=== PATIENT | female | born 1985 | race Caucasian/White ===

== ENCOUNTER 2023-06-25 17:29 | Emergency (ER) | payer OTHER, SELFPAY ==
[2023-06-25 17:36] VITALS: BP 123/75; PULSE 71; RESP 16; TEMP 36.6; O2SAT 100; BMI 31.6
--- NOTE | 2023-06-25 18:19 | ED.GENADUL1 ---
HPI - General Adult General Chief complaint: Headache Stated complaint: HEADACHE Time Seen by Provider: 06/25/23 17:50 Source: patient Mode of arrival: walk-in History of Present Illness HPI narrative: patient is a 38-year-old female presents to the emergency department for the evaluation of a headache. She states that the headache is in the same location that she typically has headaches, front of the scalp and posterior scalp. She denies visual changes, fevers. She states she was sick over the last two days with vomiting and diarrhea and is concerned that she may be dehydrated. She denies any head injury. She states she took Tylenol, Aleve and Zofran prior to arrival this morning without improvement. Headache has been present for one day. She is not concerned for . She states that she has had headaches for years, she has never had a CT of her brain related to the headaches. She is not managed by a neurologist or her PCP for the headaches. Related Data Previous Rx's Medication Instructions Recorded ketorolac 10 mg tablet 10 mg PO TID PRN pain #10 tabs 06/25/23 metoclopramide HCl 10 mg tablet 10 mg PO Q6H PRN nausea and 06/25/23 (Reglan) vomiting #12 tabs Allergies Allergy/AdvReac Type Severity Reaction Status Date / Time acetaminophen [From Vicodin] Allergy Severe Verified 06/25/23 17:36 hydrocodone [From Vicodin] Allergy Severe Verified 06/25/23 17:36 Penicillins Allergy Severe Verified 06/25/23 17:36 Review of Systems ROS Constitutional Denies: fever or chills Ears, nose, mouth, and throat Denies: throat pain Cardiovascular Denies: chest pain Respiratory Denies: shortness of breath or cough Gastrointestinal Reports: nausea Musculoskeletal Denies: back pain or neck pain Integumentary/Breast Denies: rash Neurological Reports: headache Hematologic/Lymphatic Denies: easy bruising Allergic/Immunologic Denies: hives Exam Narrative Exam Narrative: Gen.: Awake, alert, in no distress Head: Normocephalic, atraumatic ENT: Moist mucous membranes Neck: C-spine nontender, no nuchal rigidity, no meningismus Respiratory: No respiratory distress Extremities: Moves extremities equally, no injuries noted Psych: Normal mood and affect Neuro: No focal neuro deficit Skin: Warm, dry, intact Constitutional Vital Signs, click to edit/add: Last Vital Signs Temp 97.8 F 06/25/23 17:36 Pulse 71 06/25/23 17:36 Resp 16 06/25/23 17:36 BP 123/75 06/25/23 17:36 Pulse Ox 100 06/25/23 17:36 O2 Del Method Room Air 06/25/23 17:36 Course Vital Signs Vital signs: Vital Signs Temperature 97.8 F 06/25/23 17:36 Pulse Rate 71 06/25/23 17:36 Respiratory Rate 16 06/25/23 17:36 Blood Pressure 123/75 06/25/23 17:36 Pulse Oximetry 100 06/25/23 17:36 Oxygen Delivery Method Room Air 06/25/23 17:36 Temperature 97.8 F 06/25/23 17:36 Pulse Rate 71 06/25/23 17:36 Respiratory Rate 16 06/25/23 17:36 Blood Pressure 123/75 06/25/23 17:36 Pulse Oximetry 100 06/25/23 17:36 Oxygen Delivery Method Room Air 06/25/23 17:36 Medical Decision Making MDM Narrative Medical decision making narrative: CT of the brain was performed as the patient has not had previous imaging. This is unremarkable. patient has a benign neuro exam, normal vital signs. She was treated with IV fluids, Toradol, Norflex, Reglan, Benadryl. She reports improvement in her symptoms. She will be discharged home with Toradol and Reglan as needed. Follow-up with PCP and return to the Emergency Room if symptoms change or worsen. Medical Records Medical records reviewed: Yes I reviewed the patient's medical records Imaging Data CT scan - head: Attestation: I have reviewed the pertinent imaging results. Radiologist's impression: Procedure: CT head/brain wo con EXAM: CT head/brain wo con HISTORY: Headache COMPARISON: None. TECHNIQUE: Axial CT scans through the head were obtained without IV contrast administration. Dose reduction techniques were achieved by using: automated exposure control and/or adjustment of mA and /or kV according to patient size and/or use of iterative reconstruction technique. FINDINGS: There is no evidence of acute intracranial hemorrhage or abnormal extra-axial fluid collection. No mass effect or midline shift is seen. There is no evidence of large acute territorial infarction. There is no hydrocephalus. To the limit of CT, the posterior fossa appears unremarkable. No definite acute fracture is identified. Soft tissues are unremarkable. The visualized orbits show no abnormal mass. The visualized paranasal sinuses show no air-fluid level. Mastoid air cells are clear. IMPRESSION: No CT evidence of acute intracranial abnormality. Electronically authenticated by: VERA REYES Date: 06/25/2023 19:12 Discharge Plan Discharge Chief Complaint: Headache Clinical Impression: Headache Patient Disposition: Home, Self-Care Time of Disposition Decision: 19:33 Condition: Good Prescriptions / Home Meds: New ketorolac 10 mg tablet 10 mg PO TID PRN (Reason: pain) Qty: 10 0RF metoclopramide HCl [Reglan] 10 mg tablet 10 mg PO Q6H PRN (Reason: nausea and vomiting) Qty: 12 0RF Rx Instructions: Take with benadryl as needed for headache Instructions: Acute Headache (ED) Stand Alone Forms: Portal Instructions Referrals: Physician,Non-Staff, MD [Primary Care Provider] - 1 week
[2023-06-25] MEDS: KETOROLAC TROMETHAMINE 30 MG/ML VIAL IVP (18:30)
[2023-06-25] MEDS: 0.9 % SODIUM CHLORIDE 1,000 ML 1000 ML IV (18:30)
[2023-06-25] MEDS: DIPHENHYDRAMINE HCL 50 MG/ML (1ML) VIAL 25 MG IV (18:31)
[2023-06-25] MEDS: ORPHENADRINE 60 MG/ 2 ML VIAL IV (18:31)
[2023-06-25] MEDS: METOCLOPRAMIDE HCL 10 MG/2 ML VIAL INJ (18:31)
--- NOTE | 2023-06-25 18:58 | CT_ITS ---
The [address] [address] Patient Name: SARA DORANTES MRN: [id number] date: 1985 Sex: F Assigned Patient Location: ER Current Patient Location: ER Accession/Order Number: [id number] Exam Date: 06/25/2023 18:54 Report Date: 06/25/2023 19:12 At the request of: CHANO MIRANDA Procedure: CT head/brain wo con EXAM: CT head/brain wo con HISTORY: Headache COMPARISON: None. TECHNIQUE: Axial CT scans through the head were obtained without IV contrast administration. Dose reduction techniques were achieved by using: automated exposure control and/or adjustment of mA and /or kV according to patient size and/or use of iterative reconstruction technique. FINDINGS: There is no evidence of acute intracranial hemorrhage or abnormal extra-axial fluid collection. No mass effect or midline shift is seen. There is no evidence of large acute territorial infarction. There is no hydrocephalus. To the limit of CT, the posterior fossa appears unremarkable. No definite acute fracture is identified. Soft tissues are unremarkable. The visualized orbits show no abnormal mass. The visualized paranasal sinuses show no air-fluid level. Mastoid air cells are clear. CT/CT head/brain wo con IMPRESSION: No CT evidence of acute intracranial abnormality. Electronically authenticated by: VERA REYES Date: 06/25/2023 19:12
== END 2023-06-25 19:53 | disposition home or self-care (01) ==
PROVIDERS: Emergency Provider Emergency Medicine
DX: R51.9 Headache, unspecified (principal)
CPT/HCPCS: 70450; 96374; 96375; 99285

== ENCOUNTER 2023-12-08 09:00 | Emergency (ER) | payer SELFPAY ==
[2023-12-08 09:06] VITALS: BP 123/74; PULSE 65; RESP 18; TEMP 37.2; O2SAT 99; BMI 33.0
--- NOTE | 2023-12-08 09:17 | XR_ITS ---
The [address] [address] Patient Name: SARA DORANTES MRN: [id number] date: 1985 Sex: F Assigned Patient Location: ER Current Patient Location: ER Accession/Order Number: [id number] Exam Date: 12/08/2023 09:30 Report Date: 12/08/2023 09:53 At the request of: SHAUN HARKINS Procedure: XR hip RT 2V w/ pelvis PROCEDURE: XR hip RT 2V w/ pelvis COMPARISON: None. HISTORY: injury FINDINGS: BONES:No fracture, acute abnormality, or significant arthropathy. SOFT TISSUES:Negative. No visible soft tissue swelling. EFFUSION:None visible. OTHER: IUD mid pelvis XR/XR hip RT 2V w/ pelvis IMPRESSION: No acute fracture Electronically authenticated by: SIENA THURMAN Date: 12/08/2023 09:53
--- NOTE | 2023-12-08 09:17 | XR_ITS ---
The [address] [address] Patient Name: SARA DORANTES MRN: [id number] date: 1985 Sex: F Assigned Patient Location: ER Current Patient Location: ER Accession/Order Number: [id number] Exam Date: 12/08/2023 09:30 Report Date: 12/08/2023 09:46 At the request of: SHAUN HARKINS Procedure: XR forearm RT 2V XR forearm RT 2V, 12/08/2023 9:30 AM EST, [facility]001 INDICATION: injury COMPARISON: None TECHNIQUE: Two views are submitted. FINDINGS: The bones appear well mineralized. No acute fracture or subluxation is identified. The joint spaces are maintained. No destructive osseous process is identified. The visualized soft tissues appear unremarkable. XR/XR forearm RT 2V IMPRESSION: No acute traumatic abnormality or malalignment. Electronically authenticated by: MEG GANN Date: 12/08/2023 09:46
--- NOTE | 2023-12-08 09:54 | ED_ITS ---
HPI - Trauma General Chief Complaint: Extremity Injury, Upper Stated Complaint: upper extremity injury/ fall Time Seen by Provider: 12/08/23 09:35 Mode of arrival: walk-in Limitations: no limitations History of Present Illness HPI narrative: The patient fell at home on wooden steps outside of [place] house, landing onto concrete pathway, possibly some nearby stones, injuring the right forearm and the right hip. No head injury. No LOC. No injury to the neck or back. This happened just a short time prior to ED arrival. She is uncertain about her tetanus status. Related Data Previous Rx's Medication Instructions Recorded methocarbamol 750 mg tablet 750 mg PO Q6H PRN pain #30 tabs 12/08/23 Allergies Allergy/AdvReac Type Severity Reaction Status Date / Time hydrocodone [From Vicodin] Allergy Severe Verified 06/25/23 17:36 Penicillins Allergy Severe Verified 06/25/23 17:36 [facility] Social History Smoking status: Never smoker Exam Narrative Exam Narrative: Nurses note and vital signs reviewed and patient is not hypoxic. afebrile General: The patient appears well and in no apparent distress. Patient is resting comfortably on cart. GCS = 15. Skin: Warm, dry, no pallor noted. Head: Normocephalic, atraumatic Neck: Supple, trachea mid-line, no tenderness, no lymphadenopathy. Full ROM and no cervical spinal tenderness. The patient has no step-offs or crepitus noted Eyes: PERRLA, EOMI ENT: no facial injury Cardiovascular: Regular Rate and Rhythm Respiratory: Patient is in no distress, no accessory muscle use, lungs are clear to auscultation, no wheezing, rales or rhonchi Back: No tenderness to palpation of thoracic and lumbar spine. Musculoskeletal: tenderness to the right forearm with pain with any ROM. Right hip tenderness and pain with movement of the right hip. No additional sign of long bone fracture, no additional tenderness or areas of swelling. Pulses at femoral, DP, PT, and popiteal were 2+ bilaterally. Moves all four extremities in all modalities with 5/5 strength. Neurological: A&O x4, normal equal sales enablement lead strength, normal finger to nose, normal speech, normal coordination, normal motor, normal sensory. Psychiatric: Cooperative Constitutional Vital Signs, click to edit/add: Last Vital Signs Temp 98.9 F 12/08/23 09:06 Pulse 65 12/08/23 09:06 Resp 18 12/08/23 09:06 BP 123/74 12/08/23 09:06 Pulse Ox 99 12/08/23 09:06 O2 Del Method Room Air 12/08/23 09:06 Course Vital Signs Vital signs: Vital Signs Temperature 98.9 F 12/08/23 09:06 Pulse Rate 65 12/08/23 09:06 Respiratory Rate 18 12/08/23 09:06 Blood Pressure 123/74 12/08/23 09:06 Pulse Oximetry 99 12/08/23 09:06 Oxygen Delivery Method Room Air 12/08/23 09:06 Temperature 98.9 F 12/08/23 09:06 Pulse Rate 65 12/08/23 09:06 Respiratory Rate 18 12/08/23 09:06 Blood Pressure 123/74 12/08/23 09:06 Pulse Oximetry 99 12/08/23 09:06 Oxygen Delivery Method Room Air 12/08/23 09:06 MDM - Trauma MDM Narrative Medical decision making narrative: Triage nurse ordered x-rays of the right forearm and right hip. According to the radiologist, no acute fractures or other acute abnormalities were identified. She has difficulty swallowing pills and wants to take advil at home for pain. I also prescribed robaxin as the right buttock contusion would benefit from that. Patient given IM tetanus before discharge. She said she does not need a work note. Imaging Data xr hip & xr forearm: Radiologist's impression: ITS Impressions Forearm X-Ray 12/08/23 09:17 IMPRESSION: No acute traumatic abnormality or malalignment. Electronically authenticated by: MEG GANN Date: 12/08/2023 09:46 Hip/Pelvis X-Ray 12/08/23 09:17 IMPRESSION: No acute fracture Electronically authenticated by: SIENA THURMAN Date: 12/08/2023 09:53 Discharge Plan Discharge Chief Complaint: Extremity Injury, Upper Clinical Impression: Acute pain of right hip, Pain in right forearm, Abrasion, multiple sites, Multiple contusions Patient Disposition: Home, Self-Care Time of Disposition Decision: 10:06 Prescriptions / Home Meds: New methocarbamol 750 mg tablet 750 mg PO Q6H PRN (Reason: pain) Qty: 30 0RF Instructions: Contusion in Adults (ED), Abrasion (ED) Stand Alone Forms: Portal Instructions Referrals: Physician,Non-Staff, MD [Primary Care Provider] - 1 week
[2023-12-08] MEDS: ADACEL DIPH,PERTUSS(ACELL),TET VAC/PF 0.5 ML ADULT SYRINGE IM (10:14)
[2023-12-08] MEDS: BACITRACIN 0.9 GM PACKET 1 PACKET TOPICAL (10:16)
== END 2023-12-08 10:17 | disposition home or self-care (01) ==
PROVIDERS: Emergency Provider Emergency Medicine
DX: S30.0XXA Contusion of lower back and pelvis, initial encounter (principal); T14.8XXA Other injury of unspecified body region, initial encounter; M79.631 Pain in right forearm; M25.551 Pain in right hip; Z23 Encounter for immunization; W10.9XXA Fall (on) (from) unspecified stairs and steps, initial encounter
CPT/HCPCS: 73090; 73502; 90471; 90715; 99284

== ENCOUNTER 2023-12-25 14:06 | Outpatient (OUT) | payer SELFPAY ==
--- NOTE | 2023-12-25 14:20 | XR_ITS ---
[address] [address] Patient Name: SARA DORANTES MRN: [id number] date: 1985 Sex: F Assigned Patient Location: [facility] Current Patient Location: Accession/Order Number: [id number] Exam Date: 12/25/2023 14:15 Report Date: 12/28/2023 07:19 At the request of: YADIRA SIMPSON Procedure: XR elbow RT min 3V PROCEDURE: XR elbow RT min 3V COMPARISON: None. HISTORY: Right Elbow Pain M25.521 FINDINGS: BONES:No fracture, acute abnormality, or significant arthropathy. SOFT TISSUES:Negative. No visible soft tissue swelling. EFFUSION:None visible. OTHER: Negative. XR/XR elbow RT min 3V IMPRESSION: No acute radiographic abnormality Electronically authenticated by: SIENA THURMAN Date: 12/28/2023 07:19
--- OUTSIDE RECORDS SUMMARY | 2023-12-25 14:20 | XMS_ITS | CCD ---
Author Name Unknown Address [address] [place] [address] Organization [facility] Care Team Providers Care Relish Blender Name Role Phone YADIRA SIMPSON Primary Care Physician Whit Salinas Unavailable Marco Antonio Goldsmith Unavailable YADIRA SIMPSON Primary Care Unavailable LION, DAISY Admitting Unavailable LION, DAISY Attending Unavailable DAISY SEYMOUR Consulting Unavailable TAI GOMEZ Consulting Unavailable NGA, DR DANY Morrissey Admitting Unavailable NGA, DR DANY Morrissey Attending Unavailable TATIANA YADIRA Primary Care Unavailable NGA, DR DANY Morrissey Consulting Unavailable DALJIT SMITH Consulting Unavailable BELTRAN ., DR SAINI Admitting Unavailable BELTRAN ., DR SAINI Attending Unavailable TATIANA, YADIRA Primary Care Unavailable BELTRAN ., DR SAINI Consulting Unavailable DAISY SEYMOUR Consulting Unavailable DAISY SEYMOUR Admitting Unavailable LION, DAISY Attending Unavailable TATIANA, YADIRA Primary Care Unavailable JEFF LOMBARDI Consulting Unavailable TATIANA, YADIRA Primary Care Unavailable PAY ., DR SOLORZANO Admitting Unavailable PAY ., DR SOLORZANO Attending Unavailable PAY ., DR SOLORZANO Consulting Unavailable DALEY ., MR GIVENS Consulting Unavailable TATIANA YADIRA Primary Care Unavailable VADIM ., ELIZABETH Admitting Unavailable VADIM ., ELIZABETH Attending Unavailable VADIM ., ELIZABETH Consulting Unavailable Willie MONTERROSO Attending Unavailable Dany SYLVESTER Attending Unavailable Allergies Allergy Classification Reported Allergen(s) Allergy Type Date of Onset Reaction(s) Facility (3 sources) Acetaminophen / HYDROcodone; Translations: [acetaminophen-hy drocodone] Drug Allergy Vomiting (disorder) [facility] [place] (5 sources) Codeine; Translations: [codeine] Drug Allergy Vomiting (disorder) [facility] (6 sources) Penicillins; Translations: [penicillins] Drug allergy 04-10-20 14 Ulcer of mouth (disorder) [facility] (2 sources) Codone Propensity to adverse reactions vomiting Punchbowl Other (2 sources) Seasonal allergy; Translations: [Seasonal] Allergy to substance Unknown (qualifier value) [facility] (1 source) Codeine Drug Allergy 04-10-20 14 [facility] (1 source) HYDROcodone Drug Allergy 04-10-20 14 [facility] Medications Current Medications Medication Drug Class(es) Dates Sig (Normalized) Sig (Original) azithromycin 250 mg oral tablet (3 sources) Macrolide Antimicrobial Start: 01-03-2015 Azithromycin 250 MG 2 tablets on the first day, then 1 tablet daily for 4 days Orally Once a day for 5 day(s) Feb, Active Zyrtec (1 source) Histamine-1 Receptor Antagonist Start: 03-04-2023 Zyrtec Daily Start Date: 03/04/23 Status: Ordered fluticasone propionate 0.05 mg/actuat metered dose nasal spray (1 source) Corticosteroid Start: 03-07-2023 take 1 spray(s) nasal route twice daily Fluticasone Propionate 50 MCG/ACT 1 spray in each nostril Nasally Twice a day for 14 days Feb, Active pantoprazole 40 mg delayed release oral tablet (2 sources) Proton Pump Inhibitor Start: 11-19-2020 take 1 tablet by mouth once daily Pantoprazole [address] Tab 40 mg = 1 tab(s), Oral, Daily, Refills(s) 0 Start Date: 11/19/20 Status: Ordered sucralfate 1000 mg oral tablet (2 sources) Aluminum Complex Start: 11-19-2020 sucralfate 1 g Tab 1 gm = 1 tab(s), Oral, QIDACHS, Refills(s) 0 Start Date: 11/19/20 Status: Ordered Completed/Discontinued Medications Medication Drug Class(es) Dates Sig (Normalized) Sig (Original) methylPREDNISolone 4 mg oral tablet (2 sources) Corticosteroid Start: 3 methylPREDNISolone 4 MG as directed Orally Once a day for 6 days Nov, Not-Taking Problems Active Problems Problem Classification Problem Date Documented Da te Episodic/Chronic Abdominal pain (3 sources) Right lower quadrant pain; Translations: [RIGHT LOWER QUADRANT PAIN] Onset: 3 Episodic Anxiety disorders (2 sources) Anxiety 11-19-2020 Chronic Calculus of urinary tract (9 sources) Ureteric stone; Translations: [Calculus of ureter] Onset: 3 Episodic Deficiency and other anemia (1 source) Anemia 03-04-2023 Episodic Esophageal disorders (3 sources) Gastroesophageal reflux disease without esophagitis; Translations: [Gastro-esophageal reflux disease without esophagitis] Onset: 2 Chronic Gastritis and duodenitis (2 sources) Chronic gastritis 11-19-2020 Chronic Headache; including migraine (1 source) Headache 03-04-2023 Episodic Immunizations and screening for infectious disease (1 source) Encounter for screening for human papillomavirus (HPV); Translations: [ENC SCREENING HUMAN PAPILLOMAVIRUS] Onset: 3 Episodic Nonspecific chest pain (2 sources) Chest pain 11-22-2020 Episodic Osteoarthritis (1 source) Arthritis 03-04-2023 Chronic Other diseases of kidney and ureters (1 source) Hydronephrosis with renal and ureteral calculous obstruction; Translations: [HYDRONPHROS RENL AND URETRL CALCUL OBST] Onset: 3 Episodic Other gastrointestinal disorders (3 sources) Dysphagia; Translations: [Dysphagia, unspecified] Onset: 2 Episodic Other lower respiratory disease (3 sources) Cough; Translations: [Cough, unspecified] Onset: 2 Episodic Other nutritional; endocrine; and metabolic disorders (2 sources) Overweight in adulthood with body mass index of 25 or more but less than 30 06-26-2022 Episodic Other screening for suspected conditions (not mental disorders or infectious disease) (4 sources) Encounter for screening for malignant neoplasm of cervix; Translations: [ENC SCREENING MALIG NEOPLASM CERV] Onset: 3 Episodic Other upper respiratory infections (3 sources) Maxillary sinusitis; Translations: [Maxillary sinusitis] Onset: 2 Chronic Otitis media and related conditions (1 source) Unspecified nonsuppurative otitis media, right ear Episodic Residual codes; unclassified (2 sources) Chronic back pain 11-19-2020 Episodic Spondylosis; intervertebral disc disorders; other back problems (2 sources) Chronic neck pain 11-19-2020 Episodic Unclassified (2 sources) COUGH, UNSPECIFIED; Translations: [COUGH, UNSPECIFIED] Onset: 2 Unclassified (1 source) CONTACT W/AND (SUSP) EXPOS COVID-19; Translations: [CONTACT W/AND (SUSP) EXPOS COVID-19] Onset: 2 Past or Other Problems Problem Classification Problem Date Documented Da te Episodic/Chronic Allergic reactions (1 source) Other allergy, initial encounter; Translations: [OTHER ALLERGY INITIAL ENCOUNTER] Onset: 06-10-2022 Episodic Conditions associated with dizziness or vertigo (4 sources) Dizziness and giddiness; Translations: [DIZZINESS AND GIDDINESS] Onset: 09-26-2022 Episodic Inflammation; infection of eye (except that caused by tuberculosis or sexually transmitteddisease) (4 sources) Other mucopurulent conjunctivitis, right eye; Translations: [OTH MUCOPURULNT CONJUNCTIVIT RT EYE] Onset: 06-09-2022 Episodic Other aftercare (1 source) Other custodial (current) drug therapy; Translations: [OTH [employer] CURRENT DRUG THERAPY] Onset: 09-29-2022 Episodic Other upper respiratory infections (2 sources) Acute pansinusitis, unspecified; Translations: [Acute upper respiratory infection, unspecified] Onset: 11-11-2022 Episodic Unclassified (1 source) Cough R05.9 Unclassified (1 source) COUGH, UNSPECIFIED; Translations: [COUGH, UNSPECIFIED] Onset: 11-08-2022 Results Test Name Value Interpretation Reference Range Facility PAP ACOG PANEL 2: 30 to 65on 03-17-2023 . . [facility] Comment on above: Result Comment: Performed at: WB Performed By: #### [id number] #### [facility] [address] [place] [address] Dr. Jamil Oropeza Age Gdln ACOG Testing 30-65 Normal [facility] Comment on above: Performed By: #### [id number] #### [facility] [address] [address] [address] Jamil Oropeza DIAGNOSIS: Comment Normal [facility] Comment on above: Result Comment: NEGATIVE FOR INTRAEPITHE LIAL LESION OR MALIGNANCY. Performed at: WB Performed By: #### [id number] #### [facility] [address] [place] [address] Dr. Jamil Oropeza HPV Aptima Negative Normal Negative [facility] Comment on above: Result Comment: This nucleic acid amplif ication test detects fourteen high-risk HPV types (16,18,31,33,35,39,45,51,52,56,58,59,66,68) without differentiation. Performed at: =G Performed By: #### [id number] #### [facility] [address] [place] [address] Dr. Jamil Oropeza HPV Genotype Reflex Comment Normal [facility] Comment on above: Result Comment: Criteria not met, HPV Ge notype not performed. Performed at: WB Performed By: #### [id number] #### [facility] [address] [place] [address] Dr. Jamil Oropeza Methodology: Comment Normal [facility] Comment on above: Result Comment: This liquid based ThinPr ep(R) pap test was screened with the use of an image guided system. Performed at: WB Performed By: #### [id number] #### [facility] [address] [place] [address] Dr. Jamil Oropeza Note: Comment Normal [facility] Comment on above: Result Comment: The Pap smear is a scree alana test designed to aid in the detection of premalignant and malignant conditions of the uterine cervix. It is not a diagnostic procedure and should not be used as the sole means of detecting cervical cancer. Both false-positive and false-negative reports do occur. . Performed at: WB Performed By: #### [id number] #### [facility] [address] [place] [address] Dr. Jamil Oropeza Performed by: Comment Normal [facility] Comment on above: Result Comment: Veronica Urban, Cytotech nologist (ASCP) Performed at: WB Performed By: #### [id number] #### [facility] [address] [address] [address] Jamil Oropeza Specimen adequacy: Comment Normal [facility] Comment on above: Result Comment: Satisfactory for evaluat ion. Endocervical and/or squamous metaplastic cells (endocervical component) are present. Performed at: WB Performed By: #### [id number] #### [facility] [address] [address] [address] Jamil Oropeza COVID Quick Testingon 2022 Result Negative Punchbowl Other Ambulatory Visit Summaryon 0 03-04-2023 Ambulatory Visit Summary SARA DORANTES :1985 Visit Date:03/04/2023 Ambulatory Visit Instructions Your Diagnosis Ureteral stone Kidney stone Tests Performed Urnls Dip Stick Auto w/o Microscopy POC 76[address] Your Care Team Attending Physician - Dany SYLVESTER MD Primary Care Physician - YADIRA SIMPSON CNP This Is Your Medications List Contact prescribing physician if questions or concerns cetirizine (Zyrtec) pantoprazole (Pantoprazole [address] Tab) sucralfate (sucralfate 1 g Tab) Procedures Performed EGD - Esophagogastroduodenoscopy (11/16/2016). Discharge Vitals Heart Rate (Peripheral) 71 Respiratory Rate 16 Blood Pressure 127/75 Height 165 cm Height 65 in Weight 84 kg Weight 184.8 lb BMI 30.85 What to do next You Need to Schedule the Following Appointments Follow Up with Dany SYLVESTER MD, URL When: Where: [address] [place], [place] [address] [address] [place] [id number]- Medications What How Much When Instructions Unchanged cetirizine (Zyrtec) Every day Contact prescribing physician if questions or concerns Unchanged pantoprazole (Pantoprazole [address] Tab) 1 Tablets By Mouth Every day Contact prescribing physician if questions or concerns Unchanged sucralfate (sucralfate 1 g Tab) 1 Tablets By Mouth Four times a day (before meals and at bedtime) Contact prescribing physician if questions or concerns Test Results Urnls Dip Stick Auto w/o Microscopy POC 11608 (03/04/2023) Bilirubin Urine Dipstick - Negative Blood Urine Dipstick - 2+ Moderate Glucose Urine Dipstick - Negative Ketones Urine Dipstick - Negative Leukocytes Urine Dipstick - Trace Nitrite Urine Dipstick - Negative Protein Urine Dipstick - Negative Specific [place] Urine Dipstick - 1.010 Urine Appearance Urine Dipstick - Clear Urine Color Urine Dipstick - Light yellow Urobilinogen Urine Dipstick - Normal 0.2-1 EU/dl pH Urine Dipstick - 7.5 Allergies Seasonal (Unknown) Vicodin (Vomiting) codeine (Vomiting) penicillins (Oral ulcer) Problems Ongoing - Any problem that you are currently receiving treatment for. Anemia Anxiety Arthritis BMI 29.0-29.9,adult Chest pain due to GERD Chronic back pain Chronic gastritis Chronic neck pain Cough Dysphagia GERD (gastroesophageal reflux disease) Headache Kidney stone Kidney stones Ureteral stone Education Materials Kidney Stones Kidney stones are rock-like masses that form inside of the kidneys. Kidneys are organs that make pee (urine). A kidney stone may move into other parts of the urinary tract, including: ? The tubes that connect the kidneys to the bladder (ureters). ? The bladder. ? The tube that carries urine out of the body (urethra). Kidney stones can cause very bad pain and can block the flow of pee. The stone usually leaves your body (passes) through your pee. You may need to have a doctor take out the stone. What are the causes? Kidney stones may be caused by: ? A condition in which certain glands make too much parathyroid hormone (primary hyperparathyroidism). ? A buildup of a type of crystals in the bladder made of a chemical called uric acid. The body makes uric acid when you eat certain foods. ? Narrowing (stricture) of one or both of the ureters. ? A kidney blockage that you were born with. ? Past surgery on the kidney or the ureters, such as gastric bypass surgery. What increases the risk? You are more likely to develop this condition if: ? You have had a kidney stone in the past. ? You have a family history of kidney stones. ? You do not drink enough water. ? You eat a diet that is high in protein, salt (sodium), or sugar. ? You are overweight or very overweight (obese). What are the signs or symptoms? Symptoms of a kidney stone may include: ? Pain in the side of the belly, right below the ribs (flank pain). Pain usually spreads (radiates) to the groin. ? Needing to pee often or right away (urgently). ? Pain when going pee (urinating). ? Blood in your pee (hematuria). ? Feeling like you may vomit (nauseous). ? Vomiting. ? Fever and chills. How is this treated? Treatment depends on the size, location, and makeup of the kidney stones. The stones will often pass out of the body through peeing. You may need to: ? Drink more fluid to help pass the stone. In some cases, you may be given fluids through an IV tube put into one of your veins at the hospital. ? Take medicine for pain. ? Make changes in your diet to help keep kidney stones from coming back. Sometimes, medical procedures are needed to remove a kidney stone. This may involve: ? A procedure to break up kidney stones using a beam of light (laser) or shock waves. ? Surgery to remove the kidney stones. Follow these instructions at home: Medicines ? Take uebl-vcy-thhwowa and prescription medicines only (more content not included)... Normal [facility] Formson 03-04-2023 Forms [id number]:127 [facility] Forms [id number]:127 [facility] Patient Educationon 03-04-20 23 Patient Education Urology Kidney Stones Kidney stones are rock-like masses that form inside of the kidneys. Kidneys are organs that make pee (urine). A kidney stone may move into other parts of the urinary tract, including: ? The tubes that connect the kidneys to the bladder (ureters). ? The bladder. ? The tube that carries urine out of the body (urethra). Kidney stones can cause very bad pain and can block the flow of pee. The stone usually leaves your body (passes) through your pee. You may need to have a doctor take out the stone. What are the causes? Kidney stones may be caused by: ? A condition in which certain glands make too much parathyroid hormone (primary hyperparathyroidism). ? A buildup of a type of crystals in the bladder made of a chemical called uric acid. The body makes uric acid when you eat certain foods. ? Narrowing (stricture) of one or both of the ureters. ? A kidney blockage that you were born with. ? Past surgery on the kidney or the ureters, such as gastric bypass surgery. What increases the risk? You are more likely to develop this condition if: ? You have had a kidney stone in the past. ? You have a family history of kidney stones. ? You do not drink enough water. ? You eat a diet that is high in protein, salt (sodium), or sugar. ? You are overweight or very overweight (obese). What are the signs or symptoms? Symptoms of a kidney stone may include: ? Pain in the side of the belly, right below the ribs (flank pain). Pain usually spreads (radiates) to the groin. ? Needing to pee often or right away (urgently). ? Pain when going pee (urinating). ? Blood in your pee (hematuria). ? Feeling like you may vomit (nauseous). ? Vomiting. ? Fever and chills. How is this treated? Treatment depends on the size, location, and makeup of the kidney stones. The stones will often pass out of the body through peeing. You may need to: ? Drink more fluid to help pass the stone. In some cases, you may be given fluids through an IV tube put into one of your veins at the hospital. ? Take medicine for pain. ? Make changes in your diet to help keep kidney stones from coming back. Sometimes, medical procedures are needed to remove a kidney stone. This may involve: ? A procedure to break up kidney stones using a beam of light (laser) or shock waves. ? Surgery to remove the kidney stones. Follow these instructions at home: Medicines ? Take vobn-ljw-pmcuijp and prescription medicines only as told by your doctor. ? Ask your doctor if the medicine prescribed to you requires you to avoid driving or using heavy machinery. Eating and drinking ? Drink enough fluid to keep your pee pale yellow. You may be told to drink at least 8?10 glasses of water each day. This will help you pass the stone. ? If told by your doctor, change your diet. This may include: ? Limiting how much salt you eat. ? Eating more fruits and vegetables. ? Limiting how much meat, poultry, fish, and eggs you eat. ? Follow instructions from your doctor about eating or drinking restrictions. General instructions ? Collect pee samples as told by your doctor. You may need to collect a pee sample: ? 24 hours after a stone comes out. ? 8?12 weeks after a stone comes out, and every 6?12 months after that. ? Strain your pee every time you pee (urinate), for as long as told. Use the strainer that your doctor recommends. ? Do not throw out the stone. Keep it so that it can be tested by your doctor. ? Keep all follow-up visits as told by your doctor. This is important. You may need follow-up tests. How is this prevented? To prevent another kidney stone: ? Drink enough fluid to keep your pee pale yellow. This is the best way to prevent kidney stones. ? Eat healthy foods. ? Avoid certain foods as told by your doctor. You may be told to eat less protein. ? Stay at a healthy weight. Where to find more information ? National Kidney Foundation (NKF): www.kidney.org ? [employer] (UCF): www.urologyhealth.org Contact a doctor if: ? You have pain that gets worse or does not get better with medicine. Get help right away if: ? You have a fever or chills. ? You get very bad pain. ? You get new pain in your belly (abdomen). ? You pass out (faint). ? You cannot pee. Summary ? Kidney stones are rock-like masses that form inside of the kidneys. ? Kidney stones can cause very bad pain and can block the flow of pee. ? The stones will often pass out of the body through peeing. ? Drink enough fluid to keep your pee pale yellow. This information is not intended to replace advice given to you by your health care provider. Make sure you discuss any questions you have with your health care provider. Document Revised: 07/07/2022 Document Reviewed: 07/07/2022 [employer] Patient Education ? 2022 [employer] Shweta [facility] Urology Office/Clinic Noteon 03-04-2023 Urology Office/Clinic Note Chief Complaint New Pt. [facility] ER HPI Staff This is a 37 year old New Pt. seen in [facility] ER on 01/31/23 due to blood in the urine and RLQ pain that comes and goes. CT done while in the ER. KUB done 03/02/23. Pt. states not kidney stone sin the past. Dysuria: no Incomplete bladder emptying: no Hematuria: UA shows moderate today, Pt. states she has not seen any blood since her visit to the ER Frequency: Pt. states in the morning about every hour, but Pt. states she drinks tea in the morning. Pt. states later in the day she can go longer Urgency: yes Nocturia: no Stream: good stream Leaking: yes Post void dripping: yes Wearing pads/ Depends: Pt. states she always wears a light liner due to other issues. Urge incontinence: no Stress incontinence: yes, with coughing and sneezing. Incontinence without Sensory Awareness: no Abdominal pain: no Flank pain: no History of Present Illness Tests reviewed: Reviewed UA, ER notes, CT scan, and KUB. I have reviewed the previous health record information and history for this patient from Dr. Sylvester. I have reviewed and verified the staff HPI to be accurate for this encounter. There have been no associated fever, chills, flank pain, or blood in the urine. Denies any urinary infections since last encounter. Review of Systems PHQ Score Initial Depression Screen Score: 0 ROS - Provider Constitutional: denies weight loss, denies hot flashes. Eyes: denies eye problems. Gastrointestinal: denies nausea, denies vomiting. Cardiovascular: denies chest pain or angina. Integumentary: no dryness Musculoskeletal: denies musculoskeletal symptoms. ENMT: denies otolaryngeal symptoms. Respiratory: no shortness of breath. Heme/Lymph: denies easy bleeding tendency, denies easy bruising tendency. Psychiatric: no confusion, no anxiety. Genitourinary: See HPI. Physical Exam Vitals & Measurements HR: 71(Peripheral) RR: 16 BP: 127/75 HT: 65 in HT: 165 cm WT: 84 kg WT: 184.8 lb BMI: 30.85 General Appearance: alert , no acute distress, well nourished, well developed female. Head: normocephalic . Eyes: normal orbit and globe. ENMT: normal examination of external ears. Chest: Lungs CTA, respirations non labored . Cardiovascular: regular rate and rhythm. Abdomen: soft, non distended, no tenderness, no mass or organomegaly, no hernia. Genitourinary: bladder nonpalpable, no flank tenderness. Lymph Nodes: unremarkable palpation of the cervical area. Skin: warm, dry, no bruising. Psychiatric: cooperative, affect appropriate for age, normal judgement, euthymic mood. Assessment/Plan 1. Ureteral stone (N20.1: Calculus of ureter) New patient presented to [facility] ER 01/31/23 with gross hematuria and RLQ pain associated with nausea. CT AP w/o contrast 01/31/23 mild hydronephrosis secondary to a 2.5 mm stone at the ureteropelvic junction. KUB 03/02/23 neg for stones. UA today MODERATE blood and trace MARIA G. pH 7.5. Denies gross hematuria since initial ER visit. Denies history of kidney stones. Patient unsure when/if she passed the stone, was straining urine intermittently. States she has not had any pain in the last 2 weeks. I do not advise repeating further imaging to prove stone was passed. We discussed the etiology of kidney stone formation, including genetic predisposition, dietary factors, and different metabolism in patients. Will order 24 hour urine for analysis, as well as blood work. 2. Kidney stone (N20.0: Calculus of kidney) CT AP w/o contrast 01/31/23 6 mm calyceal stone in the superior pole. Discussed ESWL treatment before stone becomes too larger along with laser lithotripsy. I also discussed continued surveillance. Patient shares she bruises easily in which she would need further testing prior to ESWL due to risk of hematoma (anticoagulation times). -Will order PT, PTT, INR and may need to discuss with PCP. Overall the [facility] [facility] with a small right upper ureteral calculus which I assume she has passed. She has not been having any pain over the past week or so. We did discuss whether or not to perform a study to be sure she is passed that stone but she agrees with my assumption. We then had an extensive discussion about the existing right upper pole stone measuring 6 mm. Options regarding external lithotripsy versus laser lithotripsy and ureteroscopy was discussed. She does have a bruising tendency in the absence of frequent epistaxis. I feel that we need to start with some coagulation times. She may be at increased risk for perinephric hematoma with external lithotripsy. There is also a risk of trying to gain access into the kidney and a nondilated ureter. She does agree with the recommended metabolic work-up for urolithiasis and we will proceed with that. She agrees with the plan Follow-up With When Contact Information Dany SYLVESTER MD, URL [address] [place] [id number] Additional Instructions: [place] (more content not included)... [facility] Comment on above: Result Comment: Electronically Signed By : Dany SYLVESTER MD\.br\Date and Time Signed: 03/04/23 12:49 EDT\.br\Electronically Co-Signed By: Laxmi Mcdowell\.br\Date and Time Co-Signed: 03/04/23 12:07 EDT\.br\Electronically Co-Signed By: Laxmi Mcdowell\.br\Date and Time Co-Signed: 03/04/23 12:17 EDT RAD - MISCon 03-03-2023 RAD - MISC [id number]:127 [facility] ED Note-Physicianon 02-24-20 ED Note-Physician [id number]:127 [facility] RAD - CT Reporton 02-23-2023 RAD - CT Report [id number]:127 [facility] AMYLASEon 01-31-2023 Amylase [Catalytic activity/Vol] 45 U/L Normal 25-115 [facility] Comment on above: Performed By: #### CMP, LIPA, VERONICA #### [facility] [address] [place] [address] Dr. Jamil Oropeza CBC AUTO DIFFon 01-31-2023 BASO # 0.0 103/ul Normal 0.0-0.1 [facility] Comment on above: Performed By: #### ERURMICAELAICRO #### [facility] [address] [place] [address] [address] Jamil Oropeza Basophils/100 WBC (Bld) 0.4 % Normal 0.2-2.0 [facility] Comment on above: Performed By: #### JASMYN FUENTES #### [facility] [address] [place] [address] Dr. Jamil Oropeza EO # 0.1 103/ul Normal 0.0-0.7 [facility] Comment on above: Performed By: #### STEPHEN FUENTESRO #### [facility] [address] [place] [address] Dr. Jamil Oropeza Eosinophils/100 WBC (Bld) 0.8 % Critically low 0.9-7.0 [facility] Comment on above: Performed By: #### STEPHEN FUENTESRO #### [facility] [address] [place] [address] Dr. Jamil Oropeza Erythrocyte distribution width (RBC) [Ratio] 12.3 % Normal 11.0-15.0 [facility] Comment on above: Performed By: #### STEPHEN FUENTESRO #### [facility] [address] [place] [address] Dr. Jamil Oropeza Hematocrit (Bld) [Volume fraction] 40.4 % Normal 36.0-48.0 [facility] Comment on above: Performed By: #### STEPHEN FUENTESRO #### [facility] [address] [place] [address] Dr. Jamil Oropeza Hemoglobin (Bld) [Mass/Vol] 13.7 g/dL Normal 12.0-16.0 [facility] Comment on above: Performed By: #### STEPHEN FUENTESRO #### [facility] [address] [place] [address] Dr. Jamil Oropeza IG # 0.03 10e3/ul Normal 0.00-0.03 [facility] Comment on above: Performed By: #### STEPHEN FUENTESRO #### [facility] [address] [place] [address] Dr. Jamil Oropeza IG % 0.4 % Normal 0.0-0.5 [facility] Comment on above: Performed By: #### GINA UMICRO #### [facility] [address] [place] [address] [address] Jamil Oropeza LYMPH # 2.7 103/ul Normal 1.2-3.8 [facility] Comment on above: Performed By: #### ERUR, UMICRO #### [facility] [address] [place] [address] Dr. Jamil Oropeza Lymphocytes/100 WBC (Bld) 32.9 % Normal 20.5-60.0 [facility] Comment on above: Performed By: #### ERUR UMICRO #### [facility] [address] [place] [address] Dr. Jamil Oropeza MANUAL DIFF REQ NO Normal [facility] Comment on above: Performed By: #### GINA UMICRO #### [facility] [address] [place] [address] Dr. Jamil Oropeza MCH (RBC) [Entitic mass] 29.9 pg Normal 26.7-34.0 [facility] Comment on above: Performed By: #### GINA UMICRO #### [facility] [address] [place] [address] Dr. Jamil Oropeza MCHC (RBC) [Mass/Vol] 33.9 g/dL Normal 29.9-35.2 [facility] Comment on above: Performed By: #### GINA UMICRO #### [facility] [address] [place] [address] Dr. Jamil Oropeza MCV (RBC) [Entitic vol] 88.2 fL Normal 81.0-99.0 [facility] Comment on above: Performed By: #### GINA UMICRO #### [facility] [address] [place] [address] Dr. Jamil Oropeza MONO # 0.5 103/ul Normal 0.3-0.8 [facility] Comment on above: Performed By: #### GINA UMICRO #### [facility] [address] [place] [address] Dr. Jamil Oropeza Monocytes/100 WBC (Bld) 6.5 % Normal 1.7-12.0 [facility] Comment on above: Performed By: #### JASMYN FUENTES #### [facility] [address] [place] [address] Dr. Jamil Oropeza NEUT # 4.9 103/ul Normal 1.4-6.5 [facility] Comment on above: Performed By: #### STEPHEN FUENTESRO #### [facility] [address] [place] [address] Dr. Jamil Oropeza Neutrophils/100 WBC (Bld) 59.0 % Normal 43.0-75.0 [facility] Comment on above: Performed By: #### STEPHEN FUENTESRO #### [facility] [address] [place] [address] Dr. Jamil Oropeza Platelet mean volume (Bld) [Entitic vol] 10.2 fL Normal 9.5-13.5 [facility] Comment on above: Performed By: #### STEPHEN FUENTESRO #### [facility] [address] [place] [address] Dr. Jamil Oropeza PLT 250 103/ul Normal 150-450 [facility] Comment on above: Performed By: #### STEPHEN FUENTESRO #### [facility] [address] [place] [address] Dr. Jamil Oropeza RBC 4.58 106/ul Normal 4.20-5.40 [facility] Comment on above: Performed By: #### STEPHEN FUENTESRO #### [facility] [address] [place] [address] Dr. Jamil Oropeza WBC 8.3 103/ul Normal 4.0-11.0 [facility] Comment on above: Performed By: #### STEPHEN FUENTESRO #### [facility] [address] [place] [address] ABD/PELVIS WO CONon 01-31 CT ABD/PELVIS WO CON EXAM: CT ABD/PELVIS WO CON HISTORY: CALCULUS OF KIDNEY. Right flank pain, nausea, hematuria. Symptoms began last night. COMPARISON: 10/09/2017. TECHNIQUE: Axial CT imaging was performed through the abdomen and pelvis without intravenous contrast. Multiplanar reformats were performed. Dose reduction techniques were achieved by using automated exposure control and/or adjustment of mA and/or kV according to patient size and/or use of iterative reconstruction technique. FINDINGS: Lung bases: Lung bases are clear. No pleural effusion. GI upper: Small duodenal diverticulum. Liver: Normal size and contour. Gallbladder: No significant abnormality. No cholelithiasis. Biliary system: No intra or extrahepatic biliary ductal dilatation. Spleen: Normal size. Pancreas: Unremarkable. Adrenal glands: Normal adrenal glands. Kidneys/ureters: Right kidney: Mild hydronephrosis secondary to a 2.5 mm stone at the ureteropelvic junction (image 52 of series 3). There is a 6 mm calyceal stone in the superior pole as well. Normal renal contours. Distal ureters decompressed. Left kidney: Normal contours. No hydronephrosis. No nephrolithiasis or ureterolithiasis. Vessels: No aneurysm. Lymph Nodes: No lymphadenopathy. Small bowel: No wall thickening or dilatation. Colon: No wall thickening or dilatation. Appendix: No findings of appendicitis. Peritoneal cavity: No free fluid or peritoneum. Lower : An ID is noted. The bladder is not well distended which limits evaluation; no significant abnormality demonstrated. Bones: No acute bony abnormality. Soft tissues: No acute finding. Additional findings: None. IMPRESSION: 1. Mild right hydronephrosis secondary to a 2.5 mm stone at the ureteropelvic junction. 2. Additional large right calyceal stone. Electronically authenticated by: TAI GOMEZ Date: 2023-01-31 06:25 Normal [facility] CULTURE URINEon 01-31-2023 CULTURE URINE Culture Observations : LIGHT GROWTH OF MIXED GENITAL BANDAR. NO POTENTIAL PATHOGENS SEEN. Normal [facility] Comment on above: Performed By: #### STEPHEN FUENTESRO #### [facility] [address] [place] [address] [address] Jamil Oropeza ER URINE PROFILEon 3 Bilirubin Ql (U) Negative Normal NEGATIVE [facility] Comment on above: Performed By: #### GINA UMARACELIRO #### [facility] [address] [place], [place] [address] Dr. Jamil Oropeza Clarity (U) CLEAR Normal CLEAR [facility] Comment on above: Performed By: #### GINA UMICRO #### [facility] [address] [place] [address] [address] Jamil Oropeza Color (U) BROWN Abnormal YELLOW [facility] Comment on above: Performed By: #### GINA UMICRO #### [facility] [address] [place] [address] Dr. Jamil CLANCY A micrscopic examina tion will be performed if indicated. Normal [facility] Comment on above: Performed By: #### GINA UMICRO #### [facility] [address] [place] [address] Dr. Jamil Oropeza Glucose Ql (U) 100 mg/dl Abnormal NEGATIVE [facility] Comment on above: Performed By: #### GINA UMICRO #### [facility] [address] [place] [address] Dr. Jamil Oropeza Hemoglobin Ql (U) LARGE Abnormal NEGATIVE [facility] Comment on above: Performed By: #### GINA UMICRO #### [facility] [address] [place] [address] Dr. Jamil Oropeza Ketones Ql (U) Negative Normal NEGATIVE [facility] Comment on above: Performed By: #### GINA UMICRO #### [facility] [address] [place] [address] Dr. Jamil Oropeza LEUKOCYTES TRACE Abnormal NEGATIVE [facility] Comment on above: Performed By: #### GINA UMICRO #### [facility] [address] [place] [address] Dr. Jamil Oropeza Nitrite Ql (U) Negative Normal NEGATIVE [facility] Comment on above: Performed By: #### GINA UMICRO #### [facility] [address] [place] [address] Dr. Jamil Oropeza pH (U) 5.5 [pH] Normal 5-9 [facility] Comment on above: Performed By: #### GINA UMICRO #### [facility] [address] [place] [address] Dr. Jamil Oropeza Protein (U) [Mass/Vol] 30 mg/dL Abnormal NEGATIVE/ TRACE [facility] Comment on above: Performed By: #### JASMYN FUENTES #### [facility] [address] [place] [address] Dr. Jamil Oropeza SPEC GRAVITY >=1.030 Abnormal 1.005-<=1.025 [facility] Comment on above: Performed By: #### STEPHEN FUENTESRO #### [facility] [address] [place] [address] Dr. Jamil Oropeza UR MICRO IND INDICATED Normal [facility] Comment on above: Performed By: #### JASMYN FUENTES #### [facility] [address] [place] [address] Dr. Jamil Oropeza Urobilinogen Qn (U) 0.2 {Ervin'U}/dL Normal 0.2 - 1.0 [facility] Comment on above: Performed By: #### JASMYN FUENTES #### [facility] [address] [place] [address] Dr. Jamil Oropeza LIPASEon 01-31-2023 Lipase [Catalytic activity/Vol] 102.0 U/L Normal 73.0-393.0 [facility] Comment on above: Performed By: #### CMP, LIPA, VERONICA #### [facility] [address] [place] [address] Dr. Jamil Oropeza PROF 14(COMP METB)on 023 Albumin [Mass/Vol] 3.8 g/dL Normal 3.4-5.0 [facility] Comment on above: Performed By: #### CMP, LIPA, VERONICA #### [facility] [address] [place] [address] Dr. Jamil Oropeza Albumin/Globuli n [Mass ratio] 1.1 {ratio} Normal [facility] Comment on above: Performed By: #### CMP, LIPA, VERONICA #### [facility] [address] [place] [address] Dr. Jamil Oropeza ALP [Catalytic activity/Vol] 100 U/L Normal 46-116 [facility] Comment on above: Performed By: #### CMP, LIPA, VERONICA #### [facility] [address] [address] [address] Jamil Oropeza ALT [Catalytic activity/Vol] 15 U/L Normal 14-59 [facility] Comment on above: Performed By: #### CMP, LIPA, VERONICA #### [facility] [address] [place] [address] [address] Jamil Oropeza Anion gap [Moles/Vol] 12.3 mmol/L Normal [facility] Comment on above: Performed By: #### CMP, LIPA, VERONICA #### [facility] [address] [place] [address] [address] Jamil Oropeza AST [Catalytic activity/Vol] 13 U/L Critically low 15-37 [facility] Comment on above: Performed By: #### CMP, LIPA, VERONICA #### [facility] [address] [place] [address] [address] Jamil Oropeza Bilirubin [Mass/Vol] 0.5 mg/dL Normal 0.2-1.0 [facility] Comment on above: Performed By: #### CMP, LIPA, VERONICA #### [facility] [address] [place] [address] [address] Jamil Oropeza Calcium [Mass/Vol] 8.7 mg/dL Normal 8.5-10.1 [facility] Comment on above: Performed By: #### CMP, LIPA, VERONICA #### [facility] [address] [place] [address] [address] Jamil Oropeza Chloride [Moles/Vol] 106 mmol/L Normal 98-107 [facility] Comment on above: Performed By: #### CMP, LIPA, VERONICA #### [facility] [address] [address] [address] Jamil Oropeza CO2 [Moles/Vol] 27.3 mmol/L Normal 21.0-32.0 [facility] Comment on above: Performed By: #### CMP, LIPA, VERONICA #### [facility] [address] [place] [address] [address] Jamil Oropeza Creatinine [Mass/Vol] 0.87 mg/dL Normal 0.55-1.02 [facility] Comment on above: Performed By: #### CMP, LIPA, VERONICA #### [facility] [address] [place] [address] Dr. Jamil Oropeza EGFR-AF ANGUILLAN >60 Normal >=60 [facility] Comment on above: Performed By: #### CMP, LIPA, VERONICA #### [facility] [address] [place] [address] Dr. Jamil Oropeza EGFR-NON AF ANGUILLAN >60 Normal >=60 [facility] Comment on above: Performed By: #### CMP, LIPA, VERONICA #### [facility] [address] [place] [address] Dr. Jamil Oropeza Globulin (S) [Mass/Vol] 3.4 g/dL Normal [facility] Comment on above: Performed By: #### CMP, LIPA, VERONICA #### [facility] [address] [place] [address] Dr. Jamil Oropeza Glucose [Mass/Vol] 95 mg/dL Normal 74-106 [facility] Comment on above: Performed By: #### CMP, LIPA, VERONICA #### [facility] [address] [place] [address] Dr. Jamil Oropeza Potassium [Moles/Vol] 3.6 mmol/L Normal 3.5-5.1 [facility] Comment on above: Performed By: #### CMP, LIPA, VERONICA #### [facility] [address] [place] [address] Dr. Jamil Oropeza Protein [Mass/Vol] 7.2 g/dL Normal 6.4-8.2 [facility] Comment on above: Performed By: #### CMP, LIPA, VERONICA #### [facility] [address] [place] [address] Dr. Jamil Oropeza Sodium [Moles/Vol] 142 mmol/L Normal 136-145 [facility] Comment on above: Performed By: #### CMP, LIPA, VERONICA #### [facility] [address] [place] [address] Dr. Jamil Oropeza Urea nitrogen [Mass/Vol] 13.0 mg/dL Normal 7.0-18.0 [facility] Comment on above: Performed By: #### RADHA MORGAN AMY #### [facility] [address] [place] [address] Dr. Jamil Oropeza Urea nitrogen/Creati nine [Mass ratio] 14.9 mg/mg Normal [facility] Comment on above: Performed By: #### RADHA MORGAN AMY #### [facility] [address] [address] [address] Jamil Oropeza URINE MICROSCOPIC ONLYon BACTERIA SMALL Abnormal NONE SEEN [facility] Comment on above: Performed By: #### ERUR UMICRO #### [facility] [address] [place] [address] Dr. Jamil Oropeza Bacteria identified Cx Nom (U) INDICATED Normal [facility] Comment on above: Performed By: #### ERUR UMICRO #### [facility] [address] [place] [address] Dr. Jamil Oropeza CAST NONE SEEN Normal NONE SEEN [facility] Comment on above: Performed By: #### ERUR UMICRO #### [facility] [address] [place] [address] Dr. Jamil Oropeza Crystals LM Nom (Urine sed) NONE SEEN Normal NONE SEEN [facility] Comment on above: Performed By: #### ERUR, UMICRO #### [facility] [address] [place] [address] Dr. Jamil Oropeza Epithelial cells LM Ql (Urine sed) MODERATE Abnormal NONE SEEN /RARE [facility] Comment on above: Performed By: #### ERUR, UMICRO #### [facility] [address] [place] [address] Dr. Jamil Oropeza MUCOUS NONE SEEN Normal NONE SEEN [facility] Comment on above: Performed By: #### ERUR, UMICRO #### [facility] [address] [place] [address] Dr. Jamil Oropeza RBC (U) [#/Vol] /uL Abnormal 0-2 [facility] Comment on above: Performed By: #### ERUR, UMICRO #### [facility] [address] [place] [address] Dr. Jamil Oropeza WBC 2-5 Abnormal NONE SEEN [facility] Comment on above: Performed By: #### STEPHEN FUENTESRO #### [facility] [address] [place] [address] Dr. Jamil Oropeza INFLUENZA A AND B AGon 11-08 INFLUANE SEE BELOW Normal [facility] Comment on above: Result Comment: Negative for Flu A prote in angiten. Infection due to Flu A cannot be ruled out. Flu A angiten in the sample may be below the detection limit of the test. Performed By: #### JASMYN PICHARDO #### [facility] [address] [place] [address] Dr. Jamil Oropeza INFLUBNEG SEE BELOW Normal [facility] Comment on above: Result Comment: Negative for Flu B prote in antigen. Infection due to Flu B cannot be ruled out. Flu B antigen in the sample may be below the detection limit of the test. Performed By: #### STEPHEN PICHARDORO #### [facility] [address] [place] [address] Dr. Jamil Oropeza INFLUENZA A AG Negative Normal NEGATIVE SEE COMMENT [facility] Comment on above: Performed By: #### STEPHEN FUENTESRO #### [facility] [address] [place] [address] Dr. Jamil Oropeza INFLUENZA B AG Negative Normal NEGATIVE SEE COMMENT [facility] Comment on above: Performed By: #### STEPHEN FUENTESRO #### [facility] [address] [place] [address] Dr. Jamil Oropeza INTERNAL CONTROLS Within Normal Limits Normal Within Normal Limits [facility] Comment on above: Performed By: #### STEPHEN FUENTESRO #### [facility] [address] [place] [address] Dr. Jamil Oropeza CBC AUTO DIFFon 09-26-2022 BASO # 0.0 103/ul Normal 0.0-0.1 [facility] Comment on above: Performed By: #### ERUR, UMICRO #### [facility] [address] [place] [address] Dr. Jamil Oropeza Basophils/100 WBC (Bld) 0.3 % Normal 0.2-2.0 [facility] Comment on above: Performed By: #### GINA UMICRO #### [facility] [address] [place] [address] Dr. Jamil Oropeza EO # 0.0 103/ul Normal 0.0-0.7 [facility] Comment on above: Performed By: #### GINA UMICRO #### [facility] [address] [place] [address] Dr. Jamil Oropeza Eosinophils/100 WBC (Bld) 0.3 % Critically low 0.9-7.0 [facility] Comment on above: Performed By: #### GINA UMICRO #### [facility] [address] [place] [address] Dr. Jamil Oropeza Erythrocyte distribution width (RBC) [Ratio] 12.1 % Normal 11.0-15.0 [facility] Comment on above: Performed By: #### GINA UMICRO #### [facility] [address] [place] [address] Dr. Jamil Oropeza Hematocrit (Bld) [Volume fraction] 40.6 % Normal 36.0-48.0 [facility] Comment on above: Performed By: #### GINA UMICRO #### [facility] [address] [place] [address] Dr. Jamil Oropeza Hemoglobin (Bld) [Mass/Vol] 13.6 g/dL Normal 12.0-16.0 [facility] Comment on above: Performed By: #### GINA UMICRO #### [facility] [address] [place] [address] Dr. Jamil Oropeza IG # 0.03 10e3/ul Normal 0.00-0.03 [facility] Comment on above: Performed By: #### GINA UMICRO #### [facility] [address] [place] [address] Dr. Jamil Oropeza IG % 0.3 % Normal 0.0-0.5 [facility] Comment on above: Performed By: #### GINA UMICRO #### [facility] [address] [place] [address] Dr. Jamil Oropeza LYMPH # 1.9 103/ul Normal 1.2-3.8 [facility] Comment on above: Performed By: #### GINA UMICRO #### [facility] [address] [place] [address] Dr. Jamil Oropeza Lymphocytes/100 WBC (Bld) 21.2 % Normal 20.5-60.0 [facility] Comment on above: Performed By: #### GINA UMICRO #### [facility] [address] [place] [address] Dr. Jamil Oropeza MANUAL DIFF REQ NO Normal [facility] Comment on above: Performed By: #### GINA UMICRO #### [facility] [address] [place] [address] Dr. Jamil Oropeza MCH (RBC) [Entitic mass] 29.2 pg Normal 26.7-34.0 [facility] Comment on above: Performed By: #### GINA UMICRO #### [facility] [address] [place] [address] Dr. Jamil Oropeza MCHC (RBC) [Mass/Vol] 33.5 g/dL Normal 29.9-35.2 [facility] Comment on above: Performed By: #### GINA UMICRO #### [facility] [address] [place] [address] Dr. Jamil Oropeza MCV (RBC) [Entitic vol] 87.1 fL Normal 81.0-99.0 [facility] Comment on above: Performed By: #### GINA UMICRO #### [facility] [address] [place] [address] Dr. Jamil Oropeza MONO # 0.5 103/ul Normal 0.3-0.8 [facility] Comment on above: Performed By: #### GINA UMICRO #### [facility] [address] [place] [address] Dr. Jamil Oropeza Monocytes/100 WBC (Bld) 5.4 % Normal 1.7-12.0 [facility] Comment on above: Performed By: #### STEPHEN FUENTESRO #### [facility] [address] [place] [address] Dr. Jamil Oropeza NEUT # 6.5 103/ul Normal 1.4-6.5 [facility] Comment on above: Performed By: #### STEPHEN FUENTESRO #### [facility] [address] [place] [address] Dr. Jamil Oropeza Neutrophils/100 WBC (Bld) 72.5 % Normal 43.0-75.0 [facility] Comment on above: Performed By: #### STEPHEN FUENTESRO #### [facility] [address] [place] [address] Dr. Jamil Oropeza Platelet mean volume (Bld) [Entitic vol] 10.6 fL Normal 9.5-13.5 [facility] Comment on above: Performed By: #### MICAELA FUENTESICRO #### [facility] [facility] [address] [place] [address] Dr. Jamil Oropeza PLT 237 103/ul Normal 150-450 [facility] Comment on above: Performed By: #### MICAELA FUENTESICRO #### [facility] [address] [place] [address] Dr. Jamil Oropeza RBC 4.66 106/ul Normal 4.20-5.40 [facility] Comment on above: Performed By: #### STEPHEN FUENTESRO #### [facility] [address] [place] [address] Dr. Jamil Oropeza WBC 8.9 103/ul Normal 4.0-11.0 [facility] Comment on above: Performed By: #### STEPHEN FUENTESRO #### [facility] [address] [place] [address] Dr. Jamil Oropeza Covid-19 PCR ([facility])on 09-16 SARS-CoV-2 (COVID-19) RNA IDALIA+probe Ql (Unsp spec) Not detected Normal NOT DETECTED [facility] Comment on above: Result Comment: When diagnostic testing is negative, the possibility of a false negative should be considered in the context of a patient's recent exposures and the presence of clinical signs and symptoms consistent with SARS-CoV-2. This test is not yet approved or cleared by the [place] FDA. When there are no FDA-approved or cleared tests available, and other criteria are met, FDA can make tests available under an emergency access mechanism called an Emergency Use Authorization (EUA). The EUA for this test is supported by the [place] of Health and Human Service's declaration that circumstances exist to justify the emergency use of in vitro diagnostics for the detection and/or diagnosis of the virus that causes COVID-19. This EUA will remain in effect for the duration of the COVID-19 declaration justifying emergency of IVDs, unless it is terminated or revoked by the FDA (after which the test may no longer be used). Performed By: #### E WANDA UMARACELIRO #### [facility] [address] [place] [address] Dr. Jamil Oropeza ER URINE PROFILEon 2 Bilirubin Ql (U) Negative Normal NEGATIVE [facility] Comment on above: Performed By: #### GINA UMICRO #### [facility] [address] [place] [address] Dr. Jamil Oropeza Clarity (U) CLEAR Normal CLEAR [facility] Comment on above: Performed By: #### GINA UMICRO #### [facility] [address] [place] [address] Dr. Jamil Oropeza Color (U) LT. YELLOW Normal YELLOW [facility] Comment on above: Performed By: #### GINA UMICRO #### [facility] [address] [place] [address] Dr. Jamil BELLOAHD A micrscopic examina tion will be performed if indicated. Normal [facility] Comment on above: Performed By: #### GINA UMICRO #### [facility] [address] [place] [address] Dr. Jamil Oropeza Glucose Ql (U) Negative Normal NEGATIVE [facility] Comment on above: Performed By: #### GINA UMICRO #### [facility] [address] [place] [address] Dr. Jamil Oropeza Hemoglobin Ql (U) TRACE-INTACT Abnormal NEGATIVE [facility] Comment on above: Performed By: #### GINA UMICRO #### [facility] [address] [place] [address] Dr. Jamil Oropeza Ketones Ql (U) Negative Normal NEGATIVE [facility] Comment on above: Performed By: #### GINA UMICRO #### [facility] [address] [place] [address] Dr. Jamil Oropeza LEUKOCYTES Negative Normal NEGATIVE [facility] Comment on above: Performed By: #### GINA UMICRO #### [facility] [address] [place] [address] Dr. Jamil Oropeza Nitrite Ql (U) Negative Normal NEGATIVE [facility] Comment on above: Performed By: #### GINA UMICRO #### [facility] [address] [place] [address] Dr. Jamil Oropeza pH (U) 7.0 [pH] Normal 5-9 [facility] Comment on above: Performed By: #### GINA UMICRO #### [facility] [address] [place] [address] Dr. Jamil Oropeza SPEC GRAVITY 1.010 Normal 1.005-<=1.025 [facility] Comment on above: Performed By: #### GINA UMICRO #### [facility] [address] [place] [address] Dr. Jamil Oropeza UA PROTEIN Negative Normal NEGATIVE/ TRACE [facility] Comment on above: Performed By: #### GINA UMICRO #### [facility] [address] [place] [address] Dr. Jamil Oropeza UR MICRO IND INDICATED Normal [facility] Comment on above: Performed By: #### GINA UMICRO #### [facility] [address] [place] [address] Dr. Jamil Oropeza Urobilinogen Qn (U) 0.2 {Ervin'U}/dL Normal 0.2 - 1.0 [facility] Comment on above: Performed By: #### ERURJASMYN #### [facility] [address] [place] [address] Dr. Jamil Oropeza INFLUENZA A AND B AGon 09-26 INFLUANEGH SEE BELOW Normal [facility] Comment on above: Result Comment: Negative for Flu A prote in angiten. Infection due to Flu A cannot be ruled out. Flu A angiten in the sample may be below the detection limit of the test. Performed By: #### I NFLUAB #### [facility] [address] [place] [address] Dr. Jamil Oropeza INFLUBNEG SEE BELOW Normal [facility] Comment on above: Result Comment: Negative for Flu B prote in antigen. Infection due to Flu B cannot be ruled out. Flu B antigen in the sample may be below the detection limit of the test. Performed By: #### I NFLUAB #### [facility] [address] [place] [address] Dr. Jamil Oropeza INFLUENZA A AG Negative Normal NEGATIVE SEE COMMENT [facility] Comment on above: Performed By: #### INFLUAB #### [facility] [address] [place] [address] Dr. Jamil Oropeza INFLUENZA B AG Negative Normal NEGATIVE SEE COMMENT [facility] Comment on above: Performed By: #### INFLUAB #### [facility] [address] [place] [address] Dr. Jamil Oropeza INTERNAL CONTROLS Within Normal Limits Normal Within Normal Limits [facility] Comment on above: Performed By: #### INFLUAB #### [facility] [address] [place] [address] Dr. Jamil Orpoeza POINT OF CARE GLUCOSEon 09-16 Glucose [Mass/Vol] 100 mg/dL Normal 74-106 [facility] Comment on above: Performed By: #### POCGLUC #### [facility] [address] [place] [address] Dr. Jamil Oropeza URon 09-26-2022 , QUAL Negative Normal NEGATIVE [facility] Comment on above: Performed By: #### ERURSTEPHENRO #### [facility] [address] [address] [address] Jamil Oropeza PROF CHEM 8 (BAS METB)on Anion gap [Moles/Vol] 5.9 mmol/L Normal [facility] Comment on above: Performed By: #### BMP, HSTROPN #### [facility] [address] [place] [address] Dr. Jamil Oropeza Calcium [Mass/Vol] 9.8 mg/dL Normal 8.5-10.1 [facility] Comment on above: Performed By: #### BMP, HSTROPN #### [facility] [address] [place] [address] Dr. Jamil Oropeza Chloride [Moles/Vol] 103 mmol/L Normal 98-107 [facility] Comment on above: Performed By: #### BMP, HSTROPN #### [facility] [address] [place] [address] Dr. Jamil Oropeza CO2 [Moles/Vol] 30.9 mmol/L Normal 21.0-32.0 [facility] Comment on above: Performed By: #### BMP, HSTROPN #### [facility] [address] [place] [address] Dr. Jamil Oropeza Creatinine [Mass/Vol] 0.84 mg/dL Normal 0.55-1.02 [facility] Comment on above: Performed By: #### BMP, HSTROPN #### [facility] [address] [place] [address] Dr. Jamil Oropeza EGFR-AF ANGUILLAN >60 Normal >=60 [facility] Comment on above: Performed By: #### BMP, HSTROPN #### [facility] [address] [place] [address] Dr. Jamil Oropeza EGFR-NON AF ANGUILLAN >60 Normal >=60 [facility] Comment on above: Performed By: #### BMP, HSTROPN #### [facility] [address] [place] [address] Dr. Jamil Oropeza Glucose [Mass/Vol] 95 mg/dL Normal 74-106 [facility] Comment on above: Performed By: #### BMP, HSTROPN #### [facility] [address] [place] [address] Dr. Jamil Oropeza Potassium [Moles/Vol] 3.8 mmol/L Normal 3.5-5.1 [facility] Comment on above: Performed By: #### BMP, HSTROPN #### [facility] [address] [place] [address] Dr. Jamil Oropeza Sodium [Moles/Vol] 136 mmol/L Normal 136-145 [facility] Comment on above: Performed By: #### BMP, HSTROPN #### [facility] [address] [place] [address] Dr. Jamil Oropeza Urea nitrogen [Mass/Vol] 11.0 mg/dL Normal 7.0-18.0 [facility] Comment on above: Performed By: #### BMP, HSTROPN #### [facility] [address] [place] [address] Dr. Jamil Oropeza Urea nitrogen/Creati nine [Mass ratio] 13.1 mg/mg Normal [facility] Comment on above: Performed By: #### BMP, HSTROPN #### [facility] [address] [place] [address] Dr. Jamil Oropeza TROPONIN, HIGH SENSITIVITYon 09-26-2022 HSTROP 5.6 pg/mL Normal 4.0-51.3 [facility] Comment on above: Result Comment: CUT-OFF POINTS HAVE BEEN ESTABLISHED BASED ON THE FOURTH UNIVERSAL DEFINITIONS OF MYOCARDIAL INFARCTION. THE UPPER REFERENCE LIMIT (URL) OF TROPONIN, DEFINED THE 99TH PERCENTILE OF cTnI DISTRIBUTION IN A REFERENCE POPULATION, HAS BEEN CONFIRMED THE DECISION THRESHOLD FOR NC DIAGNOSIS. Performed By: #### B MP, HSTROPN #### [facility] [address] [place] [address] Dr. Jamil Oropeza URINE MICROSCOPIC ONLYon BACTERIA NONE SEEN Normal NONE SEEN [facility] Comment on above: Performed By: #### STEPHEN FUENTESRO #### [facility] [address] [address] [address] Jamil Oropeza Bacteria identified Cx Nom (U) NOT INDICATED Normal [facility] Comment on above: Performed By: #### ERUR, UMICRO #### [facility] [address] [place] [address] Dr. Jamil Oropeza CAST NONE SEEN Normal NONE SEEN [facility] Comment on above: Performed By: #### ERUR, UMICRO #### [facility] [address] [place] [address] Dr. Jamil Oropeza Crystals LM Nom (Urine sed) NONE SEEN Normal NONE SEEN [facility] Comment on above: Performed By: #### ERUR, UMICRO #### [facility] [address] [place] [address] Dr. Jamil Oropeza Epithelial cells LM Ql (Urine sed) FEW Abnormal NONE SEEN /RARE [facility] Comment on above: Performed By: #### ERUR, UMICRO #### [facility] [address] [place] [address] Dr. Jamil Oropeza MUCOUS NONE SEEN Normal NONE SEEN [facility] Comment on above: Performed By: #### ERUR, UMICRO #### [facility] [address] [place] [address] Dr. Jamil Oropeza RBC 0-2 Normal 0-2 [facility] Comment on above: Performed By: #### ERUR, UMICRO #### [facility] [address] [place] [address] Dr. Jamil Oropeza WBC NONE SEEN Normal NONE SEEN [facility] Comment on above: Performed By: #### ERUR, UMICRO #### [facility] [address] [place] [address] Dr. Jamil Oropeza General Surgery Office/Clini c Noteon 07-31-2022 General Surgery Office/Clinic Note Chief Complaint re-evaluate GERD/cough HPI Staff 37 year old female presents to re-evaluate GERD and cough. Last evaluation completed 11/2020; barium swallow was recommended but never completed. Reports she feels the need to constantly clear her throat. She has cough after eating or drinking intermittently for several years. She intermittently takes Protonix and Carafate, both of which are helpful. Last EGD 09/2017. History of Present Illness patient evaluated for GERD/cough, need to clear throat, back 11/2020; placed on Protonix and Carafate, patient reports that they help, but she is not taking them daily; did not schedule barium swallow; no dysphagia; no early satiety or wt loss; no N/V or bowel changes. Review of Systems PHQ Score Initial Depression Screen Score: 0 ROS - Provider Constitutional: no fever, no sweats, no weight loss. Eyes: no glasses, no blurred vision, no visual loss. ENMT: no dentures, no hoarseness, no swallowing difficulties, no hearing loss, no ear infection(s), no nose bleeds. Cardiovascular: normal blood pressure, no chest pain, regular heartbeat, no heart murmur. Respiratory: no shortness of breath, no cough, no asthma, no wheezing. Gastrointestinal: no nausea, no vomiting, no diarrhea, no constipation, no blood in stool, no change in bowel habits, no abdominal pain, no hepatitis. Genitourinary: no kidney stones, no urine infection, no dysuria. Musculoskeletal: no pain, no weakness. Skin: no changing moles, no rash, no skin lumps. Neurologic: no seizures, no epilepsy, no headache. Psychiatric: no emotional or psychiatric problem. Heme/Lymph: no bleeding problems, no anemia, no blood clots, no transfusions. Allergy/Immunologic: no swollen lymph nodes/glands, no IV drug abuse. Other: Additional ROS info: Except as noted in the above Review of Systems and in the History of Present Illness, all other systems have been reviewed and are negative or noncontributory. Physical Exam Vitals & Measurements HR: 68(Peripheral) RR: 16 BP: 116/81 HT: 165.1 cm HT: 165.1 cm WT: 80.7 kg WT: 80.7 kg BMI: 29.61 HEENT: normal conjunctiva, sclera clear, no scleral icterus, EOM intact, PERRLA, oral mucosa moist without lesions. Neck: trachea midline, no mass, symmetric, no thyromegaly or nodules, no adenopathy Respiratory: lungs CTA, respirations non labored. Cardiovascular: regular rate and rhythm, no murmur, no pedal edema or varicosities. Gastrointestinal: soft, non distended, no tenderness, no masses, no palpable hernias, diastasis recti no, no hepatosplenomegaly; normal bs Lymphatic: no cervical adenopathy, Musculoskeletal: normal gait, digits and nails without infection, nodes, cyanosis, clubbing. Skin: no rashes, no lesions, no ulcers, no subcutaneous nodules, induration. Psychiatric/Neuro: oriented to time, place, person, judgement normal, affect appropriate for age, insight intact, no focal deficits. Tests: review of old records completed, Assessment/Plan 1. GERD (gastroesophageal reflux disease) (K21.9: Gastro-esophageal reflux disease without esophagitis) take Protonix and Carafate daily; will set up Barium swallow; will call patient with results; call sooner if problems/questions. 2. Dysphagia (R13.10: Dysphagia, unspecified) see # 1 3. Cough (R05.9: Cough, unspecified) see # 1 Follow-up No qualifying data available Problem List/Past Medical History Ongoing Anxiety BMI 29.0-29.9,adult Chest pain due to GERD Chronic back pain Chronic gastritis Chronic neck pain Cough Dysphagia GERD (gastroesophageal reflux disease) Historical No qualifying data Procedure/Surgical History EGD - Esophagogastroduodenoscopy (11/16/2016). Medications Pantoprazole [address] Tab, 40 mg= 1 tab(s), Oral, Daily sucralfate 1 g Tab, 1 gm= 1 tab(s), Oral, QIDACHS Allergies Vicodin (Vomiting) codeine (Vomiting) penicillins (Oral ulcer) Social History Alcohol - Denies Alcohol Use, 11/22/2020 Substance Abuse - Denies Substance Abuse, 11/22/2020 Tobacco Never (less than 100 in lifetime) Tobacco Use:. Never Smokeless Tobacco Use:., 06/26/2022 Family History Family history is negative Normal [facility] Comment on above: Result Comment: Electronically Signed By : LOC HANNON, Willie Thomas\Date and Time Signed: 07/31/22 15:44 EDT Ambulatory Visit Summaryon 0 06-26-2022 Ambulatory Visit Summary SARA DORANTES :1985 Visit Date:06/26/2022 Ambulatory Visit Instructions Your Diagnosis GERD (gastroesophageal reflux disease) Dysphagia Cough Your Care Team Attending Physician - LOC HANNON, Willie Estrada Primary Care Physician - TATIANA MOODY, YADIRA Mariano This Is Your Medications List Contact prescribing physician if questions or concerns pantoprazole (Pantoprazole [address] Tab) sucralfate (sucralfate 1 g Tab) Procedures Performed EGD - Esophagogastroduodenoscopy (11/16/2016). Discharge Vitals Heart Rate (Peripheral) 68 Respiratory Rate 16 Blood Pressure 116/81 Height 165.1 cm Height 165.1 cm Weight 80.7 kg Weight 80.7 kg BMI 29.61 What to do next Scheduled Follow-Up Appointments 2021 9:00 AM EDT Where: [facility] You Need to Complete the Following XR Adult Swallowing Function w/ Video: Evaluate Pt, Develop a Plan of Care & Implement Plan, 07/24/22, Routine, Order for future visit, Transport Mode: Ambulatory, Reason: Dysphagia, Reason: K21.9, No, GERD (gastroesophageal reflux disease) Normal Cough, cough after swallowing, pp_set_radiolo gy_subspecialt y, Not Required, [facility]\.br\ Medications\.b r\ What How Much When Instructions\. br\ Unchanged pantoprazole (Pantoprazole [address] Tab) 1 Tablets By Mouth Every day Contact prescribing physician if questions or concerns \.br\ Unchanged sucralfate (sucralfate 1 g Tab) 1 Tablets By Mouth Four times a day (before meals and at bedtime) Contact prescribing physician if questions or concerns \.br\ Allergies\.br\ Vicodin (Vomiting)\.br \ codeine (Vomiting)\.br \ penicillins (Oral ulcer)\.br\ Problems\.br\ Ongoing - Any problem that you are currently receiving treatment for.\.br\ Anxiety\.br\ BMI 29.0-29.9,adul t\.br\ Chest pain due to GERD\.br\ Chronic back pain\.br\ Chronic gastritis\.br\ Chronic neck pain\.br\ Cough\.br\ Dysphagia\.br\ GERD (gastroesophag eal reflux disease)\.br\ \.br\ [facility] Covid-19 PCR ([facility])on 05-17 SARS-CoV-2 (COVID-19) RNA IDALIA+probe Ql (Unsp spec) Not detected Normal NOT DETECTED [facility] Comment on above: Result Comment: When diagnostic testing is negative, the possibility of a false negative should be considered in the context of a patient's recent exposures and the presence of clinical signs and symptoms consistent with SARS-CoV-2. This test is not yet approved or cleared by the [place] FDA. When there are no FDA-approved or cleared tests available, and other criteria are met, FDA can make tests available under an emergency access mechanism called an Emergency Use Authorization (EUA). The EUA for this test is supported by the [place] [employer] of Health and Human Service's declaration that circumstances exist to justify the emergency use of in vitro diagnostics for the detection and/or diagnosis of the virus that causes COVID-19. This EUA will remain in effect for the duration of the COVID-19 declaration justifying emergency of IVDs, unless it is terminated or revoked by the FDA (after which the test may no longer be used). Performed By: #### JASMYN PICHARDO #### [facility] [address] [place] [address] Dr. Jamil Oropeza XR SINUSES 3 VIEWS OR GREATE Paul 06-09-2022 XR SINUSES 3 VIEWS OR GREATER EXAM: XR SINUSES 3 VIEWS OR GREATER HISTORY: Pain COMPARISON: None. TECHNIQUE: 4 views of the paranasal sinuses were obtained. FINDINGS: No acute fracture or dislocation is seen. The peroneal sinuses and mastoid air cells are grossly clear. IMPRESSION: 1. The paranasal sinuses and mastoid air cells are grossly clear. If there is persistent concern, further evaluation with CT is recommended. Electronically authenticated by: Abhishek LOMBARDI Date: 2022-06-09 01:48 Normal [facility] Vital Signs Date Time Vital Sign Value Performing Clinician Facility 03-07-2023 12:00-0400 Body height 166.37 cm Marco Antonio Goldsmith Other [facility] 03-07-2023 12:00-0400 Body mass index (BMI) [Ratio] 30.31 kg/m2 Marco Antonio Goldsmith Other [facility] 03-07-2023 12:00-0400 Body temperature 97.9 [degF] Marco Antonio Goldsmith Other [facility] Other 03-07-2023 12:00-0400 Body weight 83.92 kg Marco Antonio Goldsmith Other [facility] Other 03-07-2023 12:00-0400 Diastolic blood pressure 83 mm[Hg] Marco Antonio Goldsmith Other [facility] Other 03-07-2023 12:00-0400 Respiratory rate 18 /min Marco Antonio Goldsmith Other [facility] 03-07-2023 12:00-0400 SaO2% (BldA) [Mass fraction] 98 % Marco Antonio Goldsmith Other [facility] 03-07-2023 12:00-0400 Systolic blood pressure 123 mm[Hg] Marco Antonio Goldsmith Other [facility] 03-04-2023 11:01-0400 Blood Pressure Location Dany [employer] [facility] 03-04-2023 11:01-0400 Diastolic blood pressure 75 mm[Hg] Dany [employer] [facility] 03-04-2023 11:01-0400 Heart rate 71 /min Dany [employer] [facility] 03-04-2023 11:01-0400 Respiratory rate 16 /min Dany [employer] [facility] 03-04-2023 11:01-0400 Systolic blood pressure 127 mm[Hg] Dany [employer] [facility] 11-27-2022 11:45-0500 Body height 166.37 cm Whit Salinas Other [facility] 11-27-2022 11:45-0500 Body mass index (BMI) [Ratio] 29.49 kg/m2 Whit Salinas Other [facility] Other 11-27-2022 11:45-0500 Body temperature 97.6 [degF] Whit Salinas Other [facility] Other 11-27-2022 11:45-0500 Body weight 81.65 kg Whit Salinas Other [facility] Other 11-27-2022 11:45-0500 Diastolic blood pressure 81 mm[Hg] Whit Ruckerault Other [facility] Other 11-27-2022 11:45-0500 Respiratory rate 18 /min Whit Salinas Other [facility] Other 11-27-2022 11:45-0500 SaO2% (BldA) [Mass fraction] 98 % Whit Salinas Other [facility] Other 11-27-2022 11:45-0500 Systolic blood pressure 124 mm[Hg] Whit Ruckerault Other [facility] Other 06-26-2022 10:16-0400 Blood Pressure Location Willie MONTERROSO [facility] [place] 06-26-2022 10:16-0400 Diastolic blood pressure 81 mm[Hg] Willie NILL [facility] [place] 06-26-2022 10:16-0400 Heart rate 68 /min Willie WEBERL [facility] [place] 06-26-2022 10:16-0400 Respiratory rate 16 /min Willie WEBERL [facility] [place] 06-26-2022 10:16-0400 Systolic blood pressure 116 mm[Hg] Willie WEBERL [facility] [place] Encounters Encounter Date Encounter Type Care Provider Facility Start: 03-10-2023 End: 03-10-[address] YENY GONG . Facility:[facility] Start: 03-07-2023 End: 03-07-2023 ambulatory Marco Antonio Goldsmith Other [facility] Other Start: 03-07-2023 Office outpatient visit 15 minutes Marco Antonio Goldsmith [employer] [facility] Start: 03-04-2023 End: 03-05-2023 ambulatory Dany SYLVESTER Facility:[facility] [place] Start: 03-04-2023 End: 03-04-2023 Patient encounter procedure Dany SYLVESTER [facility] [place] Start: 03-02-2023 End: 03-03-[address] DANY SYLVESTER Facility:[facility] Start: 02-24-2023 ambulatory Willie MONTERROSO Facility:[facility] [place] Start: 01-31-2023 End: 01-31-2023 ambulatory YADIRA SIMPSON Facility:[facility] Start: 11-27-2022 End: 11-27-2022 ambulatory Whit Salinas Other [facility] Other Start: 11-27-2022 Office outpatient ne w 20 minutes Whit Salinas [facility] Start: 11-08-2022 End: 11-08-2022 ambulatory YADIRA TATIANA Facility:[facility] Start: 09-26-2022 End: 09-26-2022 ambulatory YADIRA TATIANA Facility:[facility] Start: 06-26-2022 End: 06-27-2022 ambulatory Willie MONTERROSO Facility: [place] Start: 06-26-2022 End: 06-26-2022 Patient encounter procedure Willie Estrada LOC [facility] [place] Start: 06-13-2022 ambulatory Willie MONTERROSO Facility:[facility] Start: 06-09-2022 End: 06-09-2022 ambulatory DAISY SEYMOUR Facility: Procedures Date Procedure Procedure Detail Performing Clinician Start: 11-16-2016 Esophagogastroduodenoscopy Willie MONTERROSO Payers Date Payer Category Payer Unknown [id number] 2.16.84 [id number] 1985 Unknown [id number] 2.16.84 [id number] 1984 Unknown [id number] 2.16.84 [id number] 1984 Unknown [id number] 2.16.84 0.1.322785.3.579.2.59 1984 Unknown [id number] 2.16.84 [id number] 1984 Unknown [id number] 2.16.84 [id number] 1984 Unknown [id number] 2.16.8 [id number] 1984 Unknown [id number] 2.16.8 [id number] 1984 Unknown [id number] 2.16.8 [id number] 1960 Medicaid [id number] 2.16. [id number] 1959 Unknown [id number] 2.16.8 [id number] 1959 Unknown [id number] 1959 Unknown [id number] Social History Date Type Detail Facility Start: 06-26-2022 Tobacco smoking status Never s moked tobacco (finding) [facility] Tobacco smoking status Never [facility] Sex Assigned At Female [facility] Functional Status Date Assessment Result Facility 03-04-2023 Functional Status N/A [facility] 06-26-2022 Functional Status N/A [facility] [place] Evaluation note 03-07-2023 Note Date & Type Note Facility 03-07-2023 Evaluation note Encounter Date Diagnosis Assessment Notes Feb, Cough (ICD-10 - R05.9) Feb, Acute non-recurrent pansinusitis (ICD-10 - J01.40) Pt has preference of being treated with azithromycin as she states, I am normally treated with a zpak with this and it usually works really well. Sinus infections can be triggeredby a secondary infection; usually a viral URI or even seasonal allergies. Take medications as directed. Use saline nasal spray prior to presciption nasal spray. Complete all doses of medication even if you start to feel better. Symptoms should improve during treatment period. Follow up with primary care provider if no improvement of symptoms occur by end of treatment. [facility] Other Evaluation + Plan note 03-04-2023 Radiology Note Date & Type Note Facility 03-04-2023 Evaluation + Plan note Diagnostic Tests PendingPT 03/04/23PTT 03/04/23PT 03/04/23 Future Scheduled TestsXR Abdomen 1 View 02/24/23 [facility] Hospital Discharge instructions 03-04-2023 Note Date & Type Note Facility 03-04-2023 Hospital Discharg e instructions Patient Education 03/04/2023 11:52:31 Kidney Stones, Quhp-to-Bxzp Kidney Stones Kidney stones are rock-like masses that form inside of the kidneys. Kidneys are organs that make pee (urine). A kidney stone may move into other parts of the urinary tract, including: The tubes that connect the kidneys to the bladder (ureters). The bladder. The tube that carries urine out of the body (urethra). Kidney stones can cause very bad pain and can block the flow of pee. The stone usually leaves your body (passes) through your pee. You may need to have a doctor take out the stone. What are the causes? Kidney stones may be caused by: A condition in which certain glands make too much parathyroid hormone (primary hyperparathyroidism). A buildup of a type of crystals in the bladder made of a chemical called uric acid. The body makes uric acid when you eat certain foods. Narrowing (stricture) of one or both of the ureters. A kidney blockage that you were born with. Past surgery on the kidney or the ureters, such as gastric bypass surgery. What increases the risk? You are more likely to develop this condition if: You have had a kidney stone in the past. You have a family history of kidney stones. You do not drink enough water. You eat a diet that is high in protein, salt (sodium), or sugar. You are overweight or very overweight (obese). What are the signs or symptoms? Symptoms of a kidney stone may include: Pain in the side of the belly, right below the ribs (flank pain). Pain usually spreads (radiates) to the groin. Needing to pee often or right away (urgently). Pain when going pee (urinating). Blood in your pee (hematuria). Feeling like you may vomit (nauseous). Vomiting. Fever and chills. How is this treated? Treatment depends on the size, location, and makeup of the kidney stones. The stones will often pass out of the body through peeing. You may need to: Drink more fluid to help pass the stone. In some cases, you may be given fluids through an IV tube put into one of your veins at the hospital. Take medicine for pain. Make changes in your diet to help keep kidney stones from coming back. Sometimes, medical procedures are needed to remove a kidney stone. This may involve: A procedure to break up kidney stones using a beam of light (laser) or shock waves. Surgery to remove the kidney stones. Follow these instructions at home: Medicines Take ngma-ncx-llphsjf and prescription medicines only as told by your doctor. Ask your doctor if the medicine prescribed to you requires you to avoid driving or using heavy machinery. Eating and drinking Drink enough fluid to keep your pee pale yellow. You may be told to drink at least 8 10 glasses of water each day. This will help you pass the stone. If told by your doctor, change your diet. This may include: ?Limiting how much salt you eat. ?Eating more fruits and vegetables. ?Limiting how much meat, poultry, fish, and eggs you eat. Follow instructions from your doctor about eating or drinking restrictions. General instructions Collect pee samples as told by your doctor. You may need to collect a pee sample: ?24 hours after a stone comes out. ?8 12 weeks after a stone comes out, and every 6 12 months after that. Strain your pee every time you pee (urinate), for as long as told. Use the strainer that your doctor recommends. Do not throw out the stone. Keep it so that it can be tested by your doctor. Keep all follow-up visits as told by your doctor. This is important. You may need follow-up tests. How is this prevented? To prevent another kidney stone: Drink enough fluid to keep your pee pale yellow. This is the best way to prevent kidney stones. Eat healthy foods. Avoid certain foods as told by your doctor. You may be told to eat less protein. Stay at a healthy weight. Where to find more information National Kidney Foundation (NKF): www.kidney.org [employer] (UCF): www.urologyhealth.org Contact a doctor if: You have pain that gets worse or does not get better with medicine. Get help right away if: You have a fever or chills. You get very bad pain. You get new pain in your belly (abdomen). You pass out (faint). You cannot pee. Summary Kidney stones are rock-like masses that form inside of the kidneys. Kidney stones can cause very bad pain and can block the flow of pee. The stones will often pass out of the body through peeing. Drink enough fluid to keep your pee pale yellow. This information is not intended to replace advice given to you by your health care provider. Make sure you discuss any questions you have with your health care provider. Document Revised: 07/07/2022 Document Reviewed: 07/07/2022 JEDI MIND Patient Education 2022 [employer]. Follow Up Care 02/05/2023 09:42:12 With:NGA HANNON, Dany Morrissey, URL Address: [facility] [employer] [place] [id number] When: Unknown [facility] Clinical Note 03-02-2023 Note Date & Type Note Facility 03-02-2023 Note PROCEDURE: XR KUB 1 VIEW DATE: 03/02/2023 8:49 AM CDT COMPARISONS: None. CLINICAL INDICATION: 37 years Female Kidney stone FINDINGS: There is moderate colonic stool primarily located within the right colon and the transverse colon. There is a small amount of colonic gas. There is no significant gas within the small bowel. There is a small amount of gas in the stomach. This is a normal bowel gas pattern. No abnormal calcifications overlie the abdomen. The visualized osseous structures show no significant abnormalities. An IUD overlies the pelvis. IMPRESSION: The only possibly significant finding on this exam is that there is moderate colonic stool of the transverse colon and right colon. The exam is otherwise within normal limits. Electronically authenticated by: DALJIT SMITH Date: 2023-03-02 12:37 [facility] Evaluation note 11-27-2022 Note Date & Type Note Facility 11-27-2022 Evaluation note Encounter Date Diagnosis Assessment Notes Nov, Right otitis media with effusion (ICD-10 - H65.91) take medication as directed. Middle ear fluid can be caused from allergies, traveling or viral infections. It may linger. Follow up with PCP if symptoms persist [facility] Other Evaluation + Plan note Radiology Note Date & Type Note Facility Evaluation + Plan note Future Appointments Appointment Date:07/24/2022 09:00:00 AM Scheduled Provider: Location:.XRAY Appointment Type:XR MBS Adult (FT) Future Scheduled TestsXR Adult Swallowing Function w/ Video: Evaluate Pt, Develop a Plan of Care & Implement Plan 07/24/22 [facility] History general Narrative - Reported Note Date & Type Note Facility History general Narrative - Reported Type Medical History seasonal/environmental allergies Medical History acid reflux Medical History gastritis Surgical History cosmetic surgery Surgical History EGD Hospitalization History childbirth [facility] Other Hospital course Narrative Note Date & Type Note Facility Hospital course Narrative No data available for this section [facility] Hospital Discharge instructions Note Date & Type Note Facility Hospital Discharge instructions No data available for this section [facility] Progress note Note Date & Type Note Facility Progress note No data available for this section [facility] Summary Purpose Family History No Family History Records FoundNo Family History Records Found Advance Directives No Advanced Directives Records FoundNo Advanced Directives Records Found Additional Source Comments Care Team (unrecognized sect ion and content) Personnel Name: YADIRA SIMPSON CNP Address: [facility] SHIRA Claudia [address] Personnel Name: YADIRA SIMPSON CNP Address: Address: [address] [place] [address] REASON FOR VISIT (unrecogniz ed section and content) poss right ear infection - n o other symptomsSINUS PRESSURE, COUGH, CONGESTION, HEADACHE INFORMATION SOURCE (unrecogn ized section and content) DATE CREATED AUTHOR 03/21/2023 [facility] DATE CREATED AUTHOR 'S ORGANIZ ATION 06/06/2023 [facility] FOR RECORDS PERTAINING TO PATIENTS WHO ARE OR HAVE BEEN ENROLLED IN A CHEMICAL DEPENDENCY/SUBSTANCEABUSE PROGRAM, SOME INFORMATION MAY BE OMITTED. This clinical summary was aggregated from multiple sources. Caution should be exercised in using it in the provision of clinical care. This summary normalizes information from multiple sources, and as a consequence, information in this document may materially change the coding, format and clinical context of patient data. In addition, data may be omitted in some cases. CLINICAL DECISIONS SHOULD BE BASED ON THE PRIMARY CLINICAL RECORDS. [employer] [facility]. provides no warranty or guarantee of the accuracy or completeness of information in this document.
== END 2023-12-25 14:07 | disposition home or self-care (01) ==
LOC: RAD 14:07
PROVIDERS: PCP Nurse Practitioner Family; Visit Provider Nurse Practitioner Family
DX: M25.521 Pain in right elbow (principal)
CPT/HCPCS: 73080

== ENCOUNTER 2024-03-15 20:57 | Outpatient (REF) | payer OTHER, SELFPAY ==
--- OUTSIDE RECORDS SUMMARY | 2024-03-15 21:03 | XMS_ITS | CCD ---
Author Organization [facility] Care Team Providers Care Coater Hand Name Role Phone YADIRA SIMPSON Primary Care Physician Whit Salinas Unavailable Rupal Marco Antonio Unavailable YADIRA SIMPSON Primary Care Unavailable DAISY SEYMOUR Admitting Unavailable LION, DAISY Attending Unavailable DAISY SEYMOUR Consulting Unavailable TAI GOMEZ Consulting Unavailable NGA, DR DANY Morrissey Admitting Unavailable NGA, DR DANY Morrissey Attending Unavailable [facility] Unavailable NGA, DR DANY Morrissey Consulting Unavailable DALJIT SMITH Consulting Unavailable BELTRAN ., DR SAINI Admitting Unavailable BELTRAN ., DR SAINI Attending Unavailable [facility] Primary Care Unavailable BELTRAN ., DR SAINI Consulting Unavailable LION, DAISY Consulting Unavailable DAISY SEYMOUR Admitting Unavailable DAISY SEYMOUR Attending Unavailable [facility] Unavailable JEFF LOMBARDI Consulting Unavailable [facility] Primary Care Unavailable PAY ., DR SOLORZANO Admitting Unavailable PAY ., DR SOLORZANO Attending Unavailable PAY ., DR SOLORZANO Consulting Unavailable DALEY ., MR GIVENS Consulting Unavailable [facility] Care Unavailable VADIM ., ELIZABETH Admitting Unavailable VADIM ., ELIZABETH Attending Unavailable VADIM ., ELIZABETH Consulting Unavailable Willie MONTERROSO Attending Unavailable Dany SYLVESTER Attending Unavailable Allergies Allergy Classification Reported Allergen(s) Allergy Type Date of Onset Reaction(s) Facility (3 sources) Acetaminophen / HYDROcodone; Translations: [acetaminophen-hy drocodone] Drug Allergy Vomiting (disorder) [facility] (5 sources) Codeine; Translations: [codeine] Drug Allergy Vomiting (disorder) [facility] (6 sources) Penicillins; Translations: [penicillins] Drug allergy 05-26-20 14 Ulcer of mouth (disorder) [facility] [place] (2 sources) Codone Propensity to adverse reactions vomiting [employer] Other (2 sources) Seasonal allergy; Translations: [Seasonal] Allergy to substance Unknown (qualifier value) [facility] (1 source) Codeine Drug Allergy 04-10-20 14 [facility] (1 source) HYDROcodone Drug Allergy 04-10-20 14 [facility] Medications Current Medications Medication Drug Class(es) [...] mg oral tablet (2 sources) Corticosteroid Start: methylPREDNISolone 4 MG as directed Orally Once [...] 06-09-2022 Episodic Other aftercare (1 source) Other halfway (current) drug therapy; Translations: [OTH WIRER MAINTENANCE CURRENT DRUG THERAPY] Onset: 09-29-2022 Episodic Other upper respiratory infections (2 sources) Acute pansinusitis, unspecified; Translations: [Acute upper respiratory infection, unspecified] Onset: 11-11-2022 Episodic Unclassified (1 source) Cough R05.9 Unclassified (1 source) COUGH, UNSPECIFIED; Translations: [COUGH, UNSPECIFIED] Onset: 11-08-2022 Results Test Name Value Interpretation Reference Range Facility PAP ACOG PANEL 2: 30 to 65on 03-17-2023 . . [facility] Comment on above: Result Comment: Performed at: WB Performed By: #### [id number] #### [facility] [address] [address] [address] Jamil Oropeza Age Gdln ACOG Testing 30-65 [facility] Comment on above: Performed By: #### [id number] #### [facility] [address] [address] [address] Jamil Oropeza DIAGNOSIS: Comment [facility] Comment on above: Result Comment: NEGATIVE FOR INTRAEPITHE LIAL LESION OR MALIGNANCY. Performed at: WB Performed By: #### [id number] #### [facility] [address] [address] [address] Jamil Oropeza HPV Aptima Negative Normal Negative [facility] Comment on above: Result Comment: This nucleic acid amplif ication test detects fourteen high-risk HPV types (16,18,31,33,35,39,45,51,52,56,58,59,66,68) without differentiation. Performed at: =G Performed By: #### [id number] #### [facility] [address] [address] [address] Jamil Oropeza HPV Genotype Reflex Comment Normal [facility] Comment on above: Result Comment: Criteria not met, HPV Ge notype not performed. Performed at: WB Performed By: #### [id number] #### [facility] [address] [place] [address] Dr. Jamil Oropeza Methodology: Comment Normal [facility] Comment on above: Result Comment: This liquid based ThinPr ep(R) pap test was screened with the use of an image guided system. Performed at: WB Performed By: #### [id number] #### [facility] [address] [place] [address] Dr. Jamil Oropeza Note: Comment Normal [facility] Comment on above: Result Comment: The Pap smear is a scree alana test designed to aid in the detection of premalignant and malignant conditions of the uterine cervix. It is not a diagnostic procedure and should not be used as the sole means of detecting cervical cancer. Both false-positive and false-negative reports do occur. . Performed at: WB Performed By: #### [id number] #### [facility] [address] [address] [address] Jamil Oropeza Performed by: Comment Normal [facility] Comment on above: Result Comment: Veronica Urban, [employer] nologist (ASCP) Performed at: WB Performed By: #### [id number] #### [facility] [address] [place] [address] Dr. Jamil Oropeza Specimen adequacy: Comment Normal [facility] Comment on above: Result Comment: Satisfactory for evaluat ion. Endocervical and/or squamous metaplastic cells (endocervical component) are present. Performed at: WB Performed By: #### [id number] #### [facility] [address] [address] [address] Jamil BEARD Quick Testingon 2022 Result Negative [employer] Other Ambulatory Visit Summaryon 0 03-04-2023 Ambulatory Visit Summary SARA DORANTES :1985 Visit Date:03/04/2023 Ambulatory Visit Instructions Your Diagnosis Ureteral stone Kidney stone Tests Performed Urnls Dip Stick Auto w/o Microscopy POC 00858 Your Care Team Attending Physician - Dany [...] Schedule the Following Appointments Follow Up with NGA HANNON, Dany Morrissey, DEIDRE When: Where: [address] [place], [place] [address] [address] [place] [address]- Medications What How Much When Instructions Unchanged [...] Urnls Dip Stick Auto w/o Microscopy POC 53061 (03/04/2023) Bilirubin Urine Dipstick - Negative Blood Urine Dipstick - 2+ Moderate Glucose Urine Dipstick - Negative Ketones Urine Dipstick - Negative Leukocytes Urine Dipstick - Trace Nitrite Urine Dipstick - Negative Protein Urine Dipstick - Negative Specific [place] Urine Dipstick - 1.010 Urine Appearance Urine [...] these instructions at home: Medicines ? Take mkvy-ztz-xqxdfin and prescription medicines only (more content not included)... Normal [facility] Formson 03-04-2023 Forms [id number]#1.00CD:127 [facility] Forms [id number]#1.00CD:127 [facility] Patient Educationon 03-04-20 23 Patient Education Urology [...] these instructions at home: Medicines ? Take xyzn-guj-wwdgsod and prescription medicines only as told by [...] provider. Document Revised: 07/07/2022 Document Reviewed: 07/07/2022 [employer] Patient Education ? 2022 [employer] Normal [facility] Urology Office/Clinic Noteon 03-04-2023 Urology Office/Clinic Note Chief Complaint New Pt. [facility] ER HPI Staff This is a 37 year old New Pt. seen in [facility] ER on 01/31/23 due to blood in [...] Calculus of ureter) New patient presented to [facility] ER 01/31/23 with gross hematuria and RLQ [...] patient was seen in the ER at [facility] with a small right upper ureteral calculus [...] Contact Information Dany SYLVESTER MD, URL [address] [facility] [place] [address]- Additional Instructions: [place] (more content not included)... Normal [facility] Comment on above: Result Comment: Electronically Signed By : Dany SYLVESTER MD\.br\Date and Time Signed: 03/04/23 12:49 EDT\.br\Electronically Co-Signed By: Laxmi Mcdowell\.br\Date and Time Co-Signed: 03/04/23 12:07 EDT\.br\Electronically Co-Signed By: Laxmi Mcdowell\.br\Date and Time Co-Signed: 03/04/23 12:17 EDT RAD - MISCon 03-03-2023 RAD - MISC [id number]#1.00CD:127 Normal [facility] ED Note-Physicianon 02-24-20 ED Note-Physician [id number]:127 Normal [facility] RAD - CT Reporton 02-23-2023 RAD - CT Report [id number]#1.00CD:127 Normal [facility] AMYLASEon 01-31-2023 Amylase [Catalytic activity/Vol] 45 U/L Normal 25-115 [facility] Comment on above: Performed By: #### CMP, LIPA, VERONICA #### [facility] [address] [address] [address] Jamil Oropeza CBC AUTO DIFFon 01-31-2023 BASO # 0.0 103/ul Normal 0.0-0.1 [facility] Comment on above: Performed By: #### ERUR, UMICRO #### [facility] [address] [address] [address] Jamil Oropeza Basophils/100 WBC (Bld) 0.4 % Normal 0.2-2.0 [facility] Comment on above: Performed By: #### JASMYN FUENTES #### [facility] [address] [place] [address] Dr. Jamil Oropeza EO # 0.1 103/ul Normal 0.0-0.7 [facility] Comment on above: Performed By: #### JASMYN FUENTES #### [facility] [address] [place] [address] Dr. Jamil Oropeza Eosinophils/100 WBC (Bld) 0.8 % Critically low 0.9-7.0 [facility] Comment on above: Performed By: #### JASMYN FUENTES #### [facility] [address] [place] [address] Dr. Jamil Oropeza Erythrocyte distribution width (RBC) [Ratio] 12.3 % Normal 11.0-15.0 [facility] Comment on above: Performed By: #### JASMYN FUENTES #### [facility] [address] [place] [address] Dr. Jamil Oropeza Hematocrit (Bld) [Volume fraction] 40.4 % Normal 36.0-48.0 [facility] Comment on above: Performed By: #### JASMYN FUENTES #### [facility] [address] [place] [address] Dr. Jamil Oropeza Hemoglobin (Bld) [Mass/Vol] 13.7 g/dL Normal 12.0-16.0 [facility] Comment on above: Performed By: #### JASMYN FUENTES #### [facility] [address] [place] [address] Dr. Jamil Oropeza IG # 0.03 10e3/ul Normal 0.00-0.03 [facility] Comment on above: Performed By: #### JASMYN FUENTES #### [facility] [address] [place] [address] Dr. Jamil Oropeza IG % 0.4 % Normal 0.0-0.5 [facility] Comment on above: Performed By: #### JASMYN FUENTES #### [facility] [address] [place] [address] Dr. Jamil Oropeza LYMPH # 2.7 103/ul Normal 1.2-3.8 [facility] Comment on above: Performed By: #### STEPHEN FUENTESRO #### [facility] [address] [place] [address] Dr. Jamil Oropeza Lymphocytes/100 WBC (Bld) 32.9 % Normal 20.5-60.0 [facility] Comment on above: Performed By: #### STEPHEN FUENTESRO #### [facility] [address] [place] [address] Dr. Jamil Oropeza MANUAL DIFF REQ NO Normal [facility] Comment on above: Performed By: #### GINA UMICRO #### [facility] [address] [place] [address] Dr. Jamil Oropeza MCH (RBC) [Entitic mass] 29.9 pg Normal 26.7-34.0 [facility] Comment on above: Performed By: #### STEPHEN FUENTESRO #### [facility] [address] [place] [address] Dr. Jamil Oropeza MCHC (RBC) [Mass/Vol] 33.9 g/dL Normal 29.9-35.2 [facility] Comment on above: Performed By: #### GINA UMARACELIRO #### [facility] [address] [place] [address] Dr. Jamil Oropeza MCV (RBC) [Entitic vol] 88.2 fL Normal 81.0-99.0 [facility] Comment on above: Performed By: #### GINA UMICRO #### [facility] [address] [place] [address] Dr. Jamil Oropeza MONO # 0.5 103/ul Normal 0.3-0.8 [facility] Comment on above: Performed By: #### GINA UMICRO #### [facility] [address] [place] [address] Dr. Jamil Oropeza Monocytes/100 WBC (Bld) 6.5 % Normal 1.7-12.0 [facility] Comment on above: Performed By: #### GINA UMICRO #### [facility] [address] [address] [address] Jamil Oropeza NEUT # 4.9 103/ul Normal 1.4-6.5 [facility] Comment on above: Performed By: #### ERUR UMICRO #### [facility] [address] [address] [address] Jamil Oropeza Neutrophils/100 WBC (Bld) 59.0 % Normal 43.0-75.0 [facility] Comment on above: Performed By: #### ERUSean UMICRO #### [facility] [address] [place] [address] Dr. Jamil Oropeza Platelet mean volume (Bld) [Entitic vol] 10.2 fL Normal 9.5-13.5 [facility] Comment on above: Performed By: #### GINA UMICRO #### [facility] [address] [place] [address] Dr. Jamil Oropeza PLT 250 103/ul Normal 150-450 [facility] Comment on above: Performed By: #### GINA UMICRO #### [facility] [address] [place] [address] Dr. Jamil Oropeza RBC 4.58 106/ul Normal 4.20-5.40 [facility] Comment on above: Performed By: #### GINA UMICRO #### [facility] [address] [place] [address] Dr. Jamil Oropeza WBC 8.3 103/ul Normal 4.0-11.0 [facility] Comment on above: Performed By: #### GINA UMICRO #### [facility] [address] [place] [address] ABD/PELVIS WO CONon [...] TAI GOMEZ Date: 2023-01-31 06:25 Normal [facility] CULTURE URINEon 01-31-2023 CULTURE URINE Culture Observations : LIGHT GROWTH OF MIXED GENITAL BANDAR. NO POTENTIAL PATHOGENS SEEN. Normal [facility] Comment on above: Performed By: #### STEPHEN FUENETSRO #### [facility] [address] [address] [address] Jamil Oropeza ER URINE PROFILEon 3 Bilirubin Ql (U) Negative Normal NEGATIVE [facility] Comment on above: Performed By: #### STEPHEN FUENTESRO #### [facility] [address] [place], [place] [address] Dr. Jamil Oropeza Clarity (U) CLEAR Normal CLEAR [facility] Comment on above: Performed By: #### STEPHEN FUENTESRO #### [facility] [address] [place] [address] Dr. Jamil Oropeza Color (U) BROWN Abnormal YELLOW [facility] Comment on above: Performed By: #### STEPHEN FUENTESRO #### [facility] [address] [place] [address] Dr. Jamil CLANCY A micrscopic examina tion will be performed if indicated. Normal [facility] Comment on above: Performed By: #### GINA UMICRO #### [facility] [address] [place] [address] Dr. Jamil Oropeza Glucose Ql (U) 100 mg/dl Abnormal NEGATIVE [facility] Comment on above: Performed By: #### GINA UMARACELIRO #### [facility] [address] [place] [address] Dr. Jamil Oropeza Hemoglobin Ql (U) LARGE Abnormal NEGATIVE [facility] Comment on above: Performed By: #### STEPHEN FUENTESRO #### [facility] [address] [place] [address] Dr. Jamil Oropeza Ketones Ql (U) Negative Normal NEGATIVE [facility] Comment on above: Performed By: #### STEPHEN FUENTESRO #### [facility] [address] [place] [address] Dr. Jamil Oropeza LEUKOCYTES TRACE Abnormal NEGATIVE [facility] Comment on above: Performed By: #### GINA UMARACELIRO #### [facility] [address] [place] [address] Dr. Jamil Oropeza Nitrite Ql (U) Negative Normal NEGATIVE [facility] Comment on above: Performed By: #### GINA UMICRO #### [facility] [address] [place] [address] Dr. Jamil Oropeza pH (U) 5.5 [pH] Normal 5-9 [facility] Comment on above: Performed By: #### GINA UMICRO #### [facility] [address] [place] [address] Dr. Jamil Oropeza Protein (U) [Mass/Vol] 30 mg/dL Abnormal NEGATIVE/ TRACE [facility] Comment on above: Performed By: #### GINA UMICRO #### [facility] [address] [place] [address] Dr. Jamil Oropeza SPEC GRAVITY >=1.030 Abnormal 1.005-<=1.025 [facility] Comment on above: Performed By: #### GINA UMICRO #### [facility] [address] [place] [address] Dr. Jamil Oropeza UR MICRO IND INDICATED Normal [facility] Comment on above: Performed By: #### GINA, UMICRO #### [facility] [address] [place] [address] Dr. Jamil Oropeza Urobilinogen Qn (U) 0.2 {Ervin'U}/dL Normal 0.2 - 1.0 [facility] Comment on above: Performed By: #### STEPHEN FUENTESRO #### [facility] [address] [place] [address] Dr. Jamil Oropeza LIPASEon 01-31-2023 Lipase [Catalytic activity/Vol] 102.0 U/L Normal 73.0-393.0 [facility] Comment on above: Performed By: #### CMP, LIPA, VERONICA #### [facility] [address] [place] [address] Dr. Jamil Oropeza PROF 14(COMP METB)on 023 Albumin [Mass/Vol] 3.8 g/dL Normal 3.4-5.0 [facility] Comment on above: Performed By: #### CMP, LIPA, VERONICA #### [facility] [address] [place] [address] Dr. Jamil Oropeza Albumin/Globuli n [Mass ratio] 1.1 {ratio} Normal [facility] Comment on above: Performed By: #### CMP, LIPA, VERONICA #### [facility] [address] [place] [address] Dr. Jamil Oropeza ALP [Catalytic activity/Vol] 100 U/L Normal 46-116 [facility] Comment on above: Performed By: #### CMP, LIPA, VERONICA #### [facility] [address] [address] [address] Jamil Oropeza ALT [Catalytic activity/Vol] 15 U/L Normal 14-59 [facility] Comment on above: Performed By: #### CMP, LIPA, VERONICA #### [facility] [address] [place] [address] Dr. Jamil Oropeza Anion gap [Moles/Vol] 12.3 mmol/L Normal [facility] Comment on above: Performed By: #### CMP, LIPA, VERONICA #### [facility] [address] [place] [address] Dr. Jamil Oropeza AST [Catalytic activity/Vol] 13 U/L Critically low 15-37 [facility] Comment on above: Performed By: #### CMP, LIPA, VERONICA #### [facility] [address] [place] [address] Dr. Jamil Oropeza Bilirubin [Mass/Vol] 0.5 mg/dL Normal 0.2-1.0 [facility] Comment on above: Performed By: #### CMP, LIPA, VERONICA #### [facility] [address] [place] [address] Dr. Jamil Oropeza Calcium [Mass/Vol] 8.7 mg/dL Normal 8.5-10.1 [facility] Comment on above: Performed By: #### CMP, LIPA, VERONICA #### [facility] [address] [place] [address] Dr. Jamil Oropeza Chloride [Moles/Vol] 106 mmol/L Normal 98-107 [facility] Comment on above: Performed By: #### CMP, LIPA, VERONICA #### [facility] [address] [place] [address] Dr. Jamil Oropeza CO2 [Moles/Vol] 27.3 mmol/L Normal 21.0-32.0 [facility] Comment on above: Performed By: #### CMP, LIPA, VERONICA #### [facility] [address] [place] [address] Dr. Jamil Oropeza Creatinine [Mass/Vol] 0.87 mg/dL Normal 0.55-1.02 [facility] Comment on above: Performed By: #### CMP, LIPA, VERONICA #### [facility] [address] [address] [address] Jamil Oropeza EGFR-AF MONTENEGRIN >60 Normal >=60 [facility] Comment on above: Performed By: #### CMP, LIPA, VERONICA #### [facility] [address] [address] [address] Jamil Oropeza EGFR-NON AF MONTENEGRIN >60 Normal >=60 [facility] Comment on above: Performed By: #### CMP, LIPA, VERONICA #### [facility] [address] [address] [address] Jamil Oropeza Globulin (S) [Mass/Vol] 3.4 g/dL Normal [facility] Comment on above: Performed By: #### CMP, LIPA, VERONICA #### [facility] [address] [address] [address] Jamil Oropeza Glucose [Mass/Vol] 95 mg/dL Normal 74-106 [facility] Comment on above: Performed By: #### CMP, LIPA, VERONICA #### [facility] [address] [address] [address] Jamil Oropeza Potassium [Moles/Vol] 3.6 mmol/L Normal 3.5-5.1 [facility] Comment on above: Performed By: #### CMP, LIPA, VERONICA #### [facility] [address] [place] [address] Dr. Jamil Oropeza Protein [Mass/Vol] 7.2 g/dL Normal 6.4-8.2 [facility] Comment on above: Performed By: #### CMP, LIPA, VERONICA #### [facility] [address] [place] [address] Dr. Jamil Oropeza Sodium [Moles/Vol] 142 mmol/L Normal 136-145 [facility] Comment on above: Performed By: #### CMP, LIPA, VERONICA #### [facility] [address] [address] [address] Jamil Oropeza Urea nitrogen [Mass/Vol] 13.0 mg/dL Normal 7.0-18.0 [facility] Comment on above: Performed By: #### CMP, LIPA, VERONICA #### [facility] [address] [address] [address] Jamil Oropeza Urea nitrogen/Creati nine [Mass ratio] 14.9 mg/mg Normal [facility] Comment on above: Performed By: #### CMP, LIPA, VERONICA #### [facility] [address] [address] [address] Jamil Oropeza URINE MICROSCOPIC ONLYon BACTERIA SMALL Abnormal NONE SEEN [facility] Comment on above: Performed By: #### GINA UMICRO #### [facility] [address] [address] [address] Jamil Oropeza Bacteria identified Cx Nom (U) INDICATED Normal [facility] Comment on above: Performed By: #### GINA, UMICRO #### [facility] [address] [place] [address] Dr. Jamil Oropeza CAST NONE SEEN Normal NONE SEEN [facility] Comment on above: Performed By: #### GINA UMICRO #### [facility] [address] [address] [address] Jamil Oropeza Crystals LM Nom (Urine sed) NONE SEEN Normal NONE SEEN [facility] Comment on above: Performed By: #### GINA UMICRO #### [facility] [address] [place] [address] Dr. Jamil Oropeza Epithelial cells LM Ql (Urine sed) MODERATE Abnormal NONE SEEN /RARE [facility] Comment on above: Performed By: #### GINA UMICRO #### [facility] [address] [place] [address] Dr. Jamil Oropeza MUCOUS NONE SEEN Normal NONE SEEN [facility] Comment on above: Performed By: #### GINA UMICRO #### [facility] [address] [place] [address] Dr. Jamil Oropeza RBC (U) [#/Vol] /uL Abnormal 0-2 [facility] Comment on above: Performed By: #### GINA UMICRO #### [facility] [address] [place] [address] Dr. Jamil Oropeza WBC 2-5 Abnormal NONE SEEN [facility] Comment on above: Performed By: #### STEPHEN FUENTESRO #### [facility] [address] [place] [address] Dr. Jamil Oropeza INFLUENZA A AND B AGon 11-08 INFLUANE SEE BELOW Normal [facility] Comment on above: Result Comment: Negative for Flu A prote in angiten. Infection due to Flu A cannot be ruled out. Flu A angiten in the sample may be below the detection limit of the test. Performed By: #### Bernard MUÑOZ UMARACELIRO #### [facility] [address] [place] [address] Dr. Jamil Oropeza INFLUBNEGH SEE BELOW Normal [facility] Comment on above: Result Comment: Negative for Flu B prote in antigen. Infection due to Flu B cannot be ruled out. Flu B antigen in the sample may be below the detection limit of the test. Performed By: #### STEPHEN PICHARDORO #### [facility] [address] [place] [address] Dr. Jamil Oropeza INFLUENZA A AG Negative Normal NEGATIVE SEE COMMENT [facility] Comment on above: Performed By: #### STEPHEN FUENTESRO #### [facility] [address] [place] [address] Dr. Jamil Oropeza INFLUENZA B AG Negative Normal NEGATIVE SEE COMMENT [facility] Comment on above: Performed By: #### STEPHEN FUENTESRO #### [facility] [address] [place] [address] Dr. Jamil Oropeza INTERNAL CONTROLS Within Normal Limits Normal Within Normal Limits [facility] Comment on above: Performed By: #### GINA UMARACELIRO #### [facility] [address] [place] [address] Dr. Jamil Oropeza CBC AUTO DIFFon 09-26-2022 BASO # 0.0 103/ul Normal 0.0-0.1 [facility] Comment on above: Performed By: #### GINA UMARACELIRO #### [facility] [address] [place] [address] Dr. Jamil Oropeza Basophils/100 WBC (Bld) 0.3 % Normal 0.2-2.0 [facility] Comment on above: Performed By: #### JASMYN FUENTES #### [facility] [address] [place] [address] Dr. Jamil Oropeza EO # 0.0 103/ul Normal 0.0-0.7 [facility] Comment on above: Performed By: #### JASMYN FUENTES #### [facility] [address] [place] [address] Dr. Jamil Oropeza Eosinophils/100 WBC (Bld) 0.3 % Critically low 0.9-7.0 [facility] Comment on above: Performed By: #### JASMYN FUENTES #### [facility] [address] [place] [address] Dr. Jamil Oropeza Erythrocyte distribution width (RBC) [Ratio] 12.1 % Normal 11.0-15.0 [facility] Comment on above: Performed By: #### JASMYN FUENTES #### [facility] [address] [place] [address] Dr. Jamil Oropeza Hematocrit (Bld) [Volume fraction] 40.6 % Normal 36.0-48.0 [facility] Comment on above: Performed By: #### JASMYN FUENTES #### [facility] [address] [place] [address] Dr. Jamil Oropeza Hemoglobin (Bld) [Mass/Vol] 13.6 g/dL Normal 12.0-16.0 [facility] Comment on above: Performed By: #### JASMYN FUENTES #### [facility] [address] [place] [address] Dr. Jamil Oropeza IG # 0.03 10e3/ul Normal 0.00-0.03 [facility] Comment on above: Performed By: #### JASMYN FUENTES #### [facility] [address] [place] [address] Dr. Jamil Oropeza IG % 0.3 % Normal 0.0-0.5 [facility] Comment on above: Performed By: #### JASMYN FUENTES #### [facility] [address] [address] [address] Jamil Oropeza LYMPH # 1.9 103/ul Normal 1.2-3.8 [facility] Comment on above: Performed By: #### ERUR, UMICRO #### [facility] [address] [place] [address] Dr. Jamil Oropeza Lymphocytes/100 WBC (Bld) 21.2 % Normal 20.5-60.0 [facility] Comment on above: Performed By: #### ERUR, UMICRO #### [facility] [address] [place] [address] Dr. Jamil Oropeza MANUAL DIFF REQ NO Normal [facility] Comment on above: Performed By: #### ERUR, UMICRO #### [facility] [address] [place] [address] Dr. Jamil Oropeza MCH (RBC) [Entitic mass] 29.2 pg Normal 26.7-34.0 [facility] Comment on above: Performed By: #### GINA, UMICRO #### [facility] [address] [place] [address] Dr. Jamil Oropeza MCHC (RBC) [Mass/Vol] 33.5 g/dL Normal 29.9-35.2 [facility] Comment on above: Performed By: #### GINA, UMICRO #### [facility] [address] [place] [address] Dr. Jamil Oropeza MCV (RBC) [Entitic vol] 87.1 fL Normal 81.0-99.0 [facility] Comment on above: Performed By: #### ERUR, UMICRO #### [facility] [address] [place] [address] Dr. Jamil Oropeza MONO # 0.5 103/ul Normal 0.3-0.8 [facility] Comment on above: Performed By: #### ERUR, UMICRO #### [facility] [address] [place] [address] Dr. Jamil Oropeza Monocytes/100 WBC (Bld) 5.4 % Normal 1.7-12.0 [facility] Comment on above: Performed By: #### GINA UMICRO #### [facility] [address] [place] [address] Dr. Jamil Oropeza NEUT # 6.5 103/ul Normal 1.4-6.5 [facility] Comment on above: Performed By: #### GINA UMICRO #### [facility] [address] [place] [address] Dr. Jamil Oropeza Neutrophils/100 WBC (Bld) 72.5 % Normal 43.0-75.0 [facility] Comment on above: Performed By: #### GINA UMICRO #### [facility] [address] [place] [address] Dr. Jamil Oropeza Platelet mean volume (Bld) [Entitic vol] 10.6 fL Normal 9.5-13.5 [facility] Comment on above: Performed By: #### GINA UMICRO #### [facility] [address] [place] [address] Dr. Jamil Oropeza PLT 237 103/ul Normal 150-450 [facility] Comment on above: Performed By: #### MICAELA FUENTESICRO #### [facility] [address] [place] [address] Dr. Jamil Oropeza RBC 4.66 106/ul Normal 4.20-5.40 [facility] Comment on above: Performed By: #### STEPHEN FUENTESRO #### [facility] [address] [place] [address] Dr. Jamil Oropeza WBC 8.9 103/ul Normal 4.0-11.0 [facility] Comment on above: Performed By: #### GINA UMICRO #### [facility] [address] [place] [address] Dr. Jamil Oropeza [facility]16 SARS-CoV-2 (COVID-19) RNA IDALIA+probe Ql (Unsp spec) Not detected Normal NOT DETECTED [facility] Comment on above: Result Comment: When diagnostic [...] for this test is supported by the [place] [employer] and Human Service's declaration that [...] longer be used). Performed By: #### E STEPHEN MUÑOZRO #### [facility] [address] [place] [address] Dr. Jamil Oropeza ER URINE PROFILEon 2 Bilirubin Ql (U) Negative Normal NEGATIVE [facility] Comment on above: Performed By: #### GINA UMICRO #### [facility] [address] [place] [address] Dr. Jamil Oropeza Clarity (U) CLEAR Normal CLEAR [facility] Comment on above: Performed By: #### GINA UMICRO #### [facility] [address] [place] [address] Dr. Jamil Oropeza Color (U) LT. YELLOW Normal YELLOW [facility] Comment on above: Performed By: #### GINA UMICRO #### [facility] [address] [place] [address] Dr. Jamil Oropeza ERUAHD A micrscopic examina tion will be performed if indicated. Normal [facility] Comment on above: Performed By: #### GINA UMICRO #### [facility] [address] [place] [address] Dr. Jamil Oropeza Glucose Ql (U) Negative Normal NEGATIVE [facility] Comment on above: Performed By: #### GINA UMICRO #### [facility] [address] [address] [address] Jamil Oropeza Hemoglobin Ql (U) TRACE-INTACT Abnormal NEGATIVE [facility] Comment on above: Performed By: #### GINA UMICRO #### [facility] [address] [place] [address] Dr. Jamil Oropeza Ketones Ql (U) Negative Normal NEGATIVE [facility] Comment on above: Performed By: #### GINA UMICRO #### [facility] [address] [place] [address] Dr. Jamil Oropeza LEUKOCYTES Negative Normal NEGATIVE [facility] Comment on above: Performed By: #### GINA UMICRO #### [facility] [address] [place] [address] Dr. Jamil Oropeza Nitrite Ql (U) Negative Normal NEGATIVE [facility] Comment on above: Performed By: #### GINA UMICRO #### [facility] [address] [place] [address] Dr. Jamil Oropeza pH (U) 7.0 [pH] Normal 5-9 [facility] Comment on above: Performed By: #### GINA UMICRO #### [facility] [address] [place] [address] Dr. Jamil Oropeza SPEC GRAVITY 1.010 Normal 1.005-<=1.025 [facility] Comment on above: Performed By: #### GINA UMICRO #### [facility] [address] [place] [address] Dr. Jamil Oropeza UA PROTEIN Negative Normal NEGATIVE/ TRACE [facility] Comment on above: Performed By: #### GINA UMICRO #### [facility] [address] [place] [address] Dr. Jamil Oropeza UR MICRO IND INDICATED Normal [facility] Comment on above: Performed By: #### GINA UMICRO #### [facility] [address] [place] [address] Dr. Jamil Oropeza Urobilinogen Qn (U) 0.2 {Ervin'U}/dL Normal 0.2 - 1.0 [facility] Comment on above: Performed By: #### STEPHEN FUENTESRO #### [facility] [address] [place] [address] Dr. Jamil Oropeza INFLUENZA A AND B AGon 09-26 INFLUANEGH SEE BELOW Normal [facility] Comment on above: Result Comment: Negative for Flu A prote in angiten. Infection due to Flu A cannot be ruled out. Flu A angiten in the sample may be below the detection limit of the test. Performed By: #### I NFLUAB #### [facility] [address] [place] [address] Dr. Jamil Oropeza INFLUBNEG SEE BELOW Normal [facility] Comment on above: Result Comment: Negative for Flu B prote in antigen. Infection due to Flu B cannot be ruled out. Flu B antigen in the sample may be below the detection limit of the test. Performed By: #### I NFLUAB #### [facility] [address] [place] [address] Dr. Jamil Oropeza INFLUENZA A AG Negative Normal NEGATIVE SEE COMMENT [facility] Comment on above: Performed By: #### INFLUAB #### [facility] [address] [place] [address] Dr. Jamil Oropeza INFLUENZA B AG Negative Normal NEGATIVE SEE COMMENT [facility] Comment on above: Performed By: #### INFLUAB #### [facility] [address] [place] [address] Dr. Jamil Oropeza INTERNAL CONTROLS Within Normal Limits Normal Within Normal Limits [facility] Comment on above: Performed By: #### INFLUAB #### [facility] [address] [place] [address] Dr. Jamil Oropeza POINT OF CARE GLUCOSEon 09-16 Glucose [Mass/Vol] 100 mg/dL Normal 74-106 [facility] Comment on above: Performed By: #### POCGLUC #### [facility] [address] [place] [address] Dr. Jamil Oropeza URon 09-26-2022 , QUAL Negative Normal NEGATIVE [facility] Comment on above: Performed By: #### STEPHEN FUENTESRO #### [facility] [address] [address] [address] Jamil Oropeza PROF CHEM 8 (BAS METB)on Anion gap [Moles/Vol] 5.9 mmol/L Normal [facility] Comment on above: Performed By: #### BMP, HSTROPN #### [facility] [address] [place] [address] Dr. Jamil Oropeza Calcium [Mass/Vol] 9.8 mg/dL Normal 8.5-10.1 [facility] Comment on above: Performed By: #### BMP, HSTROPN #### [facility] [address] [place] [address] Dr. Jamil Oropeza Chloride [Moles/Vol] 103 mmol/L Normal 98-107 [facility] Comment on above: Performed By: #### BMP, HSTROPN #### [facility] [address] [place] [address] Dr. Jamil Oropeza CO2 [Moles/Vol] 30.9 mmol/L Normal 21.0-32.0 [facility] Comment on above: Performed By: #### BMP, HSTROPN #### [facility] [address] [place] [address] Dr. Jamil Oropeza Creatinine [Mass/Vol] 0.84 mg/dL Normal 0.55-1.02 [facility] Comment on above: Performed By: #### BMP, HSTROPN #### [facility] [address] [place] [address] Dr. Jamil Oropeza EGFR-AF MONTENEGRIN >60 Normal >=60 [facility] Comment on above: Performed By: #### BMP, HSTROPN #### [facility] [address] [place] [address] Dr. Jamil Oropeza EGFR-NON AF MONTENEGRIN >60 Normal >=60 [facility] Comment on above: Performed By: #### BMP, HSTROPN #### [facility] [address] [place] [address] Dr. Jamil Oropeza Glucose [Mass/Vol] 95 mg/dL Normal 74-106 [facility] Comment on above: Performed By: #### BMP, HSTROPN #### [facility] [address] [address] [address] Jamil Oropeza Potassium [Moles/Vol] 3.8 mmol/L Normal 3.5-5.1 [facility] Comment on above: Performed By: #### BMP, HSTROPN #### [facility] [address] [address] [address] Jamil Oropeza Sodium [Moles/Vol] 136 mmol/L Normal 136-145 [facility] Comment on above: Performed By: #### BMP, HSTROPN #### [facility] [address] [address] [address] Jamil Oropeza Urea nitrogen [Mass/Vol] 11.0 mg/dL Normal 7.0-18.0 [facility] Comment on above: Performed By: #### BMP, HSTROPN #### [facility] [address] [place] [address] Dr. Jamil Oropeza Urea nitrogen/Creati nine [Mass ratio] 13.1 mg/mg Normal [facility] Comment on above: Performed By: #### BMP, HSTROPN #### [facility] [address] [place] [address] Dr. Jamil Oropeza TROPONIN, HIGH SENSITIVITYon 09-26-2022 HSTROP 5.6 pg/mL Normal 4.0-51.3 [facility] Comment on above: Result Comment: CUT-OFF POINTS HAVE BEEN ESTABLISHED BASED ON THE FOURTH UNIVERSAL DEFINITIONS OF MYOCARDIAL INFARCTION. THE UPPER REFERENCE LIMIT (URL) OF TROPONIN, DEFINED THE 99TH PERCENTILE OF cTnI DISTRIBUTION IN A REFERENCE POPULATION, HAS BEEN CONFIRMED THE DECISION THRESHOLD FOR DC DIAGNOSIS. Performed By: #### B MP, HSTROPN #### [facility] [address] [place] [address] Dr. Jamil Oropeza URINE MICROSCOPIC ONLYon BACTERIA NONE SEEN Normal NONE SEEN [facility] Comment on above: Performed By: #### ERUR, UMICRO #### [facility] [address] [address] [address] Jamil Oropeza Bacteria identified Cx Nom (U) NOT INDICATED Normal [facility] Comment on above: Performed By: #### ERUR, UMICRO #### [facility] [address] [address] [address] Jamil Oropeza CAST NONE SEEN Normal NONE SEEN [facility] Comment on above: Performed By: #### ERUR, UMICRO #### [facility] [address] [place] [address] Dr. Jamil Oropeza Crystals LM Nom (Urine sed) NONE SEEN Normal NONE SEEN [facility] Comment on above: Performed By: #### ERUR, UMICRO #### [facility] [address] [place] [address] Dr. Jamil Oropeza Epithelial cells LM Ql (Urine sed) FEW Abnormal NONE SEEN /RARE [facility] Comment on above: Performed By: #### ERUR, UMICRO #### [facility] [address] [place] [address] Dr. Jamil Oropeza MUCOUS NONE SEEN Normal NONE SEEN [facility] Comment on above: Performed By: #### ERUR, UMICRO #### [facility] [address] [place] [address] Dr. Jamil Oropeza RBC 0-2 Normal 0-2 [facility] Comment on above: Performed By: #### ERUR, UMICRO #### [facility] [address] [place] [address] Dr. Jamil Oropeza WBC NONE SEEN Normal NONE SEEN [facility] Comment on above: Performed By: #### GINA UMICRO #### [facility] [address] [place] [address] Dr. Jamil Oropeza General Surgery Office/Clini c [...] Family History Family history is negative Normal [facility] Comment on above: Result Comment: Electronically Signed By : Willie MONTERROSO MD\.br\Date and Time Signed: 07/31/22 15:44 EDT Ambulatory Visit Summaryon 0 06-26-2022 Ambulatory Visit Summary SARA DORANTES :1985 Visit Date:06/26/2022 Ambulatory Visit Instructions Your Diagnosis GERD (gastroesophageal reflux disease) Dysphagia Cough Your Care Team Attending Physician - Willie MONTERROSO MD Primary Care Physician - YADIRA SIMPSON [...] after swallowing, pp_set_radiolo gy_subspecialt y, Not Required, Gates Geovany\.br\ Medications\.b r\ What How Much When Instructions\. [...] Dysphagia\.br\ GERD (gastroesophag eal reflux disease)\.br\ \.br\ [facility] Covid-19 PCR ([facility])on 05-17 SARS-CoV-2 (COVID-19) RNA IDALIA+probe Ql (Unsp spec) Not detected Normal NOT DETECTED [facility] Comment on above: Result Comment: When diagnostic [...] for this test is supported by the [place] [employer] and Human Service's declaration that [...] longer be used). Performed By: #### E JASMYN MUÑOZ #### [facility] [address] [place] [address] Dr. Jamil Oropeza XR SINUSES 3 VIEWS [...] Abhishek LOMBARDI Date: 2022-06-09 01:48 Normal [facility] Vital Signs Date Time Vital Sign Value Performing Clinician Facility 03-07-2023 12:00-0400 Body height 166.37 cm Marco Antonio Goldsmith Other [facility] Other 03-07-2023 12:00-0400 Body mass index (BMI) [Ratio] 30.31 kg/m2 Marco Antonio Goldsmith Other [facility] Other 03-07-2023 12:00-0400 Body temperature 97.9 [degF] Marco Antonio Goldsmith Other [facility] Other 03-07-2023 12:00-0400 Body weight 83.92 kg Marco Antonio Goldsmith Other [facility] Other 03-07-2023 12:00-0400 Diastolic blood pressure 83 mm[Hg] Marco Antonio Goldsmith Other [facility] Other 03-07-2023 12:00-0400 Respiratory rate 18 /min Marco Antonio Goldsmith Other [facility] Other 03-07-2023 12:00-0400 SaO2% (BldA) [Mass fraction] 98 % Marco Antonio Goldsmith Other [facility] Other 03-07-2023 12:00-0400 Systolic blood pressure 123 mm[Hg] Marco Antonio Goldsmith Other [facility] Other 03-04-2023 11:01-0400 Blood Pressure Location Dany Vokle [facility] 03-04-2023 11:01-0400 Diastolic blood pressure 75 mm[Hg] Dany COOK [facility] 03-04-2023 11:01-0400 Heart rate 71 /min Dany COOK [facility] 03-04-2023 11:01-0400 Respiratory rate 16 /min Dany COOK [facility] 03-04-2023 11:01-0400 Systolic blood pressure 127 mm[Hg] Dany COOK [facility] 11-27-2022 11:45-0500 Body height 166.37 cm Whit Salinas Other [facility] Other 11-27-2022 11:45-0500 Body mass index (BMI) [Ratio] 29.49 kg/m2 Whit Salinas Other [facility] Other 11-27-2022 11:45-0500 Body temperature 97.6 [degF] Whit Salinas Other [employer] Other 11-27-2022 11:45-0500 Body weight 81.65 kg Whit Salinas Other [employer] Other 11-27-2022 11:45-0500 Diastolic blood pressure 81 mm[Hg] Whit Salinas Other [employer] Other 11-27-2022 11:45-0500 Respiratory rate 18 /min Whit Salinas Other [employer] Other 11-27-2022 11:45-0500 SaO2% (BldA) [Mass fraction] 98 % Whit Salinas Other [employer] Other 11-27-2022 11:45-0500 Systolic blood pressure 124 mm[Hg] Whit Salinas Other [employer] Other 06-26-2022 10:16-0400 Blood Pressure Location Willie MONTERROSO [facility] [place] 06-26-2022 10:16-0400 Diastolic blood pressure 81 mm[Hg] Willie MONTERROSO [facility] [place] 06-26-2022 10:16-0400 Heart rate 68 /min Willie WEBERL [facility] [place] 06-26-2022 10:16-0400 Respiratory rate 16 /min Willie MONTERROSO [facility] [place] 06-26-2022 10:16-0400 Systolic blood pressure 116 mm[Hg] Willie MONTERROSO [facility] [place] Encounters Encounter Date Encounter Type Care Provider Facility Start: 03-10-2023 End: 03-10-[address] YENY GONG . Facility:[facility] Start: 03-07-2023 End: 03-07-2023 ambulatory Marco Antonio Goldsmith Other [employer] Other Start: 03-07-2023 Office outpatient visit 15 minutes Marco Antonio Goldsmith [facility] [address] Start: 03-04-2023 End: 03-05-2023 ambulatory Dany SYLVESTER Facility:[facility] [place] Start: 03-04-2023 End: 03-04-2023 Patient encounter procedure Dany SYLVESTER [facility] Start: 03-02-2023 End: 03-03-[address] DANY SYLVESTER Facility:[facility] Start: 02-24-2023 ambulatory Willie MONTERROSO Facility:[facility] [place] Start: 01-31-2023 End: 01-31-2023 ambulatory YADIRA SIMPSON Facility:[facility] Start: 11-27-2022 End: 11-27-2022 ambulatory Whit Salinas Other [employer] Other Start: 11-27-2022 Office outpatient ne w 20 minutes Whit Salinas [facility] Start: 11-08-2022 End: 11-08-2022 ambulatory YADIRA SIMPSON Facility:[facility] Start: 09-26-2022 End: 09-26-2022 ambulatory YADIRARAMSES SIMPSON Facility:[facility] Start: 06-26-2022 End: 06-27-2022 ambulatory Willie MONTERROSO Facility: [place] Start: 06-26-2022 End: 06-26-2022 Patient encounter procedure Willie MONTERROSO [facility] [place] Start: 06-13-2022 ambulatory Willie MONTERROSO Facility:[facility] Start: 06-09-2022 End: 06-09-2022 ambulatory DAISYTONO SEYMOUR Facility: Procedures Date Procedure Procedure Detail Performing Clinician Start: 11-16-2016 Esophagogastroduodenoscopy Willie GUSFernanda Payers Date Payer Category Payer Unknown [id number] 2.16.84 [id number] 1985 Unknown [id number] 2.16.84 [id number] 1984 Unknown [id number] 2.16.84 [id number] 1984 Unknown [id number] 2.16.84 [id number] 1984 Unknown [id number] 2.16.84 [id number] 1984 Unknown [id number] 2.16.84 [id number] 1984 Unknown [id number] 2.16.8 [id number] 1984 Unknown [id number] 2.16.8 [id number] 1984 Unknown [id number] 2.16.8 [id number] 1960 Medicaid [id number] 2.16. [id number] 1959 Unknown [id number] 2.16.8 [id number] 1959 Unknown [id number] 1960 Unknown [id number] Social History Date Type Detail Facility Start: 06-26-2022 Tobacco smoking status Never s moked tobacco (finding) [facility] Tobacco smoking status Never [facility] Sex Assigned At Female [facility] Functional Status Date Assessment Result Facility 03-04-2023 Functional Status N/A [facility] 06-26-2022 Functional Status N/A [facility] Evaluation note 03-07-2023 Note Date & Type [...] of symptoms occur by end of treatment. [employer] Other Evaluation + Plan note 03-04-2023 Radiology Note Date & Type Note Facility 03-04-2023 Evaluation + Plan note Diagnostic Tests PendingPT 03/04/23PTT 03/04/23PT 03/04/23 Future Scheduled TestsXR Abdomen 1 View 02/24/23 [facility] Hospital Discharge instructions 03-04-2023 Note Date & Type Note Facility 03-04-2023 Hospital Discharg e instructions Patient Education 03/04/2023 11:52:31 Kidney Stones, Enrl-zh-Oxcg Kidney Stones Kidney stones are rock-like masses [...] Follow these instructions at home: Medicines Take [id number] and prescription medicines only as told by [...] provider. Document Revised: 07/07/2022 Document Reviewed: 07/07/2022 [employer] Patient Education 2022 [email or web address]. Follow Up Care 02/05/2023 09:42:12 With:NGA HANNON, Dany Morrissey, URL Address: [facility] [address] [place] [id number]- When: Unknown [facility] Clinical Note 03-02-2023 Note Date & Type [...] authenticated by: DALJIT SMITH Date: 2023-03-02 12:37 [facility] Evaluation note 11-27-2022 Note Date & Type Note Facility 11-27-2022 Evaluation note Encounter Date Diagnosis Assessment Notes Nov, Right otitis media with effusion (ICD-10 - H65.91) take medication as directed. Middle ear fluid can be caused from allergies, traveling or viral infections. It may linger. Follow up with PCP if symptoms persist [employer] Other Evaluation + Plan note Radiology Note Date & Type Note Facility Evaluation + Plan note Future Appointments Appointment Date:07/24/2022 09:00:00 AM Scheduled Provider: Location:[facility].XRAY Appointment Type:XR MBS Adult ([facility]) Future Scheduled TestsXR Adult Swallowing Function w/ Video: Evaluate Pt, Develop a Plan of Care & Implement Plan 07/24/22 [facility] History general Narrative - Reported Note Date & Type Note Facility History general Narrative - Reported Type Medical History seasonal/environmental allergies Medical History acid reflux Medical History gastritis Surgical History cosmetic surgery Surgical History EGD Hospitalization History childbirth [facility] [employer] Other Hospital course Narrative Note Date & Type Note Facility Hospital course Narrative No data available for this section [facility] Hospital Discharge instructions Note Date & Type Note Facility Hospital Discharge instructions No data available for this section [facility] Progress note Note Date & Type Note Facility Progress note No data available for this section [facility] Summary Purpose Family History No Family History Records FoundNo Family History Records Found Advance Directives No Advanced Directives Records FoundNo Advanced Directives Records Found Additional Source Comments Care Team (unrecognized sect ion and content) Personnel Name: YADIRA SIMPSON CNP Address: [address] [place] [address] Personnel Name: YADIRA SIMPSON CNP Address: Address: [address] [place] [address] REASON FOR VISIT (unrecogniz ed section and content) poss right ear infection - n o other symptomsSINUS PRESSURE, COUGH, CONGESTION, HEADACHE INFORMATION SOURCE (unrecogn ized section and content) DATE CREATED AUTHOR 03/21/2023 [facility] DATE CREATED AUTHOR 'S ORGANIZ ATION 06/06/2023 [facility] FOR RECORDS PERTAINING TO PATIENTS WHO [...] BE BASED ON THE PRIMARY CLINICAL RECORDS. [facility] [employer] [facility]. provides no warranty or guarantee of the accuracy or completeness of information in this document.
[2024-03-21 14:08] LABS: Age Gdln ACOG Testing Note (.); HPV Aptima Negative (Negative); IGP, Aptima HPV, rfx 16/18,45 Note (.)
== END 2024-03-15 20:58 | disposition home or self-care (01) ==
LOC: LAB 20:57
PROVIDERS: PCP Nurse Practitioner Family; Visit Provider Obstetrics & Gynecology
DX: Z01.419 Encounter for gynecological examination (general) (routine) without abnormal findings (principal)
CPT/HCPCS: 87624; G0145

== ENCOUNTER 2024-03-29 10:04 | Outpatient (OUT) | payer OTHER, SELFPAY ==
--- NOTE | 2024-03-29 10:05 | US_ITS ---
[address] [address] Patient Name: SARA BOSWELL MRN: [id number] date: 1985 Sex: F Assigned Patient Location: [facility] Current Patient Location: [facility] Accession/Order Number: [id number] Exam Date: 03/29/2024 10:06 Report Date: 03/29/2024 11:59 At the request of: YENY GONG Procedure: US pelvis w/ transvaginal EXAMINATION: US pelvis w/ transvaginal HISTORY: PELVIC PAIN COMPARISON: No relevant comparison available. TECHNIQUE: Transabdominal and/or transvaginal sonographic examination was performed as indicated by examination type. FINDINGS: UTERUS: Normal size and appearance. Uterus size: 10.5 x 4.2 x 6.0 cm ENDOMETRIUM: IUD within mid to lower endometrial cavity. Normal thickness and echogenicity of endometrium. Endometrial thickness: 5 mm RIGHT OVARY: Normal size and appearance. Duplex Doppler demonstrates normal waveform and flow; resistive index 0.8. Ovary size: 2.2 x 1.9 x 1.1 cm LEFT OVARY: Contains 2 benign-appearing cysts, largest is 2.6 cm. Duplex Doppler demonstrates normal waveform and flow; resistive index 0.6. Ovary size: 4.7 x 2.3 x 3.7 cm CUL-DE-SAC: Unremarkable. No significant free fluid. BLADDER: Unremarkable. OTHER: None. US/US pelvis w/ transvaginal IMPRESSION: 1. There are 2 benign-appearing cysts within the left ovary, 2.6 cm and 2.3 cm in diameter respectively. 2. IUD within mid to lower endometrial cavity. Electronically authenticated by: LAXMI MARIE Date: 03/29/2024 11:59
== END 2024-03-29 10:05 | disposition home or self-care (01) ==
LOC: NOMS 10:04
PROVIDERS: PCP Nurse Practitioner Family; Visit Provider Obstetrics & Gynecology
DX: R10.2 Pelvic and perineal pain (principal); N83.292 Other ovarian cyst, left side; Z97.5 Presence of (intrauterine) contraceptive device
CPT/HCPCS: 76830; 76856

== ENCOUNTER 2024-06-05 13:30 | Emergency (ER) | payer OTHER, SELFPAY ==
[2024-06-05 13:35] VITALS: BP 122/84; PULSE 65; TEMP 36.8; O2SAT 100; BMI 26.9
--- OUTSIDE RECORDS SUMMARY | 2024-06-05 13:51 | XMS_ITS | CCD ---
Author Organization [facility] Care Team Providers Care Amortization Clerk Name Role Phone YADIRA SIMPSON Primary Care Physician Whit Salinas Unavailable Marco Antonio Goldsmith Unavailable TATIANA YADIRA Primary Care Unavailable LION, DAISY Admitting Unavailable LION, DAISY Attending Unavailable DAISY SEYMOUR Consulting Unavailable TAI GOMEZ Consulting Unavailable NGA, DR DANY Morrissey Admitting Unavailable NGA, DR DANY Morrissey Attending Unavailable TATIANA YADIRA Primary Care Unavailable NGA, DR DANY Morrissey Consulting Unavailable DALJIT SMITH Consulting Unavailable BELTRAN ., DR SAINI Admitting Unavailable BELTRAN ., DR SAINI Attending Unavailable [facility] Primary Care Unavailable BELRTAN ., DR SAINI Consulting Unavailable DAISY SEYMOUR Consulting Unavailable DAISY SEYMOUR Admitting Unavailable DAISY SEYMOUR Attending Un[facility]available JEFF LOMBARDI Consulting Unavailable [facility] Primary Care Unavailable PAY ., DR SOLORZANO Admitting Unavailable PAY ., DR SOLORZANO Attending Unavailable PAY ., DR SOLORZANO Consulting Unavailable DALEY ., MR GIVENS Consulting Unavailable [facility] Unavailable VADIM ., ELIZABETH Admitting Unavailable VADIM ., ELIZABETH Attending Unavailable VADIM ., ELIZABETH Consulting Unavailable Willie MONTERROSO Attending Unavailable Dany SYLVSETER Attending Unavailable YENY GONG Attending Unavailable Allergies Allergy Classification Reported Allergen(s) Allergy Type Date of Onset Reaction(s) Facility (3 sources) Acetaminophen / HYDROcodone; Translations: [acetaminophen-hy drocodone] Drug Allergy Vomiting (disorder) [facility] (5 sources) Codeine; Translations: [codeine] Drug Allergy Vomiting (disorder) [facility] (6 sources) Penicillins; Translations: [penicillins] Drug allergy 04-10-20 14 Ulcer of mouth (disorder) [facility] (2 sources) Codone Propensity to adverse reactions vomiting [facility] Other (2 sources) Seasonal allergy; Translations: [Seasonal] Allergy to substance Unknown (qualifier value) [facility] (1 source) Codeine Drug Allergy 04-10-20 14 [facility] (1 source) HYDROcodone Drug Allergy 04-10-20 14 [facility] Medications Current Medications Medication [...] 06-09-2022 Episodic Other aftercare (1 source) 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 . Normal [facility] Comment on above: Result Comment: Performed at: WB Performed By: #### [id number] #### [facility] [address] [place] [address] Dr. Jamil Oropeza Age Gdln ACOG Testing 30-65 Normal [facility] Comment on above: Performed By: #### [id number] #### [facility] [address] [place] [address] Dr. Jamil Oropeza DIAGNOSIS: Comment Normal [facility] Comment on above: Result Comment: NEGATIVE FOR INTRAEPITHE LIAL LESION OR MALIGNANCY. Performed at: WB Performed By: #### [id number] #### [facility] [address] [place] [address] Dr. Jamil Oropeza HPV Aptima Negative Normal Negative [facility] Comment on above: Result Comment: This nucleic acid amplif ication test detects fourteen high-risk HPV types (16,18,31,33,35,39,45,51,52,56,58,59,66,68) without differentiation. Performed at: =G Performed By: #### [id number] #### [facility] [address] [place] [address] Dr. Jamil Oropeza HPV Genotype Reflex Comment Normal [facility] Comment on above: Result Comment: Criteria not met, HPV Ge notype not performed. Performed at: WB Performed By: #### [id number] #### [facility] [address] [place] [address] Dr. Jamil Oropeza Methodology: Comment Normal [facility] Comment on above: Result Comment: This liquid based ThinPr ep(R) pap test was screened with the use of an image guided system. Performed at: WB Performed By: #### [id number] #### [facility] [address] [place] [address] Dr. Jamil Oropeza Note: Comment Normal [facility] Comment on above: Result Comment: The Pap smear is a scree alana test designed to aid in the detection of premalignant and malignant conditions of the uterine cervix. It is not a diagnostic procedure and should not be used as the sole means of detecting cervical cancer. Both false-positive and false-negative reports do occur. . Performed at: WB Performed By: #### [id number] #### [facility] [address] [place] [address] Dr. Jamil Oropeza Performed by: Comment Normal [facility] Comment on above: Result Comment: Veronica Urban, Cytotech nologist (ASCP) Performed at: WB Performed By: #### [id number] #### [facility] [address] [address] [address] Jamil Oropeza Specimen adequacy: Comment Normal [facility] Comment on above: Result Comment: Satisfactory for evaluat ion. Endocervical and/or squamous metaplastic cells (endocervical component) are present. Performed at: WB Performed By: #### [id number] #### [facility] [address] [address] [address] Jamil Oropeza COVID Quick Testingon 2022 Result Negative [facility] Other Ambulatory Visit Summaryon 0 03-04-2023 Ambulatory Visit Summary SARA DORANTES :1985 Visit Date:03/04/2023 Ambulatory Visit Instructions Your Diagnosis Ureteral stone Kidney stone Tests Performed Urnls Dip Stick Auto w/o Microscopy POC 10350 Your Care Team Attending Physician - Dany [...] Following Appointments Follow Up with NGA HANNON, DEIDRE Pearce When: Where: [address] [place] [address] [place] [address]- Medications What How Much When Instructions Unchanged [...] Urnls Dip Stick Auto w/o Microscopy POC 17955 (03/04/2023) Bilirubin Urine Dipstick - Negative Blood Urine Dipstick - 2+ Moderate Glucose Urine Dipstick - Negative Ketones Urine Dipstick - Negative Leukocytes Urine Dipstick - Trace Nitrite Urine Dipstick - Negative Protein Urine Dipstick - Negative Specific [place] Urine Dipstick - 1.010 Urine Appearance Urine [...] these instructions at home: Medicines ? Take wtvc-akg-nuafywj and prescription medicines only (more content not included)... Normal [facility] Formson 03-04-2023 Forms [id number]#1.00CD:127 [facility] Forms [id number]#[id number]:127 [facility] Patient Educationon 03-04-20 23 Patient [...] these instructions at home: Medicines ? Take uuis-nur-nolggsr and prescription medicines only as told by [...] provider. Document Revised: 07/07/2022 Document Reviewed: 07/07/2022 [employer] Patient Education ? 2022 [employer] Shweta Gates [facility] Urology Office/Clinic Noteon 03-04-2023 Urology Office/Clinic Note Chief Complaint New Pt. [facility] ER HPI Staff This is a 37 year old New Pt. seen in [facility] ER on 01/31/23 due to blood [...] Calculus of ureter) New patient presented to [facility] ER 01/31/23 with gross hematuria and [...] patient was seen in the ER at [facility] with a small right upper [...] MD, URL [address] [address]- Additional Instructions: Holden (more content not included)... Normal [facility] Comment on above: Result Comment: Electronically Signed By : Dany SYLVESTER MD\.br\Date and Time Signed: 03/04/23 12:49 EDT\.br\Electronically Co-Signed By: Laxmi Mcdowell\.br\Date and Time Co-Signed: 03/04/23 12:07 EDT\.br\Electronically Co-Signed By: Laxmi Mcdowell\.br\Date and Time Co-Signed: 03/04/23 12:17 EDT RAD - MISCon 03-03-2023 RAD - MISC [id number]:127 Normal [facility] ED Note-Physicianon 02-24-20 ED Note-Physician [id number]:127 Normal [facility] RAD - CT Reporton 02-23-2023 RAD - CT Report [id number]#[id number]:127 Normal [facility] AMYLASEon 01-31-2023 Amylase [Catalytic activity/Vol] 45 U/L Normal 25-115 [facility] Comment on above: Performed By: #### CMP, LIPA, VERONICA #### [facility] [address] [place], [place] [address] Dr. Jamil Oropeza CBC AUTO DIFFon 01-31-2023 BASO # 0.0 103/ul Normal 0.0-0.1 [facility] Comment on above: Performed By: #### JASMYN FUENTES #### [facility] [address] [address] [address] Jamil Oropeza Basophils/100 WBC (Bld) 0.4 % Normal 0.2-2.0 [facility] Comment on above: Performed By: #### JASMYN FUENTES #### [facility] [address] [place] [address] Dr. Jamil Oropeza EO # 0.1 103/ul Normal 0.0-0.7 [facility] Comment on above: Performed By: #### STEPHEN FUENTESRO #### [facility] [address] [place] [address] Dr. Jamil Oropeza Eosinophils/100 WBC (Bld) 0.8 % Critically low 0.9-7.0 [facility] Comment on above: Performed By: #### STEPHEN FUENTESRO #### [facility] [address] [place] [address] Dr. Jamil Oropeza Erythrocyte distribution width (RBC) [Ratio] 12.3 % Normal 11.0-15.0 [facility] Comment on above: Performed By: #### STEPHEN FUENTESRO #### [facility] [address] [place] [address] Dr. Jamil Oropeza Hematocrit (Bld) [Volume fraction] 40.4 % Normal 36.0-48.0 [facility] Comment on above: Performed By: #### STEPHEN FUENTESRO #### [facility] [address] [place] [address] Dr. Jamil Oropeza Hemoglobin (Bld) [Mass/Vol] 13.7 g/dL Normal 12.0-16.0 [facility] Comment on above: Performed By: #### STEPHEN FUENTESRO #### [facility] [address] [place] [address] Dr. Jamil Oropeza IG # 0.03 10e3/ul Normal 0.00-0.03 [facility] Comment on above: Performed By: #### STEPHEN FUENTESRO #### [facility] [address] [place] [address] Dr. Jamil Oropeza IG % 0.4 % Normal 0.0-0.5 [facility] Comment on above: Performed By: #### GINA UMICRO #### [facility] [address] [place] [address] Dr. Jamil Oropeza LYMPH # 2.7 103/ul Normal 1.2-3.8 [facility] Comment on above: Performed By: #### ERUR, UMICRO #### [facility] [address] [place] [address] Dr. Jamil Oropeza Lymphocytes/100 WBC (Bld) 32.9 % Normal 20.5-60.0 [facility] Comment on above: Performed By: #### GINA UMICRO #### [facility] [address] [place] [address] Dr. Jamil Oropeza MANUAL DIFF REQ NO Normal [facility] Comment on above: Performed By: #### GINA UMICRO #### [facility] [address] [place] [address] Dr. Jamil Oropeza MCH (RBC) [Entitic mass] 29.9 pg Normal 26.7-34.0 [facility] Comment on above: Performed By: #### GINA UMICRO #### [facility] [address] [place] [address] Dr. Jamil Oropeza MCHC (RBC) [Mass/Vol] 33.9 g/dL Normal 29.9-35.2 [facility] Comment on above: Performed By: #### GINA UMICRO #### [facility] [address] [place] [address] Dr. Jamil Oropeza MCV (RBC) [Entitic vol] 88.2 fL Normal 81.0-99.0 [facility] Comment on above: Performed By: #### GINA UMICRO #### [facility] [address] [place] [address] Dr. Jamil Oropeza MONO # 0.5 103/ul Normal 0.3-0.8 [facility] Comment on above: Performed By: #### GINA UMICRO #### [facility] [address] [place] [address] Dr. Jamil Oropeza Monocytes/100 WBC (Bld) 6.5 % Normal 1.7-12.0 [facility] Comment on above: Performed By: #### JASMYN FUENTES #### [facility] [address] [place] [address] Dr. Jamil Oropeza NEUT # 4.9 103/ul Normal 1.4-6.5 [facility] Comment on above: Performed By: #### JASMYN FUENTES #### [facility] [address] [place] [address] Dr. Jamil Oropeza Neutrophils/100 WBC (Bld) 59.0 % Normal 43.0-75.0 [facility] Comment on above: Performed By: #### JASMYN FUENTES #### [facility] [address] [place] [address] Dr. Jamil Oropeza Platelet mean volume (Bld) [Entitic vol] 10.2 fL Normal 9.5-13.5 [facility] Comment on above: Performed By: #### JASMYN FUENTES #### [facility] [address] [place] [address] Dr. Jamil Oropeza PLT 250 103/ul Normal 150-450 [facility] Comment on above: Performed By: #### STEPHEN FUENTESRO #### [facility] [address] [place] [address] Dr. Jamil Oropeza RBC 4.58 106/ul Normal 4.20-5.40 [facility] Comment on above: Performed By: #### STEPHEN FUENTESRO #### [facility] [address] [place] [address] Dr. Jamil Oropeza WBC 8.3 103/ul Normal 4.0-11.0 [facility] Comment on above: Performed By: #### STEPHEN FUENTESRO #### [facility] [address] [place] [address] ABD/PELVIS WO CONon [...] TAI GOMEZ Date: 2023-01-31 06:25 Normal [facility] CULTURE URINEon 01-31-2023 CULTURE URINE Culture Observations : LIGHT GROWTH OF MIXED GENITAL BANDAR. NO POTENTIAL PATHOGENS SEEN. Normal [facility] Comment on above: Performed By: #### JASMYN FUENTES #### [facility] [address] [address] [address] Jamil Oropeza ER URINE PROFILEon 3 Bilirubin Ql (U) Negative Normal NEGATIVE [facility] Comment on above: Performed By: #### JASMYN FUENTES #### [facility] [address] [place], [place] [address] Dr. Jamil Oropeza Clarity (U) CLEAR Normal CLEAR [facility] Comment on above: Performed By: #### GINA UMICRO #### [facility] [address] [address] [address] Jamil Oropeza Color (U) BROWN Abnormal YELLOW [facility] Comment on above: Performed By: #### GINA UMICRO #### [facility] [address] [place] [address] Dr. Jamil CLANCY A micrscopic examina tion will be performed if indicated. Normal [facility] Comment on above: Performed By: #### GINA UMICRO #### [facility] [address] [place] [address] Dr. Jamil Oropeza Glucose Ql (U) 100 mg/dl Abnormal NEGATIVE [facility] Comment on above: Performed By: #### GINA UMICRO #### [facility] [address] [place] [address] Dr. Jamil Oropeza Hemoglobin Ql (U) LARGE Abnormal NEGATIVE [facility] Comment on above: Performed By: #### GINA UMICRO #### [facility] [address] [place] [address] Dr. Jamil Oropeza Ketones Ql (U) Negative Normal NEGATIVE [facility] Comment on above: Performed By: #### GINA UMICRO #### [facility] [address] [place] [address] Dr. Jamil Oropeza LEUKOCYTES TRACE Abnormal NEGATIVE [facility] Comment on above: Performed By: #### GINA UMICRO #### [facility] [address] [place] [address] Dr. Jamil Oropeza Nitrite Ql (U) Negative Normal NEGATIVE [facility] Comment on above: Performed By: #### GINA UMICRO #### [facility] [address] [place] [address] Dr. Jamil Oropeza pH (U) 5.5 [pH] Normal 5-9 [facility] Comment on above: Performed By: #### GINA UMICRO #### [facility] [address] [place] [address] Dr. Jamil Oropeza Protein (U) [Mass/Vol] 30 mg/dL Abnormal NEGATIVE/ TRACE [facility] Comment on above: Performed By: #### JASMYN FUENTES #### [facility] [address] [place] [address] Dr. Jamil Oropeza SPEC GRAVITY >=1.030 Abnormal 1.005-<=1.025 [facility] Comment on above: Performed By: #### STEPHEN FUENTESRO #### [facility] [address] [place] [address] Dr. Jamil Oropeza UR MICRO IND INDICATED Normal [facility] Comment on above: Performed By: #### STEPHEN FUENTESRO #### [facility] [address] [place] [address] Dr. Jamil Oropeza Urobilinogen Qn (U) 0.2 {Ervin'U}/dL Normal 0.2 - 1.0 [facility] Comment on above: Performed By: #### JASMYN FUENTES #### [facility] [address] [place] [address] Dr. Jamil Oropeza LIPASEon 01-31-2023 Lipase [Catalytic activity/Vol] 102.0 U/L Normal 73.0-393.0 [facility] Comment on above: Performed By: #### CMP, LIPA, VERONICA #### [facility] [address] [place] [address] Dr. Jamil Oropeza PROF 14(COMP METB)on 023 Albumin [Mass/Vol] 3.8 g/dL Normal 3.4-5.0 [facility] Comment on above: Performed By: #### CMP, LIPA, VERONICA #### [facility] [address] [place] [address] Dr. Jamil Oropeza Albumin/Globuli n [Mass ratio] 1.1 {ratio} Normal [facility] Comment on above: Performed By: #### CMP, LIPA, VERONICA #### [facility] [address] [place] [address] Dr. Jamil Oropeza ALP [Catalytic activity/Vol] 100 U/L Normal 46-116 [facility] Comment on above: Performed By: #### CMP, LIPA, VERONICA #### [facility] [address] [address] [address] Jamil Oropeza ALT [Catalytic activity/Vol] 15 U/L Normal 14-59 [facility] Comment on above: Performed By: #### CMP, LIPA, VERONICA #### [facility] [address] [address] [address] Jamil Oropeza Anion gap [Moles/Vol] 12.3 mmol/L Normal [facility] Comment on above: Performed By: #### CMP, LIPA, VERONICA #### [facility] [address] [address] [address] Jamil Oropeza AST [Catalytic activity/Vol] 13 U/L Critically low 15-37 [facility] Comment on above: Performed By: #### CMP, LIPA, VERONICA #### [facility] [address] [place] [address] Dr. Jamil Oropeza Bilirubin [Mass/Vol] 0.5 mg/dL Normal 0.2-1.0 [facility] Comment on above: Performed By: #### CMP, LIPA, VERONICA #### [facility] [address] [place] [address] Dr. Jamil Oropeza Calcium [Mass/Vol] 8.7 mg/dL Normal 8.5-10.1 [facility] Comment on above: Performed By: #### CMP, LIPA, VERONICA #### [facility] [address] [place] [address] Dr. Jamil Oropeza Chloride [Moles/Vol] 106 mmol/L Normal 98-107 [facility] Comment on above: Performed By: #### CMP, LIPA, VERONICA #### [facility] [address] [address] [address] Jamil Oropeza CO2 [Moles/Vol] 27.3 mmol/L Normal 21.0-32.0 [facility] Comment on above: Performed By: #### CMP, LIPA, VERONICA #### [facility] [address] [address] [address] Jamil Oropeza Creatinine [Mass/Vol] 0.87 mg/dL Normal 0.55-1.02 [facility] Comment on above: Performed By: #### CMP, LIPA, VERONICA #### [facility] [address] [place] [address] Dr. Jamil Oropeza EGFR-AF BANGLADESHI >60 Normal >=60 [facility] Comment on above: Performed By: #### CMP, LIPA, VERONICA #### [facility] [address] [place] [address] Dr. Jamil Oropeza EGFR-NON AF BANGLADESHI >60 Normal >=60 [facility] Comment on above: Performed By: #### CMP, LIPA, VERONICA #### [facility] [address] [place] [address] Dr. Jamil Oropeza Globulin (S) [Mass/Vol] 3.4 g/dL Normal [facility] Comment on above: Performed By: #### CMP, LIPA, VERONICA #### [facility] [address] [place] [address] Dr. Jamil Oropeza Glucose [Mass/Vol] 95 mg/dL Normal 74-106 [facility] Comment on above: Performed By: #### CMP, LIPA, VERONICA #### [facility] [address] [place] [address] Dr. Jamil Oropeza Potassium [Moles/Vol] 3.6 mmol/L Normal 3.5-5.1 [facility] Comment on above: Performed By: #### CMP, LIPA, VERONICA #### [facility] [address] [place] [address] Dr. Jamil Oropeza Protein [Mass/Vol] 7.2 g/dL Normal 6.4-8.2 [facility] Comment on above: Performed By: #### CMP, LIPA, VERONICA #### [facility] [address] [place] [address] Dr. Jamil Oropeza Sodium [Moles/Vol] 142 mmol/L Normal 136-145 [facility] Comment on above: Performed By: #### CMP, LIPA, VERONICA #### [facility] [address] [place] [address] Dr. Jamil Oropeza Urea nitrogen [Mass/Vol] 13.0 mg/dL Normal 7.0-18.0 [facility] Comment on above: Performed By: #### RADHA MORGAN AMY #### [facility] [address] [address] [address] Jamil Oropeza Urea nitrogen/Creati nine [Mass ratio] 14.9 mg/mg Normal [facility] Comment on above: Performed By: #### RADHA MORGAN AMY #### [facility] [address] [address] [address] Jamil Oropeza URINE MICROSCOPIC ONLYon BACTERIA SMALL Abnormal NONE SEEN [facility] Comment on above: Performed By: #### GINA UMICRO #### [facility] [address] [place] [address] Dr. Jamil Oropeza Bacteria identified Cx Nom (U) INDICATED Normal [facility] Comment on above: Performed By: #### GINA UMICRO #### [facility] [address] [place] [address] Dr. Jamil Oropeza CAST NONE SEEN Normal NONE SEEN [facility] Comment on above: Performed By: #### GINA UMICRO #### [facility] [address] [place] [address] Dr. Jamil Oropeza Crystals LM Nom (Urine sed) NONE SEEN Normal NONE SEEN [facility] Comment on above: Performed By: #### ERUR UMICRO #### [facility] [address] [place] [address] Dr. Jamil Oropeza Epithelial cells LM Ql (Urine sed) MODERATE Abnormal NONE SEEN /RARE [facility] Comment on above: Performed By: #### ERUR UMICRO #### [facility] [address] [place] [address] Dr. Jamil Oropeza MUCOUS NONE SEEN Normal NONE SEEN [facility] Comment on above: Performed By: #### ERUR, UMICRO #### [facility] [address] [place] [address] Dr. Jamil Oropeza RBC (U) [#/Vol] /uL Abnormal 0-2 [facility] Comment on above: Performed By: #### STEPHEN FUENTESRO #### [facility] [address] [place] [address] Dr. Jamil Oropeza WBC 2-5 Abnormal NONE SEEN [facility] Comment on above: Performed By: #### STEPHEN FUENTESRO #### [facility] [address] [place] [address] Dr. Jamil Oropeza INFLUENZA A AND B AGon 11-08 INFLUANEGH SEE BELOW Normal [facility] Comment on above: Result Comment: Negative for Flu A prote in angiten. Infection due to Flu A cannot be ruled out. Flu A angiten in the sample may be below the detection limit of the test. Performed By: #### STEPHEN PICHARDORO #### [facility] [address] [place] [address] Dr. Jamil Oropeza INFLUBNEGH SEE BELOW Normal [facility] Comment on above: Result Comment: Negative for Flu B prote in antigen. Infection due to Flu B cannot be ruled out. Flu B antigen in the sample may be below the detection limit of the test. Performed By: #### STEPHEN PICHARDORO #### [facility] [address] [place] [address] Dr. Jamil Oropeza INFLUENZA A AG Negative Normal NEGATIVE SEE COMMENT [facility] Comment on above: Performed By: #### STEPHEN FUENTESRO #### [facility] [address] [place] [address] Dr. Jamil Oropeza INFLUENZA B AG Negative Normal NEGATIVE SEE COMMENT [facility] Comment on above: Performed By: #### STEPHEN FUENTESRO #### [facility] [address] [place] [address] Dr. Jamil Oropeza INTERNAL CONTROLS Within Normal Limits Normal Within Normal Limits [facility] Comment on above: Performed By: #### STEPHEN FUENTESRO #### [facility] [address] [place] [address] Dr. Jamil Oropeza CBC AUTO DIFFon 09-26-2022 BASO # 0.0 103/ul Normal 0.0-0.1 [facility] Comment on above: Performed By: #### ERUR, UMICRO #### [facility] [address] [place] [address] Dr. Jamil Oropeza Basophils/100 WBC (Bld) 0.3 % Normal 0.2-2.0 [facility] Comment on above: Performed By: #### GINA UMICRO #### [facility] [address] [place] [address] Dr. Jamil Oropeza EO # 0.0 103/ul Normal 0.0-0.7 [facility] Comment on above: Performed By: #### GINA UMICRO #### [facility] [address] [place] [address] Dr. Jamil Oropeza Eosinophils/100 WBC (Bld) 0.3 % Critically low 0.9-7.0 [facility] Comment on above: Performed By: #### GINA UMICRO #### [facility] [address] [place] [address] Dr. Jamil Oropeza Erythrocyte distribution width (RBC) [Ratio] 12.1 % Normal 11.0-15.0 [facility] Comment on above: Performed By: #### GINA UMICRO #### [facility] [address] [place] [address] Dr. Jamil Oropeza Hematocrit (Bld) [Volume fraction] 40.6 % Normal 36.0-48.0 [facility] Comment on above: Performed By: #### GINA UMICRO #### [facility] [address] [place] [address] Dr. Jamil Oropeza Hemoglobin (Bld) [Mass/Vol] 13.6 g/dL Normal 12.0-16.0 [facility] Comment on above: Performed By: #### GINA UMICRO #### [facility] [address] [place] [address] Dr. Jamil Oropeza IG # 0.03 10e3/ul Normal 0.00-0.03 [facility] Comment on above: Performed By: #### GINA UMICRO #### [facility] [address] [place] [address] Dr. Jamil Oropeza IG % 0.3 % Normal 0.0-0.5 [facility] Comment on above: Performed By: #### JASMYN FUENTES #### [facility] [address] [place] [address] Dr. Jamil Oropeza LYMPH # 1.9 103/ul Normal 1.2-3.8 [facility] Comment on above: Performed By: #### STEPHEN FUENTESRO #### [facility] [address] [place] [address] Dr. Jamil Oropeza Lymphocytes/100 WBC (Bld) 21.2 % Normal 20.5-60.0 [facility] Comment on above: Performed By: #### STEPHEN FUENTESRO #### [facility] [address] [place] [address] Dr. Jamil Oropeza MANUAL DIFF REQ NO Normal [facility] Comment on above: Performed By: #### JASMYN FUENTES #### [facility] [address] [place] [address] Dr. Jamil Oropeza MCH (RBC) [Entitic mass] 29.2 pg Normal 26.7-34.0 [facility] Comment on above: Performed By: #### JASMYN FUENTES #### [facility] [address] [place] [address] Dr. Jamil Oropeza MCHC (RBC) [Mass/Vol] 33.5 g/dL Normal 29.9-35.2 [facility] Comment on above: Performed By: #### STEPHEN FUENTESRO #### [facility] [address] [place] [address] Dr. Jamil Oropeza MCV (RBC) [Entitic vol] 87.1 fL Normal 81.0-99.0 [facility] Comment on above: Performed By: #### STEPHEN FUENTESRO #### [facility] [address] [place] [address] Dr. Jamil Oropeza MONO # 0.5 103/ul Normal 0.3-0.8 [facility] Comment on above: Performed By: #### JASMYN FUENTES #### [facility] [address] [place], [place] [id number] Dr. Jamil Oropeza Monocytes/100 WBC (Bld) 5.4 % Normal 1.7-12.0 [facility] Comment on above: Performed By: #### STEPHEN FUENTESRO #### [facility] [address] [place] [address] Dr. Jamil Oropeza NEUT # 6.5 103/ul Normal 1.4-6.5 [facility] Comment on above: Performed By: #### STEPHEN FUENTESRO #### [facility] [address] [place] [address] Dr. Jamil Oropeza Neutrophils/100 WBC (Bld) 72.5 % Normal 43.0-75.0 [facility] Comment on above: Performed By: #### GINA UMICRO #### [facility] [address] [place] [address] Dr. Jamil Oropeza Platelet mean volume (Bld) [Entitic vol] 10.6 fL Normal 9.5-13.5 [facility] Comment on above: Performed By: #### MICAELA FUENTESICRO #### [facility] [address] [place] [address] Dr. Jamil Oropeza PLT 237 103/ul Normal 150-450 [facility] Comment on above: Performed By: #### MICAELA FUENTESICRO #### [facility] [address] [place] [address] Dr. Jamil Oropeza RBC 4.66 106/ul Normal 4.20-5.40 [facility] Comment on above: Performed By: #### MICAELA FUENTESICRO #### [facility] [address] [place] [address] Dr. Jamil Oropeza WBC 8.9 103/ul Normal 4.0-11.0 [facility] Comment on above: Performed By: #### MICAELA FUENTESICRO #### [facility] [address] [place] [address] Dr. Jamil Oropeza Covid-19 PCR ([facility])on 09-16 SARS-CoV-2 (COVID-19) RNA IDALIA+probe Ql (Unsp spec) Not detected Normal NOT DETECTED [facility] Comment on above: Result Comment: [...] for this test is supported by the [employer] of [employer] and Human Service's declaration that [...] Performed By: #### E JASMYN MUÑOZ #### [facility] [address] [place] [address] Dr. Jamil Oropeza ER URINE PROFILEon 2 Bilirubin Ql (U) Negative Normal NEGATIVE [facility] Comment on above: Performed By: #### GINA UMICRO #### [facility] [address] [place] [address] Dr. Jamil Oropeza Clarity (U) CLEAR Normal CLEAR [facility] Comment on above: Performed By: #### GINA UMICRO #### [facility] [address] [place] [address] Dr. Jamil Oropeza Color (U) LT. YELLOW Normal YELLOW [facility] Comment on above: Performed By: #### GINA UMICRO #### [facility] [address] [place] [address] Dr. Jamil CLANCY A micrscopic examina tion will be performed if indicated. Normal [facility] Comment on above: Performed By: #### GINA UMICRO #### [facility] [address] [place] [address] Dr. Jamil Oropeza Glucose Ql (U) Negative Normal NEGATIVE [facility] Comment on above: Performed By: #### GINA UMICRO #### [facility] [address] [address] [address] Jamil Oropeza Hemoglobin Ql (U) TRACE-INTACT Abnormal NEGATIVE [facility] Comment on above: Performed By: #### GINA UMICRO #### [facility] [address] [place] [address] Dr. Jamil Oropeza Ketones Ql (U) Negative Normal NEGATIVE [facility] Comment on above: Performed By: #### GINA UMICRO #### [facility] [address] [place] [address] Dr. Jamil Oropeza LEUKOCYTES Negative Normal NEGATIVE [facility] Comment on above: Performed By: #### GINA UMICRO #### [facility] [address] [place] [address] Dr. Jamil Oropeza Nitrite Ql (U) Negative Normal NEGATIVE [facility] Comment on above: Performed By: #### GINA UMARACELIRO #### [facility] [address] [place] [address] Dr. Jamil Oropeza pH (U) 7.0 [pH] Normal 5-9 [facility] Comment on above: Performed By: #### GINA UMARACELIRO #### [facility] [address] [place] [address] Dr. Jamil Oropeza SPEC GRAVITY 1.010 Normal 1.005-<=1.025 [facility] Comment on above: Performed By: #### GINA UMARACELIRO #### [facility] [address] [place] [address] Dr. Jamil Oropeza UA PROTEIN Negative Normal NEGATIVE/ TRACE [facility] Comment on above: Performed By: #### GINA UMICRO #### [facility] [address] [place] [address] Dr. Jamil Oropeza UR MICRO IND INDICATED Normal [facility] Comment on above: Performed By: #### GINA UMICRO #### [facility] [address] [place] [address] Dr. Jamil Oropeza Urobilinogen Qn (U) 0.2 {Ervin'U}/dL Normal 0.2 - 1.0 [facility] Comment on above: Performed By: #### ERURJASMYN #### [facility] [address] [place] [address] Dr. Jamil Oropeza INFLUENZA A AND B AGon 09-26 INFLUANEGH SEE BELOW Normal [facility] Comment on above: Result Comment: Negative for Flu A prote in angiten. Infection due to Flu A cannot be ruled out. Flu A angiten in the sample may be below the detection limit of the test. Performed By: #### I NFLUAB #### [facility] [address] [place] [address] Dr. Jamil Oropeza INFLUBNEG SEE BELOW Normal [facility] Comment on above: Result Comment: Negative for Flu B prote in antigen. Infection due to Flu B cannot be ruled out. Flu B antigen in the sample may be below the detection limit of the test. Performed By: #### I NFLUAB #### [facility] [address] [place] [address] Dr. Jamil Oropeza INFLUENZA A AG Negative Normal NEGATIVE SEE COMMENT [facility] Comment on above: Performed By: #### INFLUAB #### [facility] [address] [place] [address] Dr. Jamil Oropeza INFLUENZA B AG Negative Normal NEGATIVE SEE COMMENT [facility] Comment on above: Performed By: #### INFLUAB #### [facility] [address] [place] [address] Dr. Jamil Oropeza INTERNAL CONTROLS Within Normal Limits Normal Within Normal Limits [facility] Comment on above: Performed By: #### INFLUAB #### [facility] [address] [place] [address] Dr. Jamil Oropeza POINT OF CARE GLUCOSEon 09-16 Glucose [Mass/Vol] 100 mg/dL Normal 74-106 [facility] Comment on above: Performed By: #### POCGLUC #### [facility] [address] [place] [address] Dr. Jamil Oropeza URon 09-26-2022 , QUAL Negative Normal NEGATIVE [facility] Comment on above: Performed By: #### ERUR UMICRO #### [facility] [address] [address] [address] Jamil Oropeza PROF CHEM 8 (BAS METB)on Anion gap [Moles/Vol] 5.9 mmol/L Normal [facility] Comment on above: Performed By: #### BMP, HSTROPN #### [facility] [address] [place] [address] Dr. Jamil Oropeza Calcium [Mass/Vol] 9.8 mg/dL Normal 8.5-10.1 [facility] Comment on above: Performed By: #### BMP, HSTROPN #### [facility] [address] [place] [address] Dr. Jamil Oropeza Chloride [Moles/Vol] 103 mmol/L Normal 98-107 [facility] Comment on above: Performed By: #### BMP, HSTROPN #### [facility] [address] [address] [address] Jamil Oropeza CO2 [Moles/Vol] 30.9 mmol/L Normal 21.0-32.0 [facility] Comment on above: Performed By: #### BMP, HSTROPN #### [facility] [address] [place] [address] Dr. Jamil Oropeza Creatinine [Mass/Vol] 0.84 mg/dL Normal 0.55-1.02 [facility] Comment on above: Performed By: #### BMP, HSTROPN #### [facility] [address] [place] [address] Dr. Jamil Oropeza EGFR-AF BANGLADESHI >60 Normal >=60 [facility] Comment on above: Performed By: #### BMP, HSTROPN #### [facility] [address] [place] [address] Dr. Jamil Oropeza EGFR-NON AF BANGLADESHI >60 Normal >=60 [facility] Comment on above: Performed By: #### BMP, HSTROPN #### [facility] [address] [place] [address] Dr. Jamil Oropeza Glucose [Mass/Vol] 95 mg/dL Normal 74-106 [facility] Comment on above: Performed By: #### BMP, HSTROPN #### [facility] [address] [place] [address] Dr. Jamil Oropeza Potassium [Moles/Vol] 3.8 mmol/L Normal 3.5-5.1 [facility] Comment on above: Performed By: #### BMP, HSTROPN #### [facility] [address] [place] [address] Dr. Jmail Oropeza Sodium [Moles/Vol] 136 mmol/L Normal 136-145 [facility] Comment on above: Performed By: #### BMP, HSTROPN #### [facility] [address] [place] [address] Dr. Jamil Oropeza Urea nitrogen [Mass/Vol] 11.0 mg/dL Normal 7.0-18.0 [facility] Comment on above: Performed By: #### BMP, HSTROPN #### [facility] [address] [place] [address] Dr. Jamil Oropeza Urea nitrogen/Creati nine [Mass ratio] 13.1 mg/mg Normal [facility] Comment on above: Performed By: #### BMP, HSTROPN #### [facility] [address] [place] [address] Dr. Jamil Oropeza TROPONIN, HIGH SENSITIVITYon 09-26-2022 HSTROP 5.6 pg/mL Normal 4.0-51.3 [facility] Comment on above: Result Comment: CUT-OFF POINTS HAVE BEEN ESTABLISHED BASED ON THE FOURTH UNIVERSAL DEFINITIONS OF MYOCARDIAL INFARCTION. THE UPPER REFERENCE LIMIT (URL) OF TROPONIN, DEFINED THE 99TH PERCENTILE OF cTnI DISTRIBUTION IN A REFERENCE POPULATION, HAS BEEN CONFIRMED THE DECISION THRESHOLD FOR PR DIAGNOSIS. Performed By: #### B MP, HSTROPN #### [facility] [address] [place] [address] Dr. Jamil Oropeza URINE MICROSCOPIC ONLYon BACTERIA NONE SEEN Normal NONE SEEN [facility] Comment on above: Performed By: #### JASMYN FUENTES #### [facility] [address] [place] [address] Dr. Jamil Oropeza Bacteria identified Cx Nom (U) NOT INDICATED Normal [facility] Comment on above: Performed By: #### ERUR, UMICRO #### [facility] [address] [place] [address] Dr. Jamil Oropeza CAST NONE SEEN Normal NONE SEEN [facility] Comment on above: Performed By: #### ERUR, UMICRO #### [facility] [address] [place] [address] Dr. Jamil Oropeza Crystals LM Nom (Urine sed) NONE SEEN Normal NONE SEEN [facility] Comment on above: Performed By: #### ERUR, UMICRO #### [facility] [address] [place] [address] Dr. Jamil Oropeza Epithelial cells LM Ql (Urine sed) FEW Abnormal NONE SEEN /RARE [facility] Comment on above: Performed By: #### ERUR, UMICRO #### [facility] [address] [place] [address] Dr. Jamil Oropeza MUCOUS NONE SEEN Normal NONE SEEN [facility] Comment on above: Performed By: #### ERUR, UMICRO #### [facility] [address] [place] [address] Dr. Jamil Oropeza RBC 0-2 Normal 0-2 [facility] Comment on above: Performed By: #### ERUR, UMICRO #### [facility] [address] [place] [address] Dr. Jamil Oropeza WBC NONE SEEN Normal NONE SEEN [facility] Comment on above: Performed By: #### ERUR, UMICRO #### [facility] [address] [place] [address] Dr. Jamil Oropeza General Surgery Office/Clini c Noteon 07-31-2022 General Surgery Office/Clinic Note Chief Complaint re-evaluate GERD/cough [facility] Staff 37 year old female presents to [...] Family History Family history is negative Normal [facility] Comment on above: Result Comment: Electronically [...] after swallowing, pp_set_radiolo gy_subspecialt y, Not Required, [facility]\.br\ Medications\.b r\ What How Much When Instructions\. [...] Dysphagia\.br\ GERD (gastroesophag eal reflux disease)\.br\ \.br\ [facility] Covid-19 PCR ([facility])on 05-17 SARS-CoV-2 (COVID-19) RNA IDALIA+probe Ql (Unsp spec) Not detected Normal NOT DETECTED [facility] Comment on above: Result Comment: [...] for this test is supported by the [employer] and Human Service's declaration that [...] used). Performed By: #### JASMYN PICHARDO #### [facility] [address] [place] [address] Dr. Jamil Oropeza XR SINUSES 3 VIEWS [...] Abhishek LOMBARDI Date: 2022-06-09 01:48 Normal [facility] Vital Signs Date Time Vital Sign Value Performing Clinician Facility 03-07-2023 12:00-0400 Body height 166.37 cm Marco Antonio Goldsmith Other [facility] Other 03-07-2023 12:00-0400 Body mass index (BMI) [Ratio] 30.31 kg/m2 Marco Antonio Goldsmith Other [facility] Other 03-07-2023 12:00-0400 Body temperature 97.9 [degF] Marco Antonio Goldsmith Other [facility] Other 03-07-2023 12:00-0400 Body weight 83.92 kg Marco Antonio Goldsmith Other [facility] Other 03-07-2023 12:00-0400 Diastolic blood pressure 83 mm[Hg] Marco Antonio Goldsmith Other [facility] Other 03-07-2023 12:00-0400 Respiratory rate 18 /min Marco Antonio Goldsmith Other [facility] Other 03-07-2023 12:00-0400 SaO2% (BldA) [Mass fraction] 98 % Marco Antonio Goldsmith Other [facility] Other 03-07-2023 12:00-0400 Systolic blood pressure 123 mm[Hg] Marco Antonio Goldsmith Other [facility] Other 03-04-2023 11:01-0400 Blood Pressure Location [facility] 03-04-2023 11:01-0400 Diastolic blood pressure 75 mm[Hg] [facility] 03-04-2023 11:01-0400 Heart rate 71 /min [facility] 03-04-2023 11:01-0400 Respiratory rate 16 /min [facility] 03-04-2023 11:01-0400 Systolic blood pressure 127 mm[Hg] [facility] 11-27-2022 11:45-0500 Body height 166.37 cm Whit Salinas Other [facility] Other 11-27-2022 11:45-0500 Body mass index (BMI) [Ratio] 29.49 kg/m2 Whit Salinas Other [facility] Other 11-27-2022 11:45-0500 Body temperature 97.6 [degF] Whit Salinas Other [facility] Other 11-27-2022 11:45-0500 Body weight 81.65 kg Whit Salinas Other [facility] Other 11-27-2022 11:45-0500 Diastolic blood pressure 81 mm[Hg] Whit Ruckerault Other [facility] Other 11-27-2022 11:45-0500 Respiratory rate 18 /min Whit Salinas Other [facility] Other 11-27-2022 11:45-0500 SaO2% (BldA) [Mass fraction] 98 % Whit Salinas Other [facility] Other 11-27-2022 11:45-0500 Systolic blood pressure 124 mm[Hg] Whit Ruckerault Other [facility] Other 06-26-2022 10:16-0400 Blood Pressure Location Willie MONTERROSO [facility] [place] 06-26-2022 10:16-0400 Diastolic blood pressure 81 mm[Hg] Willie NILL [facility] [place] 06-26-2022 10:16-0400 Heart rate 68 /min Willie WEBERL [facility] [place] 06-26-2022 10:16-0400 Respiratory rate 16 /min Willie WEBERL [facility] [place] 06-26-2022 10:16-0400 Systolic blood pressure 116 mm[Hg] Willie WEBERL [facility] [place] Encounters Encounter Date Encounter Type Care Provider Facility Start: 03-15-2024 End: 03-15-2024 ambulatory YENY GONG Not Available Start: 03-10-2023 End: 03-10-[address] YENY GONG . Facility:[facility] Start: 03-07-2023 End: 03-07-2023 ambulatory Marco Antonio Goldsmith Other [facility] Other Start: 03-07-2023 Office outpatient visit 15 minutes Marco Antonio Goldsmith [facility] Start: 03-04-2023 End: 03-05-2023 ambulatory Dany SYLVESTER Facility:[facility] Start: 03-04-2023 End: 03-04-2023 Patient encounter procedure Dany SYLVESTER [facility] Start: 03-02-2023 End: 03-03-[address] DANY SYLVESTER Facility:[facility] Start: 02-24-2023 ambulatory Willie MONTERROSO Facility:[facility] [place] Start: 01-31-2023 End: 01-31-2023 ambulatory YADIRA SIMPSON Facility:[facility] Start: 11-27-2022 End: 11-27-2022 ambulatory Whit Salinas Other [place] [facility] Other Start: 11-27-2022 Office outpatient ne w 20 minutes Whit Salinas [facility] Start: 11-08-2022 End: 11-08-2022 ambulatory YADIRA TATIANA Facility:[facility] Start: 09-26-2022 End: 09-26-2022 ambulatory YADIRA SIMPSON Facility:[facility] Start: 06-26-2022 End: 06-27-2022 ambulatory Willie R NILL Facility: [facility] Start: 06-26-2022 End: 06-26-2022 Patient encounter procedure Willie R NILL [facility] [place] Start: 06-13-2022 ambulatory Willie NILL Facility:[facility] Start: 06-09-2022 End: 06-09-2022 ambulatory DAISY SEYMOUR Facility:[facility] Procedures Date Procedure Procedure Detail Performing Clinician Start: 11-16-2016 Esophagogastroduodenoscopy Willie GUSFernanda Payers Date Payer Category Payer Unknown [id number] 2.16.84 [id number] 1984 Unknown [id number] 2.16.84 [id number] 1984 Unknown [id number] 2.16.84 [id number] 1984 Unknown [id number] 2.16.84 [id number] 1984 Unknown [id number] 2.16.84 [id number] 1984 Unknown [id number] 2.16.84 [id number] 1984 Unknown [id number] 2.16.8 [id number] 1984 Unknown [id number] 2.16.8 [id number] 1984 Unknown [id number] 2.16.8 [id number] 1984 Unknown [id number] 2.16.84 [id number] 1960 Medicaid [id number] 2.16. [id number] 1959 Unknown [id number] 2.16.8 [id number] 1959 Unknown [id number] 1959 Unknown [id number] Social History Date Type Detail Facility Start: 06-26-2022 Tobacco smoking status Never s moked tobacco (finding) [facility] Tobacco smoking status Never [facility] Sex Assigned At Female [facility] Functional Status Date Assessment Result Facility 03-04-2023 Functional Status N/A [facility] 06-26-2022 Functional Status N/A [facility] Evaluation note 03-07-2023 Note Date & [...] of symptoms occur by end of treatment. [facility] Other Evaluation + Plan note 03-04-2023 Radiology Note Date & Type Note Facility 03-04-2023 Evaluation + Plan note Diagnostic Tests PendingPT 03/04/23PTT 03/04/23PT 03/04/23 Future Scheduled TestsXR Abdomen 1 View 02/24/23 [facility] Hospital Discharge instructions 03-04-2023 Note Date & Type Note Facility 03-04-2023 Hospital Discharg e instructions Patient Education 03/04/2023 11:52:31 Kidney Stones, Ovqw-si-Rntt Kidney Stones Kidney stones are rock-like masses [...] Follow these instructions at home: Medicines Take yqxx-jzc-qphoghi and prescription medicines only as told by [...] provider. Document Revised: 07/07/2022 Document Reviewed: 07/07/2022 [employer] Patient Education 2022 [employer]. Follow Up Care 02/05/2023 09:42:12 With:NGA HANNON, Dany Morrissey, URL Address: [address] [place] [address]- When: Unknown [facility] Clinical Note 03-02-2023 Note Date [...] authenticated by: DALJIT SMITH Date: 2023-03-02 12:37 [facility] Evaluation note 11-27-2022 Note Date & Type Note Facility 11-27-2022 Evaluation note Encounter Date Diagnosis Assessment Notes Nov, Right otitis media with effusion (ICD-10 - H65.91) take medication as directed. Middle ear fluid can be caused from allergies, traveling or viral infections. It may linger. Follow up with PCP if symptoms persist [facility] [employer] Other Evaluation + Plan note Radiology Note Date & Type Note Facility Evaluation + Plan note Future Appointments Appointment Date:07/24/2022 09:00:00 AM Scheduled Provider: Location:.XRAY Appointment Type:XR MBS Adult (FT) Future Scheduled TestsXR Adult Swallowing Function w/ Video: Evaluate Pt, Develop a Plan of Care & Implement Plan 07/24/22 [facility] [place] History general Narrative - Reported Note Date & Type Note Facility History general Narrative - Reported Type Medical History seasonal/environmental allergies Medical History acid reflux Medical History gastritis Surgical History cosmetic surgery Surgical History EGD Hospitalization History childbirth [facility] [employer] Other Hospital course Narrative Note Date & Type Note Facility Hospital course Narrative No data available for this section [facility] Discharge instructions Note Date & Type Note Facility Hospital Discharge instructions No data available for this section [facility] Progress note Note Date & Type Note Facility Progress note No data available for this section [facility] Summary Purpose Family History No Family History Records FoundNo Family History Records FoundNo Family History Records Found Advance Directives No Advanced Directives Records FoundNo Advanced Directives Records FoundNo Advanced Directives Records Found Additional Source Comments Care Team (unrecognized sect ion and content) Personnel Name: YADIRA SIMPSON CNP Address: [address] [facility] [address] Personnel Name: YADIRA SIMPSON CNP Address: Address: [facility] [facility] [address] REASON FOR VISIT (unrecogniz ed section and content) poss right ear infection - n o other symptomsSINUS PRESSURE, COUGH, CONGESTION, HEADACHE INFORMATION SOURCE (unrecogn ized section and content) DATE CREATED AUTHOR 03/21/2023 [facility] DATE CREATED AUTHOR 'S ORGANIZ ATION 06/06/2023 [facility] DATE CREATED AUTHOR AUTHOR'S JF HAHN 03/16/[address] [facility] FOR RECORDS PERTAINING TO PATIENTS WHO ARE [...] BE BASED ON THE PRIMARY CLINICAL RECORDS. [facility] [employer] [facility]. provides no warranty or guarantee of the accuracy or completeness of information in this document.
[2024-06-05] MEDS: 0.9 % SODIUM CHLORIDE 1,000 ML 500 ML IV (14:23)
[2024-06-05] MEDS: KETOROLAC TROMETHAMINE 30 MG/ML VIAL 15 MG IVP (14:24)
[2024-06-05] MEDS: PROCHLORPERAZINE 10 MG/2 ML VIAL IV (14:25)
--- NOTE | 2024-06-05 16:08 | ED.GENADUL1 ---
HPI HPI - General Adult General Chief complaint: Headache Stated complaint: HEADACHE, NAUSEA Time Seen by Provider: 06/05/24 13:57 Source: patient Mode of arrival: walk-in History of Present Illness HPI narrative: The patient have history of migraine presented to us with 2 to 3 days history of headache mostly left-sided associated with photosensitivity, she mentioned that she also has not been drinking of water for the last few days because she was in the sun. No blurry vision no other concerns and she did try some ibuprofen before arrival Related Data Previous Rx's ?Medication ?Instructions ?Recorded methocarbamol 750 mg tablet 750 mg PO Q6H PRN pain #30 tabs 12/08/23 Allergies Allergy/AdvReac Type Severity Reaction Status Date / Time hydrocodone [From Vicodin] Allergy Severe Verified 06/25/23 17:36 Penicillins Allergy Severe Verified 06/25/23 17:36 Opioid HPI Opioid Management Most Recent Opioid Data: Last Pain Scale 6 06/05/24 14:24 Last MAR Pain Assessment 06/05/24 14:24 Review of Systems ROS Status of ROS 10 or more systems reviewed and unremarkable except as noted in history and below PFSH PFSH Social History Smoking status: Never smoker Exam Narrative Exam Narrative: Nurses notes and vital signs reviewed and patient is not hypoxic. General: Well-appearing and in no apparent distress. Skin: Warm, dry, no pallor noted. No rash. Head: Normocephalic, atraumatic. Neck: Supple, non-tender. Eye: Pupils are equal, round and EOMI. No scleral icterus. Ears, Nose, Mouth, and Throat: TM are clear, no nasal mucosal hypertrophy. Oral mucosa is moist, no posterior oropharynx erythema, uvula is mid-line Cardiovascular: Regular Rate and Rhythm without murmur, gallop or rub. Respiratory: No accessory muscle use or respiratory distress. Lungs are clear to auscultation, no wheezing, rales or rhonchi Chest Wall: no tenderness Back: No midline thoracic or lumbar vertebral tenderness. No CVA tenderness Musculoskeletal: normal ROM, no calf or popliteal tenderness, no lower extremity edema/swelling GI: Abdomen is soft, non-distended. Normal bowel sounds. No masses appreciated. No tenderness to palpation. No rebound, guarding, or rigidity noted. Neurological: A&O x4. No cranial nerve dysfunction observed. No truncal ataxia. Moves all extremities. Sensation intact. Psychiatric: Cooperative and interactive. Normal mood and affect. Constitutional Vital Signs, click to edit/add: Last Vital Signs Temp 98.2 F 06/05/24 13:35 Pulse 65 06/05/24 13:35 Resp 18 06/05/24 13:35 BP 122/84 06/05/24 13:35 Pulse Ox 100 06/05/24 13:35 Course Vital Signs Vital signs: Vital Signs Temperature 98.2 F 06/05/24 13:35 Pulse Rate 65 06/05/24 13:35 Respiratory Rate 18 06/05/24 13:35 Blood Pressure 122/84 06/05/24 13:35 Pulse Oximetry 100 06/05/24 13:35 Temperature 98.2 F 06/05/24 13:35 Pulse Rate 65 06/05/24 13:35 Respiratory Rate 18 06/05/24 13:35 Blood Pressure 122/84 06/05/24 13:35 Pulse Oximetry 100 06/05/24 13:35 Medical Decision Making [facility] Narrative Medical decision making narrative: Patient presenting with a typical migraine she was provided with Toradol and Compazine after which she was feeling better The patient is to follow up with primary care physician in next 2-3 days or to return to the emergency department should any of the signs or symptoms worsen or new symptoms develop. The patient agrees with the following Diagnosis and Treatment plan and the patient will be discharged home. Discharge Plan Discharge Stand Alone Forms: Portal Instructions Chief Complaint: Headache Clinical Impression: Headache Qualifiers: Headache type: unspecified Headache chronicity pattern: acute headache Intractability: intractable Qualified Code(s): R51.9 - Headache, unspecified Patient Disposition: Home, Self-Care Time of Disposition Decision: 15:27 Condition: Good Prescriptions / Home Meds: No Action methocarbamol 750 mg tablet 750 mg PO Q6H PRN (Reason: pain) Qty: 30 0RF Hold Instructions: DC Print Language: Irish Instructions: Acute Headache (ED) Referrals: YADIRA SIMPSON [Primary Care Provider] - 1 week
== END 2024-06-05 16:15 | disposition home or self-care (01) ==
PROVIDERS: Emergency Provider Emergency Medicine; PCP Nurse Practitioner Family
DX: R51.9 Headache, unspecified (principal)
CPT/HCPCS: 96374; 96375; 99284; J0780; J1885

== ENCOUNTER 2024-06-06 11:31 | Outpatient (OUT) | payer OTHER, SELFPAY ==
[2024-06-06 11:52] LABS: Basophils Percent Auto 0.3 % (0.2-2.0); Eosinophils Percent Auto 0.4 % (0.9-7.0); Hematocrit 40.2 % (36.0-48.0); Hemoglobin 13.2 g/dL (12.0-16.0); Immature Granulocytes Abs Auto 0.02 10^3/uL (0.00-0.03); Immature Granulocytes Pct Auto 0.3 % (0.0-0.5); Lymphocytes Absolute Auto 1.9 10^3/uL (1.2-3.8); Lymphocytes Percent Auto 26.7 % (20.5-60.0); Mean Corpuscular HGB Conc 32.8 g/dL (29.9-35.2); Mean Corpuscular Volume 91.4 fL (81.0-99.0); Mean Platelet Volume 10.2 fL (9.5-13.5); Monocytes Absolute Auto 0.3 10^3/uL (0.3-0.8); Monocytes Percent Auto 4.7 % (1.7-12.0); Neutrophils Absolute Auto 4.9 10^3/uL (1.4-6.5); Neutrophils Percent Auto 67.6 % (43.0-75.0); Platelet Count 266 10^3/uL (150-450); Red Cell Distribution Width 12.5 % (11.0-15.0); White Blood Count 7.3 10^3/uL (4.0-11.0)
--- OUTSIDE RECORDS SUMMARY | 2024-06-06 11:57 | XMS_ITS | CCD ---
Author Organization [facility] Care Team Providers Care Illuminator Name Role Phone YADIRA SIMPSON Primary Care [...] Unavailable BELTRAN ., DR SAINI Attending Unavailable [facility] Primary Care Unavailable BELTRAN ., DR SAINI Consulting Unavailable DAISY SEYMOUR Consulting Unavailable DAISY SEYMOUR Admitting Unavailable DAISY SEYMOUR [facility] Un[facility] JEFF LOMBARDI Consulting Unavailable [facility] Primary Care Unavailable PAY ., DR SOLORZANO Admitting Unavailable PAY ., DR SOLORZANO Attending Unavailable PAY ., DR SOLORZANO Consulting Unavailable DALEY ., MR GIVENS Consulting [facility] Care Unavailable VADIM ., ELIZABETH Admitting Unavailable VADIM ., ELIZABETH Attending Unavailable VADIM ., ELIZABETH Consulting Unavailable Willie MONTERROSO Attending Unavailable Dany SYLVESTER Attending Unavailable YENY GONG Attending Unavailable Allergies Allergy Classification Reported Allergen(s) Allergy Type Date of Onset Reaction(s) Facility (3 sources) Acetaminophen / HYDROcodone; Translations: [acetaminophen-hy drocodone] Drug Allergy Vomiting (disorder) [facility] (5 sources) Codeine; Translations: [codeine] Drug Allergy Vomiting (disorder) [facility] (6 sources) Penicillins; Translations: [penicillins] Drug allergy 04-10-20 14 Ulcer of mouth (disorder) [facility] (2 sources) Codone Propensity to adverse reactions vomiting [facility] Other (2 sources) Seasonal allergy; Translations: [Seasonal] Allergy to substance Unknown (qualifier value) [facility] (1 source) Codeine Drug Allergy 04-10-20 14 [facility] (1 source) HYDROcodone Drug Allergy 04-10-20 14 [facility] Medications Current Medications Medication Drug [...] 06-09-2022 Episodic Other aftercare (1 source) 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 . Normal [facility] Comment on above: Result Comment: Performed at: WB Performed By: #### [id number] #### [facility] [address] [place] [address] Dr. Jamil Oropeza Age Gdln ACOG Testing 30-65 Normal [facility] Comment on above: Performed By: #### [id number] #### [facility] [address] [place] [address] Dr. Jamil Oropeza DIAGNOSIS: Comment Normal [facility] Comment on above: Result Comment: NEGATIVE FOR INTRAEPITHE LIAL LESION OR MALIGNANCY. Performed at: WB Performed By: #### [id number] #### [facility] [address] [place] [address] Dr. Jamil Oropeza HPV Aptima Negative Normal Negative [facility] Comment on above: Result Comment: This nucleic acid amplif ication test detects fourteen high-risk HPV types (16,18,31,33,35,39,45,51,52,56,58,59,66,68) without differentiation. Performed at: =G Performed By: #### [id number] #### [facility] [address] [place] [address] Dr. Jamil Oropeza HPV Genotype Reflex Comment Normal [facility] Comment on above: Result Comment: Criteria not met, HPV Ge notype not performed. Performed at: WB Performed By: #### [id number] #### [facility] [address] [place] [address] Dr. Jamil Oropeza Methodology: Comment Normal [facility] Comment on above: Result Comment: This liquid based ThinPr ep(R) pap test was screened with the use of an image guided system. Performed at: WB Performed By: #### [id number] #### [facility] [address] [place] [address] Dr. Jamil Oropeza Note: Comment Normal [facility] Comment on above: Result Comment: The Pap smear is a scree alana test designed to aid in the detection of premalignant and malignant conditions of the uterine cervix. It is not a diagnostic procedure and should not be used as the sole means of detecting cervical cancer. Both false-positive and false-negative reports do occur. . Performed at: WB Performed By: #### [id number] #### [facility] [address] [place] [address] Dr. Jamil Oropeza Performed by: Comment Normal [facility] Comment on above: Result Comment: Veronica Urban, Cytotech nologist (ASCP) Performed at: WB Performed By: #### [id number] #### [facility] [address] [address] [address] Jamil Oropeza Specimen adequacy: Comment Normal [facility] Comment on above: Result Comment: Satisfactory for evaluat ion. Endocervical and/or squamous metaplastic cells (endocervical component) are present. Performed at: WB Performed By: #### [id number] #### [facility] [address] [address] [address] Jamil Oropeza COVID Quick Testingon 2022 Result Negative [facility] Other Ambulatory Visit Summaryon 0 03-04-2023 Ambulatory Visit Summary SARA DORANTES :1985 Visit Date:03/04/2023 Ambulatory Visit Instructions Your Diagnosis Ureteral stone Kidney stone Tests Performed Urnls Dip Stick Auto w/o Microscopy POC 05082 Your Care Team Attending Physician - Dany [...] with NGA HANNON, DEIDRE Pearce When: Where: [address] [place] [address] [place] [address]- Medications What How Much When Instructions Unchanged [...] Urnls Dip Stick Auto w/o Microscopy POC 31203 (03/04/2023) Bilirubin Urine Dipstick - Negative Blood Urine Dipstick - 2+ Moderate Glucose Urine Dipstick - Negative Ketones Urine Dipstick - Negative Leukocytes Urine Dipstick - Trace Nitrite Urine Dipstick - Negative Protein Urine Dipstick - Negative Specific [place] Urine Dipstick - 1.010 Urine Appearance Urine [...] these instructions at home: Medicines ? Take uevc-bwa-tukofoe and prescription medicines only (more content not included)... Normal [facility] Formson 03-04-2023 Forms [id number]#1.00CD:127 [facility] Forms [id number]#[id number]:127 [facility] Patient Educationon 03-04-20 23 Patient Education [...] these instructions at home: Medicines ? Take musz-jgm-nlyxtzv and prescription medicines only as told by [...] provider. Document Revised: 07/07/2022 Document Reviewed: 07/07/2022 [employer] Patient Education ? 2022 [employer] Shweta Gates [facility] Urology Office/Clinic Noteon 03-04-2023 Urology Office/Clinic Note Chief Complaint New Pt. [facility] HPI Staff This is a 37 year old New Pt. seen in [facility] on 01/31/23 due to blood [...] Calculus of ureter) New patient presented to [facility] 01/31/23 with gross hematuria and [...] patient was seen in the ER at [facility] with a small right upper ureteral [...] MD, URL [address] [address]- Additional Instructions: [place] (more content not included)... Normal [facility] Comment on above: Result Comment: Electronically Signed By : Dany SYLVESTER MD\.br\Date and Time Signed: 03/04/23 12:49 EDT\.br\Electronically Co-Signed By: Laxmi Mcdowell\.br\Date and Time Co-Signed: 03/04/23 12:07 EDT\.br\Electronically Co-Signed By: Laxmi Mcdowell\.br\Date and Time Co-Signed: 03/04/23 12:17 EDT RAD - MISCon 03-03-2023 RAD - MISC [id number]#[id number]:127 Normal [facility] ED Note-Physicianon 02-24-20 ED Note-Physician [id number]:127 Normal [facility] RAD - CT Reporton 02-23-2023 RAD - CT Report [id number]#1.00CD:127 Normal [facility] AMYLASEon 01-31-2023 Amylase [Catalytic activity/Vol] 45 U/L Normal 25-115 [facility] Comment on above: Performed By: #### CMP, LIPA, VERONICA #### [facility] [address] [place], [place] [address] Dr. Jamil Oropeza CBC AUTO DIFFon 01-31-2023 BASO # 0.0 103/ul Normal 0.0-0.1 [facility] Comment on above: Performed By: #### JASMYN FUENTES #### [facility] [address] [address] [address] Jamil Oropeza Basophils/100 WBC (Bld) 0.4 % Normal 0.2-2.0 [facility] Comment on above: Performed By: #### JASMYN FUENTES #### [facility] [address] [place] [address] Dr. Jamil Oropeza EO # 0.1 103/ul Normal 0.0-0.7 [facility] Comment on above: Performed By: #### STEPHEN FUENTESRO #### [facility] [address] [place] [address] Dr. Jamil Oropeza Eosinophils/100 WBC (Bld) 0.8 % Critically low 0.9-7.0 [facility] Comment on above: Performed By: #### STEPHEN FUENTESRO #### [facility] [address] [place] [address] Dr. Jamil Oropeza Erythrocyte distribution width (RBC) [Ratio] 12.3 % Normal 11.0-15.0 [facility] Comment on above: Performed By: #### STEPHEN FUENTESRO #### [facility] [address] [place] [address] Dr. Jamil Oropeza Hematocrit (Bld) [Volume fraction] 40.4 % Normal 36.0-48.0 [facility] Comment on above: Performed By: #### STEPHEN FUENTESRO #### [facility] [address] [place] [address] Dr. Jamil Oropeza Hemoglobin (Bld) [Mass/Vol] 13.7 g/dL Normal 12.0-16.0 [facility] Comment on above: Performed By: #### STEPHEN FUENTESRO #### [facility] [address] [place] [address] Dr. Jamil Oropeza IG # 0.03 10e3/ul Normal 0.00-0.03 [facility] Comment on above: Performed By: #### STEPHEN FUENTESRO #### [facility] [address] [place] [address] Dr. Jamil Oropeza IG % 0.4 % Normal 0.0-0.5 [facility] Comment on above: Performed By: #### GINA UMICRO #### [facility] [address] [place] [address] Dr. Jamil Oropeza LYMPH # 2.7 103/ul Normal 1.2-3.8 [facility] Comment on above: Performed By: #### ERUR, UMICRO #### [facility] [address] [place] [address] Dr. Jamil Oropeza Lymphocytes/100 WBC (Bld) 32.9 % Normal 20.5-60.0 [facility] Comment on above: Performed By: #### GINA UMICRO #### [facility] [address] [place] [address] Dr. Jamil Oropeza MANUAL DIFF REQ NO Normal [facility] Comment on above: Performed By: #### GINA UMICRO #### [facility] [address] [place] [address] Dr. Jamil Oropeza MCH (RBC) [Entitic mass] 29.9 pg Normal 26.7-34.0 [facility] Comment on above: Performed By: #### GINA UMICRO #### [facility] [address] [place] [address] Dr. Jamil Oropeza MCHC (RBC) [Mass/Vol] 33.9 g/dL Normal 29.9-35.2 [facility] Comment on above: Performed By: #### GINA UMICRO #### [facility] [address] [place] [address] Dr. Jamil Oropeza MCV (RBC) [Entitic vol] 88.2 fL Normal 81.0-99.0 [facility] Comment on above: Performed By: #### GINA UMICRO #### [facility] [address] [place] [address] Dr. Jamil Oropeza MONO # 0.5 103/ul Normal 0.3-0.8 [facility] Comment on above: Performed By: #### GINA UMICRO #### [facility] [address] [place] [address] Dr. Jamil Oropeza Monocytes/100 WBC (Bld) 6.5 % Normal 1.7-12.0 [facility] Comment on above: Performed By: #### JASMYN FUENTES #### [facility] [address] [place] [address] Dr. Jamil Oropeza NEUT # 4.9 103/ul Normal 1.4-6.5 [facility] Comment on above: Performed By: #### JASMYN FUENTES #### [facility] [address] [place] [address] Dr. Jamil Oropeza Neutrophils/100 WBC (Bld) 59.0 % Normal 43.0-75.0 [facility] Comment on above: Performed By: #### JASMYN FUENTES #### [facility] [address] [place] [address] Dr. Jamil Oropeza Platelet mean volume (Bld) [Entitic vol] 10.2 fL Normal 9.5-13.5 [facility] Comment on above: Performed By: #### JASMYN FUENTES #### [facility] [address] [place] [address] Dr. Jamil Oropeza PLT 250 103/ul Normal 150-450 [facility] Comment on above: Performed By: #### STEPHEN FUENTESRO #### [facility] [address] [place] [address] Dr. Jamil Oropeza RBC 4.58 106/ul Normal 4.20-5.40 [facility] Comment on above: Performed By: #### STEPHEN FUENTESRO #### [facility] [address] [place] [address] Dr. Jamil Oropeza WBC 8.3 103/ul Normal 4.0-11.0 [facility] Comment on above: Performed By: #### STEPHEN FUENTESRO #### [facility] [address] [place] [address] ABD/PELVIS WO CONon [...] TAI GOMEZ Date: 2023-01-31 06:25 Normal [facility] CULTURE URINEon 01-31-2023 CULTURE URINE Culture Observations : LIGHT GROWTH OF MIXED GENITAL BANDAR. NO POTENTIAL PATHOGENS SEEN. Normal [facility] Comment on above: Performed By: #### JASMYN FUENTES #### [facility] [address] [address] [address] Jamil Oropeza ER URINE PROFILEon 3 Bilirubin Ql (U) Negative Normal NEGATIVE [facility] Comment on above: Performed By: #### JASMYN FUENTES #### [facility] [address] [place], [place] [address] Dr. Jamil Oropeza Clarity (U) CLEAR Normal CLEAR [facility] Comment on above: Performed By: #### GINA UMICRO #### [facility] [address] [address] [address] Jamil Oropeza Color (U) BROWN Abnormal YELLOW [facility] Comment on above: Performed By: #### GINA UMICRO #### [facility] [address] [place] [address] Dr. Jamil CLANCY A micrscopic examina tion will be performed if indicated. Normal [facility] Comment on above: Performed By: #### GINA UMICRO #### [facility] [address] [place] [address] Dr. Jamil Oropeza Glucose Ql (U) 100 mg/dl Abnormal NEGATIVE [facility] Comment on above: Performed By: #### GINA UMICRO #### [facility] [address] [place] [address] Dr. Jamil Oropeza Hemoglobin Ql (U) LARGE Abnormal NEGATIVE [facility] Comment on above: Performed By: #### GINA UMICRO #### [facility] [address] [place] [address] Dr. Jamil Oropeza Ketones Ql (U) Negative Normal NEGATIVE [facility] Comment on above: Performed By: #### GINA UMICRO #### [facility] [address] [place] [address] Dr. Jamil Oropeza LEUKOCYTES TRACE Abnormal NEGATIVE [facility] Comment on above: Performed By: #### GINA UMICRO #### [facility] [address] [place] [address] Dr. Jamil Oropeza Nitrite Ql (U) Negative Normal NEGATIVE [facility] Comment on above: Performed By: #### GINA UMICRO #### [facility] [address] [place] [address] Dr. Jamil Oropeza pH (U) 5.5 [pH] Normal 5-9 [facility] Comment on above: Performed By: #### GINA UMICRO #### [facility] [address] [place] [address] Dr. Jamil Oropeza Protein (U) [Mass/Vol] 30 mg/dL Abnormal NEGATIVE/ TRACE [facility] Comment on above: Performed By: #### JASMYN FUENTES #### [facility] [address] [place] [address] Dr. Jamil Oropeza SPEC GRAVITY >=1.030 Abnormal 1.005-<=1.025 [facility] Comment on above: Performed By: #### STEPHEN FUENTESRO #### [facility] [address] [place] [address] Dr. Jamil Oropeza UR MICRO IND INDICATED Normal [facility] Comment on above: Performed By: #### STEPHEN FUENTESRO #### [facility] [address] [place] [address] Dr. Jamil Oropeza Urobilinogen Qn (U) 0.2 {Ervin'U}/dL Normal 0.2 - 1.0 [facility] Comment on above: Performed By: #### JASMYN FUENTES #### [facility] [address] [place] [address] Dr. Jamil Oropeza LIPASEon 01-31-2023 Lipase [Catalytic activity/Vol] 102.0 U/L Normal 73.0-393.0 [facility] Comment on above: Performed By: #### CMP, LIPA, VERONICA #### [facility] [address] [place] [address] Dr. Jamil Oropeza PROF 14(COMP METB)on 023 Albumin [Mass/Vol] 3.8 g/dL Normal 3.4-5.0 [facility] Comment on above: Performed By: #### CMP, LIPA, VERONICA #### [facility] [address] [place] [address] Dr. Jamil Oropeza Albumin/Globuli n [Mass ratio] 1.1 {ratio} Normal [facility] Comment on above: Performed By: #### CMP, LIPA, VERONICA #### [facility] [address] [place] [address] Dr. Jamil Oropeza ALP [Catalytic activity/Vol] 100 U/L Normal 46-116 [facility] Comment on above: Performed By: #### CMP, LIPA, VREONICA #### [facility] [address] [address] [address] Jamil Oropeza ALT [Catalytic activity/Vol] 15 U/L Normal 14-59 [facility] Comment on above: Performed By: #### CMP, LIPA, VERONICA #### [facility] [address] [address] [address] Jamil Oropeza Anion gap [Moles/Vol] 12.3 mmol/L Normal [facility] Comment on above: Performed By: #### CMP, LIPA, VERONICA #### [facility] [address] [address] [address] Jamil Oropeza AST [Catalytic activity/Vol] 13 U/L Critically low 15-37 [facility] Comment on above: Performed By: #### CMP, LIPA, VERONICA #### [facility] [address] [place] [address] Dr. Jamil Oropeza Bilirubin [Mass/Vol] 0.5 mg/dL Normal 0.2-1.0 [facility] Comment on above: Performed By: #### CMP, LIPA, VERONICA #### [facility] [address] [place] [address] Dr. Jamil Oropeza Calcium [Mass/Vol] 8.7 mg/dL Normal 8.5-10.1 [facility] Comment on above: Performed By: #### CMP, LIPA, VERONICA #### [facility] [address] [place] [address] Dr. Jamil Oropeza Chloride [Moles/Vol] 106 mmol/L Normal 98-107 [facility] Comment on above: Performed By: #### CMP, LIPA, VERONICA #### [facility] [address] [address] [address] Jamil Oropeza CO2 [Moles/Vol] 27.3 mmol/L Normal 21.0-32.0 [facility] Comment on above: Performed By: #### CMP, LIPA, VERONICA #### [facility] [address] [address] [address] Jamil Oropeza Creatinine [Mass/Vol] 0.87 mg/dL Normal 0.55-1.02 [facility] Comment on above: Performed By: #### CMP, LIPA, VERONICA #### [facility] [address] [place] [address] Dr. Jamil Oropeza EGFR-AF BAHAMIAN >60 Normal >=60 [facility] Comment on above: Performed By: #### CMP, LIPA, VERONICA #### [facility] [address] [place] [address] Dr. Jamil Oropeza EGFR-NON AF BAHAMIAN >60 Normal >=60 [facility] Comment on above: Performed By: #### CMP, LIPA, VERONICA #### [facility] [address] [place] [address] Dr. Jamil Oropeza Globulin (S) [Mass/Vol] 3.4 g/dL Normal [facility] Comment on above: Performed By: #### CMP, LIPA, VERONICA #### [facility] [address] [place] [address] Dr. Jamil Oropeza Glucose [Mass/Vol] 95 mg/dL Normal 74-106 [facility] Comment on above: Performed By: #### CMP, LIPA, VERONICA #### [facility] [address] [place] [address] Dr. Jamil Oropeza Potassium [Moles/Vol] 3.6 mmol/L Normal 3.5-5.1 [facility] Comment on above: Performed By: #### CMP, LIPA, VERONICA #### [facility] [address] [place] [address] Dr. Jamil Oropeza Protein [Mass/Vol] 7.2 g/dL Normal 6.4-8.2 [facility] Comment on above: Performed By: #### CMP, LIPA, VERONICA #### [facility] [address] [place] [address] Dr. Jamil Oropeza Sodium [Moles/Vol] 142 mmol/L Normal 136-145 [facility] Comment on above: Performed By: #### CMP, LIPA, VERONICA #### [facility] [address] [place] [address] Dr. Jamil Oropeza Urea nitrogen [Mass/Vol] 13.0 mg/dL Normal 7.0-18.0 [facility] Comment on above: Performed By: #### RADHA MORGAN AMY #### [facility] [address] [address] [address] Jamil Oropeza Urea nitrogen/Creati nine [Mass ratio] 14.9 mg/mg Normal [facility] Comment on above: Performed By: #### RADHA MORGAN AMY #### [facility] [address] [address] [address] Jamil Oropeza URINE MICROSCOPIC ONLYon BACTERIA SMALL Abnormal NONE SEEN [facility] Comment on above: Performed By: #### GINA UMICRO #### [facility] [address] [place] [address] Dr. Jamil Oropeza Bacteria identified Cx Nom (U) INDICATED Normal [facility] Comment on above: Performed By: #### GINA UMICRO #### [facility] [address] [place] [address] Dr. Jamil Oropeza CAST NONE SEEN Normal NONE SEEN [facility] Comment on above: Performed By: #### GINA UMICRO #### [facility] [address] [place] [address] Dr. Jamil Oropeza Crystals LM Nom (Urine sed) NONE SEEN Normal NONE SEEN [facility] Comment on above: Performed By: #### ERUR UMICRO #### [facility] [address] [place] [address] Dr. Jamil Oropeza Epithelial cells LM Ql (Urine sed) MODERATE Abnormal NONE SEEN /RARE [facility] [facility] Comment on above: Performed By: #### ERUR UMICRO #### [facility] [address] [place] [address] Dr. Jamil Oropeza MUCOUS NONE SEEN Normal NONE SEEN [facility] Comment on above: Performed By: #### ERUR, UMICRO #### [facility] [address] [place] [address] Dr. Jamil Oropeza RBC (U) [#/Vol] /uL Abnormal 0-2 [facility] Comment on above: Performed By: #### STEPHEN FUENTESRO #### [facility] [address] [place] [address] Dr. Jamil Oropeza WBC 2-5 Abnormal NONE SEEN [facility] Comment on above: Performed By: #### STEPHEN FUENTESRO #### [facility] [address] [place] [address] Dr. Jamil Oropeza INFLUENZA A AND B AGon 11-08 INFLUANEGH SEE BELOW Normal [facility] Comment on above: Result Comment: Negative for Flu A prote in angiten. Infection due to Flu A cannot be ruled out. Flu A angiten in the sample may be below the detection limit of the test. Performed By: #### STEPHEN PICHARDORO #### [facility] [address] [place] [address] Dr. Jamil Oropeza INFLUBNEGH SEE BELOW Normal [facility] Comment on above: Result Comment: Negative for Flu B prote in antigen. Infection due to Flu B cannot be ruled out. Flu B antigen in the sample may be below the detection limit of the test. Performed By: #### STEPHEN PICHARDORO #### [facility] [address] [place] [address] Dr. Jamil Oropeza INFLUENZA A AG Negative Normal NEGATIVE SEE COMMENT [facility] Comment on above: Performed By: #### STEPHEN FUENTESRO #### [facility] [address] [place] [address] Dr. Jamil Oropeza INFLUENZA B AG Negative Normal NEGATIVE SEE COMMENT [facility] Comment on above: Performed By: #### STEPHEN FUENTESRO #### [facility] [address] [place] [address] Dr. Jamil Oropeza INTERNAL CONTROLS Within Normal Limits Normal Within Normal Limits [facility] Comment on above: Performed By: #### STEPHEN FUENTESRO #### [facility] [address] [place] [address] Dr. Jamil Oropeza CBC AUTO DIFFon 09-26-2022 BASO # 0.0 103/ul Normal 0.0-0.1 [facility] Comment on above: Performed By: #### ERUR, UMICRO #### [facility] [address] [place] [address] Dr. Jamil Oropeza Basophils/100 WBC (Bld) 0.3 % Normal 0.2-2.0 [facility] Comment on above: Performed By: #### GINA UMICRO #### [facility] [address] [place] [address] Dr. Jamil Oropeza EO # 0.0 103/ul Normal 0.0-0.7 [facility] Comment on above: Performed By: #### GINA UMICRO #### [facility] [address] [place] [address] Dr. Jamil Oropeza Eosinophils/100 WBC (Bld) 0.3 % Critically low 0.9-7.0 [facility] Comment on above: Performed By: #### GINA UMICRO #### [facility] [address] [place] [address] Dr. Jamil Oropeza Erythrocyte distribution width (RBC) [Ratio] 12.1 % Normal 11.0-15.0 [facility] Comment on above: Performed By: #### GINA UMICRO #### [facility] [address] [place] [address] Dr. Jamil Oropeza Hematocrit (Bld) [Volume fraction] 40.6 % Normal 36.0-48.0 [facility] Comment on above: Performed By: #### GINA UMICRO #### [facility] [address] [place] [address] Dr. Jamil Oropeza Hemoglobin (Bld) [Mass/Vol] 13.6 g/dL Normal 12.0-16.0 [facility] Comment on above: Performed By: #### GINA UMICRO #### [facility] [address] [place] [address] Dr. Jamil Oropeza IG # 0.03 10e3/ul Normal 0.00-0.03 [facility] Comment on above: Performed By: #### GINA UMICRO #### [facility] [address] [place] [address] Dr. Jamil Oropeza IG % 0.3 % Normal 0.0-0.5 [facility] Comment on above: Performed By: #### JASMYN FUENTES #### [facility] [address] [place] [address] Dr. Jamil Oropeza LYMPH # 1.9 103/ul Normal 1.2-3.8 [facility] Comment on above: Performed By: #### STEPHEN FUENTESRO #### [facility] [address] [place] [address] Dr. Jamil Oropeza Lymphocytes/100 WBC (Bld) 21.2 % Normal 20.5-60.0 [facility] Comment on above: Performed By: #### STEPHEN FUENTESRO #### [facility] [address] [place] [address] Dr. Jamil Oropeza MANUAL DIFF REQ NO Normal [facility] Comment on above: Performed By: #### JASMYN FUENTES #### [facility] [address] [place] [address] Dr. Jamil Oropeza MCH (RBC) [Entitic mass] 29.2 pg Normal 26.7-34.0 [facility] Comment on above: Performed By: #### JASMYN FUENTES #### [facility] [address] [place] [address] Dr. Jamil Oorpeza MCHC (RBC) [Mass/Vol] 33.5 g/dL Normal 29.9-35.2 [facility] Comment on above: Performed By: #### STEPHEN FUENTESRO #### [facility] [address] [place] [address] Dr. Jamil Oropeza MCV (RBC) [Entitic vol] 87.1 fL Normal 81.0-99.0 [facility] Comment on above: Performed By: #### STEPHEN FUENTESRO #### [facility] [address] [place] [address] Dr. Jamil Oropeza MONO # 0.5 103/ul Normal 0.3-0.8 [facility] Comment on above: Performed By: #### JASMYN FUENTES #### [facility] [address] [place], [place] [id number] Dr. Jamil Oropeza Monocytes/100 WBC (Bld) 5.4 % Normal 1.7-12.0 [facility] Comment on above: Performed By: #### STEPHEN FUENTESRO #### [facility] [address] [place] [address] Dr. Jamil Oropeza NEUT # 6.5 103/ul Normal 1.4-6.5 [facility] Comment on above: Performed By: #### STEPHEN FUENTESRO #### [facility] [address] [place] [address] Dr. Jamil Oropeza Neutrophils/100 WBC (Bld) 72.5 % Normal 43.0-75.0 [facility] Comment on above: Performed By: #### GINA UMICRO #### [facility] [address] [place] [address] Dr. Jamil Oropeza Platelet mean volume (Bld) [Entitic vol] 10.6 fL Normal 9.5-13.5 [facility] Comment on above: Performed By: #### MICAELA FUENTESICRO #### [facility] [address] [place] [address] Dr. Jamil Oropeza PLT 237 103/ul Normal 150-450 [facility] Comment on above: Performed By: #### MICAELA FUENTESICRO #### [facility] [address] [place] [address] Dr. Jamil Oropeza RBC 4.66 106/ul Normal 4.20-5.40 [facility] Comment on above: Performed By: #### MICAELA FUENTESICRO #### [facility] [address] [place] [address] Dr. Jamil Oropeza WBC 8.9 103/ul Normal 4.0-11.0 [facility] Comment on above: Performed By: #### MICAELA FUENTESICRO #### [facility] [address] [place] [address] Dr. Jamil Oropeza Covid-19 PCR ([facility])on 09-16 SARS-CoV-2 (COVID-19) RNA IDALIA+probe Ql (Unsp spec) Not detected Normal NOT DETECTED [facility] Comment on above: Result Comment: When [...] for this test is supported by the Ethylene Compressor Operator of Health and Human Service's declaration that [...] Performed By: #### E JASMYN MUÑOZ #### [facility] [address] [place] [address] Dr. Jamil Oropeza ER URINE PROFILEon 2 Bilirubin Ql (U) Negative Normal NEGATIVE [facility] Comment on above: Performed By: #### GINA UMICRO #### [facility] [address] [place] [address] Dr. Jamil Oropeza Clarity (U) CLEAR Normal CLEAR [facility] Comment on above: Performed By: #### GINA UMICRO #### [facility] [address] [place] [address] Dr. Jamil Oropeza Color (U) LT. YELLOW Normal YELLOW [facility] Comment on above: Performed By: #### GINA UMICRO #### [facility] [address] [place] [address] Dr. Jamil CLANCY A micrscopic examina tion will be performed if indicated. Normal [facility] Comment on above: Performed By: #### GINA UMICRO #### [facility] [address] [place] [address] Dr. Jamil Oropeza Glucose Ql (U) Negative Normal NEGATIVE [facility] Comment on above: Performed By: #### GINA UMICRO #### [facility] [address] [address] [address] Jamil Oropeza Hemoglobin Ql (U) TRACE-INTACT Abnormal NEGATIVE [facility] Comment on above: Performed By: #### GINA UMICRO #### [facility] [address] [place] [address] Dr. Jamil Oropeza Ketones Ql (U) Negative Normal NEGATIVE [facility] Comment on above: Performed By: #### GINA UMICRO #### [facility] [address] [place] [address] Dr. Jamil Oropeza LEUKOCYTES Negative Normal NEGATIVE [facility] Comment on above: Performed By: #### GINA UMICRO #### [facility] [address] [place] [address] Dr. Jamil Oropeza Nitrite Ql (U) Negative Normal NEGATIVE [facility] Comment on above: Performed By: #### GINA UMARACELIRO #### [facility] [address] [place] [address] Dr. Jamil Oropeza pH (U) 7.0 [pH] Normal 5-9 [facility] Comment on above: Performed By: #### GINA UMARACELIRO #### [facility] [address] [place] [address] Dr. Jamil Oropeza SPEC GRAVITY 1.010 Normal 1.005-<=1.025 [facility] Comment on above: Performed By: #### GINA UMARACELIRO #### [facility] [address] [place] [address] Dr. Jamil Oropeza UA PROTEIN Negative Normal NEGATIVE/ TRACE [facility] Comment on above: Performed By: #### GINA UMICRO #### [facility] [address] [place] [address] Dr. Jamil Oropeza UR MICRO IND INDICATED Normal [facility] Comment on above: Performed By: #### GINA UMICRO #### [facility] [address] [place] [address] Dr. Jamil Oropeza Urobilinogen Qn (U) 0.2 {Ervin'U}/dL Normal 0.2 - 1.0 [facility] Comment on above: Performed By: #### ERURJASMYN #### [facility] [address] [place] [address] Dr. Jamil Oropeza INFLUENZA A AND B AGon 09-26 INFLUANEGH SEE BELOW Normal [facility] Comment on above: Result Comment: Negative for Flu A prote in angiten. Infection due to Flu A cannot be ruled out. Flu A angiten in the sample may be below the detection limit of the test. Performed By: #### I NFLUAB #### [facility] [address] [place] [address] Dr. Jamil Oropeza INFLUBNEG SEE BELOW Normal [facility] Comment on above: Result Comment: Negative for Flu B prote in antigen. Infection due to Flu B cannot be ruled out. Flu B antigen in the sample may be below the detection limit of the test. Performed By: #### I NFLUAB #### [facility] [address] [place] [address] Dr. Jamil Oropeza INFLUENZA A AG Negative Normal NEGATIVE SEE COMMENT [facility] Comment on above: Performed By: #### INFLUAB #### [facility] [address] [place] [address] Dr. Jamil Oropeza INFLUENZA B AG Negative Normal NEGATIVE SEE COMMENT [facility] Comment on above: Performed By: #### INFLUAB #### [facility] [address] [place] [address] Dr. Jamil Oropeza INTERNAL CONTROLS Within Normal Limits Normal Within Normal Limits [facility] Comment on above: Performed By: #### INFLUAB #### [facility] [address] [place] [address] Dr. Jamil Oropeza POINT OF CARE GLUCOSEon 09-16 Glucose [Mass/Vol] 100 mg/dL Normal 74-106 [facility] Comment on above: Performed By: #### POCGLUC #### [facility] [address] [place] [address] Dr. Jamil Oropeza URon 09-26-2022 , QUAL Negative Normal NEGATIVE [facility] Comment on above: Performed By: #### ERUR UMICRO #### [facility] [address] [address] [address] Jamil Oropeza PROF CHEM 8 (BAS METB)on Anion gap [Moles/Vol] 5.9 mmol/L Normal [facility] Comment on above: Performed By: #### BMP, HSTROPN #### [facility] [address] [place] [address] Dr. Jamil Oropeza Calcium [Mass/Vol] 9.8 mg/dL Normal 8.5-10.1 [facility] Comment on above: Performed By: #### BMP, HSTROPN #### [facility] [address] [place] [address] Dr. Jamil Oropeza Chloride [Moles/Vol] 103 mmol/L Normal 98-107 [facility] Comment on above: Performed By: #### BMP, HSTROPN #### [facility] [address] [address] [address] Jamil Oropeza CO2 [Moles/Vol] 30.9 mmol/L Normal 21.0-32.0 [facility] Comment on above: Performed By: #### BMP, HSTROPN #### [facility] [address] [place] [address] Dr. Jamil Oropeza Creatinine [Mass/Vol] 0.84 mg/dL Normal 0.55-1.02 [facility] Comment on above: Performed By: #### BMP, HSTROPN #### [facility] [address] [place] [address] Dr. Jamil Oropeza EGFR-AF BAHAMIAN >60 Normal >=60 [facility] Comment on above: Performed By: #### BMP, HSTROPN #### [facility] [address] [place] [address] Dr. Jamil Oropeza EGFR-NON AF BAHAMIAN >60 Normal >=60 [facility] Comment on above: Performed By: #### BMP, HSTROPN #### [facility] [address] [place] [address] Dr. Jamil Oropeza Glucose [Mass/Vol] 95 mg/dL Normal 74-106 [facility] Comment on above: Performed By: #### BMP, HSTROPN #### [facility] [address] [place] [address] Dr. Jamil Oropeza Potassium [Moles/Vol] 3.8 mmol/L Normal 3.5-5.1 [facility] Comment on above: Performed By: #### BMP, HSTROPN #### [facility] [address] [place] [address] Dr. Jamil Oropeza Sodium [Moles/Vol] 136 mmol/L Normal 136-145 [facility] Comment on above: Performed By: #### BMP, HSTROPN #### [facility] [address] [place] [address] Dr. Jamil Oropeza Urea nitrogen [Mass/Vol] 11.0 mg/dL Normal 7.0-18.0 [facility] Comment on above: Performed By: #### BMP, HSTROPN #### [facility] [address] [place] [address] Dr. Jamil Oropeza Urea nitrogen/Creati nine [Mass ratio] 13.1 mg/mg Normal [facility] Comment on above: Performed By: #### BMP, HSTROPN #### [facility] [address] [place] [address] Dr. Jamil Oropeza TROPONIN, HIGH SENSITIVITYon 09-26-2022 HSTROP 5.6 pg/mL Normal 4.0-51.3 [facility] Comment on above: Result Comment: CUT-OFF POINTS HAVE BEEN ESTABLISHED BASED ON THE FOURTH UNIVERSAL DEFINITIONS OF MYOCARDIAL INFARCTION. THE UPPER REFERENCE LIMIT (URL) OF TROPONIN, DEFINED THE 99TH PERCENTILE OF cTnI DISTRIBUTION IN A REFERENCE POPULATION, HAS BEEN CONFIRMED THE DECISION THRESHOLD FOR UT DIAGNOSIS. Performed By: #### B MP, HSTROPN #### [facility] [address] [place] [address] Dr. Jamil Oropeza URINE MICROSCOPIC ONLYon BACTERIA NONE SEEN Normal NONE SEEN [facility] Comment on above: Performed By: #### JASMYN FUENTES #### [facility] [address] [place] [address] Dr. Jamil Oropeza Bacteria identified Cx Nom (U) NOT INDICATED Normal [facility] Comment on above: Performed By: #### ERUR, UMICRO #### [facility] [address] [place] [address] Dr. Jamil Oropeza CAST NONE SEEN Normal NONE SEEN [facility] Comment on above: Performed By: #### ERUR, UMICRO #### [facility] [address] [place] [address] Dr. Jamil Oropeza Crystals LM Nom (Urine sed) NONE SEEN Normal NONE SEEN [facility] Comment on above: Performed By: #### ERUR, UMICRO #### [facility] [address] [place] [address] Dr. Jamil Oropeza Epithelial cells LM Ql (Urine sed) FEW Abnormal NONE SEEN /RARE [facility] Comment on above: Performed By: #### ERUR, UMICRO #### [facility] [address] [place] [address] Dr. Jamil Oropeza MUCOUS NONE SEEN Normal NONE SEEN [facility] Comment on above: Performed By: #### ERUR, UMICRO #### [facility] [address] [place] [address] Dr. Jamil Oropeza RBC 0-2 Normal 0-2 [facility] Comment on above: Performed By: #### ERUR, UMICRO #### [facility] [address] [place] [address] Dr. Jamil Oropeza WBC NONE SEEN Normal NONE SEEN [facility] Comment on above: Performed By: #### ERUR, UMICRO #### [facility] [address] [place] [address] Dr. Jamil Oropeza General Surgery Office/Clini c Noteon 07-31-2022 General Surgery Office/Clinic Note Chief Complaint re-evaluate GERD/cough [facility] Staff 37 year old female presents to [...] Family History Family history is negative Normal [facility] Comment on above: Result Comment: Electronically [...] after swallowing, pp_set_radiolo gy_subspecialt y, Not Required, [facility]\.br\ Medications\.b r\ What How Much When [...] Dysphagia\.br\ GERD (gastroesophag eal reflux disease)\.br\ \.br\ [facility] Covid-19 PCR ([facility])on 05-17 SARS-CoV-2 (COVID-19) RNA IDALIA+probe Ql (Unsp spec) Not detected Normal NOT DETECTED [facility] Comment on above: Result Comment: When [...] for this test is supported by the Ethylene Compressor Operator of Health and Human Service's declaration that [...] used). Performed By: #### JASMYN PICHARDO #### [facility] [address] [place] [address] Dr. Jamil Oropeza XR SINUSES 3 VIEWS [...] Abhishek LOMBARDI Date: 2022-06-09 01:48 Normal [facility] Vital Signs Date Time Vital Sign Value Performing Clinician Facility 03-07-2023 12:00-0400 Body height 166.37 cm Marco Antonio Goldsmith Other [facility] Other 03-07-2023 12:00-0400 Body mass index (BMI) [Ratio] 30.31 kg/m2 Marco Antonio Goldsmith Other [facility] Other 03-07-2023 12:00-0400 Body temperature 97.9 [degF] Marco Antonio Goldsmith Other [facility] Other 03-07-2023 12:00-0400 Body weight 83.92 kg Marco Antonio Goldsmith Other [facility] Other 03-07-2023 12:00-0400 Diastolic blood pressure 83 mm[Hg] Marco Antonio Goldsmith Other [facility] Other 03-07-2023 12:00-0400 Respiratory rate 18 /min Marco Antonio Goldsmith Other [facility] Other 03-07-2023 12:00-0400 SaO2% (BldA) [Mass fraction] 98 % Marco Antonio Goldsmith Other [facility] Other 03-07-2023 12:00-0400 Systolic blood pressure 123 mm[Hg] Marco Antonio Goldsmith Other [facility] Other 03-04-2023 11:01-0400 Blood Pressure Location Dany ROAM [facility] 03-04-2023 11:01-0400 Diastolic blood pressure 75 mm[Hg] Dany [facility] 03-04-2023 11:01-0400 Heart rate 71 /min Dany RO[facility] 03-04-2023 11:01-0400 Respiratory rate 16 /min Dany RO[facility] 03-04-2023 11:01-0400 Systolic blood pressure 127 mm[Hg] Dany [facility] 11-27-2022 11:45-0500 Body height 166.37 cm Whit Salinas Other [facility] Other 11-27-2022 11:45-0500 Body mass index (BMI) [Ratio] 29.49 kg/m2 Whit Salinas Other [facility] Other 11-27-2022 11:45-0500 Body temperature 97.6 [degF] Whit Salinas Other [facility] Other 11-27-2022 11:45-0500 Body weight 81.65 kg Whit Salinas Other [facility] Other 11-27-2022 11:45-0500 Diastolic blood pressure 81 mm[Hg] Whit Ruckerault Other [facility] Other 11-27-2022 11:45-0500 Respiratory rate 18 /min Whit Salinas Other [facility] Other 11-27-2022 11:45-0500 SaO2% (BldA) [Mass fraction] 98 % Whit Salinas Other [facility] Other 11-27-2022 11:45-0500 Systolic blood pressure 124 mm[Hg] Whit Ruckerault Other [facility] Other 06-26-2022 10:16-0400 Blood Pressure Location Willie MONTERROSO [facility] [place] 06-26-2022 10:16-0400 Diastolic blood pressure 81 mm[Hg] Willie NILL [facility] [place] 06-26-2022 10:16-0400 Heart rate 68 /min Willie WEBERL [facility] [place] 06-26-2022 10:16-0400 Respiratory rate 16 /min Willie WEBERL [facility] [place] 06-26-2022 10:16-0400 Systolic blood pressure 116 mm[Hg] Willie WEBERL [facility] [place] Encounters Encounter Date Encounter Type Care Provider Facility Start: 03-15-2024 End: 03-15-2024 ambulatory YENY GONG Not Available Start: 03-10-2023 End: 03-10-[address] YENY GONG . Facility:[facility] Start: 03-07-2023 End: 03-07-2023 ambulatory Marco Antonio Goldsmith Other [facility] Other Start: 03-07-2023 Office outpatient visit 15 minutes Marco Antonio Goldsmith [facility] Start: 03-04-2023 End: 03-05-2023 ambulatory Dany SYLVESTER Facility:[facility] [place] Start: 03-04-2023 End: 03-04-2023 Patient encounter procedure Dany SYLVESTER [facility] Start: 03-02-2023 End: 03-03-[address] DANY SYLVESTER Facility:[facility] Start: 02-24-2023 ambulatory Willie MONTERROSO Facility:[facility] [place] Start: 01-31-2023 End: 01-31-2023 ambulatory YADIRA SIMPSON Facility:[facility] Start: 11-27-2022 End: 11-27-2022 ambulatory Whit Salinas Other [place] [email or web address] Other Start: 11-27-2022 Office outpatient ne w 20 minutes Whit Salinas [facility] José Miguel Start: 11-08-2022 End: 11-08-2022 ambulatory YADIRA TATIANA Facility:[facility] Start: 09-26-2022 End: 09-26-2022 ambulatory YADIRA SIMPSON Facility:[facility] Start: 06-26-2022 End: 06-27-2022 ambulatory Willie R NILL Facility: [facility] Start: 06-26-2022 End: 06-26-2022 Patient encounter procedure Willie R NILL [facility] [place] Start: 06-13-2022 ambulatory Willie NILL Facility:[facility] Start: 06-09-2022 End: 06-09-2022 ambulatory DAISY SEYMOUR Facility:[facility] Procedures Date Procedure Procedure Detail Performing Clinician Start: 11-16-2016 Esophagogastroduodenoscopy Willie GUSFernanda Payers Date Payer Category Payer Unknown [id number] 2.16.84 [id number] 1984 Unknown [id number] 2.16.84 [id number] 1984 Unknown [id number] 2.16.84 [id number] 1984 Unknown [id number] 2.16.84 [id number] 1984 Unknown [id number] 2.16.84 0.1.763189.3.579.2.59 1984 Unknown [id number] 2.16.84 [id number] 1984 Unknown [id number] 2.16.8 40.1.080002.3.579.2.727 1984 Unknown [id number] 2.16.8 [id number] 1984 Unknown [id number] 2.16.8 [id number] 1984 Unknown [id number] 2.16.84 [id number] 1960 Medicaid [id number] 2.16. [id number] 1959 Unknown [id number] 2.16.8 [id number] 1959 Unknown [id number] 1959 Unknown [id number] Social History Date Type Detail Facility Start: 06-26-2022 Tobacco smoking status Never s moked tobacco (finding) [facility] Tobacco smoking status Never [facility] Sex Assigned At Female [facility] Functional Status Date Assessment Result Facility 03-04-2023 Functional Status N/A [facility] 06-26-2022 Functional Status N/A [facility] Evaluation note 03-07-2023 Note Date & Type [...] of symptoms occur by end of treatment. [employer] Other Evaluation + Plan note 03-04-2023 Radiology Note Date & Type Note Facility 03-04-2023 Evaluation + Plan note Diagnostic Tests PendingPT 03/04/23PTT 03/04/23PT 03/04/23 Future Scheduled TestsXR Abdomen 1 View 02/24/23 [facility] Hospital Discharge instructions 03-04-2023 Note Date & Type Note Facility 03-04-2023 Hospital Discharg e instructions Patient Education 03/04/2023 11:52:31 Kidney Stones, Crtd-jy-Iqml Kidney Stones Kidney stones are rock-like masses [...] Follow these instructions at home: Medicines Take jxzt-pvf-qqistht and prescription medicines only as told by [...] provider. Document Revised: 07/07/2022 Document Reviewed: 07/07/2022 [employer] Patient Education 2022 hi5. Follow Up Care 02/05/2023 09:42:12 With:NGA HANNON, Dany Morrissye, URL Address: [address] [place] [address]- When: Unknown [facility] Clinical Note 03-02-2023 Note Date & Type [...] authenticated by: DALJIT SMITH Date: 2023-03-02 12:37 [facility] Evaluation note 11-27-2022 Note Date & Type Note Facility 11-27-2022 Evaluation note Encounter Date Diagnosis Assessment Notes Nov, Right otitis media with effusion (ICD-10 - H65.91) take medication as directed. Middle ear fluid can be caused from allergies, traveling or viral infections. It may linger. Follow up with PCP if symptoms persist [facility] [employer] Other Evaluation + Plan note Radiology Note Date & Type Note Facility Evaluation + Plan note Future Appointments Appointment Date:07/24/2022 09:00:00 AM Scheduled Provider: Location:.XRAY Appointment Type:XR MBS Adult (FT) Future Scheduled TestsXR Adult Swallowing Function w/ Video: Evaluate Pt, Develop a Plan of Care & Implement Plan 07/24/22 [facility] [place] History general Narrative - Reported Note Date & Type Note Facility History general Narrative - Reported Type Medical History seasonal/environmental allergies Medical History acid reflux Medical History gastritis Surgical History cosmetic surgery Surgical History EGD Hospitalization History childbirth [facility] [employer] Other Hospital course Narrative Note Date & Type Note Facility Hospital course Narrative No data available for this section [facility] [place] [facility] Discharge instructions Note Date & Type Note Facility Hospital Discharge instructions No data available for this section [facility] [place] Progress note Note Date & Type Note Facility Progress note No data available for this section [facility] Summary Purpose Family History No Family History Records FoundNo Family History Records FoundNo Family History Records Found Advance Directives No Advanced Directives Records FoundNo Advanced Directives Records FoundNo Advanced Directives Records Found Additional Source Comments Care Team (unrecognized sect ion and content) Personnel Name: YADIRA SIMPSON CNP Address: [address] Personnel Name: YADIRA SIMPSON CNP Address: Address: [facility] REASON FOR VISIT (unrecogniz ed section and content) poss right ear infection - n o other symptomsSINUS PRESSURE, COUGH, CONGESTION, HEADACHE INFORMATION SOURCE (unrecogn ized section and content) DATE CREATED AUTHOR 03/21/2023 [facility] DATE CREATED AUTHOR 'S ORGANIZ ATION 06/06/2023 [facility] DATE CREATED AUTHOR AUTHOR'S JF HAHN 03/16/2024 [facility] FOR RECORDS PERTAINING TO PATIENTS WHO ARE [...] BE BASED ON THE PRIMARY CLINICAL RECORDS. [facility] [employer] [facility]. provides no warranty or guarantee of the accuracy or completeness of information in this document.
[2024-06-06 12:08] LABS: Estimated Average Glucose 100 mg/dL; Glycohemoglobin A1C 5.1 % (4.5-6.2)
[2024-06-06 12:21] LABS: Thyroid Stimulating Hormone 1.059 uIU/mL (0.358-3.740)
[2024-06-06 12:29] LABS: INR 0.96; Partial Thromboplastin Time 29.3 sec (22.3-36.2); Prothrombin Time 10.2 sec (9.0-11.6)
[2024-06-06 12:31] LABS: HCG Quantitative <1 mIU/mL
[2024-06-06 13:03] LABS: Free T4 0.82 ng/dL (0.76-1.46)
== END 2024-06-06 11:32 | disposition home or self-care (01) ==
LOC: LAB 11:32
PROVIDERS: PCP Nurse Practitioner Family; Visit Provider Obstetrics & Gynecology
DX: N92.0 Excessive and frequent menstruation with regular cycle (principal)
CPT/HCPCS: 36415; 83036; 84439; 84443; 84702; 85025; 85610; 85730

== ENCOUNTER 2024-09-24 22:42 | Emergency (ER) | payer OTHER, SELFPAY ==
[2024-09-24 22:45] VITALS: BP 153/89; PULSE 102; TEMP 38; O2SAT 97; BMI 30.6
--- OUTSIDE RECORDS SUMMARY | 2024-09-24 22:48 | XMS_ITS | CCD ---
Author Organization [facility] Care Team Providers Care Customer Quality Engineer Name Role Phone YADIRA SIMPSON Primary Care [...] Unavailable BELTRAN ., DR SAINI Attending Unavailable [facility] Unavailable BELTRAN ., DR SAINI Consulting Unavailable DAISY SEYMOUR Consulting Unavailable DAISY SEYMOUR Admitting Unavailable DAISY SEYMOUR Attending Un[facility] Unavailable JEFF LOMBARDI Consulting Unavailable [facility] Primary Care Unavailable PAY ., DR SOLORZANO Admitting Unavailable PAY ., DR SOLORZANO Attending Unavailable PAY ., DR SOLORZANO Consulting Unavailable DALEY ., MR GIVENS Consulting Unavailable [facility] Care Unavailable VADIM ., ELIZABETH Admitting Unavailable VADIM ., ELIZABETH Attending Unavailable VADIM ., ELIZABETH Consulting Unavailable Willie MONTERROSO Attending Unavailable Dany SYLVESTER Attending Unavailable YENY GONG Attending Unavailable Allergies Allergy Classification Reported Allergen(s) Allergy Type Date of Onset Reaction(s) Facility (3 sources) Acetaminophen / HYDROcodone; Translations: [acetaminophen-hy drocodone] Drug Allergy Vomiting (disorder) [facility] (5 sources) Codeine; Translations: [codeine] Drug Allergy Vomiting (disorder) [facility] (6 sources) Penicillins; Translations: [penicillins] Drug allergy 04-10-20 14 Ulcer of mouth (disorder) [facility] (2 sources) Codone Propensity to adverse reactions vomiting [employer] Other (2 sources) Seasonal allergy; Translations: [Seasonal] Allergy to substance Unknown (qualifier value) [facility] (1 source) Codeine Drug Allergy 04-10-20 14 [facility] (1 source) HYDROcodone Drug Allergy 04-10-20 14 [facility] Medications Current Medications Medication Drug Class(es) [...] 06-09-2022 Episodic Other aftercare (1 source) Other fci (current) drug therapy; 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 . Normal [facility] Comment on above: Result Comment: Performed at: WB Performed By: #### [id number] #### [facility] [address] [place] [address] Dr. Jamil Oropeza Age Gdln ACOG Testing 30-65 Normal [facility] Comment on above: Performed By: #### [id number] #### [facility] [address] [place] [address] Dr. Jamil Oropeza DIAGNOSIS: Comment Normal [facility] Comment on above: Result Comment: NEGATIVE FOR INTRAEPITHE LIAL LESION OR MALIGNANCY. Performed at: WB Performed By: #### [id number] #### [facility] [address] [place] [address] Dr. Jamil Oropeza HPV Aptima Negative Normal Negative [facility] Comment on above: Result Comment: This nucleic acid amplif ication test detects fourteen high-risk HPV types (16,18,31,33,35,39,45,51,52,56,58,59,66,68) without differentiation. Performed at: =G Performed By: #### [id number] #### [facility] [address] [place] [address] Dr. Jamil Oropeza HPV Genotype Reflex Comment Normal [facility] Comment on above: Result Comment: Criteria not met, HPV Ge notype not performed. Performed at: WB Performed By: #### [id number] #### [facility] [address] [place] [address] Dr. Jamil Oropeza Methodology: Comment Normal [facility] Comment on above: Result Comment: This liquid based ThinPr ep(R) pap test was screened with the use of an image guided system. Performed at: WB Performed By: #### [id number] #### [facility] [address] [place] [address] Dr. Jamil Oropeza Note: Comment Normal [facility] Comment on above: Result Comment: The Pap smear is a scree alana test designed to aid in the detection of premalignant and malignant conditions of the uterine cervix. It is not a diagnostic procedure and should not be used as the sole means of detecting cervical cancer. Both false-positive and false-negative reports do occur. . Performed at: WB Performed By: #### [id number] #### [facility] [address] [place] [address] Dr. Jamil Oropeza Performed by: Comment Normal [facility] Comment on above: Result Comment: Veronica Urban, Cytotech nologist (ASCP) Performed at: WB Performed By: #### [id number] #### [facility] [address] [address] [address] Jamil Oropeza Specimen adequacy: Comment Normal [facility] Comment on above: Result Comment: Satisfactory for evaluat ion. Endocervical and/or squamous metaplastic cells (endocervical component) are present. Performed at: WB Performed By: #### [id number] #### [facility] [address] [address] [address] Jamil Oropeza COVID Quick Testingon 2022 Result Negative [employer] Other Ambulatory Visit Summaryon 0 03-04-2023 Ambulatory Visit Summary SARA DORANTES :1985 Visit Date:03/04/2023 Ambulatory Visit Instructions Your Diagnosis Ureteral stone Kidney stone Tests Performed Urnls Dip Stick Auto w/o Microscopy POC 11029 Your Care Team Attending Physician - Dany [...] with NGA HANNON, DEIDRE Pearce When: Where: [address] [place] [address] [place] [id number]- Medications What How Much When Instructions Unchanged [...] Urnls Dip Stick Auto w/o Microscopy POC 13613 (03/04/2023) Bilirubin Urine Dipstick - Negative Blood Urine Dipstick - 2+ Moderate Glucose Urine Dipstick - Negative Ketones Urine Dipstick - Negative Leukocytes Urine Dipstick - Trace Nitrite Urine Dipstick - Negative Protein Urine Dipstick - Negative Specific [facility] Urine Dipstick - 1.010 Urine Appearance Urine [...] these instructions at home: Medicines ? Take ivxg-yea-ifmascd and prescription medicines only (more content not included)... Normal [facility] Formson 03-04-2023 Forms [id number]#1.00CD:127 [facility] Forms [id number]#[id number]:127 [facility] Patient Educationon 03-04-20 23 Patient [...] these instructions at home: Medicines ? Take frkc-atq-dkvhpcu and prescription medicines only as told by [...] provider. Document Revised: 07/07/2022 Document Reviewed: 07/07/2022 [employer] Patient Education ? 2022 [employer] Shweta Gates [facility] Urology Office/Clinic Noteon 03-04-2023 Urology Office/Clinic Note Chief Complaint New Pt. [facility] ER HPI Staff This is a 37 year old New Pt. seen in [facility] ER on 01/31/23 due to blood [...] Calculus of ureter) New patient presented to [facility] ER 01/31/23 with gross hematuria and [...] patient was seen in the ER at [facility] with a small right upper ureteral calculus [...] MD, URL [address] [address]- Additional Instructions: [place] (more content not included)... Normal [facility] Comment on above: Result Comment: Electronically Signed By : Dany SYLVESTER MD\.br\Date and Time Signed: 03/04/23 12:49 EDT\.br\Electronically Co-Signed By: Laxmi Mcdowell\.br\Date and Time Co-Signed: 03/04/23 12:07 EDT\.br\Electronically Co-Signed By: Laxmi Mcdowell\.br\Date and Time Co-Signed: 03/04/23 12:17 EDT RAD - MISCon 03-03-2023 RAD - MISC [id number]#1.00CD:[address] [facility] ED Note-Physicianon 02-24-20 ED Note-Physician [id number]#1.00CD:[address] [facility] RAD - CT Reporton 02-23-2023 RAD - CT Report [id number]#1.00CD:[address] [facility] AMYLASEon 01-31-2023 Amylase [Catalytic activity/Vol] 45 U/L Normal 25-115 [facility] Comment on above: Performed By: #### CMP, LIPA, VERONICA #### [facility] [address], [place] [address] Dr. Jamil Oropeza CBC AUTO DIFFon 01-31-2023 BASO # 0.0 103/ul Normal 0.0-0.1 [facility] Comment on above: Performed By: #### JASMYN FUENTES #### [facility] [address] [address] [address] Jamil Oropeza Basophils/100 WBC (Bld) 0.4 % Normal 0.2-2.0 [facility] Comment on above: Performed By: #### JASMYN FUENTES #### [facility] [address] [place] [address] Dr. Jamil Oropeza EO # 0.1 103/ul Normal 0.0-0.7 [facility] Comment on above: Performed By: #### STEPHEN FUENTESRO #### [facility] [address] [place] [address] Dr. Jamil Oropeza Eosinophils/100 WBC (Bld) 0.8 % Critically low 0.9-7.0 [facility] Comment on above: Performed By: #### STEPHEN FUENTESRO #### [facility] [address] [place] [address] Dr. Jamil Oropeza Erythrocyte distribution width (RBC) [Ratio] 12.3 % Normal 11.0-15.0 [facility] Comment on above: Performed By: #### STEPHEN FUENTESRO #### [facility] [address] [place] [address] Dr. Jamil Oropeza Hematocrit (Bld) [Volume fraction] 40.4 % Normal 36.0-48.0 [facility] Comment on above: Performed By: #### STEPHEN FUENTESRO #### [facility] [address] [place] [address] Dr. Jamil Oropeza Hemoglobin (Bld) [Mass/Vol] 13.7 g/dL Normal 12.0-16.0 [facility] Comment on above: Performed By: #### STEPHEN FUENTESRO #### [facility] [address] [place] [address] Dr. Jamil Oropeza IG # 0.03 10e3/ul Normal 0.00-0.03 [facility] Comment on above: Performed By: #### STEPHEN FUENTESRO #### [facility] [address] [place] [address] Dr. Jamil Oropeza IG % 0.4 % Normal 0.0-0.5 [facility] Comment on above: Performed By: #### GINA UMICRO #### [facility] [address] [place] [address] Dr. Jamil Oropeza LYMPH # 2.7 103/ul Normal 1.2-3.8 [facility] Comment on above: Performed By: #### ERUR, UMICRO #### [facility] [address] [place] [address] Dr. Jamil Oropeza Lymphocytes/100 WBC (Bld) 32.9 % Normal 20.5-60.0 [facility] Comment on above: Performed By: #### GINA UMICRO #### [facility] [address] [place] [address] Dr. Jamil Oropeza MANUAL DIFF REQ NO Normal [facility] Comment on above: Performed By: #### GINA UMICRO #### [facility] [address] [place] [address] Dr. Jamil Oropeza MCH (RBC) [Entitic mass] 29.9 pg Normal 26.7-34.0 [facility] Comment on above: Performed By: #### GINA UMICRO #### [facility] [address] [place] [address] Dr. Jamil Oropeza MCHC (RBC) [Mass/Vol] 33.9 g/dL Normal 29.9-35.2 [facility] Comment on above: Performed By: #### GINA UMICRO #### [facility] [address] [place] [address] Dr. Jamil Oropeza MCV (RBC) [Entitic vol] 88.2 fL Normal 81.0-99.0 [facility] Comment on above: Performed By: #### GINA UMICRO #### [facility] [address] [place] [address] Dr. Jamil Oropeza MONO # 0.5 103/ul Normal 0.3-0.8 [facility] Comment on above: Performed By: #### GINA UMICRO #### [facility] [address] [place] [address] Dr. Jamil Oropeza Monocytes/100 WBC (Bld) 6.5 % Normal 1.7-12.0 [facility] Comment on above: Performed By: #### JASMYN FUENTES #### [facility] [address] [place] [address] Dr. Jamil Oroepza NEUT # 4.9 103/ul Normal 1.4-6.5 [facility] Comment on above: Performed By: #### JASMYN FUENTES #### [facility] [address] [place] [address] Dr. Jamil Oropeza Neutrophils/100 WBC (Bld) 59.0 % Normal 43.0-75.0 [facility] Comment on above: Performed By: #### JASMYN FUENTES #### [facility] [address] [place] [address] Dr. Jamil Oropeza Platelet mean volume (Bld) [Entitic vol] 10.2 fL Normal 9.5-13.5 [facility] Comment on above: Performed By: #### JASMYN FUENTES #### [facility] [address] [place] [address] Dr. Jamil Oropeza PLT 250 103/ul Normal 150-450 [facility] Comment on above: Performed By: #### STEPHEN FUENTESRO #### [facility] [address] [place] [address] Dr. Jamil Oropeza RBC 4.58 106/ul Normal 4.20-5.40 [facility] Comment on above: Performed By: #### STEPHEN FUENTESRO #### [facility] [address] [place] [address] Dr. Jamil Oropeza WBC 8.3 103/ul Normal 4.0-11.0 [facility] Comment on above: Performed By: #### STEPHEN FUENTESRO #### [facility] [address] [place] [address] ABD/PELVIS WO CONon [...] TAI GOMEZ Date: 2023-01-31 06:25 Normal [facility] CULTURE URINEon 01-31-2023 CULTURE URINE Culture Observations : LIGHT GROWTH OF MIXED GENITAL BANDAR. NO POTENTIAL PATHOGENS SEEN. Normal [facility] Comment on above: Performed By: #### JASMYN FUENTES #### [facility] [address] [address] [address] Jamil Oropeza ER URINE PROFILEon 3 Bilirubin Ql (U) Negative Normal NEGATIVE [facility] Comment on above: Performed By: #### JASMYN FUENTES #### [facility] [address], [place] [address] Dr. Jamil Oropeza Clarity (U) CLEAR Normal CLEAR [facility] Comment on above: Performed By: #### GINA UMICRO #### [facility] [address] [address] [address] Jamil Oropeza Color (U) BROWN Abnormal YELLOW [facility] Comment on above: Performed By: #### GINA UMICRO #### [facility] [address] [place] [address] Dr. Jamil CLANCY A micrscopic examina tion will be performed if indicated. Normal [facility] Comment on above: Performed By: #### GINA UMICRO #### [facility] [address] [place] [address] Dr. Jamil Oropeza Glucose Ql (U) 100 mg/dl Abnormal NEGATIVE [facility] Comment on above: Performed By: #### GINA UMICRO #### [facility] [address] [place] [address] Dr. Jamil Oropeza Hemoglobin Ql (U) LARGE Abnormal NEGATIVE [facility] Comment on above: Performed By: #### GINA UMICRO #### [facility] [address] [place] [address] Dr. Jamil Oropeza Ketones Ql (U) Negative Normal NEGATIVE [facility] Comment on above: Performed By: #### GINA UMICRO #### [facility] [address] [place] [address] Dr. Jamil Oropeza LEUKOCYTES TRACE Abnormal NEGATIVE [facility] Comment on above: Performed By: #### GINA UMICRO #### [facility] [address] [place] [address] Dr. Jamil Oropeza Nitrite Ql (U) Negative Normal NEGATIVE [facility] Comment on above: Performed By: #### GINA UMICRO #### [facility] [address] [place] [address] Dr. Jamil Oropeza pH (U) 5.5 [pH] Normal 5-9 [facility] Comment on above: Performed By: #### GINA UMICRO #### [facility] [address] [place] [address] Dr. Jamil Oropeza Protein (U) [Mass/Vol] 30 mg/dL Abnormal NEGATIVE/ TRACE [facility] Comment on above: Performed By: #### JASMYN FUENTES #### [facility] [address] [place] [address] Dr. Jamil Oropeza SPEC GRAVITY >=1.030 Abnormal 1.005-<=1.025 [facility] Comment on above: Performed By: #### STEPHEN FUENTESRO #### [facility] [address] [place] [address] Dr. Jamil Oropeza UR MICRO IND INDICATED Normal [facility] Comment on above: Performed By: #### STEPHEN FUENTESRO #### [facility] [address] [place] [address] Dr. Jamil Oropeza Urobilinogen Qn (U) 0.2 {Ervin'U}/dL Normal 0.2 - 1.0 [facility] Comment on above: Performed By: #### JASMYN FUENTES #### [facility] [address] [place] [address] Dr. Jamil Oropeza LIPASEon 01-31-2023 Lipase [Catalytic activity/Vol] 102.0 U/L Normal 73.0-393.0 [facility] Comment on above: Performed By: #### CMP, LIPA, VERONICA #### [facility] [address] [place] [address] Dr. Jamil Oropeza PROF 14(COMP METB)on 023 Albumin [Mass/Vol] 3.8 g/dL Normal 3.4-5.0 [facility] Comment on above: Performed By: #### CMP, LIPA, VERONICA #### [facility] [address] [place] [address] Dr. Jamil Oropeza Albumin/Globuli n [Mass ratio] 1.1 {ratio} Normal [facility] Comment on above: Performed By: #### CMP, LIPA, VERONICA #### [facility] [address] [place] [address] Dr. Jamil Oropeza ALP [Catalytic activity/Vol] 100 U/L Normal 46-116 [facility] Comment on above: Performed By: #### CMP, LIPA, VERONICA #### [facility] [address] [address] [address] Jamil Oropeza ALT [Catalytic activity/Vol] 15 U/L Normal 14-59 [facility] Comment on above: Performed By: #### CMP, LIPA, VERONICA #### [facility] [address] [address] [address] Jamil Oropeza Anion gap [Moles/Vol] 12.3 mmol/L Normal [facility] Comment on above: Performed By: #### CMP, LIPA, VERONICA #### [facility] [address] [address] [address] Jamil Oropeza AST [Catalytic activity/Vol] 13 U/L Critically low 15-37 [facility] Comment on above: Performed By: #### CMP, LIPA, VERONICA #### [facility] [address] [place] [address] Dr. Jamil Oropeza Bilirubin [Mass/Vol] 0.5 mg/dL Normal 0.2-1.0 [facility] Comment on above: Performed By: #### CMP, LIPA, VERONICA #### [facility] [address] [place] [address] Dr. Jamil Oropeza Calcium [Mass/Vol] 8.7 mg/dL Normal 8.5-10.1 [facility] Comment on above: Performed By: #### CMP, LIPA, VERONICA #### [facility] [address] [place] [address] Dr. Jamil Oropeza Chloride [Moles/Vol] 106 mmol/L Normal 98-107 [facility] Comment on above: Performed By: #### CMP, LIPA, VERONICA #### [facility] [address] [address] [address] Jamil Oropeza CO2 [Moles/Vol] 27.3 mmol/L Normal 21.0-32.0 [facility] Comment on above: Performed By: #### CMP, LIPA, VERONICA #### [facility] [address] [address] [address] Jamil Oropeza Creatinine [Mass/Vol] 0.87 mg/dL Normal 0.55-1.02 [facility] Comment on above: Performed By: #### CMP, LIPA, VERONICA #### [facility] [address] [place] [address] Dr. Jamil Oropeza EGFR-AF JAMAICAN >60 Normal >=60 [facility] Comment on above: Performed By: #### CMP, LIPA, VERONICA #### [facility] [address] [place] [address] Dr. Jamil Oropeza EGFR-NON AF JAMAICAN >60 Normal >=60 [facility] Comment on above: Performed By: #### CMP, LIPA, VERONICA #### [facility] [address] [place] [address] Dr. Jamil Oropeza Globulin (S) [Mass/Vol] 3.4 g/dL Normal [facility] Comment on above: Performed By: #### CMP, LIPA, VERONICA #### [facility] [address] [place] [address] Dr. Jamil Oropeza Glucose [Mass/Vol] 95 mg/dL Normal 74-106 [facility] Comment on above: Performed By: #### CMP, LIPA, VERONICA #### [facility] [address] [place] [address] Dr. Jamil Oropeza Potassium [Moles/Vol] 3.6 mmol/L Normal 3.5-5.1 [facility] Comment on above: Performed By: #### CMP, LIPA, VERONICA #### [facility] [address] [place] [address] Dr. Jamil Oropeza Protein [Mass/Vol] 7.2 g/dL Normal 6.4-8.2 [facility] Comment on above: Performed By: #### CMP, LIPA, VERONICA #### [facility] [address] [place] [address] Dr. Jamil Oropeza Sodium [Moles/Vol] 142 mmol/L Normal 136-145 [facility] Comment on above: Performed By: #### CMP, LIPA, VERONICA #### [facility] [address] [place] [address] Dr. Jamil Oropeza Urea nitrogen [Mass/Vol] 13.0 mg/dL Normal 7.0-18.0 [facility] Comment on above: Performed By: #### RADHA MORGAN AMY #### [facility] [address] [address] [address] Jamil Oropeza Urea nitrogen/Creati nine [Mass ratio] 14.9 mg/mg Normal [facility] Comment on above: Performed By: #### RADHA MORGAN AMY #### [facility] [address] [address] [address] Jamil Oropeza URINE MICROSCOPIC ONLYon BACTERIA SMALL Abnormal NONE SEEN [facility] Comment on above: Performed By: #### GINA UMICRO #### [facility] [address] [place] [address] Dr. Jamil Oropeza Bacteria identified Cx Nom (U) INDICATED Normal [facility] Comment on above: Performed By: #### GINA UMICRO #### [facility] [address] [place] [address] Dr. Jamil Oropeza CAST NONE SEEN Normal NONE SEEN [facility] Comment on above: Performed By: #### GINA UMICRO #### [facility] [address] [place] [address] Dr. Jamil Oropeza Crystals LM Nom (Urine sed) NONE SEEN Normal NONE SEEN [facility] Comment on above: Performed By: #### ERUR UMICRO #### [facility] [address] [place] [address] Dr. Jamil Oropeza Epithelial cells LM Ql (Urine sed) MODERATE Abnormal NONE SEEN /RARE [facility] Comment on above: Performed By: #### ERUR UMICRO #### [facility] [address] [place] [address] Dr. Jamil Oropeza MUCOUS NONE SEEN Normal NONE SEEN [facility] Comment on above: Performed By: #### ERUR, UMICRO #### [facility] [address] [place] [address] Dr. Jamil Oropeza RBC (U) [#/Vol] /uL Abnormal 0-2 [facility] Comment on above: Performed By: #### STEPHEN FUENTESRO #### [facility] [address] [place] [address] Dr. Jamil Oropeza WBC 2-5 Abnormal NONE SEEN [facility] Comment on above: Performed By: #### STEPHEN FUENTESRO #### [facility] [address] [place] [address] Dr. Jamil Oropeza INFLUENZA A AND B AGon 11-08 INFLUANEGH SEE BELOW Normal [facility] Comment on above: Result Comment: Negative for Flu A prote in angiten. Infection due to Flu A cannot be ruled out. Flu A angiten in the sample may be below the detection limit of the test. Performed By: #### STEPHEN PICHARDORO #### [facility] [address] [place] [address] Dr. Jamil Oropeza INFLUBNEGH SEE BELOW Normal [facility] Comment on above: Result Comment: Negative for Flu B prote in antigen. Infection due to Flu B cannot be ruled out. Flu B antigen in the sample may be below the detection limit of the test. Performed By: #### STEPHEN PICHARDORO #### [facility] [address] [place] [address] Dr. Jamil Oropeza INFLUENZA A AG Negative Normal NEGATIVE SEE COMMENT [facility] Comment on above: Performed By: #### STEPHEN FUENTESRO #### [facility] [address] [place] [address] Dr. Jamil Oropeza INFLUENZA B AG Negative Normal NEGATIVE SEE COMMENT [facility] Comment on above: Performed By: #### STEPHEN FUENTESRO #### [facility] [address] [place] [address] Dr. Jamil Oropeza INTERNAL CONTROLS Within Normal Limits Normal Within Normal Limits [facility] Comment on above: Performed By: #### STEPHEN FUENTESRO #### [facility] [address] [place] [address] Dr. Jamil Oropeza CBC AUTO DIFFon 09-26-2022 BASO # 0.0 103/ul Normal 0.0-0.1 [facility] Comment on above: Performed By: #### ERUR, UMICRO #### [facility] [address] [place] [address] Dr. Jamil Oropeza Basophils/100 WBC (Bld) 0.3 % Normal 0.2-2.0 [facility] Comment on above: Performed By: #### GIAN UMICRO #### [facility] [address] [place] [address] Dr. Jamil Oropeza EO # 0.0 103/ul Normal 0.0-0.7 [facility] Comment on above: Performed By: #### GINA UMICRO #### [facility] [address] [place] [address] Dr. Jamil Oropeza Eosinophils/100 WBC (Bld) 0.3 % Critically low 0.9-7.0 [facility] Comment on above: Performed By: #### GINA UMICRO #### [facility] [address] [place] [address] Dr. Jamil Oropeza Erythrocyte distribution width (RBC) [Ratio] 12.1 % Normal 11.0-15.0 [facility] Comment on above: Performed By: #### GINA UMICRO #### [facility] [address] [place] [address] Dr. Jamil Oropeza Hematocrit (Bld) [Volume fraction] 40.6 % Normal 36.0-48.0 [facility] Comment on above: Performed By: #### GINA UMICRO #### [facility] [address] [place] [address] Dr. Jamil Oropeza Hemoglobin (Bld) [Mass/Vol] 13.6 g/dL Normal 12.0-16.0 [facility] Comment on above: Performed By: #### GINA UMICRO #### [facility] [address] [place] [address] Dr. Jamil Oropeza IG # 0.03 10e3/ul Normal 0.00-0.03 [facility] Comment on above: Performed By: #### GINA UMICRO #### [facility] [address] [place] [address] Dr. Jamil Oropeza IG % 0.3 % Normal 0.0-0.5 [facility] Comment on above: Performed By: #### JASMYN FUENETS #### [facility] [address] [place] [address] Dr. Jamil Oropeza LYMPH # 1.9 103/ul Normal 1.2-3.8 [facility] Comment on above: Performed By: #### STEPHEN FUENTESRO #### [facility] [address] [place] [address] Dr. Jamil Oropeza Lymphocytes/100 WBC (Bld) 21.2 % Normal 20.5-60.0 [facility] Comment on above: Performed By: #### STEPHEN FUENTESRO #### [facility] [address] [place] [address] Dr. Jamil Oropeza MANUAL DIFF REQ NO Normal [facility] Comment on above: Performed By: #### JASMYN FUENTES #### [facility] [address] [place] [address] Dr. Jamil Oropeza MCH (RBC) [Entitic mass] 29.2 pg Normal 26.7-34.0 [facility] Comment on above: Performed By: #### JASMYN FUENTES #### [facility] [address] [place] [address] Dr. Jamil Oropeza MCHC (RBC) [Mass/Vol] 33.5 g/dL Normal 29.9-35.2 [facility] Comment on above: Performed By: #### SETPHEN FUENTESRO #### [facility] [address] [place] [address] Dr. Jamil Oropeza MCV (RBC) [Entitic vol] 87.1 fL Normal 81.0-99.0 [facility] Comment on above: Performed By: #### STEPHEN FUENTESRO #### [facility] [address] [place] [address] Dr. Jamil Oropeza MONO # 0.5 103/ul Normal 0.3-0.8 [facility] Comment on above: Performed By: #### JASMYN FUENTES #### [facility] [address] [place], [place] [id number] Dr. Jamil Oropeza Monocytes/100 WBC (Bld) 5.4 % Normal 1.7-12.0 [facility] Comment on above: Performed By: #### STEPHEN FUENTESRO #### [facility] [address] [place] [address] Dr. Jamil Oropeza NEUT # 6.5 103/ul Normal 1.4-6.5 [facility] Comment on above: Performed By: #### STEPHEN FUENTESRO #### [facility] [address] [place] [address] Dr. Jamil Oropeza Neutrophils/100 WBC (Bld) 72.5 % Normal 43.0-75.0 [facility] Comment on above: Performed By: #### GINA UMICRO #### [facility] [address] [place] [address] Dr. Jamil Oropeza Platelet mean volume (Bld) [Entitic vol] 10.6 fL Normal 9.5-13.5 [facility] Comment on above: Performed By: #### MICAELA FUENTESICRO #### [facility] [address] [place] [address] Dr. Jamil Oropeza PLT 237 103/ul Normal 150-450 [facility] Comment on above: Performed By: #### MICAELA FUENTESICRO #### [facility] [address] [place] [address] Dr. Jamil Oropeza RBC 4.66 106/ul Normal 4.20-5.40 [facility] Comment on above: Performed By: #### MICAELA FUENTESICRO #### [facility] [address] [place] [address] Dr. Jamil Oropeza WBC 8.9 103/ul Normal 4.0-11.0 [facility] Comment on above: Performed By: #### MICAELA FUENTESICRO #### [facility] [address] [place] [address] Dr. Jamil Oropeza Covid-19 PCR ([facility])on 09-16 SARS-CoV-2 (COVID-19) RNA IDALIA+probe Ql (Unsp spec) Not detected Normal NOT DETECTED [facility] Comment on above: Result Comment: When diagnostic [...] for this test is supported by the Senior Cost Analyst of Health and Human Service's declaration that [...] Performed By: #### E JASMYN MUÑOZ #### [facility] [address] [place] [address] Dr. Jamil Oropeza ER URINE PROFILEon 2 Bilirubin Ql (U) Negative Normal NEGATIVE [facility] Comment on above: Performed By: #### GINA UMICRO #### [facility] [address] [place] [address] Dr. Jamil Oropeza Clarity (U) CLEAR Normal CLEAR [facility] Comment on above: Performed By: #### GINA UMICRO #### [facility] [address] [place] [address] Dr. Jamil Oropeza Color (U) LT. YELLOW Normal YELLOW [facility] Comment on above: Performed By: #### GINA UMICRO #### [facility] [address] [place] [address] Dr. Jamil CLANCY A micrscopic examina tion will be performed if indicated. Normal [facility] Comment on above: Performed By: #### GINA UMICRO #### [facility] [address] [place] [address] Dr. Jamil Oropeza Glucose Ql (U) Negative Normal NEGATIVE [facility] Comment on above: Performed By: #### GINA UMICRO #### [facility] [address] [address] [address] Jamil Oropeza Hemoglobin Ql (U) TRACE-INTACT Abnormal NEGATIVE [facility] Comment on above: Performed By: #### GINA UMICRO #### [facility] [address] [place] [address] Dr. Jamil Oropeza Ketones Ql (U) Negative Normal NEGATIVE [facility] Comment on above: Performed By: #### GINA UMICRO #### [facility] [address] [place] [address] Dr. Jamil Oropeza LEUKOCYTES Negative Normal NEGATIVE [facility] Comment on above: Performed By: #### GINA UMICRO #### [facility] [address] [place] [address] Dr. Jamil Oropeza Nitrite Ql (U) Negative Normal NEGATIVE [facility] Comment on above: Performed By: #### GINA UMARACELIRO #### [facility] [address] [place] [address] Dr. Jamil Oropeza pH (U) 7.0 [pH] Normal 5-9 [facility] Comment on above: Performed By: #### GINA UMARACELIRO #### [facility] [address] [place] [address] Dr. Jamil Oropeza SPEC GRAVITY 1.010 Normal 1.005-<=1.025 [facility] Comment on above: Performed By: #### GINA UMARACELIRO #### [facility] [address] [place] [address] Dr. Jamil Oropeza UA PROTEIN Negative Normal NEGATIVE/ TRACE [facility] Comment on above: Performed By: #### GINA UMICRO #### [facility] [address] [place] [address] Dr. Jamil Oropeza UR MICRO IND INDICATED Normal [facility] Comment on above: Performed By: #### GINA UMICRO #### [facility] [address] [place] [address] Dr. Jamil Oropeza Urobilinogen Qn (U) 0.2 {Ervin'U}/dL Normal 0.2 - 1.0 [facility] Comment on above: Performed By: #### ERURJASMYN #### [facility] [address] [place] [address] Dr. Jamil Oropeza INFLUENZA A AND B AGon 09-26 INFLUANEGH SEE BELOW Normal [facility] Comment on above: Result Comment: Negative for Flu A prote in angiten. Infection due to Flu A cannot be ruled out. Flu A angiten in the sample may be below the detection limit of the test. Performed By: #### I NFLUAB #### [facility] [address] [place] [address] Dr. Jamil Oropeza INFLUBNEG SEE BELOW Normal [facility] Comment on above: Result Comment: Negative for Flu B prote in antigen. Infection due to Flu B cannot be ruled out. Flu B antigen in the sample may be below the detection limit of the test. Performed By: #### I NFLUAB #### [facility] [address] [place] [address] Dr. Jamil Oropeza INFLUENZA A AG Negative Normal NEGATIVE SEE COMMENT [facility] Comment on above: Performed By: #### INFLUAB #### [facility] [address] [place] [address] Dr. Jamil Oropeza INFLUENZA B AG Negative Normal NEGATIVE SEE COMMENT [facility] Comment on above: Performed By: #### INFLUAB #### [facility] [address] [place] [address] Dr. Jamil Oropeza INTERNAL CONTROLS Within Normal Limits Normal Within Normal Limits [facility] Comment on above: Performed By: #### INFLUAB #### [facility] [address] [place] [address] Dr. Jamil Oropeza POINT OF CARE GLUCOSEon 09-16 Glucose [Mass/Vol] 100 mg/dL Normal 74-106 [facility] Comment on above: Performed By: #### POCGLUC #### [facility] [address] [place] [address] Dr. Jamil Oropeza URon 09-26-2022 , QUAL Negative Normal NEGATIVE [facility] Comment on above: Performed By: #### ERUR UMICRO #### [facility] [address] [address] [address] Jamil Oropeza PROF CHEM 8 (BAS METB)on Anion gap [Moles/Vol] 5.9 mmol/L Normal [facility] Comment on above: Performed By: #### BMP, HSTROPN #### [facility] [address] [place] [address] Dr. Jamil Oropeza Calcium [Mass/Vol] 9.8 mg/dL Normal 8.5-10.1 [facility] Comment on above: Performed By: #### BMP, HSTROPN #### [facility] [address] [place] [address] Dr. Jamil Oropeza Chloride [Moles/Vol] 103 mmol/L Normal 98-107 [facility] Comment on above: Performed By: #### BMP, HSTROPN #### [facility] [address] [address] [address] Jamil Oropeza CO2 [Moles/Vol] 30.9 mmol/L Normal 21.0-32.0 [facility] Comment on above: Performed By: #### BMP, HSTROPN #### [facility] [address] [place] [address] Dr. Jamil Oropeza Creatinine [Mass/Vol] 0.84 mg/dL Normal 0.55-1.02 [facility] Comment on above: Performed By: #### BMP, HSTROPN #### [facility] [address] [place] [address] Dr. Jamil Oropeza EGFR-AF JAMAICAN >60 Normal >=60 [facility] Comment on above: Performed By: #### BMP, HSTROPN #### [facility] [address] [place] [address] Dr. Jamil Oropeza EGFR-NON AF JAMAICAN >60 Normal >=60 [facility] Comment on above: Performed By: #### BMP, HSTROPN #### [facility] [address] [place] [address] Dr. Jamil Oropeza Glucose [Mass/Vol] 95 mg/dL Normal 74-106 [facility] Comment on above: Performed By: #### BMP, HSTROPN #### [facility] [address] [place] [address] Dr. Jamil Oropeza Potassium [Moles/Vol] 3.8 mmol/L Normal 3.5-5.1 [facility] Comment on above: Performed By: #### BMP, HSTROPN #### [facility] [address] [place] [address] Dr. Jamil Oropeza Sodium [Moles/Vol] 136 mmol/L Normal 136-145 [facility] Comment on above: Performed By: #### BMP, HSTROPN #### [facility] [address] [place] [address] Dr. Jamil Oropeza Urea nitrogen [Mass/Vol] 11.0 mg/dL Normal 7.0-18.0 [facility] Comment on above: Performed By: #### BMP, HSTROPN #### [facility] [address] [place] [address] Dr. Jamil Oropeza Urea nitrogen/Creati nine [Mass ratio] 13.1 mg/mg Normal [facility] Comment on above: Performed By: #### BMP, HSTROPN #### [facility] [address] [place] [address] Dr. Jamil Oropeza TROPONIN, HIGH SENSITIVITYon 09-26-2022 HSTROP 5.6 pg/mL Normal 4.0-51.3 [facility] Comment on above: Result Comment: CUT-OFF POINTS HAVE BEEN ESTABLISHED BASED ON THE FOURTH UNIVERSAL DEFINITIONS OF MYOCARDIAL INFARCTION. THE UPPER REFERENCE LIMIT (URL) OF TROPONIN, DEFINED THE 99TH PERCENTILE OF cTnI DISTRIBUTION IN A REFERENCE POPULATION, HAS BEEN CONFIRMED THE DECISION THRESHOLD FOR HI DIAGNOSIS. Performed By: #### B MP, HSTROPN #### [facility] [address] [place] [address] Dr. Jamil Oropeza URINE MICROSCOPIC ONLYon BACTERIA NONE SEEN Normal NONE SEEN [facility] Comment on above: Performed By: #### JASMYN FUENTES #### [facility] [address] [place] [address] Dr. Jamil Oropeza Bacteria identified Cx Nom (U) NOT INDICATED Normal [facility] Comment on above: Performed By: #### ERUR, UMICRO #### [facility] [address] [place] [address] Dr. Jamil Oropeza CAST NONE SEEN Normal NONE SEEN [facility] Comment on above: Performed By: #### ERUR, UMICRO #### [facility] [address] [place] [address] Dr. Jamil Oropeza Crystals LM Nom (Urine sed) NONE SEEN Normal NONE SEEN [facility] Comment on above: Performed By: #### ERUR, UMICRO #### [facility] [address] [place] [address] Dr. Jamil Oropeza Epithelial cells LM Ql (Urine sed) FEW Abnormal NONE SEEN /RARE [facility] Comment on above: Performed By: #### ERUR, UMICRO #### [facility] [address] [place] [address] Dr. Jamil Oropeza MUCOUS NONE SEEN Normal NONE SEEN [facility] Comment on above: Performed By: #### ERUR, UMICRO #### [facility] [address] [place] [address] Dr. Jamil Oropeza RBC 0-2 Normal 0-2 [facility] Comment on above: Performed By: #### ERUR, UMICRO #### [facility] [address] [place] [address] Dr. Jamil Oropeza WBC NONE SEEN Normal NONE SEEN [facility] Comment on above: Performed By: #### ERUR, UMICRO #### [facility] [address] [place] [address] Dr. Jamil Oropeza General Surgery Office/Clini c Noteon 07-31-2022 General Surgery Office/Clinic Note Chief Complaint re-evaluate GERD/cough [facility] Staff 37 year old female presents [...] Family History Family history is negative Normal [facility] Comment on above: Result Comment: Electronically [...] after swallowing, pp_set_radiolo gy_subspecialt y, Not Required, [facility]\.br\ Medications\.b r\ What How Much [...] Dysphagia\.br\ GERD (gastroesophag eal reflux disease)\.br\ \.br\ [facility] Covid-19 PCR ([facility])on 05-17 SARS-CoV-2 (COVID-19) RNA IDALIA+probe Ql (Unsp spec) Not detected Normal NOT DETECTED [facility] Comment on above: Result Comment: When diagnostic [...] for this test is supported by the Senior Cost Analyst of Health and Human Service's declaration that [...] used). Performed By: #### JASMYN PICHARDO #### [facility] [address] [place] [address] Dr. Jamil Oropeza XR SINUSES 3 VIEWS [...] Abhishek LOMBARDI Date: 2022-06-09 01:48 Normal [facility] Vital Signs Date Time Vital Sign Value Performing Clinician Facility 03-07-2023 12:00-0400 Body height 166.37 cm Marco Antonio Goldsmith Other [facility] Other 03-07-2023 12:00-0400 Body mass index (BMI) [Ratio] 30.31 kg/m2 Marco Antonio Goldsmith Other [facility] Other 03-07-2023 12:00-0400 Body temperature 97.9 [degF] Marco Antonio Goldsmith Other [facility] Other 03-07-2023 12:00-0400 Body weight 83.92 kg Marco Antonio Goldsmith Other [facility] Other 03-07-2023 12:00-0400 Diastolic blood pressure 83 mm[Hg] Marco Antonio Goldsmith Other [facility] Other 03-07-2023 12:00-0400 Respiratory rate 18 /min Marco Antonio Goldsmith Other [facility] Other 03-07-2023 12:00-0400 SaO2% (BldA) [Mass fraction] 98 % Marco Antonio Goldsmith Other [facility] Other 03-07-2023 12:00-0400 Systolic blood pressure 123 mm[Hg] Marco Antonio Goldsmith Other [facility] Other 03-04-2023 11:01-0400 Blood Pressure Location Dany ABS [facility] 03-04-2023 11:01-0400 Diastolic blood pressure 75 mm[Hg] [facility] 03-04-2023 11:01-0400 Heart rate 71 /min [facility] 03-04-2023 11:01-0400 Respiratory rate 16 /min D[facility] 03-04-2023 11:01-0400 Systolic blood pressure 127 mm[Hg] [facility] 11-27-2022 11:45-0500 Body height 166.37 cm Whit Salinas Other [facility] Other 11-27-2022 11:45-0500 Body mass index (BMI) [Ratio] 29.49 kg/m2 Whit Salinas Other [facility] Other 11-27-2022 11:45-0500 Body temperature 97.6 [degF] Whit Salinas Other [facility] Other 11-27-2022 11:45-0500 Body weight 81.65 kg Whit Salinas Other [facility] Other 11-27-2022 11:45-0500 Diastolic blood pressure 81 mm[Hg] Whit Ruckerault Other [facility] Other 11-27-2022 11:45-0500 Respiratory rate 18 /min Whit Salinas Other [facility] Other 11-27-2022 11:45-0500 SaO2% (BldA) [Mass fraction] 98 % Whit Salinas Other [facility] Other 11-27-2022 11:45-0500 Systolic blood pressure 124 mm[Hg] Whit Ruckerault Other [facility] Other 06-26-2022 10:16-0400 Blood Pressure Location Willie MONTERROSO [facility] [place] 06-26-2022 10:16-0400 Diastolic blood pressure 81 mm[Hg] Willie NILL [facility] [place] 06-26-2022 10:16-0400 Heart rate 68 /min Willie WEBERL [facility] [place] 06-26-2022 10:16-0400 Respiratory rate 16 /min Willie WEBERL [facility] [place] 06-26-2022 10:16-0400 Systolic blood pressure 116 mm[Hg] Willie WEBERL [facility] [place] Encounters Encounter Date Encounter Type Care Provider Facility Start: 03-15-2024 End: 03-15-2024 ambulatory YENY GONG Not Available Start: 03-10-2023 End: 03-10-[address] YENY GONG . Facility:[facility] Start: 03-07-2023 End: 03-07-2023 ambulatory Marco Antonio Goldsmith Other [facility] Other Start: 03-07-2023 Office outpatient visit 15 minutes Marco Antonio Goldsmith [facility] Start: 03-04-2023 End: 03-05-2023 ambulatory Dany SYLVESTER Facility:[facility] [place] Start: 03-04-2023 End: 03-04-2023 Patient encounter procedure Dany SYLVESTER [facility] Start: 03-02-2023 End: 03-03-[address] DANY SYLVESTER Facility:[facility] Start: 02-24-2023 ambulatory Willie MONTERROSO Facility:[facility] [place] Start: 01-31-2023 End: 01-31-2023 ambulatory YADIRA SIMPSON Facility:[facility] Start: 11-27-2022 End: 11-27-2022 ambulatory Whit Salinas Other [employer] Other Start: 11-27-2022 Office outpatient ne w 20 minutes Whit Salinas [facility] José [facility] Start: 11-08-2022 End: 11-08-2022 ambulatory YADIRA TATIANA Facility:[facility] Start: 09-26-2022 End: 09-26-2022 ambulatory YADIRA SIMPSON Facility:[facility] Start: 06-26-2022 End: 06-27-2022 ambulatory Willie R NILL Facility: [place] Start: 06-26-2022 End: 06-26-2022 Patient encounter procedure Willie R NILL [facility] [place] Start: 06-13-2022 ambulatory Willie NILL Facility:[facility] Start: 06-09-2022 End: 06-09-2022 ambulatory DAISY SEYMOUR Facility:[facility] Procedures Date Procedure Procedure Detail Performing Clinician Start: 11-16-2016 Esophagogastroduodenoscopy Willie GUSFernanda Payers Date Payer Category Payer Unknown [id number] 2.16.84 [id number] 1984 Unknown [id number] 2.16.84 [id number] 1984 Unknown [id number] 2.16.84 [id number] 1984 Unknown [id number] 2.16.84 [id number] 1984 Unknown [id number] 2.16.84 [id number] 1984 Unknown [id number] 2.16.84 [id number] 1984 Unknown [id number] 2.16.8 [id number] 1984 Unknown [id number] 2.16.8 [id number] 1984 Unknown [id number] 2.16.8 [id number] 1984 Unknown [id number] 2.16.84 [id number] 1960 Medicaid [id number] 2.16. [id number] 1959 Unknown [id number] 2.16.8 [id number] 1959 Unknown [id number] 1960 Unknown [id number] Social History Date Type Detail Facility Start: 06-26-2022 Tobacco smoking status Never s moked tobacco (finding) [facility] Tobacco smoking status Never [facility] Sex Assigned At Female [facility] Functional Status Date Assessment Result Facility 03-04-2023 Functional Status N/A [facility] 06-26-2022 Functional Status N/A [facility] Evaluation note 03-07-2023 Note Date & Type [...] of symptoms occur by end of treatment. [employer] Other Evaluation + Plan note 03-04-2023 Radiology Note Date & Type Note Facility 03-04-2023 Evaluation + Plan note Diagnostic Tests PendingPT 03/04/23PTT 03/04/23PT 03/04/23 Future Scheduled TestsXR Abdomen 1 View 02/24/23 [facility] Hospital Discharge instructions 03-04-2023 Note Date & Type Note Facility 03-04-2023 Hospital Discharg e instructions Patient Education 03/04/2023 11:52:31 Kidney Stones, [id number] Kidney Stones Kidney stones are rock-like masses [...] Follow these instructions at home: Medicines Take etsw-byu-kvdcxfy and prescription medicines only as told by [...] provider. Document Revised: 07/07/2022 Document Reviewed: 07/07/2022 [employer] Patient Education 2022 [employer]. Follow Up Care 02/05/2023 09:42:12 With:NGA HANNON, Dany Morrissey, URL Address: [address] [place] [address]- When: Unknown [facility] Clinical Note 03-02-2023 Note Date & Type [...] authenticated by: DALJIT SMITH Date: 2023-03-02 12:37 [facility] Evaluation note 11-27-2022 Note Date & Type Note Facility 11-27-2022 Evaluation note Encounter Date Diagnosis Assessment Notes Nov, Right otitis media with effusion (ICD-10 - H65.91) take medication as directed. Middle ear fluid can be caused from allergies, traveling or viral infections. It may linger. Follow up with PCP if symptoms persist [facility] Other Evaluation + Plan note Radiology Note Date & Type Note Facility Evaluation + Plan note Future Appointments Appointment Date:07/24/2022 09:00:00 AM Scheduled Provider: Location:.XRAY Appointment Type:XR MBS Adult (FT) Future Scheduled TestsXR Adult Swallowing Function w/ Video: Evaluate Pt, Develop a Plan of Care & Implement Plan 07/24/22 [facility] [place] History general Narrative - Reported Note Date & Type Note Facility History general Narrative - Reported Type Medical History seasonal/environmental allergies Medical History acid reflux Medical History gastritis Surgical History cosmetic surgery Surgical History EGD Hospitalization History childbirth [facility] Other Hospital course Narrative Note Date & Type Note Facility Hospital course Narrative No data available for this section [facility] [place] [facility] Discharge instructions Note Date & Type Note Facility Hospital Discharge instructions No data available for this section [facility] [place] Progress note Note Date & Type Note Facility Progress note No data available for this section [facility] Summary Purpose Family History No Family History Records FoundNo Family History Records FoundNo Family History Records Found Advance Directives No Advanced Directives Records FoundNo Advanced Directives Records FoundNo Advanced Directives Records Found Additional Source Comments Care Team (unrecognized sect ion and content) Personnel Name: YADIRA SIMPSON CNP Address: [address] [facility] [address] Personnel Name: YADIRA SIMPSON CNP Address: Address: [facility] [facility] [address] REASON FOR VISIT (unrecogniz ed section and content) poss right ear infection - n o other symptomsSINUS PRESSURE, COUGH, CONGESTION, HEADACHE INFORMATION SOURCE (unrecogn ized section and content) DATE CREATED AUTHOR 03/21/2023 [facility] DATE CREATED AUTHOR 'S ORGANIZ ATION 06/06/2023 [facility] DATE CREATED AUTHOR AUTHOR'S FJ HAHN 03/16/2024 [facility] FOR RECORDS PERTAINING TO PATIENTS WHO [...] BE BASED ON THE PRIMARY CLINICAL RECORDS. [facility] [facility]. provides no warranty or guarantee of the accuracy or completeness of information in this document.
[2024-09-25] MEDS: ONDANSETRON 4 MG RAPDIS TABLET SL
[2024-09-25 00:01] VITALS: BP 113/65; PULSE 107; O2SAT 98
[2024-09-25] MEDS: BENZONATATE 100 MG CAPSULE 200 MG PO (00:21)
--- NOTE | 2024-09-25 00:40 | ED.GENADUL1 ---
HPI HPI - General Adult General Chief complaint: Upper Respiratory Infection Stated complaint: cough Time Seen by Provider: 09/24/24 23:26 Source: patient Mode of arrival: walk-in Limitations: no limitations History of Present Illness HPI narrative: 39-year-old female to the emergency department with chief complaint of cough, fever, sweats, chills. Cough is productive. She denies any nausea or vomiting. No chest pain or shortness of breath. Symptoms not improving over the last few days. Related Data Previous Rx's ?Medication ?Instructions ?Recorded azithromycin 250 mg tablet See Rx Instructions PO .COMPLEX #6 09/24/24 (Zithromax Z-Matt) tabs kgmegkgyxbuckbm-xyipwuvymtbemtf-ET 5 ml PO Q4H PRN cold symptoms #118 09/24/24 2 mg-30 mg-10 mg/5 mL oral syrup mL (Bromfed DM) Allergies Allergy/AdvReac Type Severity Reaction Status Date / Time hydrocodone (From Vicodin) Allergy Severe Vomiting Verified 09/24/24 22:50 Penicillins Allergy Severe Blister Verified 09/24/24 22:50 Opioid HPI Opioid Management Most Recent Opioid Data: Last Pain Scale 6 06/05/24 14:24 06/05/24 Review of Systems ROS Status of ROS 10 or more systems reviewed and unremarkable except as noted in history and below PFSH PFSH Social History Smoking status: Never smoker Little interest or pleasure in doing things: not at all Feeling down, depressed, or hopeless: not at all Exam Narrative Exam Narrative: VITALS: I have reviewed the triage vital signs. GENERAL: Well developed, well appearing adult in no acute distress. NEURO: Alert and oriented. Moves all extremities. Face is symmetric and expressive. EYES: PERRL. No scleral icterus or conjunctival injection. No discharge. HENT: Normocephalic, atraumatic. Hearing is grossly intact. Nares grossly patent and without discharge. Mucous membranes moist. NECK: No JVD. Patient moves neck without restriction. CARDIO: Rhythm regular. Normal rate. No murmur, rub, or gallop. Pulses equal bilaterally in the upper and lower extremity. No lower extremity edema. PULM: Rhonchi that clear with coughing. No conversational dyspnea. No splinting, stridor, or accessory muscle use. EXTREMITIES: Symmetric muscle bulk. No joint swelling. No clubbing, cyanosis, or deformity. SKIN: Warm and dry. Normal turgor. No rash or lesions appreciated. PSYCH: Mood, affect, and interaction is appropriate to the setting. Constitutional Vital Signs, click to edit/add: Last Vital Signs Temp 100.4 F 09/24/24 22:45 Pulse 107 H 09/25/24 00:01 Resp 16 09/25/24 00:01 BP 113/65 09/25/24 00:01 Pulse Ox 98 09/25/24 00:01 O2 Del Method Room Air 09/25/24 00:01 Course Vital Signs Vital signs: Vital Signs Temperature 100.4 F 09/24/24 22:45 Pulse Rate 102 H 09/24/24 22:45 Respiratory Rate 18 09/24/24 22:45 Blood Pressure 153/89 H 09/24/24 22:45 Pulse Oximetry 97 09/24/24 22:45 Oxygen Delivery Method Room Air 09/24/24 22:45 Temperature 100.4 F 09/24/24 22:45 Pulse Rate 107 H 09/25/24 00:01 Respiratory Rate 16 09/25/24 00:01 Blood Pressure 113/65 09/25/24 00:01 Pulse Oximetry 98 09/25/24 00:01 Oxygen Delivery Method Room Air 09/25/24 00:01 Medical Decision Making MDM Narrative Medical decision making narrative: 39-year-old female with fever, sweats, chills, cough not improving. Vital stable, the patient is afebrile. Rhonchi that clear with coughing on exam. I predominance of mycoplasma in the community at this time. Will place her on a Z-Matt. Bromfed for cough. She is given a Tessalon Perle here. Return precautions were discussed. All questions were answered. The patient was discharged home. Discharge Plan Discharge Chief Complaint: Upper Respiratory Infection Clinical Impression: Cough Patient Disposition: Home, Self-Care Time of Disposition Decision: 23:35 Condition: Good Mode of Transportation: Private Vehicle Prescriptions / Home Meds: New dbnhnlyhfocbcbo-odtxqsxqm-MN [Bromfed DM] 2-30-10 mg/5 mL syrup 5 ml PO Q4H PRN (Reason: cold symptoms) Qty: 118 0RF azithromycin [Zithromax Z-Matt] 250 mg tablet See Rx Instructions .ROUTE .COMPLEX Qty: 6 0RF Rx Instructions: For 250 mg dose pack: take 500 mg today (day 1), then 250 mg for 4 days (days 2-5) Print Language: Maldivian Instructions: Acute Cough (ED) Additional Instructions: Call the office of your primary care doctor to arrange for follow-up within the above-stated timeframe. Your ED visit was focused on your acute issue and does not replace primary care. You should review your labs, imaging, and diagnoses from this ED visit with your primary care physician. There may be non-emergent/ incidental findings that need further evaluation. You should review your vital signs including blood pressure with your PCP. If you were prescribed medications you should discuss possible side-effects and drug interactions with your pharmacist. Call 911 or go to the nearest Emergency Department if you develop any new or worsening symptoms. Seek immediate medical attention if you develop: worsening shortness of breath, difficulty breathing, chest pain, nausea, vomiting, weakness, numbness, tingling, excessive sweating, loss of motion in your arms or legs, or any new or worsening symptoms. Referrals: YADIRA SIMPSON [Primary Care Provider] - 1 week Discharge Date/Time: 09/25/24 00:01
== END 2024-09-25 00:01 | disposition home or self-care (01) ==
PROVIDERS: Emergency Provider Student in an Organized Health Care Education/Training Program; PCP Nurse Practitioner Family
DX: R05.9 Cough, unspecified (principal)
CPT/HCPCS: 99284; Q0162

== ENCOUNTER 2024-10-22 08:04 | Outpatient (OUT) | payer OTHER, SELFPAY ==
--- NOTE | 2024-10-22 | US_ITS ---
The [address] [address] Patient Name: SARA DORANTES MRN: [id number] date: 1985 Sex: F Assigned Patient Location: Current Patient Location: Accession/Order Number: [id number] Exam Date: 10/22/2024 08:08 Report Date: 10/23/2024 05:22 At the request of: CHRIS OMER Procedure: US renal BI EXAMINATION: US renal BI HISTORY: Kidney Stones N20.0 Gross Hematuria R31.0 COMPARISON: CT abdomen pelvis 01/31/2023, XR abdomen 10/22/2024 TECHNIQUE: Ultrasound examination was performed of the kidneys and urinary bladder. FINDINGS: RIGHT KIDNEY: Nonobstructing 6 mm stone. No appreciable mass. Normal parenchymal echogenicity. Color Doppler demonstrates blood flow within the kidney. Kidney: 10.1 x 5.4 x 4.4 cm LEFT KIDNEY: No evidence of pelvocaliectasis, mass, or calculi. Normal parenchymal echogenicity. Color Doppler demonstrates blood flow within the kidney. Kidney: 11.4 x 4.7 x 4.4 cm BLADDER: No visible wall thickening, mass, or calculi. US/US renal BI IMPRESSION: 1. Nonobstructing right nephrolithiasis. Electronically authenticated by: LAXMI MARIE Date: 10/23/2024 05:22
--- NOTE | 2024-10-22 | XR_ITS ---
The [address] [address] Patient Name: SARA DORANTES MRN: [id number] date: 1985 Sex: F Assigned Patient Location: US Current Patient Location: US Accession/Order Number: [id number] Exam Date: 10/22/2024 08:20 Report Date: 10/23/2024 05:23 At the request of: CHRIS OMER Procedure: XR abdomen 1V EXAMINATION: XR abdomen 1V HISTORY: Kidney Stones N20.0 Gross hematuria R31.0 COMPARISON: XR abdomen 03/02/2023 FINDINGS: KIDNEY/URETER - RIGHT: 3 small calcifications projecting over inferior pole right kidney. KIDNEY/URETER - LEFT: No visible renal or ureteral calcifications. PELVIS: No visible ureteral stones. Stable pelvic calcifications favoring phleboliths. BOWEL: No abnormal dilation or deviation. BONES: No acute abnormality. OTHER: IUD within midline pelvis. XR/XR abdomen 1V IMPRESSION: 1. Right nephrolithiasis. Electronically authenticated by: LAXMI MARIE Date: 10/23/2024 05:23
== END 2024-10-22 08:05 | disposition home or self-care (01) ==
LOC: US 08:04
PROVIDERS: PCP Nurse Practitioner Family; Visit Provider Physician Assistant
DX: R31.0 Gross hematuria (principal); N20.0 Calculus of kidney
CPT/HCPCS: 74018; 76775

== ENCOUNTER 2025-03-21 13:26 | Outpatient (REF) | payer OTHER, SELFPAY ==
[2025-03-23 07:09] LABS: Age Gdln ACOG Testing Note (.); HPV Aptima Negative (Negative); IGP, Aptima HPV, rfx 16/18,45 Note (.)
== END 2025-03-21 13:27 | disposition home or self-care (01) ==
LOC: LAB 13:26
PROVIDERS: PCP Nurse Practitioner Family; Visit Provider Obstetrics & Gynecology
DX: Z01.419 Encounter for gynecological examination (general) (routine) without abnormal findings (principal)
CPT/HCPCS: 87624; 88175

== ENCOUNTER 2025-06-29 07:59 | Outpatient (OUT) | payer OTHER, SELFPAY ==
--- OUTSIDE RECORDS SUMMARY | 2025-01-19 10:00 | XMS_ITS ---
Author Organization [facility] [place] Address [address] [place] [address] Care Team Providers Care Rn Ccu Name Role Phone Nancy Hogan Primary Care [...] Status W/U Status Risk Notes Problem Sinusitis (J32.9) Active confirmed Vital Signs Temperature 98.0 degrees Fahrenheit 01/20/20 25 Blood pressure systolic 118 mm Hg 01/20/20 25 Blood pressure diastolic 66 mm Hg 025 Height 65 in 01/19/2025 Weight 196.6 lbs 01/19/2025 BMI 32.71 kg/m2 01/19/2025 Encounters Encounter Location Date Provider Diagnosis [facility] [address] [facility] [place] [address] 01/19/2025 Nancy Hogan Bronchitis J40 and Sinusitis [...] * Nancy BOSWELL LDOB:1985 (39 yo F)Acc No.[id number]:01/19/2025 Progress Note Patient: Nancy ADAMS Fernanda Provider: Yuni Hogan ([facility]), POSTPARTUM RN :1985 A ge:39 Y S ex:Female Date:01/19/2025 Address:[address] [place], [place] [id number] Check In:01:52 PM ESTCheck O ut:02:15 PM [...] inusitis - J32.9 (Primary) 2 . B gillianchitis - J40 Plan: * Treatment: 2. B [...] Modifiers: QW * Preventive Medicine: Screenings/Counseling: B GA ACTION PLAN Above Normal BMI Follow-up D ietary management education, guidance, and counseling See treatment section of progress note for complete details of management plan. * Follow Up: p rn * * Electronically signed by Nirmala Hogan , [employer]TERN[employer], AIRFREIGHT OPERATIONS AGENT.POSTPARTUM RN.[id number] on 01/20/2025 at 11:32 AM EST Sign off status: Completed Visit Status: C HK (Check Out) true * Provider: Yuni Hogan ([facility]), POSTPARTUM RN Date: 0 01/19/2025 Generated for Angel crocker/Oneyda/Ann Marie on: 0 06/29/2025 08:01 AM EDT History and Physical Notes * [...]
--- OUTSIDE RECORDS SUMMARY | 2025-06-01 06:00 | XMS_ITS ---
Author Organization [facility] in [place] Address [address] [place] [address] Care Team Providers Care Spiritual Advisor Name Role Phone Nancy Hogan Primary Care Provider Allergies Allergen (clinical drug ingredient) Drug/Non Drug Allergy documented on EMR Reaction Allergy Type Onset Date Status codeine Codeine vomiting Drug Allergy Active hydrocodone Hydrocodone vomiting Drug Allergy Act xin Penicillin blisters mouth & throat Drug Allergy Active REASON FOR VISIT SHOULDER, WRIST PAIN, patient said she always has had wrist issues, even as a kid. both hands are cramping up. right shoulder pain lasting months, lifted a metal frame outside and since then it always hurts, patients mom has heart issues/ valve issues and would like a full work up Social History Tobacco Use: Social History Observation Description Date Details (start date - stop date) Never Smoker NA - NA Tobacco Use/Smoking Question Answer Notes Patient is a nonsmoker AUDIT-C (Standard) Question Answer Notes Did you have a drink containing alcohol in the p ast year? No Points 0 Interpretation Negative Vital Signs Blood pressure systolic 112 mm Hg 06/01/20 25 Blood pressure diastolic 70 mm Hg 025 Height 65 in 06/01/2025 Weight 194.8 lbs 06/01/2025 BMI 32.41 kg/m2 06/01/2025 Procedures Procedure Date Ordered Date Performed Result Body Sit e Echocardiogram 06/01/2025 N/A CARDIO Stress Test - Treadmill Exercise 06/01/2025 N/A Encounters Encounter Location Date Provider Diagnosis [facility] [address] [place] [address] 06/01/2025 Nancy Hogan Right shoulder pain M25.511 ; Intermittent chest pain R07.9 and Wellness examination Z00.00 Assessments Encounter Date Diagnosis (ICD Code) Assessment Notes Treatment Notes Treatment Clinical Notes Section Notes 06/01/2025 Right shoulder pain (ICD-10 - M25.511) 06/01/2025 Intermittent chest pain (ICD-10 - R07.9) 06/01/2025 Wellness examination (ICD-10 - Z00.00) ROS done exam done sees yeimy Plan Of Treatment Treatment Notes Assessment Notes Wellness examination ROS done exam done sees yeimy Pending Test Test Name Order Date HEMOGLOBIN A1C (GLYCO) 06/01/2025 IRON, TOTAL 06/01/2025 LIPID PANEL (CHOL/TRIG/HDL/LDL) 06/01/20 25 VITAMIN D, 25 LEVEL (TOTAL) 06/01/2025 Echocardiogram 06/01/2025 CARDIO Stress Test - Treadmill Exercise 06/01/2025 Insulin Level 06/01/2025 THYROID PANEL (T4/TSH/FREE T3) XR SHOULDER FELIZ 2V or > 06/01/2025 CMP (COMP MET GREEN) w/eGFR CKD-EPI 2024 CBC WITH DIFF 06/01/2025 Next Appt Details Follow Up: prn,4 Weeks, Reas on: Progress Notes * Nancy BOSWELL LDOB:1985 (40 yo F)Acc No.[id number]:06/01/2025 Progress Note Patient: Anushka GROSS Nancy Michael Provider: Yuni Hogan ([facility]), LARD REFINER :1985 A ge:40 Y S ex:Female Date:06/01/2025 Address:[address] [place], [place] [id number] Check In:09:53 AM ESTCheck O ut:10:24 AM EST Subjective: * Chief Complaints: * 1 . SHOULDER, WRIST PAIN. 2. Patient said she always has had wrist issues, even as a kid. both hands are cramping up. right shoulder pain lasting months, lifted a metal frame outside and since then it always hurts. 3. Patients mom has heart issues/ valve issues and would like a full work up. * HPI: G eneral: right shoulder pain , impingement, xray loss of ROM wrist pain on and off for years CP with exertion at times, hiking etc family members with valve issues stress, echo, labs Yeimy, going to do mammogram. * ROS: G eneral/Constitutional: Fever d enies. H eadache d enies. W eight loss?denies. O phthalmologic: Discharge d enies. E ye Pain d enies. I tching and redness d enies. E NT: Nasal discharge d enies. N marian congestion d enies.?Sore throat d enies. C ardiovascular: Chest tightness/ heavy pressure d enies. R apid heart rate d enies. S welling of extremities d enies. C hest pain a dmits, aggravated with exercise at times. R espiratory: Productive cough d enies. C [...] P ainful urination d enies. M usculoskeletal: Patient complaining of r ight shoulder pain, loss of ROM.?Back pain d enies. N eliud pain d enies. M uscle aches d enies. ? S kin: Rash d enies. S kin [...] Use/Smoking P atient is a n onsmoker D rug/Alcohol: A HAILEY-C (Standard) D id you have a drink containing alcohol in the past year? N o P oints 0 I nterpretation N egative * Medications: N one * Allergies: H ydrocodone: vomiting - Side Effects, Codeine: vomiting - Side Effects, Penicillin: blisters mouth & throat - Side Effects. Objective: * Vitals: W t:194.8lbs, Ht: 65 in, BP:112/70mm Hg, BMI:32.41Index, Ht-cm: 165.1 cm, Wt-k.36 kg. * Examination: G eneral Examinations: GENERAL APPEARANCE: a lert and oriented, i n no acute distress. EYES: c onjunctiva normal, sclera non-icteric. NOSE: n ormal external appearance. LUNGS: c lear to auscultation bilaterally. CARDIO: r egular rate and rhythm, S1, S2 normal. ABDOMEN: s oft, nontender. MUSCULOSKELETAL: G ait and station normal, decreased ROM right arm due to shoulder pain. SKIN: w arm and dry. Assessment: * Assessment: 1. R ight shoulder pain - M25.511 (Primary) 2 . I ntermittent chest pain - R07.9 3 . W ellness examination - Z00.00 Plan: * Treatment: 2. I ntermittent chest pain P rocedure: Echocardiogram P rocedure: CARDIO Stress Test - Treadmill Exercise 3. W ellness examination L AB: HEMOGLOBIN A1C (GLYCO) L AB: IRON, TOTAL L AB: LIPID PANEL (CHOL/TRIG/HDL/LDL) L AB: VITAMIN D, 25 LEVEL (TOTAL) L AB: Insulin Level L AB: THYROID PANEL (T4/TSH/FREE T3) L AB: CMP (COMP MET GREEN) w/eGFR CKD-EPI L AB: CBC WITH DIFF Notes: ROS done exam done seerosario gaffney * Preventive Medicine: Screenings/Counseling: B IA ACTION PLAN Above Normal BMI Follow-up D ietary management education, guidance, and counseling * Follow Up: p rn,4 Weeks * * Electronically signed by Nirmala Hogan , DEPARTMENT HEAD [employer], SAFEKEEPING CLERK.LARD [id number] on 06/02/2025 at 12:00 PM EDT Sign off status: Completed Visit Status: C HK (Check Out) true * Provider: Yuni Hogan ([facility]), LARD REFINER Date: 0 06/01/2025 Generated for Angel crocker/Oneyda/Chapitoitting on: 0 06/29/2025 08:01 AM EDT History and Physical Notes * HPI (History of Present Illness) Category Sub-Category Detail Notes Category Not es General right shoulder pain , impingement, xray loss of ROM wrist pain on and off for years CP with exertion at times, hiking etc family members with valve issues stress, echo, labs Yeimy, going to do mammogram Examination Category Sub-Category Detail Notes Category Not es General Examinations GENERAL APPEARANCE: alert a nd oriented, in no acute distress EYES: conjunctiva normal, sclera non-icteric EARS: NOSE: normal external appe arance THROAT: CARDIO: regular rate and rhy thm, S1, S2 normal LUNGS: clear to auscultatio n bilaterally ABDOMEN: soft, nontender SKIN: warm and dry BACK: MUSCULOSKELETAL: Gait and station nor mal, decreased ROM right arm due to shoulder pain LYMPH NODES:
--- OUTSIDE RECORDS SUMMARY | 2025-06-28 06:42 | XMS_ITS ---
Author Organization [facility] in [place] Address [address] [place] [address] Care Team Providers Care Articulation Officer Name Role Phone Nancy Hogan Primary Care Provider [phone] Reason For Referral Diagnosis 1 Intermittent chest p ain (R07.9) Referral Organization [facility] Referring Provider First Name Nancy Referring Provider Last Name Samira Referring Provider [facility] Family [facility] icine Referred Provider [facility] Cardiology, [facility] Referred Provider Specialty Cardiology Referral Priority Routine REASON FOR VISIT cardiology Encounters Encounter Location Date Provider Diagnosis [facility] [address] [place] [address] 06/28/2025 Nancy Hogan Intermittent chest pain R07.9 Assessments Encounter Date Diagnosis (ICD Code) Assessment Notes Treatment Notes Treatment Clinical Notes Section Notes 06/28/2025 Intermittent chest pain (ICD-10 - R07.9) Plan Of Treatment Referrals Referral Date Details 06/28/2025 06/28/2025, [facility] Cardiology Progress Notes * Nancy BOSWELL LDOB:1985 (40 yo F)Acc No.[id number]:06/28/2025 Patient: Nancy ADAMS :1985 A ge:40 Y S ex:Female Address:[address] [place] [address] Subjective: * Chief Complaints: * C ardiology * Medical History: * Surgical History: * Hospitalization/Major Diagno stic Procedure: * Medications: Objective: * Vitals: * Physical Examination: Assessment: * Assessment: 1. I ntermittent chest pain - R07.9 (Primary) Plan: * Treatment: * Procedure Codes: * true * Date: Generated for Angel crocker/Oneyda/eTransmitting on: 0 06/29/2025 08:01 AM EDT Consultation Request Notes Referral Date Referring Provider Referred Provider Not es 06/28/2025 Nancy Hogan [facility] Cardiology, Specialty Clinic
--- OUTSIDE RECORDS SUMMARY | 2025-06-29 08:01 | XMS_ITS | Encounter Summary ---
Author Organization [facility] Address [address] [place] [address] Care Team Providers Care Vending Manager Name Role Phone Deondre Potts DO Unavailable Encounter Details Date Type Department Care Team (Late st Contact Info) Description 03/15/2025 Orders Only [facility] CRANDALL [address] [place] [address] Belinda Chaidez LPN [address] [id number] Social History Tobacco Use Types Packs/Day Years Used Date Smoking Tobacco: Never Assessed Comments Unknown Sex and Gender Information Value Date Recorded Sex Assigned at Not on file Legal Sex Female 7:06 PM EDT Gender Identity Not on file Sexual Orientation Not on file documented as of this encounter Plan of Treatment Upcoming Encounters Date Type Department Care Team (Late Contact Info) Description 03/27/2026 11:00 AM EDT Office Visit [facility] CRANDALL [address] [place] [address] Deondre Potts DO [address] [place], [place] [id number] documented as of this encounter Procedures Procedure Name Priority Date/Time Associated Diagnosis Comments PAP SMEAR Routine 03/15/2025 12:00 AM EDT documented in this encounter Results * Pap Smear (03/15/2025 12:00 AM EDT) Swab Cervical swab / Unknown us Katlyn [facility] CYTOLOGY ORDERABLES Final Result EXTERNAL LAB documented in this encounter Visit Diagnoses Not on filedocumented in this encounter Care Teams Vending Manager Relationship Specialty Start Date End Date Deondre Potts DO [address] [place] [address] PCP - [facility] 11/16/24 documented as of this encounter
--- OUTSIDE RECORDS SUMMARY | 2025-06-29 08:02 | XMS_ITS | Patient Health Record ---
Author Organization The [facility] in [place] Address [address] [place] [address] Care Team Providers Care Shaper Hand Name Role Phone Nancy Hogan Primary Care Provider [phone] Allergies Allergen (clinical drug ingredient) Drug/Non Drug [...] A - FLU B - Control + IGP,Aptima HPV,Age Gdln Reviewed date:03/23/2025 11:54:29 AM Interpretation: Performing Lab: Notes/Report: BRUSH-SPATULA CERVIX ENDOCERVIX [facility] , Age Gdln ACOG Testing Note . TESTS RESULT FLAG UNITS REF RANGE LAB Clinician Provided Cytology Information Source.............Cervix;Endoce rvix No. of containers..01 ThinPrep Vial Age Algo ACOG Inez... 30-65 01 FLAG LEGEND: L-Low Normal,H-High Normal,LL-Alert Low,HH-Alert High <-Panic Low,>-Panic High,A-Abnormal,AA-Critical Abnormal Performed at: 01 =G [facility] [address] [facility] [place] [address] Kassandra Phillips MD, IGP, Aptima HPV, rfx 16/18,45 Note . TESTS RESULT FLAG UNITS REF RANGE LAB DIAGNOSIS: 02 NEGATIVE FOR INTRAEPITHELIAL LESION OR MALIGNANCY. Specimen adequacy: 02 Satisfactory for evaluation. Endocervical and/or squamous metaplastic cells (endocervical component) are present. Performed by: Carrie Olmstead, Agency Appointments Supervisor ([facility]) . 02 Note: Note 02 The Pap smear is a screening test designed to aid in the detection of premalignant and malignant conditions of the uterine cervix. It is not a diagnostic procedure and should not be used as the sole means of detecting cervical cancer. Both false-positive and false-negative reports do occur. Test Methodology: Note 02 This liquid based ThinPrep(R) pap test was screened with the use of an image guided system. HPV Genotype Reflex Note 02 Criteria not met, HPV Genotype not performed. FLAG LEGEND: L-Low Normal,H-High Normal,LL-Alert Low,HH-Alert High <-Panic Low,>-Panic High,A-Abnormal,AA-Critical Abnormal Performed at: [address] [address] Kassandra Phillips MD, HPV Aptima Negative Negative This nucleic acid amplification test detects fourteen high- risk HPV types (16,18,31,33,35,39,45,51,52,56,5 8,59,66,68) without differentiation. Performed at: = - [facility] [address] [id number] Real Estate Executive Assistant: Kassandra Phillips MD, Phone: [phone] Performed at: [facility] [id number] Real Estate Executive Assistant: Kassandra Phillips MD, Phone: [phone] Performing Lab: see note - [facility] LB Reason For Referral Diagnosis 1 Intermittent chest p ain (R07.9) Referral Organization [facility] Referring Provider First Name Nancy Referring Provider Last Name Samira Referring Provider [facility] Referred Provider [facility] Cardiology, [facility] Referred Provider Specialty Cardiology Referral Priority Routine Social History Tobacco Use: Social History Observation Description Date Details (start date - stop date) Never Smoker NA - NA Tobacco Use/Smoking Question Answer Notes Patient is a nonsmoker Alcohol Screen (Audit-C) Question Answer Notes Did you have a drink containing alcohol in the p ast year? No Points 0 Interpretation Negative AUDIT-C (Standard) Question Answer Notes Did you have a drink containing alcohol in the p ast year? No Points 0 Interpretation Negative Problems Problem Type SNOMED Code ICD Code Onset Dates Problem Status W/U Status Risk Notes Problem Sinusitis (J32.9) Active confirmed Vital Signs Temperature 98.0 degrees Fahrenheit 01/19/2025 Blood pressure diastolic 70 mm Hg 06/01/2025 Oximetry 97 % 09/28/2024 Height 65 in 06/01/2025 Blood pressure systolic 112 mm Hg 06/01/2025 Weight 194.8 lbs 06/01/2025 BMI 32.41 kg/m2 06/01/2025 Procedures Procedure Date Ordered Date Performed Result Body Sit e Echocardiogram 06/01/2025 N/A CARDIO Stress Test - Treadmill Exercise 06/01/2025 N/A Encounters Encounter Location Date Provider Diagnosis [address] [place] [address] 06/28/2025 Nancy Samira Intermittent chest pain R07.9 [address] [place] [address] 09/28/2024 Nancy Samira Bronchitis J40 [address] [place] [address] 01/19/2025 Nancy Samira Bronchitis J40 and Sinusitis J32.[address] [address] 06/01/2025 Nancy Samira Right shoulder pain M25.511 ; Intermittent chest pain R07.9 and Wellness examination Z00.00 Assessments Encounter Date Diagnosis (ICD Code) Assessment Notes Treatment Notes Treatment Clinical Notes Section Notes 09/28/2024 Bronchitis (ICD-10 - J40) finish out zpack if not improving , worsens notify office 01/19/2025 Bronchitis (ICD-10 - J40) 01/19/2025 Sinusitis (ICD-10 - J32.9) give some more time if sinus pain pressure, fever, can start zpack rest push fluids 06/01/2025 Right shoulder pain (ICD-10 - M25.511) 06/01/2025 Intermittent chest pain (ICD-10 - R07.9) 06/28/2025 Intermittent chest pain (ICD-10 - R07.9) 06/01/2025 Wellness examination (ICD-10 - Z00.00) ROS done exam done sees yeimy Plan Of Treatment Pending Test Test Name Order Date HEMOGLOBIN A1C (GLYCO) 06/01/2025 IRON, TOTAL 06/01/2025 LIPID PANEL (CHOL/TRIG/HDL/LDL) 06/01/20 25 VITAMIN D, 25 LEVEL (TOTAL) 06/01/2025 Echocardiogram 06/01/2025 XR Elbow RT (3 views) * 12/25/2023 CARDIO Stress Test - Treadmill Exercise 06/01/2025 Insulin Level 06/01/2025 COVID-19, Flu A+B IH 01/19/2025 THYROID PANEL (T4/TSH/FREE T3) 5 XR SHOULDER FELIZ 2V or > 06/01/2025 CMP (COMP MET GREEN) w/eGFR CKD-EPI 2024 CBC WITH DIFF 06/01/2025 Insurance Providers Payer Name Payer Address Payer Phone Subscriber Number Group Number Insured Name Patient Relationship to Insured Coverage Start Date Coverage End Date [employer] [place] [employer] [address] [place] [address] [id number] Nancy Griffin Self - patient is the insured 4 [employer] [place] [employer] [address] [place] [address] [id number] Nancy Griffin Self - patient is the insured 3 4 Medical (General) History Medical History History ICD Code Anxiety F41.9 COVID-19 U07.1 Dysphagia R13.10 Acid reflux K21.9 Kidney stones N20.0 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
--- OUTSIDE RECORDS SUMMARY | 2025-06-29 08:02 | XMS_ITS | Clinical Summary ---
Author Organization [facility] Address [address] [place] [address] Care Team Providers Care Locomotive Mechanic Apprentice Name Role Phone Deondre Potts DO Unavailable Allergies Active Allergy Reactions Criticality Noted Date Comments Codeine GI intolerance 03/09/2024 Hydrocodone GI intolerance 03/09/2024 Penicillins Unknown 03/09/2024 Medications Levonorgestrel (Mirena, 52 MG,) 20 MCG/DAY intrauterine device Intrauterine Active ondansetron ODT (Zofran-ODT) 4 MG disintegrating tablet DISSOLVE 1 TABLET ON THE TONGUE EVERY 6 HOURS NEEDED FOR NAUSEA 02/15/20 24 Active cetirizine (ZyrTEC ALLERGY) 10 MG tablet Take 10 mg by mouth Daily as needed for allergies Active Social History Tobacco Use Types Packs/Day Years Used Date Smoking Tobacco: Never Assessed Comments No Sex and Gender Information Value Date Recorded Sex Assigned at Not on file Legal Sex Female 7:06 PM EDT Gender Identity Not on file Sexual Orientation Not on file Last Filed Vital Signs Vital Sign Reading Time Taken Comments Blood Pressure 100/70 03/21/2025 10:17 AM EDT Pulse - - Temperature - - Respiratory Rate - - Oxygen Saturation - - Inhaled Oxygen Concentration - - Weight 88.8 kg (195 lb 12.8 oz) 025 10:17 AM EDT Height 165.1 cm (5' 5 ) 03/15/2024 10:4 2 AM EDT Body Mass Index 32.58 03/15/2024 10:42 AM EDT Plan of Treatment Upcoming Encounters Date Type Department Care Team (Late Contact Info) Description 03/27/2026 11:00 AM EDT Office Visit [facility] [address] [place] [address] Deondre Potts DO [address] [place] [address] Health Maintenance Due Date Last Done Comments Mammogram 2024 Influenza Vaccine (#1) 2025 Cervical Cancer Screening 03/10/2028 HPV/Cotest 03/10/2028 Pap Smear 03/15/2028 03/15/2025, 03/10/2023 Procedures Procedure Name Priority Date/Time Associated Diagnosis Comments PAP SMEAR Routine 03/15/2025 12:00 AM EDT from Last 3 Months or Most Recently Relevant to Health Maintenance Results * Pap Smear (03/15/2025 12:00 AM EDT) Swab Cervical swab / Unknown Katlyn [facility] CYTOLOGY ORDERABLES Final Result EXTERNAL LAB from Last 3 Months or Most Recently Relevant to Health Maintenance Insurance [employer] Care Teams Locomotive Mechanic Apprentice Relationship Specialty Start Date End Date Deondre Potts DO [address] [place] [address] [facility] 11/16/24
--- OUTSIDE RECORDS SUMMARY | 2025-06-29 08:03 | XMS_ITS | CCD ---
Author Organization [facility] Care Team Providers Care Fish And Game Warden Name Role Phone YADIRA SIMPSON Primary Care Physician [phone] Whit Salinas Unavailable Marco Antonio Goldsmith Unavailable TATIANA YADIRA Primary Care Unavailable DAISY SEYMOUR Admitting Unavailable DAISY SEYMOUR Attending Unavailable DAISY SEYMOUR Consulting Unavailable TAI GOMEZ Consulting Unavailable NGA, DR DANY Morrissey Admitting Unavailable NGA, DR DANY Morrissey Attending Unavailable [facility] Primary Care Unavailable NGA, DR DANY Morrissey Consulting Unavailable DALJIT SMITH Consulting Unavailable KATLYN ., DR SAINI Admitting Unavailable KATLYN ., DR SAINI Attending Unavailable [facility] Primary Care Unavailable KATLYN ., DR SAINI Consulting Unavailable DAISY SEYMOUR Consulting Unavailable DAISY SEYMOUR Admitting Unavailable DAISY SEYMOUR Attending Un[facility] Primary Care Unavailable JEFF LOMBARDI Consulting Unavailable [facility] Primary Care Unavailable PAY ., DR SOLORZANO Admitting Unavailable PAY ., DR SOLORZANO Attending Unavailable PAY ., DR SOLORZANO Consulting Unavailable DALEY ., MR GIVENS Consulting Unavailable [facility] Primary Care Unavailable VADIM .ELIZABETH Admitting Unavailable VADIM ., ELIZABETH Attending Unavailable VADIM ., ELIZABETH Consulting Unavailable Odalis Potts DOy Unavailable YENY POTTS Attending Unavailable YOSEF OMER Attending Unavailab Sarah Tariq Admitting Unavailable Sarah Sanchez Attending Unavailable Sarah Sanchez Attending Unavailable Sarah Sanchez Attending Unavailable Yeny POTTS R Referring Unavailable GalSarah hunt Attending Unavailable GalSarah hunt Attending Unavailable Yeny POTTS R Referring Unavailable GaleaSarah Referring Unavailable GalSarah hunt Admitting Unavailable Sarah Sanchez Attending Unavailable Allergies Allergy Classification Reported Allergen(s) Allergy Type Date of Onset Reaction(s) Facility (9 sources) Acetaminophen / HYDROcodone; Translations: [acetaminophen-hy drocodone] Drug Allergy Vomiting (disorder) [facility] (16 sources) Codeine; Translations: [codeine] Drug Allergy 03-09-20 24 Vomiting (disorder), GI intolerance [facility] (17 sources) Penicillins; Translations: [penicillins] Drug allergy 04-10-20 14 Ulcer of mouth (disorder), Unknown [facility] (2 sources) Codone Propensity to adverse reactions vomiting [facility] (8 sources) Seasonal allergy; Translations: [Seasonal] Allergy to substance Unknown (qualifier value) [facility] (1 source) Codeine Drug Allergy 04-10-20 14 [facility] (1 source) HYDROcodone Drug Allergy 04-10-20 14 [facility] (5 sources) HYDROcodone Drug Allergy 03-09-20 24 GI intolerance [facility] Medications Current Medications Medication Drug Class(es) Dates Sig (Normalized) Sig (Original) azithromycin 250 mg oral tablet (3 sources) Macrolide Antimicrobial Start: 01-03-2015 Azithromycin 250 MG 2 tablets on the first day, then 1 tablet daily for 4 days Orally Once a day for 5 day(s) Feb, Active Zyrtec (11 sources) Histamine-1 Receptor Antagonist Start: 03-04-2023 Zyrtec Daily Start Date: 03/04/23 Status: Ordered Repeat number: 1 Start: 03-04-2023 Zyrtec Daily S tart Date: 03/04/23 Status: Ordered take 1 tablet by emerson th every twenty-four hours as needed cetirizine (ZyrTEC ALLERGY) 10 MG tablet Take 10 mg by mouth Daily as needed for allergies Active fluticasone propionate 0.05 mg/actuat metered dose nasal spray (1 source) Corticosteroid Start: 03-07-2023 take 1 spray(s) nasal route twice daily Fluticasone Propionate 50 MCG/ACT 1 spray in each nostril Nasally Twice a day for 14 days Feb, Active ketorolac tromethamine 10 mg oral tablet (1 source) Nonsteroidal Anti-inflammatory Drug, Cyclooxygenase Inhibitor Start: 10-04-2024 take 1 tablet by mouth every six hours as needed for pain, then take 4 tablets by mouth once daily at mealtime as needed for pain ketorolac 10 mg Tab 10 mg = 1 tab(s), Oral, q6hr, PRN for pain, not to exceed 40 mg/day. Take with food., # 12 tab(s), Refills(s) 0, Pharmacy: [facility]/pharmacy #[id number], 165, cm, 10/04/24 13:08:00 EST, Height/Length Dosing, 84, kg, 10/04/24 13:08:00 EST, Weight Dosing Start Date: 10/04/24 Status: Ordered levonorgestrel 0.813056 mg/hr intrauterine system (5 sources) Progestin, Progestin-containin g Intrauterine Device Levonorgestrel (Mirena, 52 MG,) 20 MCG/DAY intrauterine device Intrauterine Active ondansetron 4 mg oral tablet (10 sources) Serotonin-3 Receptor Antagonist Start: 10-04-2024 take 1 tablet by mouth every six hours as needed for nausea Zofran 4 mg Tab 4 mg = 1 tab(s), Oral, q6hr, PRN Nausea/Vomiting, # 12 tab(s), Refills(s) 0, Pharmacy: [facility]/pharmacy #[id number], 165, cm, 10/04/24 13:08:00 EST, Height/Length Dosing, 84, kg, 10/04/24 13:08:00 EST, Weight Dosing Start Date: 10/04/24 Status: Ordered Quantity: 12.0 Unit: tab(s) Repeat number: 1 Indications: Calculus of kidney; Start: 02-15-2024 ondansetron OD T (Zofran-ODT) 4 MG disintegrating tablet DISSOLVE 1 TABLET ON THE TONGUE EVERY 6 HOURS NEEDED FOR NAUSEA 02/15/2024 Active pantoprazole 40 mg delayed release oral tablet (3 sources) Proton Pump Inhibitor Start: 11-19-2020 take 1 tablet by mouth once daily Pantoprazole [address] Tab 40 mg = 1 tab(s), Oral, Daily, Refills(s) 0 Start Date: 11/19/20 Status: Ordered sucralfate 1000 mg oral tablet (3 sources) Aluminum Complex Start: 11-19-2020 sucralfate 1 g Tab 1 gm = 1 tab(s), Oral, QIDACHS, Refills(s) 0 Start Date: 11/19/20 Status: Ordered tamsulosin hydrochloride 0.4 mg oral capsule (1 source) alpha-Adrenergic Leyla Start: 10-04-2024 take 1 capsule by mouth once daily Flomax 0.4 mg Cap 0.4 mg = 1 cap(s), Oral, Daily, # 30 cap(s), Refills(s) 0, Pharmacy: [facility]/pharmacy #[id number], 165, cm, 10/04/24 13:08:00 EST, Height/Length Dosing, 84, kg, 10/04/24 13:08:00 EST, Weight Dosing Start Date: 10/04/24 Status: Ordered Completed/Discontinued Medications Medication Drug Class(es) [...] QUADRANT PAIN] Onset: 3 Episodic Anxiety disorders (7 sources) Anxiety 11-19-2020 Chronic Calculus of urinary tract (20 sources) Ureteric stone; Translations: [Calculus of ureter] Onset: 3 Episodic Deficiency and other anemia (6 sources) Anemia 03-04-2023 Episodic Esophageal disorders (8 sources) Gastroesophageal reflux disease without esophagitis; Translations: [Gastro-esophageal reflux disease without esophagitis] Onset: 2 Chronic Gastritis and duodenitis (7 sources) Chronic gastritis 11-19-2020 Chronic Genitourinary symptoms and ill-defined conditions (3 sources) Genuine stress incontinence; Translations: [Stress incontinence (female) (male)] Onset: 5 05-06-2025 Chronic Genitourinary symptoms and ill-defined conditions (7 sources) Blood in urine; Translations: [Gross hematuria] Onset: 4 Episodic Headache; including migraine (6 sources) Headache 03-04-2023 Episodic Immunizations and screening for infectious disease (3 sources) Encounter for screening for human papillomavirus (HPV); Translations: [Exposure to sexually transmissible disorder] Onset: 3 03-21-2025 Episodic Nonspecific chest pain (7 sources) Chest pain 11-22-2020 Episodic Osteoarthritis (6 sources) Arthritis 03-04-2023 Chronic Other diseases of kidney and ureters (1 source) Hydronephrosis with renal and ureteral calculous obstruction; Translations: [HYDRONPHROS RENL AND URETRL CALCUL OBST] Onset: 3 Episodic Other female genital disorders (2 sources) Vaginal discharge; Translations: [Other specified noninflammatory disorders of vagina] 03-21-2025 Episodic Other gastrointestinal disorders (8 sources) Dysphagia; Translations: [Dysphagia, unspecified] Onset: 2 Episodic Other lower respiratory disease (8 sources) Cough; Translations: [Cough, unspecified] Onset: 2 Episodic Other nutritional; endocrine; and metabolic disorders (7 sources) Overweight in adulthood with body mass index of 25 or more but less than 30 06-26-2022 Episodic Other screening for suspected conditions (not mental disorders or infectious disease) (6 sources) Encounter for screening for malignant neoplasm of cervix; Translations: [Patient encounter status] Onset: 3 Episodic Other upper respiratory infections (3 sources) Maxillary sinusitis; Translations: [Maxillary sinusitis] Onset: 2 Chronic Otitis media and related conditions (1 source) Unspecified nonsuppurative otitis media, right ear Episodic Residual codes; unclassified (7 sources) Chronic back pain 11-19-2020 Episodic Spondylosis; intervertebral disc disorders; other back problems (7 sources) Chronic neck pain 11-19-2020 Episodic Unclassified [...] 06-09-2022 Episodic Other aftercare (1 source) Other aircraft electrical systems specialist (current) drug therapy; Translations: [OTH DETENTION CURRENT DRUG THERAPY] Onset: 09-29-2022 Episodic Other upper respiratory infections (2 sources) Acute pansinusitis, unspecified; Translations: [Acute upper respiratory infection, unspecified] Onset: 11-11-2022 Episodic Unclassified (1 source) Cough R05.9 Unclassified (1 source) COUGH, UNSPECIFIED; Translations: [COUGH, UNSPECIFIED] Onset: 11-08-2022 Results Test Name Value Interpretation Reference Range Facility CT Urogramon 05-23-2025 CT Urogram Exam Date/Time: 05/23/2025 16:33 EDT Reason for Exam: R31.0;Hematuria Report IMPRESSION: A FEW SMALL RIGHT LOWER POLE RENAL CALCULI. OTHERWISE, ESSENTIALLY NEGATIVE CT UROGRAM. EXAM: CT Urogram DATE: 05/23/2025 3:56 PM CLINICAL HISTORY: Hematuria, R31.0. Technologist Comments: pt reports she currently has kidney stones, unsure what side. this was found by US in [facility] office. trace amount of blood in urine. denies recent injury/trauma. no sx hx. COMPARISON: None available. TECHNIQUE: Spiral images were obtained of the abdomen and pelvis before and after the uneventful intravenous administration of approximately 100 mL of Isovue-[address] urogram protocol. All CT scans at this facility use dose modulation, iterative reconstruction, and/or weight based dosing when appropriate to reduce radiation dose to as low as reasonably achievable. FINDINGS: Kidneys: A few small lower pole right renal calculi, measuring up to approximately 4 to 5 mm. No other significant urinary tract calculi, surrounding inflammatory changes, parenchymal atrophy, scarring, or suspicious mass. Upper urinary tracts: No hydronephrosis, hydroureter, or suspicious filling defects identified. Urinary bladder: No abnormal wall thickening or suspicious masses. Adrenals: Unremarkable. Liver: No enlargement, significant fatty infiltration, suspicious mass or lesion. Biliary: The gallbladder is unremarkable. No abnormal biliary ductal dilatation. Pancreas: No suspicious mass, organized fluid collection, surrounding inflammation, or abnormal pancreatic ductal dilatation. Spleen: Unremarkable. GI tract: No abnormal dilation, wall thickening, or suspicious mass. Small duodenal diverticulum near the papilla. Normal appendix. Lymph nodes: No pathologically enlarged lymph nodes. Vasculature: No aneurysm or dissection. Mesentery/peritoneum/retrope ritoneum: No ascites, organized fluid collection, inflammatory changes, or suspicious mass. Pelvis: IUD in expected position within an otherwise unremarkable-appearing uterus. The adnexa appear within normal limits. Musculoskeletal: No acute osseous findings identified. Lower thorax: Noncontributory. Report Technical Comments: GFR (mL/min/1/73m2) age Contrast: Isovue 300 Contrast amount in ml's: 100.00 Rectal Contrast Given? No Ordering Provider: Sarah Sanchez FINAL REPORT Dictated: 05/23/2025 4:42 pm Jose Gasca MD Signed (Electronic Signature): 05/23/2025 4:42 pm Signed by: Jose Gasca MD Transcribed by: FLOR Technologist: TREV Rock [facility] C Urineon 05-05-2025 Bacteria identified Cx Nom (U) Microbiology PROCEDURE: Urine Culture [R1] SOURCE: U CleanCatch BODY SITE: COLLECTED DATE/TIME: 05/02/2025 15:57 EDT RECEIVED DATE/TIME: 05/03/2025 17:23 EDT START DATE/TIME: 05/03/2025 17:23 EDT FREE TEXT SOURCE: Sarah Marques Alysha J FINAL REPORTS Final Report [] Verified Date/Time: 05/05/2025 11:01 EDT 2,000 cfu/ml Mixed skin contaminants Performing Locations R1: This test was performed at: [facility], [address] [place] [address], [id number]- , [place], Normal [facility] Comment on above: Performed By: #### 2 [id number] #### [facility] [address] [place] [id number] Ambulatory Visit Summaryon 0 05-02-2025 Ambulatory Visit Summary Ambulatory Visit Summary SARA DORANTES :1985 Visit Date:05/02/2025 Ambulatory Visit Instructions Your Diagnosis Stress incontinence Kidney stones Gross hematuria Your Care Team Attending Physician - Sraah Marques Primary Care Physician - YADIRA SIMPSON CNP This Is Your Medications List Contact prescribing physician if questions or concerns cetirizine (Zyrtec) ondansetron (Zofran 4 mg Tab) Procedures Performed EGD - Esophagogastroduodenoscopy (11/16/2016). Discharge Vitals Heart Rate (Peripheral) 73 Blood Pressure 121/71 Height 165 cm Height 65 in Weight 86 kg Weight 189.597 lb BMI 31.59 What to do next Scheduled Follow-Up Appointments Thursday 11:20 AM EDT With: Sarah Marques Where: [facility] [address], [address] [place] [address]- Medications What How Much When Why Instructions Unchanged cetirizine (Zyrtec) Every day Contact prescribing physician if questions or concerns Unchanged ondansetron (Zofran 4 mg Tab) 1 Tablets By Mouth Every 6 hours as needed for Nausea/Vomiting Kidney stones Contact prescribing physician if questions or concerns Allergies Seasonal (Unknown) Vicodin (Vomiting) codeine (Vomiting) penicillins (Oral ulcer) Problems Ongoing - Any problem that you are currently receiving treatment for. Anemia Anxiety Arthritis BMI 29.0-29.9,adult Chest pain due to GERD Chronic back pain Chronic gastritis Chronic neck pain Cough Dysphagia GERD (gastroesophageal reflux disease) Gross hematuria Headache Kidney stones Ureteral stone Historical - Any problem that you are no longer receiving treatment for. Kidney stone Patient Survey You may receive a survey via text or e-mail asking about your office visit. Please share your experience with us by completing your survey. We appreciate your feedback and thank you for choosing us for your care. Normal [facility] IGP,APTIMA HPV,AGE GDLNon AGE GDLN ACOG TESTING Note . [facility] Comment on above: TESTS RESULT FLAG UN ITS REF RANGE LAB Clinician Provided Cytology Information Source.............Cervix;Endocervix No. of containers..01 ThinPrep Vial Age Algo ACOG Inez... FLAG LEGEND: L-Low Normal,H-High Normal,LL-Alert Low,HH-Alert High <-Panic Low,>-Panic High,A-Abnormal,AA-Critical Abnormal Performed at: 01 =[address] [address] Kassandra Phillips MD, HPV APTIMA Negative Negative [facility] Comment on above: This nucleic acid am plification test detects fourteen high- risk HPV types (16,18,31,33,35,39,45,51,52,56,58,59,66,68) without differentiation. Performed at: =[address] [id number] Tennis Ball Coverer Hand: Kassandra Phillips MD, Phone: [phone] Performed at: [address] [id number] Tennis Ball Coverer Hand: Kassandra Phillips MD, Phone: [phone] IGP, APTIMA HPV, RFX 16/18,45 Note . [facility] Comment on above: TESTS RESULT FLAG UN ITS REF RANGE LAB DIAGNOSIS: 02 NEGATIVE FOR INTRAEPITHELIAL LESION OR MALIGNANCY. Specimen adequacy: 02 Satisfactory for evaluation. Endocervical and/or squamous metaplastic cells (endocervical component) are present. Performed by: 02 [facility] [place] [employer] (ASCP) . 02 Note: Note 02 The Pap [...] <-Panic Low,>-Panic High,A-Abnormal,AA-Critical Abnormal Performed at: 02 [facility] [address] [place] [address] Kassandra Phillips MD, BRUSH-SPATULA CERVIX ENDOCERVIX CLINISYNC [facility] RECURRENT VAGINITIS (HTRX)on 03-22-2025 ATOPOBIUM VAGINAE 16.999 Abnormal [facility] ATOPOBIUM VAGINAE Detected Abnormal [facility] BVAB 2,3 (BACTERIAL VAGINOSIS ASSOCIATED BACTERIA 2, 3); MOBILUNCUS SPP 25.866 Abnormal [facility] BVAB 2,3 (BACTERIAL VAGINOSIS ASSOCIATED BACTERIA 2, 3); MOBILUNCUS SPP Detected Abnormal [facility] AFSHIN ALBICANS, PARAPSILOSIS, TROPICALIS 0 [facility] AFSHIN ALBICANS, PARAPSILOSIS, TROPICALIS Not detected [facility] AFSHIN GLABRATA 0 [facility] AFSHIN GLABRATA Not detected [facility] AFSHIN KRUSEI 0 [facility] AFSHIN KRUSEI Not detected [facility] CHLAMYDIA TRACHOMATIS 0 [facility] CHLAMYDIA TRACHOMATIS Not detected [facility] ERMB, C; MEFA 14.268 Abnormal [facility] ERMB, C; MEFA Detected Abnormal [facility] GARDNERELLA VAGINALIS 16.496 Abnormal [facility] GARDNERELLA VAGINALIS Detected Abnormal [facility] Interpretation and review of laboratory results Abnormal [facility] MEGASPHAERA (TYPES 1, 2) 0 [facility] MEGASPHAERA (TYPES 1, 2) Not detected [facility] MYCOPLASMA GENITALIUM 0 [facility] MYCOPLASMA GENITALIUM Not detected [facility] NEISSERIA GONORRHOEAE 0 [facility] NEISSERIA GONORRHOEAE Not detected [facility] TET B, TET M 22.159 Abnormal [facility] TET B, TET M Detected Abnormal [facility] TRICHOMONAS VAGINALIS 0 [facility] TRICHOMONAS VAGINALIS Not detected [facility] HCG ( test) Ql (U)o n 03-21-2025 Interpretation and review of laboratory results Normal [facility] Preg Test, Ur Negative Negative [facility] Urinalysis macro (dipstick) panel (U)on 03-21-2025 Bilirubin, UA Negative Negative - 4(70) +++ mg/dL [facility] Blood, UA Positive Negative - 50 Ryan/mcL [facility] Comment on above: trace-intact Clarity, UA Clear [facility] Color, UA Yellow [facility] Glucose, UA Negative Negative - 2000(110) ++++ mg/dL [facility] Interpretation and review of laboratory results Abnormal [facility] Ketones, UA Negative Negative - 160(16) ++++ mg/dL [facility] Leukocytes, UA Negative Negative - 500+++ Inder/mcL [facility] Nitrite, UA Negative Negative - Positive [facility] pH, UA 5.5 5 - 9 [facility] Protein, UA Negative Negative - 1999(20) ++++ mg/dL [facility] Spec Grav, UA 1.01 1 - 1.03 [facility] Urobilinogen, UA 0.2 0.2 - 12 mg/dL [facility] Urology Office/Clinic Noteon 10-04-2024 Urology Office/Clinic Note Urology Office/Clinic Note Chief Complaint Blood in urine HPI Staff 39 year old female here due to having gross hematuria with no pain. Pt. was last seen 03/04/23. No recent imaging done Previous DX: ureteral stone and kidney stone Dysuria: no Incomplete bladder emptying: no Hematuria: Pt. states having gross hematuria yesterday Frequency: 1-2 hours Urgency: no Nocturia: 0-1x's Stream: good stream Post void dripping: no Wearing pads/ Depends: yes, Pt. states she has been coughing a lot so she has been wearing light liners Urge incontinence: a few times a week Stress incontinence: yes, Pt. has been coughing a lot Incontinence without Sensory Awareness: no Abdominal pain: no Flank pain: no Review of Systems PHQ Score Initial Depression Screen Score: 0 SCORE no fever, chills, malaise, myalgia. no chest pain, palpitations, or SOB. no abdominal pain, nausea, vomiting. no unilateral calf swelling, redness, pain Physical Exam Vitals & Measurements HR: 70(Peripheral) RR: 19 BP: 119/106 HT: 65 in HT: 165 cm WT: 84 kg WT: 185.188 lb BMI: 30.85 General: nontoxic, NAD Mouth: moist mucosa Lungs: normal respiratory effort Cardio: regular rate, good distal perfusion Abdomen: nondistended, no suprapubic distention or tenderness, no CVA tenderness Neurologic: Grossly normal Skin: No rashes or suspicious lesions Assessment/Plan Last saw [facility] Feb 2023. Lost to f/u. [facility] ER 09/25/24 - URI (productive cough, fever/chills. Given Zpak, Bromfed, Tessalon). 1. Gross hematuria (R31.0: Gross hematuria) Started yesterday. Lasted all day. Urine clear today. No other sx but this is how her last stone passage started and then the pain/nausea came a few days later. Discussed imaging options including risks/benefits of CT vs POLINA/KUB. We decide together on POLINA/KUB STAT. May end up needing CT in the end but trying to save her radiation exposure since she has had multiple CTs in past (not sure how many). UA has no signs of infection so no indication for cx or abx at this time. If stone not confirmed via imaging or passage, will need to consider cysto/cyto for hematuria eval. -Strain urine. Cup provided if catches stone. -Flomax, Toradol, Zofran sent to pharmacy to utilize if pain/nausea start. -STAT POLINA+KUB to eval for hydro/ureteral stone. -ER for severe pain, intolerable vomiting, fever. Ordered: Urnls Dip Stick Auto w/o Microscopy POC [id number] US Renal XR Abdomen 1 View 2. Kidney stones (N20.0: Calculus of kidney) [facility] ER 01/31/23 with gross hematuria, RLQ pain, nausea. CT - 6mm calyceal stone R upper pole; mild R hydronephrosis secondary to a 2.5 mm stone at the ureteropelvic junction. Denies history of kidney stones. Patient unsure [...] for analysis, as well as blood work. Never completed. Discussed ESWL treatment before stone becomes too larger along with laser lithotripsy. I also discussed continued surveillance. Patient shares she bruises easily in which she would need further testing prior to ESWL due to risk of hematoma (anticoagulation times). Will order PT, PTT, INR and may need to discuss with PCP. Didn't complete. However, PCP ordered 06/06/24 - normal. -Consider metabolic eval once this episode passes. Ordered: ketorolac, 10 mg = 1 tab(s), Oral, q6hr, PRN for pain, not to exceed 40 mg/day. Take with food., # 12 tab(s), Refills(s) 0, Pharmacy: [facility]/pharmacy #[id number], 165, cm, 10/04/24 13:08:00 EST, Height/Length Dosing, 84, kg, 10/04/24 13:08:00 EST, Weight Dosing ondansetron, 4 mg = 1 tab(s), Oral, q6hr, PRN Nausea/Vomiting, # 12 tab(s), Refills(s) 0, [id number] 165, cm, 10/04/24 13:08:00 EST, Height/Length Dosing, 84, kg, 10/04/24 13:08:00 EST, Weight Dosing tamsulosin, 0.4 mg = 1 cap(s), Oral, Daily, # 30 cap(s), Refills(s) 0, [id number], 165, cm, 10/04/24 13:08:00 EST, Height/Length Dosing, 84, kg, 10/04/24 13:08:00 EST, Weight Dosing US Renal XR Abdomen 1 View Follow-up With When Contact Information CHRIS OMER PA-C, URL [id number] [address] Business (1) Additional Instructions: pending results of imaging/testing, will call with next steps Patient Education Kidney Stones, [id number] Problem List/Past Medical History Ongoing Anemia Anxiety Arthritis BMI 29.0-29.9,adult Chest pain due to GERD Chronic back pain Chronic gastritis Chronic neck pain Cough Dysphagia GERD (gastroesophageal reflux disease) Gross hematuria Headache Kidney stones Ureteral stone Historical Kidney stone Procedure/Surgical History EGD - Esophagogastroduo (more content not included)... Normal [facility] Comment on above: Result Comment: Elec tronically Signed By: CHRIS OMER PA-C\.br\Date and Time Signed: 10/04/24 13:31 EST PAP ACOG PANEL 2: 30 to 65on 03-17-2023 . . Normal [facility] Comment on above: Result Comment: Perf ormed at: WB Performed By: #### [id number] #### [facility] [address] [address] [address] Jamil Oropeza Age Gdln ACOG Testing 30-65 Normal [facility] Comment on above: Performed By: #### [id number] #### [facility] [address] [place] [address] Dr. Jamil Oropeza DIAGNOSIS: Comment Normal [facility] Comment on above: Result Comment: NEGA TIVE FOR INTRAEPITHELIAL LESION OR MALIGNANCY. Performed at: WB Performed By: #### [id number] #### [facility] [address] [place] [address] Dr. Jamil Oropeza HPV Aptima Negative Normal Negative [facility] Comment on above: Result Comment: This nucleic acid amplification test detects fourteen high-risk HPV types (16,18,31,33,35,39,45,51,52,56,58,59,66,68) without differentiation. Performed at: =G Performed By: #### [id number] #### [facility] [address] [place] [address] Dr. Jamil Oropeza HPV Genotype Reflex Comment Normal [facility] Comment on above: Result Comment: Crit eria not met, HPV Genotype not performed. Performed at: WB Performed By: #### [id number] #### [facility] [address] [place] [address] Dr. Jamil Oropeza Methodology: Comment Normal [facility] Comment on above: Result Comment: This liquid based ThinPrep(R) pap test was screened with the use of an image guided system. Performed at: WB Performed By: #### [id number] #### [facility] [address] [place] [address] Dr. Jamil Oropeza Note: Comment Normal [facility] Comment on above: Result Comment: The Pap smear is a screening test designed to aid in the detection of premalignant and malignant conditions of the uterine cervix. It is not a diagnostic procedure and should not be used as the sole means of detecting cervical cancer. Both false-positive and false-negative reports do occur. . Performed at: WB Performed By: #### [id number] #### [facility] [address] [place] [address] Dr. Jamil Oropeza Performed by: Comment Normal [facility] Comment on above: Result Comment: Veronica Urban, Cloud Operations Engineer (ASCP) Performed at: WB Performed By: #### [id number] #### [facility] [address] [place] [address] Dr. Jamil Oropeza Specimen adequacy: Comment Normal [facility] Comment on above: Result Comment: Sati sfactory for evaluation. Endocervical and/or squamous metaplastic cells (endocervical component) are present. Performed at: WB Performed By: #### [id number] #### [facility] [address] [place] [address] Dr. Jamil Oropeza COVID Quick Testingon 2022 Result Negative [facility] Other AMYLASEon 01-31-2023 Amylase [Catalytic activity/Vol] 45 U/L Normal 25-115 [facility] Comment on above: Performed By: #### C MP LIPA, VERONICA #### [facility] [address] [place] [address] Dr. Jamil Oropeza CBC AUTO DIFFon 01-31-2023 BASO # 0.0 103/ul Normal 0.0-0.1 [facility] Comment on above: Performed By: #### Bernard MUÑOZ UMICRO #### [facility] [address] [place] [address] Dr. Jamil Oropeza Basophils/100 WBC (Bld) 0.4 % Normal 0.2-2.0 [facility] Comment on above: Performed By: #### Bernard MUÑOZ UMICRO #### [facility] [address] [place] [address] Dr. Jamil Oropeza EO # 0.1 103/ul Normal 0.0-0.7 [facility] Comment on above: Performed By: #### Bernard MUÑOZ UMICRO #### [facility] [address] [place] [address] Dr. Jamil Oropeza Eosinophils/100 WBC (Bld) 0.8 % Critically low 0.9-7.0 [facility] Comment on above: Performed By: #### Bernard MUÑOZ UMICRO #### [facility] [address] [place] [address] Dr. Jamil Oropeza Erythrocyte distribution width (RBC) [Ratio] 12.3 % Normal 11.0-15.0 [facility] Comment on above: Performed By: #### JASMYN PICHARDO #### [facility] [address] [place] [address] Dr. Jamil Oropeza Hematocrit (Bld) [Volume fraction] 40.4 % Normal 36.0-48.0 [facility] Comment on above: Performed By: #### JASMYN PICHARDO #### [facility] [address] [place] [address] Dr. Jamil Oropeza Hemoglobin (Bld) [Mass/Vol] 13.7 g/dL Normal 12.0-16.0 [facility] Comment on above: Performed By: #### JASMYN PICHARDO #### [facility] [address] [place] [address] Dr. Jamil Oropeza IG # 0.03 10e3/ul Normal 0.00-0.03 [facility] Comment on above: Performed By: #### JASMYN PICHARDO #### [facility] [address] [place] [address] Dr. Jamil Oropeza IG % 0.4 % Normal 0.0-0.5 [facility] Comment on above: Performed By: #### JASMYN PICHARDO #### [facility] [address] [place] [address] Dr. Jamil Oropeza LYMPH # 2.7 103/ul Normal 1.2-3.8 [facility] Comment on above: Performed By: #### JASMYN PICHARDO #### [facility] [address] [place] [address] Dr. Jamil Oropeza Lymphocytes/100 WBC (Bld) 32.9 % Normal 20.5-60.0 [facility] Comment on above: Performed By: #### JASMYN PICHARDO #### [facility] [address] [place] [address] Dr. Jamil Oropeza MANUAL DIFF REQ NO Normal [facility] Comment on above: Performed By: #### JASMYN PICHARDO #### [facility] [address] [place] [address] Dr. Jamil Oropeza MCH (RBC) [Entitic mass] 29.9 pg Normal 26.7-34.0 [facility] Comment on above: Performed By: #### E WANDA, UMICRO #### [facility] [address] [place] [address] Dr. Jamil Oropeza MCHC (RBC) [Mass/Vol] 33.9 g/dL Normal 29.9-35.2 [facility] Comment on above: Performed By: #### E TROYR, UMICRO #### [facility] [address] [place] [address] Dr. Jamil Oropeza MCV (RBC) [Entitic vol] 88.2 fL Normal 81.0-99.0 [facility] Comment on above: Performed By: #### E WANDA, UMICRO #### [facility] [address] [place] [address] Dr. Jamil Oropeza MONO # 0.5 103/ul Normal 0.3-0.8 [facility] Comment on above: Performed By: #### Bernard MUÑOZ, UMICRO #### [facility] [address] [place] [address] Dr. Jamil Oropeza Monocytes/100 WBC (Bld) 6.5 % Normal 1.7-12.0 [facility] Comment on above: Performed By: #### Bernard MUÑOZ, UMICRO #### [facility] [address] [place] [address] Dr. Jamil Oropeza NEUT # 4.9 103/ul Normal 1.4-6.5 [facility] Comment on above: Performed By: #### E TROYR, UMICRO #### [facility] [address] [place] [address] Dr. Jamil Oropeza Neutrophils/100 WBC (Bld) 59.0 % Normal 43.0-75.0 [facility] Comment on above: Performed By: #### E RUR, UMICRO #### [facility] [address] [place] [address] Dr. Jamil Oropeza Platelet mean volume (Bld) [Entitic vol] 10.2 fL Normal 9.5-13.5 [facility] Comment on above: Performed By: #### STEPHEN PICHARDORO #### [facility] [address] [place] [address] Dr. Jamil Oropeza PLT 250 103/ul Normal 150-450 [facility] Comment on above: Performed By: #### STEPHEN PICHARDORO #### [facility] [address] [address] [address] Jamil Oropeza RBC 4.58 106/ul Normal 4.20-5.40 [facility] Comment on above: Performed By: #### STEPHEN PICHARDORO #### [facility] [address] [place] [address] Dr. Jamil Oropeza WBC 8.3 103/ul Normal 4.0-11.0 [facility] Comment on above: Performed By: #### STEPHEN PICHARDORO #### [facility] [address] [place] [address] ABD/PELVIS WO CONon 01-31 CT ABD/PELVIS [...] TAI GOMEZ Date: 2023-01-31 06:25 Normal [facility] CULTURE URINEon 01-31-2023 CULTURE URINE Culture Observations : LIGHT GROWTH OF MIXED GENITAL BANDAR. NO POTENTIAL PATHOGENS SEEN. Normal [facility] Comment on above: Performed By: #### Bernard MUÑOZ UMICRO #### [facility] [address] [place] [address] Dr. Jamil Oropeza ER URINE PROFILEon 3 Bilirubin Ql (U) Negative Normal NEGATIVE [facility] Comment on above: Performed By: #### Bernard MUÑOZ UMICRO #### [facility] [address] [place] [address] Dr. Jamil Oropeza Clarity (U) CLEAR Normal CLEAR [facility] Comment on above: Performed By: #### Bernard MUÑOZ UMICRO #### [facility] [address] [place] [address] Dr. Jamil Oropeza Color (U) BROWN Abnormal YELLOW [facility] Comment on above: Performed By: #### Bernard MUÑOZ UMICRO #### [facility] [address] [place] [address] Dr. Jamil Oropeza ERUAHD A micrscopic examina tion will be performed if indicated. Normal [facility] Comment on above: Performed By: #### Bernard MUÑOZ UMICRO #### [facility] [address] [place] [address] Dr. Jamil Oropeza Glucose Ql (U) 100 mg/dl Abnormal NEGATIVE [facility] Comment on above: Performed By: #### STEPHEN PICHARDORO #### [facility] [address] [place] [address] Dr. Jamil Oropeza Hemoglobin Ql (U) LARGE Abnormal NEGATIVE [facility] Comment on above: Performed By: #### STEPHEN PICHARDORO #### [facility] [address] [place] [address] Dr. Jamil Oropeza Ketones Ql (U) Negative Normal NEGATIVE [facility] Comment on above: Performed By: #### STEPHEN PICHARDORO #### [facility] [address] [place] [address] Dr. Jamil Oropeza LEUKOCYTES TRACE Abnormal NEGATIVE [facility] Comment on above: Performed By: #### STEPHEN PICHARDORO #### [facility] [address] [place] [address] Dr. Jamil Oropeza Nitrite Ql (U) Negative Normal NEGATIVE [facility] Comment on above: Performed By: #### STEPHEN PICHARDORO #### [facility] [address] [place] [address] Dr. Jamil Oropeza pH (U) 5.5 [pH] Normal 5-9 [facility] Comment on above: Performed By: #### STEPHEN PICHARDORO #### [facility] [address] [place] [address] Dr. Jamil Oropeza Protein (U) [Mass/Vol] 30 mg/dL Abnormal NEGATIVE/ TRACE [facility] Comment on above: Performed By: #### STEPHEN PICHARDORO #### [facility] [address] [place] [address] Dr. Jamil Oropeza SPEC GRAVITY >=1.030 Abnormal 1.005-<=1.0 25 [facility] Comment on above: Performed By: #### STEPHEN PICHARDORO #### [facility] [address] [place] [address] Dr. Jamil Oropeza UR MICRO IND INDICATED Normal [facility] Comment on above: Performed By: #### JASMYN PICHARDO #### [facility] [address] [place] [address] Dr. Jamil Oropeza Urobilinogen Qn (U) 0.2 {Ervin'U}/dL Normal 0.2 - 1.0 [facility] Comment on above: Performed By: #### E JASMYN MUÑOZ #### [facility] [address] [place] [address] Dr. Jamil Oropeza LIPASEon 01-31-2023 Lipase [Catalytic activity/Vol] 102.0 U/L Normal 73.0-393.0 [facility] Comment on above: Performed By: #### C MP, LIPA, VERONICA #### [facility] [address] [place] [address] Dr. Jamil Oropeza PROF 14(COMP METB)on 023 Albumin [Mass/Vol] 3.8 g/dL Normal 3.4-5.0 [facility] Comment on above: Performed By: #### C MP, LIPA, VERONICA #### [facility] [address] [place] [address] Dr. Jamil Oropeza Albumin/Globulin [Mass ratio] 1.1 {ratio} Normal [facility] Comment on above: Performed By: #### C MP, LIPA, VERONICA #### [facility] [address] [place] [address] Dr. Jamil Oropeza ALP [Catalytic activity/Vol] 100 U/L Normal 46-116 [facility] Comment on above: Performed By: #### C MP, LIPA, VERONICA #### [facility] [address] [place] [address] Dr. Jamil Oropeza ALT [Catalytic activity/Vol] 15 U/L Normal 14-59 [facility] Comment on above: Performed By: #### C MP, LIPA, VERONICA #### [facility] [address] [place] [address] Dr. Jamil Oropeza Anion gap [Moles/Vol] 12.3 mmol/L Normal [facility] Comment on above: Performed By: #### C MP, LIPA, VERONICA #### [facility] [address] [place] [address] Dr. Jamil Oropeza AST [Catalytic activity/Vol] 13 U/L Critically low 15-37 [facility] Comment on above: Performed By: #### C MP LIPA, VERONICA #### [facility] [address] [place] [address] Dr. Jamil Oropeza Bilirubin [Mass/Vol] 0.5 mg/dL Normal 0.2-1.0 [facility] Comment on above: Performed By: #### C MP LIPA, VERONICA #### [facility] [address] [place] [address] Dr. Jamil Oropeza Calcium [Mass/Vol] 8.7 mg/dL Normal 8.5-10.1 [facility] Comment on above: Performed By: #### C MP LIPA, VERONICA #### [facility] [address] [place] [address] Dr. Jamil Oropeza Chloride [Moles/Vol] 106 mmol/L Normal 98-107 [facility] Comment on above: Performed By: #### C MP LIPA, VERONICA #### [facility] [address] [place] [address] Dr. Jamil Oropeza CO2 [Moles/Vol] 27.3 mmol/L Normal 21.0-32.0 [facility] Comment on above: Performed By: #### C MP LIPA, VERONICA #### [facility] [address] [place] [address] Dr. Jamil Oropeza Creatinine [Mass/Vol] 0.87 mg/dL Normal 0.55-1.02 [facility] Comment on above: Performed By: #### C MP LIPA, VERONICA #### [facility] [address] [place] [address] Dr. Jamil Oropeza EGFR-AF PARAGUAYAN >60 Normal >=60 [facility] Comment on above: Performed By: #### C MP LIPA, VERONICA #### [facility] [address] [place] [address] Dr. Jamil Oropeza EGFR-NON AF PARAGUAYAN >60 Normal >=60 [facility] Comment on above: Performed By: #### C MP, LIPA, VERONICA #### [facility] [address] [place] [address] Dr. Jamil Oropeza Globulin (S) [Mass/Vol] 3.4 g/dL Normal [facility] Comment on above: Performed By: #### C RADHA CHANEY VERONICA #### [facility] [address] [place] [address] Dr. Jamil Oropeza Glucose [Mass/Vol] 95 mg/dL Normal 74-106 [facility] Comment on above: Performed By: #### C RADHA CHANEY, VERONICA #### [facility] [address] [place] [address] Dr. Jamil Oropeza Potassium [Moles/Vol] 3.6 mmol/L Normal 3.5-5.1 [facility] Comment on above: Performed By: #### C RADHA CHANEY, VERONICA #### [facility] [address] [place] [address] Dr. Jamil Oropeza Protein [Mass/Vol] 7.2 g/dL Normal 6.4-8.2 [facility] Comment on above: Performed By: #### C RADHA CHANEY, VERONICA #### [facility] [address] [place] [address] Dr. Jamil Oropeza Sodium [Moles/Vol] 142 mmol/L Normal 136-145 [facility] Comment on above: Performed By: #### C RADHA CHANEY, VERONICA #### [facility] [address] [place] [address] Dr. Jamil Oropeza Urea nitrogen [Mass/Vol] 13.0 mg/dL Normal 7.0-18.0 [facility] Comment on above: Performed By: #### C RADHA CHANEY, VERONICA #### [facility] [address] [place] [address] Dr. Jamil Oropeza Urea nitrogen/Creatini ne [Mass ratio] 14.9 mg/mg Normal [facility] Comment on above: Performed By: #### C RADHA CHANEY, VERONICA #### [facility] [address] [place] [address] Dr. Jamil Oropeza URINE MICROSCOPIC ONLYon BACTERIA SMALL Abnormal NONE SEEN [facility] Comment on above: Performed By: #### E JASMYN MUÑOZ #### [facility] [address] [place] [address] Dr. Jamil Oropeza Bacteria identified Cx Nom (U) INDICATED Normal [facility] Comment on above: Performed By: #### Bernard MUÑOZ UMICRO #### [facility] [address] [place] [address] Dr. Jamil Oropeza CAST NONE SEEN Normal NONE SEEN [facility] Comment on above: Performed By: #### Bernard MUÑOZ UMICRO #### [facility] [address] [place] [address] Dr. Jamil Oropeza Crystals LM Nom (Urine sed) NONE SEEN Normal NONE SEEN [facility] Comment on above: Performed By: #### Bernard MUÑOZ UMICRO #### [facility] [address] [place] [address] Dr. Jamil Oropeza Epithelial cells LM Ql (Urine sed) MODERATE Abnormal NONE SEEN /RARE [facility] Comment on above: Performed By: #### Bernard MUÑOZ UMICRO #### [facility] [address] [place] [address] Dr. Jamil Oropeza MUCOUS NONE SEEN Normal NONE SEEN [facility] Comment on above: Performed By: #### Bernard MUÑOZ UMICRO #### [facility] [address] [place] [address] Dr. Jamil Oropeza RBC (U) [#/Vol] /uL Abnormal 0-2 [facility] Comment on above: Performed By: #### Bernard MUÑOZ UMICRO #### [facility] [address] [place] [address] Dr. Jamil Oropeza WBC 2-5 Abnormal NONE SEEN [facility] Comment on above: Performed By: #### Bernard MUÑOZ UMICRO #### [facility] [address] [place] [address] Dr. Jamil Oropeza INFLUENZA A AND B AGon 11-08 INFLUANEGH SEE BELOW Normal [facility] Comment on above: Result Comment: Nega tive for Flu A protein angiten. Infection due to Flu A cannot be ruled out. Flu A angiten in the sample may be below the detection limit of the test. Performed By: #### STEPHEN PICHARDORO #### [facility] [address] [place] [address] Dr. Jamil Oropeza [facility] SEE BELOW Normal [facility] Comment on above: Result Comment: Nega tive for Flu B protein antigen. Infection due to Flu B cannot be ruled out. Flu B antigen in the sample may be below the detection limit of the test. Performed By: #### STEPHEN PICHARDORO #### [facility] [address] [place] [address] Dr. Jamil Oropeza INFLUENZA A AG Negative Normal NEGATIVE SEE COMMENT [facility] Comment on above: Performed By: #### STEPHEN PICHARDORO #### [facility] [address] [place] [address] Dr. Jamil Oropeza INFLUENZA B AG Negative Normal NEGATIVE SEE COMMENT [facility] Comment on above: Performed By: #### JASMYN PICHARDO #### [facility] [address] [place] [address] Dr. Jamil Oropeza INTERNAL CONTROLS Within Normal Limits Normal Wi thin Normal Limits [facility] Comment on above: Performed By: #### JASMYN PICHARDO #### [facility] [address] [place] [address] Dr. Jamil Oropeza CBC AUTO DIFFon 09-26-2022 BASO # 0.0 103/ul Normal 0.0-0.1 [facility] Comment on above: Performed By: #### STEPHEN PICHARDORO #### [facility] [address] [place] [address] Dr. Jamil Oropeza Basophils/100 WBC (Bld) 0.3 % Normal 0.2-2.0 [facility] Comment on above: Performed By: #### STEPHEN PICHARDORO #### [facility] [address] [place] [address] Dr. Jamil Oropeza EO # 0.0 103/ul Normal 0.0-0.7 [facility] Comment on above: Performed By: #### JASMYN PICHARDO #### [facility] [address] [place] [address] Dr. Jaiml Oropeza Eosinophils/100 WBC (Bld) 0.3 % Critically low 0.9-7.0 [facility] Comment on above: Performed By: #### STEPHEN PICHARDORO #### [facility] [address] [place] [address] Dr. Jamil Oropeza Erythrocyte distribution width (RBC) [Ratio] 12.1 % Normal 11.0-15.0 [facility] Comment on above: Performed By: #### STEPHEN PICHARDORO #### [facility] [address] [place] [address] Dr. Jamil Oropeza Hematocrit (Bld) [Volume fraction] 40.6 % Normal 36.0-48.0 [facility] Comment on above: Performed By: #### STEPHEN PICHARDORO #### [facility] [address] [place] [address] Dr. Jamil Oropeza Hemoglobin (Bld) [Mass/Vol] 13.6 g/dL Normal 12.0-16.0 [facility] Comment on above: Performed By: #### STEPHEN PICHARDORO #### [facility] [address] [place] [address] Dr. Jamil Oropeza IG # 0.03 10e3/ul Normal 0.00-0.03 [facility] Comment on above: Performed By: #### STEPHEN PICHARDORO #### [facility] [address] [place] [address] Dr. Jamil Oropeza IG % 0.3 % Normal 0.0-0.5 [facility] Comment on above: Performed By: #### STEPHEN PICHARDORO #### [facility] [address] [place] [address] Dr. Jamil Oropeza LYMPH # 1.9 103/ul Normal 1.2-3.8 [facility] Comment on above: Performed By: #### STEPHEN PICHARDORO #### [facility] [address] [place] [address] Dr. Jamil Oropeza Lymphocytes/100 WBC (Bld) 21.2 % Normal 20.5-60.0 [facility] Comment on above: Performed By: #### STEPHEN PICHARDORO #### [facility] [address] [place] [address] Dr. Jamil Oropeza MANUAL DIFF REQ NO Normal [facility] Comment on above: Performed By: #### STEPHEN PICHARDORO #### [facility] [address] [place] [address] Dr. Jamil Oropeza MCH (RBC) [Entitic mass] 29.2 pg Normal 26.7-34.0 [facility] Comment on above: Performed By: #### STEPHEN PICHARDORO #### [facility] [address] [place] [address] Dr. Jamil Oropeza MCHC (RBC) [Mass/Vol] 33.5 g/dL Normal 29.9-35.2 [facility] Comment on above: Performed By: #### STEPHEN PICHARDORO #### [facility] Laboratory [address] [place] [address] Dr. Jaiml Oropeza MCV (RBC) [Entitic vol] 87.1 fL Normal 81.0-99.0 [facility] Comment on above: Performed By: #### STEPHEN PICHARDORO #### [facility] [address] [place] [address] Dr. Jamil Oropeza MONO # 0.5 103/ul Normal 0.3-0.8 [facility] Comment on above: Performed By: #### STEPHEN PICHRADORO #### [facility] [address] [place] [address] Dr. Jamil Oropeza Monocytes/100 WBC (Bld) 5.4 % Normal 1.7-12.0 [facility] Comment on above: Performed By: #### STEPHEN PICHARDORO #### [facility] [address] [place] [address] Dr. Jamil Oropeza NEUT # 6.5 103/ul Normal 1.4-6.5 [facility] Comment on above: Performed By: #### STEPHEN PICHARDORO #### [facility] [address] [place] [address] Dr. Jamil Oropeza Neutrophils/100 WBC (Bld) 72.5 % Normal 43.0-75.0 [facility] Comment on above: Performed By: #### STEPHEN PICHARDORO #### [facility] [address] [place] [address] Dr. Jamil Oropeza Platelet mean volume (Bld) [Entitic vol] 10.6 fL Normal 9.5-13.5 [facility] Comment on above: Performed By: #### Bernard MUÑOZ UMARACELIRO #### [facility] [address] [address] [address] Jamil Oropeza PLT 237 103/ul Normal 150-450 [facility] Comment on above: Performed By: #### STEPHEN PICHARDORO #### [facility] [address] [place] [address] Dr. Jamil Oropeza RBC 4.66 106/ul Normal 4.20-5.40 [facility] Comment on above: Performed By: #### STEPHEN PICHARDORO #### [facility] [address] [place] [address] Dr. Jamil Oropeza WBC 8.9 103/ul Normal 4.0-11.0 [facility] Comment on above: Performed By: #### Bernard MUÑOZ UMICRO #### [facility] [address] [place] [address] Dr. Jamil Orope[facility] SARS-CoV-2 (COVID-19) RNA IDALIA+probe Ql (Unsp spec) Not detected Normal NOT DETECTED [facility] Comment on above: Result Comment: When [...] for this test is supported by the Blood Tester of Health and Human Service's declaration that [...] longer be used). Performed By: #### E TROYR, UMICRO #### [facility] [address] [place] [address] Dr. Jamil Oropeza ER URINE PROFILEon 2 Bilirubin Ql (U) Negative Normal NEGATIVE [facility] Comment on above: Performed By: #### E RUR, UMICRO #### [facility] [address] [place] [address] Dr. Jamil Oropeza Clarity (U) CLEAR Normal CLEAR [facility] Comment on above: Performed By: #### E RUR, UMICRO #### [facility] [address] [place] [address] Dr. Jamil Oropeza Color (U) LT. YELLOW Normal YELLOW [facility] Comment on above: Performed By: #### E RUR, UMICRO #### [facility] [address] [place] [address] Dr. Jamil RICCID A micrscopic examina tion will be performed if indicated. Normal [facility] Comment on above: Performed By: #### E RUR, UMICRO #### [facility] [address] [place] [address] Dr. Jamil Oropeza Glucose Ql (U) Negative Normal NEGATIVE [facility] Comment on above: Performed By: #### E RUR, UMICRO #### [facility] [address] [place] [address] Dr. Jamil Oropeza Hemoglobin Ql (U) TRACE-INTACT Abnormal NEGATIVE [facility] Comment on above: Performed By: #### E RUR, UMICRO #### [facility] [address] [place] [address] Dr. Jamil Oropeza Ketones Ql (U) Negative Normal NEGATIVE [facility] Comment on above: Performed By: #### E RUR, UMICRO #### [facility] [address] [place] [address] Dr. Jamil Oropeza LEUKOCYTES Negative Normal NEGATIVE [facility] Comment on above: Performed By: #### STEPHEN PICHARDORO #### [facility] [address] [place] [address] Dr. Jamil Oropeza Nitrite Ql (U) Negative Normal NEGATIVE [facility] Comment on above: Performed By: #### STEPHEN PICHARDORO #### [facility] [address] [place] [address] Dr. Jamil Oropeza pH (U) 7.0 [pH] Normal 5-9 [facility] Comment on above: Performed By: #### JASMYN PICHARDO #### [facility] [address] [place] [address] Dr. Jamil Oropeza SPEC GRAVITY 1.010 Normal 1.005-<=1.0 25 [facility] Comment on above: Performed By: #### STEPHEN PICHARDORO #### [facility] [address] [place] [address] Dr. Jamil Oropeza UA PROTEIN Negative Normal NEGATIVE/ TRACE [facility] Comment on above: Performed By: #### JASMYN PICHARDO #### [facility] [address] [place] [address] Dr. Jamil Oropeza UR MICRO IND INDICATED Normal [facility] Comment on above: Performed By: #### JASMYN PICHARDO #### [facility] [address] [place] [address] Dr. Jamil Oropeza Urobilinogen Qn (U) 0.2 {Ervin'U}/dL Normal 0.2 - 1.0 [facility] Comment on above: Performed By: #### STEPHEN PICHARDORO #### [facility] [address] [place] [address] Dr. Jamil Oropeza INFLUENZA A AND B AGon 09-26 INFLUANEGH SEE BELOW Normal [facility] Comment on above: Result Comment: Nega tive for Flu A protein angiten. Infection due to Flu A cannot be ruled out. Flu A angiten in the sample may be below the detection limit of the test. Performed By: #### I NFLUAB #### [facility] [address] [place] [address] Dr. Jamil Oropeza [facility] SEE BELOW Normal [facility] Comment on above: Result Comment: Nega tive for Flu B protein antigen. Infection due to Flu B cannot be ruled out. Flu B antigen in the sample may be below the detection limit of the test. Performed By: #### I NFLUAB #### [facility] [address] [place] [address] Dr. Jamil Oropeza INFLUENZA A AG Negative Normal NEGATIVE SEE COMMENT [facility] Comment on above: Performed By: #### I NFLUAB #### [facility] [address] [place] [address] Dr. Jamil Oropeza INFLUENZA B AG Negative Normal NEGATIVE SEE COMMENT [facility] Comment on above: Performed By: #### I NFLUAB #### [facility] [address] [place] [address] Dr. Jamil Oropeza INTERNAL CONTROLS Within Normal Limits Normal Wi thin Normal Limits [facility] Comment on above: Performed By: #### I NFLUAB #### [facility] [address] [place] [address] Dr. Jamil Oropeza POINT OF CARE GLUCOSEon 09-16 Glucose [Mass/Vol] 100 mg/dL Normal 74-106 [facility] Comment on above: Performed By: #### P OCGLUC #### [facility] [address] [place] [address] Dr. Jamil Oropeza URon 09-26-2022 , QUAL Negative Normal NEGATIVE [facility] Comment on above: Performed By: #### E RUSean UMICRO #### [facility] [address] [place] [address] Dr. Jamil Oropeza PROF CHEM 8 (BAS METB)on Anion gap [Moles/Vol] 5.9 mmol/L Normal [facility] Comment on above: Performed By: #### B MP, HSTROPN #### [facility] [address] [address] [address] Jamil Oropeza Calcium [Mass/Vol] 9.8 mg/dL Normal 8.5-10.1 [facility] Comment on above: Performed By: #### B MP, HSTROPN #### [facility] [address] [address] [address] Jamil Oropeza Chloride [Moles/Vol] 103 mmol/L Normal 98-107 [facility] Comment on above: Performed By: #### B MP, HSTROPN #### [facility] [address] [address] [address] Jamil Oropeza CO2 [Moles/Vol] 30.9 mmol/L Normal 21.0-32.0 [facility] Comment on above: Performed By: #### B MP, HSTROPN #### [facility] [address] [place] [address] Dr. Jamil Oropeza Creatinine [Mass/Vol] 0.84 mg/dL Normal 0.55-1.02 [facility] Comment on above: Performed By: #### B RITU, HSTROPN #### [facility] [address] [address] [address] Jamil Oropeza EGFR-AF PARAGUAYAN >60 Normal >=60 [facility] Comment on above: Performed By: #### B MP, HSTROPN #### [facility] [address] [place] [address] Dr. Jamil Oropeza EGFR-NON AF PARAGUAYAN >60 Normal >=60 [facility] Comment on above: Performed By: #### B MP, HSTROPN #### [facility] [address] [address] [address] Jamli Oropeza Glucose [Mass/Vol] 95 mg/dL Normal 74-106 [facility] Comment on above: Performed By: #### B MP, HSTROPN #### [facility] [address] [address] [address] Jamil Oropeza Potassium [Moles/Vol] 3.8 mmol/L Normal 3.5-5.1 [facility] Comment on above: Performed By: #### B MP, HSTROPN #### [facility] [address] [place] [address] Dr. Jamil Oropeza Sodium [Moles/Vol] 136 mmol/L Normal 136-145 [facility] Comment on above: Performed By: #### B MP, HSTROPN #### [facility] [address] [place] [address] Dr. Jamil Oropeza Urea nitrogen [Mass/Vol] 11.0 mg/dL Normal 7.0-18.0 [facility] Comment on above: Performed By: #### B RITU, HSTROPN #### [facility] [address] [place] [address] Dr. Jamil Oropeza Urea nitrogen/Creatini ne [Mass ratio] 13.1 mg/mg Normal [facility] Comment on above: Performed By: #### B RITU, HSTROPN #### [facility] [address] [place] [address] Dr. Jamil Oropeza TROPONIN, HIGH SENSITIVITYon 09-26-2022 HSTROP 5.6 pg/mL Normal 4.0-51.3 [facility] Comment on above: Result Comment: CUT- OFF POINTS HAVE BEEN ESTABLISHED BASED ON THE FOURTH UNIVERSAL DEFINITIONS OF MYOCARDIAL INFARCTION. THE UPPER REFERENCE LIMIT (URL) OF TROPONIN, DEFINED THE 99TH PERCENTILE OF cTnI DISTRIBUTION IN A REFERENCE POPULATION, HAS BEEN CONFIRMED THE DECISION THRESHOLD FOR AR DIAGNOSIS. Performed By: #### B RITU, HSTROPN #### [facility] [address] [place] [address] Dr. Jamil Oropeza URINE MICROSCOPIC ONLYon BACTERIA NONE SEEN Normal NONE SEEN [facility] Comment on above: Performed By: #### E STEPHEN MUÑOZRO #### [facility] [address] [place] [address] Dr. Jamil Oropeza Bacteria identified Cx Nom (U) NOT INDICATED Normal [facility] Comment on above: Performed By: #### E WADNA UMICRO #### [facility] [address] [place] [address] Dr. Jamil Oropeza CAST NONE SEEN Normal NONE SEEN [facility] Comment on above: Performed By: #### E RUR, UMICRO #### [facility] [address] [place] [address] Dr. Jamil Oropeza Crystals LM Nom (Urine sed) NONE SEEN Normal NONE SEEN [facility] Comment on above: Performed By: #### E RUR, UMICRO #### [facility] [address] [place] [address] Dr. Jamil Oropeza Epithelial cells LM Ql (Urine sed) FEW Abnormal NONE SEEN /RARE [facility] Comment on above: Performed By: #### E RUR, UMICRO #### [facility] [address] [place] [address] Dr. Jamil Oropeza MUCOUS NONE SEEN Normal NONE SEEN [facility] Comment on above: Performed By: #### E RUR, UMICRO #### [facility] [address] [place] [address] Dr. Jamil Oropeza RBC 0-2 Normal 0-2 [facility] Comment on above: Performed By: #### E RUR, UMICRO #### [facility] [address] [place] [address] Dr. Jamil Oropeza WBC NONE SEEN Normal NONE SEEN [facility] Comment on above: Performed By: #### E RUR, UMICRO #### [facility] [address] [place] [address] Dr. Jamil Oropeza Covid-19 PCR ([facility])on 05-17 SARS-CoV-2 (COVID-19) RNA IDALIA+probe Ql (Unsp spec) Not detected Normal NOT DETECTED [facility] Comment on above: Result Comment: When [...] for this test is supported by the Blood Tester of Health and Human Service's declaration that [...] Performed By: #### E JASMYN MUÑOZ #### [facility] [address] [address] [address] Jamil Oropeza XR SINUSES 3 VIEWS [...] Abhishek LOMBARDI Date: 2022-06-09 01:48 Normal [facility] Vital Signs Date Time Vital Sign Value Performing Clinician Facility 03-21-2025 10:17-0400 Body mass index (BMI) [Ratio] 32.58 kg/m2 [employer] Work Phone: [facility] 03-21-2025 10:17-0400 Body weight 88.81 kg [employer] Work Phone: [facility] 03-21-2025 10:17-0400 Diastolic blood pressure 70 mm[Hg] [employer] Work Phone: [facility] 03-21-2025 10:17-0400 Systolic blood pressure 100 mm[Hg] [facility] [employer] Work Phone: [facility] 10-04-2024 12:55-0500 Blood Pressure Location CHRIS OMER [facility] 10-04-2024 12:55-0500 Diastolic blood pressure 106 mm[Hg] CHRIS OMER [facility] 10-04-2024 12:55-0500 Heart rate 70 /min CHRIS OMER [facility] 10-04-2024 12:55-0500 Respiratory rate 19 /min CHRIS OMER [facility] 10-04-2024 12:55-0500 Systolic blood pressure 119 mm[Hg] CHRIS OMER [facility] 03-07-2023 12:00-0400 Body height 166.37 cm Marco Antonio Goldsmith Other [facility] Other 03-07-2023 12:00-0400 Body mass index (BMI) [Ratio] 30.31 kg/m2 Marco Antonio Goldsmith Other [facility] Other 03-07-2023 12:00-0400 Body temperature 97.9 [degF] Marco Antonio Goldsmith Other [facility] Other 03-07-2023 12:00-0400 Body weight 83.92 kg Marco Antonio Goldsmith Other [facility] Other 03-07-2023 12:00-0400 Diastolic blood pressure 83 mm[Hg] Marco Antonio Goldsmith Other [facility] Other 03-07-2023 12:00-0400 Respiratory rate 18 /min Marco Antonio Goldsmith Other [facility] Other 03-07-2023 12:00-0400 SaO2% (BldA) [Mass fraction] 98 % Marco Antonio Rupal Other [facility] Other 03-07-2023 12:00-0400 Systolic blood pressure 123 mm[Hg] Marco Antonio Goldsmith Other [facility] Other 03-04-2023 11:01-0400 Blood Pressure Location Dany SYLVESTER [facility] 03-04-2023 11:01-0400 Diastolic blood pressure 75 mm[Hg] Dany SYLVESTER [facility] 03-04-2023 11:01-0400 Heart rate 71 /min Dany SYLVESTER [facility] 03-04-2023 11:01-0400 Respiratory rate 16 /min Dany SYLVESTER [facility] 03-04-2023 11:01-0400 Systolic blood pressure 127 mm[Hg] Dany SYLVESTER [facility] 11-27-2022 11:45-0500 Body height 166.37 cm Whit Salinas Other [facility] Other 11-27-2022 11:45-0500 Body mass index (BMI) [Ratio] 29.49 kg/m2 Whit Salinas Other [facility] Other 11-27-2022 11:45-0500 Body temperature 97.6 [degF] Whit Salinas Other [facility] Other 11-27-2022 11:45-0500 Body weight 81.65 kg Whit Salinas Other [facility] Other 11-27-2022 11:45-0500 Diastolic blood pressure 81 mm[Hg] Whit Salinas Other [facility] Other 11-27-2022 11:45-0500 Respiratory rate 18 /min Whit Salinas Other [facility] Other 11-27-2022 11:45-0500 SaO2% (BldA) [Mass fraction] 98 % Whit Salinas Other [facility] Other 11-27-2022 11:45-0500 Systolic blood pressure 124 mm[Hg] Whit Salinas Other [facility] Other 06-26-2022 10:16-0400 Blood Pressure Location [employer] [facility] [place] 06-26-2022 10:16-0400 Diastolic blood pressure 81 mm[Hg] Willie NILL [facility] [place] 06-26-2022 10:16-0400 Heart rate 68 /min Willie NILL [facility] [place] 06-26-2022 10:16-0400 Respiratory rate 16 /min Willie NILL [facility] [place] 06-26-2022 10:16-0400 Systolic blood pressure 116 mm[Hg] Willie NILL [facility] [place] Encounters Encounter Date Encounter Type Care Provider Facility Start: 05-23-2025 End: 05-23-2025 ambulatory Sarah Sanchez Facility:[facility] Start: 05-23-2025 End: 05-23-2025 Patient encounter procedure Sarah J Galea [facility] Start: 05-17-2025 End: 05-17-2025 ambulatory Yeny R KATLYN Facility:[facility] Start: 05-17-2025 End: 05-17-2025 Patient encounter procedure Sarah Radha Galea [facility] Start: 05-02-2025 End: 05-02-2025 Lab Drop off Saraharcelia Winea [facility] Start: 05-02-2025 End: 05-02-2025 ambulatory Sarahhugo Sanchez Facility:[facility] Start: 05-02-2025 End: 05-02-2025 Patient encounter procedure Sarah Radha Galea [facility] Start: 03-30-2025 ambulatory Yeny KATLYN Facility:[facility] Start: 03-21-2025 End: 03-21-2025 Bamboo flowsheet Yeny Katlyn DO Work Phone: [facility] Start: 03-21-2025 End: 03-23-2025 Bamboo flowsheet Yeny Katlyn DO Work Phone: [facility] Start: 03-21-2025 End: 03-23-2025 Clinisync Result Encounter Yeny Katlyn DO Work Phone: [facility] Unsolicited Start: 03-21-2025 End: 03-22-2025 External Result Encounter Yeny Katlyn DO Work Phone: [facility] Unsolicited Start: 03-21-2025 End: 03-21-2025 Patient encounter procedure Yeny Katlyn DO Work Phone: [facility] Work Phone: Start: 03-21-2025 End: 03-21-2025 Periodic preventive med est patient 40-64yrs Yeny Potts DO Work Phone: [facility] Comment on above: Well woman exam with routine gynecological exam; Breast cancer screening by mammogram; Vaginal discharge; STD exposure; Stress incontinence Start: 03-21-2025 End: 03-21-2025 ambulatory YENY POTTS Not Available Start: 10-04-2024 End: 10-04-2024 ambulatory THERESA-Anushka OMER Facility:[facility] Start: 10-04-2024 End: 10-04-2024 Patient encounter procedure CHRIS OMER [facility] Start: 03-10-2023 End: 03-10-[address] YENY POTTS . Facility:[facility] Start: 03-07-2023 End: 03-07-2023 ambulatory Marco Antonio Goldsmith Other [facility] Other Start: 03-07-2023 Office outpatient vi sit 15 minutes Marco Antonio Goldsmith [facility] [address] Start: 03-04-2023 End: 03-04-2023 Patient encounter procedure Dany SYLVESTER [facility] Start: 03-02-2023 End: 03-03-[address] DANY SYLVESTER Facility:[facility] Start: 01-31-2023 End: 01-31-2023 ambulatory YADIRA SIMPSON Facility:[facility] Start: 11-27-2022 End: 11-27-2022 ambulatory Whit Salinas Other [facility] Other Start: 11-27-2022 Office outpatient ne w 20 minutes Whit Salinas [facility] Start: 11-08-2022 End: 11-08-2022 ambulatory YADIRA SIMPSON Facility:[facility] Start: 09-26-2022 End: 09-26-2022 ambulatory YADIRA SIMPSON Facility:[facility] Start: 06-26-2022 End: 06-26-2022 Patient encounter procedure Willie MONTERROSO [facility] [place] Start: 06-09-2022 End: 06-09-2022 ambulatory DAISY SEYMOUR Facility:[facility] Procedures Date Procedure Procedure Detail Performing Clinician Start: 03-21-2025 RECURRENT VAGINITIS (HTRX) Yeny Potts D O Work Phone: Start: 03-21-2025 End: 03-21-2025 Urnls dip stick/tablet rgnt non-auto w/o micrscp Yeny Potts DO Work Phone: Start: 03-21-2025 IGP,APTIMA HPV,AGE GDLN Yeny Potts DO Work Phone: Start: 03-15-2025 Microscopic observation [Identifier] in Cervix by Cyto stain Yeny Potts DO Work Phone: Start: 11-16-2016 Esophagogastroduodenoscopy Willie MONTERROSO Plan of Treatment Date Care Activity Detail Author Start: 03-15-2028 Screening for malignant neoplasm of cervix Pap Smear [facility] Start: 03-10-2028 Screening for malignant neoplasm of cervix [facility] Start: 03-27-2026 End: 03-27-2026 Patient encounter procedure 03/27/2026 11:00 AM EDT Office Visit [facility] [address] [place] [address] Yeny Potts, DO [address] [place] [address] [facility] Start: 08-07-2025 ambulatory Ambulatory Facility:[facility] [place] Start: 07-17-2025 Influenza vaccination Influenz a Vaccine (Season Ended) [facility] Start: 03-21-2025 End: 07-06-2026 MG Breast - bilateral Screening Bilateral screening mammogram Imaging Routine Breast cancer screening by mammogram Expected: 03/21/2025 (Approximate), Expires: 05/21/2026 [facility] Work Phone: Comment on above: Expected: 03/21/2025 (Approximate), Expires: 05/21/2026 Start: 03-21-2025 End: 03-21-2025 Patient encounter procedure 03/21/2025 10:00 AM EDT Office Visit [facility] [address] [id number] Yeny Potts, DO [address] [place], [place] [id number] Arrived [facility] Comment on above: Arrived Start: 2024 Screening for malignant neoplasm of breast Mammogram [facility] CHLAMYDIA TRACHOMATI S (GENITO/STI) CHLAMYDIA TRACHOMATIS (GENITO/STI) Lab Routine Vaginal discharge STD exposure Ordered: 03/21/2025 [facility] Comment on above: Ordered: 03/21/2025 Neisseria gonorrhoea e DNA [Presence] in Unspecified specimen by IDALIA with probe detection Neisseria gonorrhea DNA probe, direct Lab Routine Vaginal discharge STD exposure Ordered: 03/21/2025 [facility] Comment on above: Ordered: 03/21/2025 SURESWAB(R) ADVANCED VAGINITIS PLUS, TMA SURESWAB(R) ADVANCED VAGINITIS PLUS, TMA Pathology and Cytology Routine Vaginal discharge STD exposure Ordered: 03/21/2025 [facility] Comment on above: Ordered: 03/21/2025 THIN PREP TIS PAP AN D HR HPV DNA THIN PREP TIS PAP AND HR HPV DNA Pathology and Cytology Routine Well woman exam with routine gynecological exam Ordered: 03/21/2025 [facility] Comment on above: Ordered: 03/21/2025 Payers Date Payer Category Payer Private Health Insurance [facility] MEDICAID [id number] 2024 Medicaid [id number] 1984 Unknown [id number] [id number]. 59 1984 Unknown [id number] 2.16.840.1.708691.3.579.2. 59 1984 Unknown [id number] 2.16.840.1.454573.3.579.2. 59 1984 Unknown [id number] 2.16.840.1.028798.3.579.2. 59 1984 Unknown [id number] 2.16.840.1.171801.3.579.2. 59 1984 Unknown [id number] 2.16.840.1.122840.3.579.2. 59 1984 Unknown [id number] 2.16.840.1.440663.3.579.2. 1259 1984 Unknown [id number] 2.16.840.1.781611.3.579.2. 72 1984 Unknown [id number] 2.16.840.1.896879.3.579.2. 1984 Unknown [id number] 2.16.840.1.199293.3.579.2. 1984 Unknown [id number] 2.16.840.1.784230.3.579.2. 1984 Unknown [id number] 2.16.840.1.361981.3.579.2. 72 1984 Unknown [id number] 2.16.840.1.323992.3.579.2. 727 1959 Medicaid [id number] 1960 Unknown [id number] 1960 Unknown [id number] 1960 Unknown [id number] Social History Date Type Detail Facility Start: 06-26-2022 End: 10-04-2024 Tobacco smoking status Never smoked tobacco (finding) [facility] Tobacco smoking status Never [facility] Sex Assigned At Female [facility] Tobacco smoking stat [facility] Tobacco smoking consumption unknown [facility] Start: 1984 Sex assigned at Not on file [facility] Sexual Orientation [facility] Start: 02-27-2010 Sex Female (finding) [facility] Functional Status Date Assessment Result Facility 10-04-2024 Functional Status N/A [facility] 03-04-2023 Functional Status N/A [facility] 06-26-2022 Functional Status N/A [facility] Clinical Notes 11-27-2022 to 05-02-2025 Tosha Ba LPN - 03/21/2025 10:00 AM EDT Note Date & Type Note Facility 05-02-2025 Hospital Discharge instructions Patient Education 05/02/2025 16:08:47 Kegel Exercises Kegel Exercises Kegel exercises can help strengthen your pelvic floor muscles. The pelvic floor is a group of muscles that support your rectum, small intestine, and bladder. In females, pelvic floor muscles also help support the uterus. These muscles help you control the flow of urine and stool (feces). Kegel exercises are painless and simple. They do not require any equipment. Your provider may suggest Kegel exercises to: Improve bladder and bowel control. Improve sexual response. Improve weak pelvic floor muscles after surgery to remove the uterus (hysterectomy) or after , in females. Improve weak pelvic floor muscles after prostate gland removal or surgery, in males. Kegel exercises involve squeezing your pelvic floor muscles. These are the same muscles you squeeze when you try to stop the flow of urine or keep from passing gas. The exercises can be done while sitting, standing, or lying down, but it is best to vary your position. Ask your health care provider which exercises are safe for you. Do exercises exactly as told by your health care provider and adjust them as directed. Do not begin these exercises until told by your health care provider. Exercises How to do Kegel exercises: 1.Squeeze your pelvic floor muscles tight. You should feel a tight lift in your rectal area. If you are a female, you should also feel a tightness in your vaginal area. Keep your stomach, buttocks, and legs relaxed. 2.Hold the muscles tight for up to 10 seconds. 3.Breathe normally. 4.Relax your muscles for up to 10 seconds. 5.Repeat as told by your health care provider. Repeat this exercise daily as told by your health care provider. Continue to do this exercise for at least 4 6 weeks, or for as long as told by your health care provider. You may be referred to a physical therapist who can help you learn more about how to do Kegel exercises. Depending on your condition, your health care provider may recommend: Varying how long you squeeze your muscles. Doing several sets of exercises every day. Doing exercises for several weeks. Making Kegel exercises a part of your regular exercise routine. This information is not intended to replace advice given to you by your health care provider. Make sure you discuss any questions you have with your health care provider. Document Revised: 03/13/2022 Document Reviewed: 03/13/2022 [employer] Patient Education 2023 [employer] Follow Up Care 04/21/2025 16:13:33 With:Daniel MCCOY, Sarah Garcia, URL Address: When:3 months Comments:post PFPT [facility] 05-02-2025 Note Urology Office/Clini c Note Chief Complaint referral HPI Staff 40 year old female re-referred for stress incontinence Previous DX: gross hematuria, kidney stones Patient denies any dysuria or gross hematuria. Denies any flank or abdomen pain. Patient has urgency and frequency sometimes no warning, leakage a little. History of Present Illness Staff HPI reviewed and agree. Review of Systems PHQ Score Initial Depression Screen Score: 0 SCORE no fever, chills, malaise, myalgia. no rash/lesions. no chest pain, palpitations, or SOB. no abdominal pain, nausea, vomiting. no unilateral calf swelling, redness, pain Physical Exam Vitals & Measurements HR: 73(Peripheral) BP: 121/71 HT: 65 in HT: 165 cm WT: 86 kg WT: 189.597 lb BMI: 31.59 General: nontoxic, well-nourished, appears stated age Mouth: moist mucosa Lungs: normal respiratory effort Cardio: regular rate, good distal perfusion Abdomen: nondistended, no suprapubic distention or tenderness, no CVA tenderness Neurologic: Grossly normal Skin: No rashes or suspicious lesions Assessment/Plan GPC pt. Previously seen by [facility]. 1. Stress incontinence (N39.3: Stress incontinence (female) (male)) UA today trace-lysed blood and small leuks Pt here for stress incontinence referral. Pt reports that she drinks mostly water throughout the day and urinates every 1-2 hours. Pt denies constipation, DM or weak stream. Pt does c/o of occasional frequency and urgency. Pt has vaginal deliveries x4. Discussed Kegel exercises with patient as well home PFPT. Pt is interested in formal PFPT with our office. Also discussed possibility of UTI contributing to symptoms based on UA, will send for culture and treat if positive. -Send urine for culture, treat if positive -Kegel exercises -Formal PFPT referral through our office Ordered: E&M of Est. Patient Moderate 30-39 Min 83194 Urine Culture 2. Gross hematuria (R31.0: Gross hematuria) UA today trace-lysed blood and small leuks Pt was previously seen in September 2024 for gross hematuria. Pt was being worked up for possible kidney stone passage. POLINA and KUB were obtained which did not show any ureteral stones or hydro. Pt never saw a stone pass but her symptoms subsided. Pt's UA was clear for infection at that time as well. Discussed with patient that due to her history of gross hematuria and stones, a CTU would be most beneficial to assess for hematuria and possible ureteral stone causing her bothersome symptoms today. Pt denies gross hematuria other than that one episode last fall, but does report occasional abdominal cramping. If CTU negative for stones, may need to consider cystoscopy and cytology to complete hematuria workup. -CTU at [facility], if negative for ureteral stone, pt will need called to discuss completing cystoscopy and cytology to complete hematuria workup Ordered: CT Urogram E&M of Est. Patient Moderate 30-39 Min 56680 Urine Culture Urnls Dip Stick Auto w/o Microscopy POC [id number] 3. Kidney stones (N20.0: Calculus of kidney) [facility] 01/31/23 with gross hematuria, RLQ pain, nausea. CT - 6mm calyceal stone R upper pole; mild R hydronephrosis secondary to a 2.5 mm stone at the ureteropelvic junction. 10/22/24 KUB - 3 small calcifications projecting over inferior pole R kidney. No visible ureteral stones. 10/22/24 POLINA - nonobstructing 6mm R renal stone. Pt was previously seen in September 2024 for gross hematuria. Pt was being worked up for possible kidney stone passage. POLINA and KUB were obtained which did not show any ureteral stones or hydro. Pt never saw a stone pass but her symptoms subsided. -See #2 -Increase fluid intake, add lemon/grayling -Consider metabolic workup in the future Ordered: CT Urogram E&M of Est. Patient Moderate 30-39 Min 43085 Urine Culture Follow-up With When Contact Information Daniel MCCOY, Sarah Garcia, DEIDRE Within 3 months Additional Instructions: post PFPT Patient Education Kegel Exercises Problem List/Past Medical History Ongoing Anemia Anxiety Arthritis BMI 29.0-29.9,adult Chest pain due to GERD Chronic back pain Chronic gastritis Chronic neck pain Cough Dysphagia GERD (gastroesophageal reflux disease) Gross hematuria Headache Kidney stones Ureteral stone Historical Kidney stone Procedure/Surgical History EGD - Esophagogastroduodenoscopy (11/16/2016). Medications Zofran 4 mg Tab, 4 mg= 1 tab(s), Oral, q6hr, PRN Zyrtec, Daily Allergies Seasonal (Unknown) Vicodin (Vomiting) codeine (Vomiting) penicillins (Oral ulcer) Social History Alcohol - Denies Alcohol Use, 11/22/2020 Never., 10/04/2024 Substance Abuse - Denies Substance Abuse, 11/22/2020 Never., 10/04/2024 Tobacco Never (less than 100 in lifetime) Tobacco Use:., 10/04/2024 Family History Arthritis: Father. Congenital heart disease: Mother and Father. Hyperlipidemia: Father. Hypertension: Mother and Father. Stroke: Father. Lab Results Ambulatory Poin (more content not included)... [facility] Comment on above: Result Comment: Elec tronically Signed By: Sarah Marques.jennifer\Date and Time Signed: 05/02/25 16:09 EDT 05-02-2025 Note Patient Education Obstetrics and Gynecology Kegel Exercises Kegel exercises can help strengthen your pelvic floor muscles. The pelvic floor is a group of muscles that support your rectum, small intestine, and bladder. In females, pelvic floor muscles also help support the uterus. These muscles help you control the flow of urine and stool (feces). Kegel exercises are painless and simple. They do not require any equipment. Your provider may suggest Kegel exercises to: ??? Improve bladder and bowel control. ??? Improve sexual response. ??? Improve weak pelvic floor muscles after surgery to remove the uterus (hysterectomy) or after , in females. ??? Improve weak pelvic floor muscles after prostate gland removal or surgery, in males. Kegel exercises involve squeezing your pelvic floor muscles. These are the same muscles you squeeze when you try to stop the flow of urine or keep from passing gas. The exercises can be done while sitting, standing, or lying down, but it is best to vary your position. Ask your health care provider which exercises are safe for you. Do exercises exactly as told by your health care provider and adjust them as directed. Do not begin these exercises until told by your health care provider. Exercises How to do Kegel exercises: 1. Squeeze your pelvic floor muscles tight. You should feel a tight lift in your rectal area. If you are a female, you should also feel a tightness in your vaginal area. Keep your stomach, buttocks, and legs relaxed. 2. Hold the muscles tight for up to 10 seconds. 3. Breathe normally. 4. Relax your muscles for up to 10 seconds. 5. Repeat as told by your health care provider. Repeat this exercise daily as told by your health care provider. Continue to do this exercise for at least 4?6 weeks, or for as long as told by your health care provider. You may be referred to a physical therapist who can help you learn more about how to do Kegel exercises. Depending on your condition, your health care provider may recommend: ??? Varying how long you squeeze your muscles. ??? Doing several sets of exercises every day. ??? Doing exercises for several weeks. ??? Making Kegel exercises a part of your regular exercise routine. This information is not intended to replace advice given to you by your health care provider. Make sure you discuss any questions you have with your health care provider. Document Revised: 03/13/2022 Document Reviewed: 03/13/2022 [employer] Patient Education ? 2023 [employer]. [facility] 03-21-2025 History of Present illness Narrative Reason for Appointment: Patient ID: Sara Griffin is a 40 y.o. female who presents for Well Women Visit Patient presents today for Annual Exam. and STD Check. MEDICATIONS Current Outpatient Medications Medication Instructions cetirizine (ZYRTEC ALLERGY) 10 mg, Daily PRN Levonorgestrel (Mirena, 52 MG,) 20 MCG/DAY intrauterine device Intrauterine ondansetron ODT (Zofran-ODT) 4 MG disintegrating tablet DISSOLVE 1 TABLET ON THE TONGUE EVERY 6 HOURS NEEDED FOR NAUSEA ALLERGIES Allergies Allergen Reactions Codeine GI intolerance Hydrocodone GI intolerance Penicillins Unknown PROBLEMS Active Ambulatory Problems Diagnosis Date Noted No Active Ambulatory Problems Resolved Ambulatory Problems Diagnosis Date Noted No Resolved Ambulatory Problems No Additional Past Medical History HISTORY PAST MEDICAL HISTORY SOCIAL HISTORY History reviewed. No pertinent past medical history. Social History Tobacco Use Smoking status: Not on file Smokeless tobacco: Not on file Substance Use Topics Alcohol use: Not on file Drug use: Not on file FAMILY HISTORY No family history on file. SURGICAL HISTORY History reviewed. No pertinent surgical history. REVIEW OF SYSTEMS Review of Systems: Review of Systems Constitutional: Negative. HENT: Negative. Eyes: Negative. Respiratory: Negative. Cardiovascular: Negative. Gastrointestinal: Negative. Genitourinary: Negative. Musculoskeletal: Negative. Skin: Negative. Neurological: Negative. All other systems reviewed and are negative. Hematological: Negative. Endocrine: Negative. Allergic/Immunologic: Negative. OBJECTIVE Objective: Physical Exam Constitutional: Appearance: Normal appearance. She is well-developed. Genitourinary: Vulva normal. Breasts: Breasts are soft. Right: Normal. Left: Normal. Cardiovascular: Rate and Rhythm: Normal rate and regular rhythm. Pulmonary: Effort: Pulmonary effort is normal. Breath sounds: Normal breath sounds. Abdominal: General: Bowel sounds are normal. There is no distension. Palpations: Abdomen is soft. Tenderness: There is no abdominal tenderness. There is no guarding or rebound. Musculoskeletal: General: No swelling. Normal range of motion. Right lower leg: No edema. Left lower leg: No edema. Neurological: Mental Status: She is alert and oriented to person, place, and time. Skin: General: Skin is warm and dry. Psychiatric: Mood and Affect: Mood normal. Behavior: Behavior normal. Vitals and nursing note reviewed. Exam conducted with a card filer present. Vitals: Estimated body mass index is 32.58 kg/m as calculated from the following: Height as of 03/15/24: 5' 5 . Weight as of this encounter: 195 lb 12.8 oz. BP: 100/70 No LMP recorded (lmp unknown). Patient has had an implant. ASSESSMENT & PLAN ICD-10-CM 1. Well woman exam with routine gynecological exam Z01.419 THIN PREP TIS PAP AND HR HPV DNA POCT , urine manually resulted POCT urinalysis dipstick manually resulted 2. Breast cancer screening by mammogram Z12.31 Bilateral screening mammogram Bilateral screening mammogram 3. Vaginal discharge N89.8 SURESWAB(R) ADVANCED VAGINITIS PLUS, TMA CHLAMYDIA TRACHOMATIS (GENITO/STI) Neisseria gonorrhea DNA probe, direct 4. STD exposure Z20.2 SURESWAB(R) ADVANCED VAGINITIS PLUS, TMA CHLAMYDIA TRACHOMATIS (GENITO/STI) Neisseria gonorrhea DNA probe, direct 5. Stress incontinence N39.3 Annual: Patient presents today for an annual exam. Patient states she is doing well and has complaints of leaking when oughing or sneezing. Pap was obtained without difficulty and patient given mammogram order to have scheduled/obtained. Orders Placed This Encounter Procedures Bilateral screening mammogram CHLAMYDIA TRACHOMATIS (GENITO/STI) Neisseria gonorrhea DNA probe, direct POCT , urine manually resulted POCT urinalysis dipstick manually resulted Follow Up: Patient is to return in one year for annual unless needed otherwise. Documented by Tosha Ba LPN on behalf of: Yeny Potts DO documented in this encounter [facility] 10-04-2024 Hospital Discharge instructions Patient Education 10/04/2024 13:29:13 Kidney Stones, Gsoo-hk-[id number] Kidney Stones Kidney stones are rock-like masses [...] pee. The stone usually leaves your body through your pee. A doctor may need to take out the stone. What are the causes? Kidney stones may be caused by: Too much calcium in the body. This may be caused by too much parathyroid hormone in the blood. Uric acid crystals in the bladder. The body makes uric acid when you eat certain foods. Narrowing of one or both of the ureters. A kidney blockage that you were born with. Past surgery on the kidney or the ureters. What increases the risk? You are more likely to develop this condition if: You have had a kidney stone in the past. Other people in your family have had kidney stones. You do not drink enough water. You eat a diet that is high in protein, salt (sodium), or sugar. You are very overweight (obese). What are the signs or symptoms? Symptoms of a kidney stone may include: Pain in the side of the belly, right below the ribs. Pain usually spreads to the groin. Needing to pee often or right away. Pain when peeing. Blood in your pee. Feeling like you may vomit (nauseous). Vomiting. Fever and chills. How is this treated? Treatment depends on the size, location, and makeup of the kidney stones. The stones will often pass out of the body when you pee. You may need to: Drink more fluid to help pass the stone. ?In some cases, you may be given fluids through an IV tube at the hospital. Take medicine for pain. Change your diet to help keep kidney stones from coming back. Sometimes, you may need: A procedure to break up kidney stones using a beam of light (laser) or shock waves. Surgery to remove the kidney stones. Follow these instructions at home: Medicines Take mxsa-obt-kiratic and prescription medicines only as told by your doctor. Ask your doctor if the medicine prescribed to you requires you to avoid driving or using machinery. Eating and drinking Drink enough fluid to keep your pee pale yellow. ?You may be told to drink at least 8 10 glasses of water each day. This will help you pass the stone. If told by your doctor, change your diet. You may be told to: ?Limit how much salt you eat. ?Eat more fruits and vegetables. ?Limit how much meat, poultry, fish, and eggs you eat. Follow instructions from your doctor about what you may eat and drink. General instructions Collect pee samples as told by your doctor. You may need to collect a pee sample: ?24 hours after a stone comes out. ?8 12 weeks after a stone comes out, and every 6 12 months after that. Strain your pee every time you pee. Use the strainer that your doctor recommends. Do not throw out the stone. Keep it so that it can be tested by your doctor. Keep all follow-up visits. You may need X-rays and ultrasounds to make sure the stone has come out. How is this prevented? To prevent another kidney stone: Drink enough fluid to keep your pee pale yellow. This is the best way to prevent kidney stones. Eat healthy foods. Avoid certain foods as told by your doctor. You may be told to eat less protein. Stay at a healthy weight. Where to find more information National Kidney Foundation (NKF): kidney.org Urology Care Foundation (UCF): urologyhealth.org Contact a doctor if: You have pain that gets worse or does not get better with medicine. Get help right away if: You have a fever or chills. You get very bad pain. You get new pain in your belly. You faint. You cannot pee. This information is not intended to replace advice given to you by your health care provider. Make sure you discuss any questions you have with your health care provider. Document Revised: 06/26/2023 Document Reviewed: 06/26/2023 [employer] Patient Education 2023 [employer]. Follow Up Care 10/03/2024 08:08:47 With:NEGRA NAVAS, CHRIS Wagner, LINL Address: [address] [place] [address] Business (1) When: Unknown Comments:pending results of imaging/testing, will call with next steps [facility] 10-04-2024 Note Patient Education Urology Kidney Stones Kidney stones are rock-like masses that form inside of the kidneys. Kidneys are organs that make pee (urine). A kidney stone may move into other parts of the urinary tract, including: ??? The tubes that connect the kidneys to the bladder (ureters). ??? The bladder. ??? The tube that carries urine out of the body (urethra). Kidney stones can cause very bad pain and can block the flow of pee. The stone usually leaves your body through your pee. A doctor may need to take out the stone. What are the causes? Kidney stones may be caused by: ??? Too much calcium in the body. This may be caused by too much parathyroid hormone in the blood. ??? Uric acid crystals in the bladder. The body makes uric acid when you eat certain foods. ??? Narrowing of one or both of the ureters. ??? A kidney blockage that you were born with. ??? Past surgery on the kidney or the ureters. What increases the risk? You are more likely to develop this condition if: ??? You have had a kidney stone in the past. ??? Other people in your family have had kidney stones. ??? You do not drink enough water. ??? You eat a diet that is high in protein, salt (sodium), or sugar. ??? You are very overweight (obese). What are the signs or symptoms? Symptoms of a kidney stone may include: ??? Pain in the side of the belly, right below the ribs. Pain usually spreads to the groin. ??? Needing to pee often or right away. ??? Pain when peeing. ??? Blood in your pee. ??? Feeling like you may vomit (nauseous). ??? Vomiting. ??? Fever and chills. How is this treated? Treatment depends on the size, location, and makeup of the kidney stones. The stones will often pass out of the body when you pee. You may need to: ??? Drink more fluid to help pass the stone. ? In some cases, you may be given fluids through an IV tube at the hospital. ??? Take medicine for pain. ??? Change your diet to help keep kidney stones from coming back. Sometimes, you may need: ??? A procedure to break up kidney stones using a beam of light (laser) or shock waves. ??? Surgery to remove the kidney stones. Follow these instructions at home: Medicines ??? Take noij-bfj-odtuzoy and prescription medicines only as told by your doctor. ??? Ask your doctor if the medicine prescribed to you requires you to avoid driving or using machinery. Eating and drinking ??? Drink enough fluid to keep your pee pale yellow. ? You may be told to drink at least 8?10 glasses of water each day. This will help you pass the stone. ??? If told by your doctor, change your diet. You may be told to: ? Limit how much salt you eat. ? Eat more fruits and vegetables. ? Limit how much meat, poultry, fish, and eggs you eat. ??? Follow instructions from your doctor about what you may eat and drink. General instructions ??? Collect pee samples as told by your doctor. You may need to collect a pee sample: ? 24 hours after a stone comes out. ? 8?12 weeks after a stone comes out, and every 6?12 months after that. ??? Strain your pee every time you pee. Use the strainer that your doctor recommends. ??? Do not throw out the stone. Keep it so that it can be tested by your doctor. ??? Keep all follow-up visits. You may need X-rays and ultrasounds to make sure the stone has come out. How is this prevented? To prevent another kidney stone: ??? Drink enough fluid to keep your pee pale yellow. This is the best way to prevent kidney stones. ??? Eat healthy foods. ??? Avoid certain foods as told by your doctor. You may be told to eat less protein. ??? Stay at a healthy weight. Where to find more information ??? National Kidney Foundation (NKF): kidney.org ??? Urology Care Foundation (UCF): urologyhealth.org Contact a doctor if: ??? You have pain that gets worse or does not get better with medicine. Get help right away if: ??? You have a fever or chills. ??? You get very bad pain. ??? You get new pain in your belly. ??? You faint. ??? You cannot pee. This information is not intended to replace advice given to you by your health care provider. Make sure you discuss any questions you have with your health care provider. Document Revised: 06/26/2023 Document Reviewed: 06/26/2023 [employer] Patient Education ? 2023 [employer]. [facility] 03-07-2023 Evaluation note Encounter Date Diagnosis Assessment [...] of symptoms occur by end of treatment. [employer] Other 04-19-2023 Evaluation + Plan note Diagnostic Tests Pending * PT 03/04/23 * PTT 03/04/23 * PT 03/04/23 Future Scheduled Tests Radiology* XR Abdomen 1 View 02/24/23 [facility] 04-19-2023 Hospital Discharge instructions Patient Education 03/04/2023 11:52:31 Kidney Stones, Mifa-vl-Bnlp Kidney Stones Kidney stones are rock-like masses [...] Follow these instructions at home: Medicines Take beqb-qag-xwluxvz and prescription medicines only as told by [...] provider. Document Revised: 07/07/2022 Document Reviewed: 07/07/2022 [employer] Patient Education 2022 [employer]. Follow Up Care 02/05/2023 09:42:12 With:NGA HANNON, Dany Morrissey, URL Address: [address] [place], [place] [id number]- When: Unknown [facility] 04-17-2023 NotePROCEDURE: XR KUB 1 VIEW DATE: 03/02/2023 8:49 [...] Electronically authenticated by: DALJIT SMITH Date: 2023-03-02 12:37[facility]01-12-2023 Evaluation note* Encounter Date Diagnosis Assessment Notes Treatment Notes Treatment Clinical Notes Nov, Right otitis media with effusion (ICD-10 - H65.91) take medication as directed. Middle ear fluid can be caused from allergies, traveling or viral infections. It may linger. Follow up with PCP if symptoms persist [facility] Other Evaluation + Plan note Future Appointments Appointment Date:07/24/2022 09:00:00 AM Scheduled Provider: Location:[facility] Appointment Type:XR MBS Adult (FT) Future Scheduled Tests Radiology* XR Adult Swallowing Function w/ Video: Evaluate Pt, Develop a Plan of Care & Implement Plan 07/24/22 [facility] [place] Evaluation + Plan note Future Appointments Appointment Date:08/07/2025 11:20:00 AM Scheduled Provider:Sarah Marques Location:[facility] Appointment Type:URO Office Visit Future Scheduled Tests Radiology* CT Urogram 05/02/25 [facility] Evaluation + Plan note Future Appointments Appointment Date:08/07/2025 11:20:00 AM Scheduled Provider:Sarah Marques Location:[facility] Appointment Type:URO Office Visit Diagnostic Tests Pending * Urine Culture 05/02/25 Future Scheduled Tests Radiology* CT Urogram 05/02/25 [facility] Evaluation + Plan note Future Appointments Appointment Date:05/23/2025 04:00:00 PM Scheduled Provider: Location[facility] Appointment Type:CT Abdomen/Pelvis Combo () Appointment Date:08/07/2025 11:20:00 AM Scheduled Provider:Sarah Marques Location:[facility] Appointment Type:URO Office Visit Future Scheduled Tests Radiology* CT Urogram 05/23/25 [facility] [place] Evaluation + Plan note Future Appointments Appointment Date:08/07/2025 11:20:00 AM Scheduled Provider:Sarah Marques Location:[facility] Appointment Type:URO Office Visit [facility] evaluation note* Diagnosis Well woman exam with routine gynecological exam Routine gynecological examination Breast cancer screening by mammogram Vaginal discharge Leukorrhea, not specified as infective STD exposure Stress incontinence Female stress incontinence documented in this encounter [facility] N[facility]ative - Reported* Type Description Date Medical History seasonal/environmental allergies Medical History acid reflux Medical History gastritis Surgical History cosmetic surgery Surgical History EGD Hospitalization History childbirth [facility] Other Hospital course Narrative No data available for this section [facility] [place] [facility] Discharge instructions No data available for this section [facility] [place] Progress note No data available for this section [facility] [place] Summary Purpose Family History No Family History Records Found No data available for this section No Family History Records Found No data available for this section No data available for this section No Family History Records FoundNo Family History Records FoundNo Family History Records Found No data available for this section No data available for this section No Family History Records Found Advance Directives No Advanced Directives Records FoundNo Advanced Directives Records FoundNo Advanced Directives Records FoundNo Advanced Directives Records FoundNo Advanced Directives Records FoundNo Advanced Directives Records Found Additional Source Comments Care Team (unrecognized sect ion and content) [employer] Relationship Specialty Start Date End Date Katlyn Yeny, DO [address] [place] [address] PCP - [facility] 11/16/24 [employer] Relationship Specialty Start Date End Date Yeny Potts, DO [address] [place] [address] PCP - [facility] 11/16/24 REASON FOR VISIT (unrecogniz ed section and content) Reason Comments [facility] Visit INFORMATION SOURCE (unrecogn ized section and content) DATE CREATED AUTHOR 03/21/2023 [facility] DATE CREATED AUTHOR AUTHOR'S ORGANIZ ATION 03/24/2025 [facility] EPIC DATE CREATED AUTHOR AUTHOR'S ORGANIZ ATION 05/05/2025 [facility] DATE CREATED AUTHOR AUTHOR'S ORGANIZ ATION 05/08/2025 [facility] DATE CREATED AUTHOR AUTHOR'S ORGANIZ ATION 05/12/2025 [facility] DATE CREATED AUTHOR AUTHOR'S ORGANIZ ATION 06/07/2025 [facility] FOR RECORDS PERTAINING TO PATIENTS WHO ARE [...] BE BASED ON THE PRIMARY CLINICAL RECORDS. [facility] [employer] [facility]. provides no warranty or guarantee of the accuracy or completeness of information in this document.
--- NOTE | 2025-06-29 09:23 | XR_ITS ---
The [address] [address] Patient Name: SARA BOSWELL MRN: [id number] date: 1985 Sex: F Assigned Patient Location: CARD Current Patient Location: CARD Accession/Order Number: [id number] Exam Date: 06/29/2025 09:53 Report Date: 06/29/2025 09:54 At the request of: YADIRA SIMPSON Procedure: XR shoulder FELIZ min 2V Bilateral shoulder series 3 views each Reason for exam: Right shoulder pain since April. COMPARISON: None. FINDINGS: Joint spaces of the shoulders appear maintained. No acute bony process is seen. XR/XR shoulder FELIZ min 2V IMPRESSION: No acute bony process or significant degenerative change. Impression dictated by: King Babcock Jr., D.O. 06/29/2025 9:54 AM Dictation Location: [place] [address] Electronically authenticated by: [id number] Y Date: 06/29/2025 09:54
--- NOTE | 2025-06-29 09:30 | PC.NURSE ---
Nursing Note Cardiac Stress Test Reviewed: Medication, allergies and patient history reviewed. Stress Test: [x] Patient tolerated stress test well. [ ] Patient unable to tolerate walking on treadmill. Switched to Lexiscan stress test. [ ] No chest pain noted per patient [x ] Chest pain that resolved prior to leaving stress lab. [ ] No dyspnea noted. [x ] Dyspnea that resolved prior to leaving stress lab. [x ] Patient left stress lab asymptomatic and hemodynamically stable. [ ] Patient taken to the Emergency Room due to non-resolving symptoms following stress test. [x ] Patient achieved target heart rate. [ ] Patient unable to achieve target heart rate. [ ] Aminophylline administered as reversal agent to Lexiscan (Regadenoson). [ ] Nitro administered. Nursing Comments:Pt did have 3/10 chest pain towards the end of the walking portion as well as during rest after she walked. Pt states it is the same pain she has been getting with hiking. Pt states the pain went away within 4-5 minutes of rest and when pt left stress lab she had no pain. I spoke with [facility] alumni secretary to have them send this to be read STAT to [facility].
[2025-06-29 09:33] LABS: Hematocrit 41.4 % (36.0-48.0); Hemoglobin 14.0 g/dL (12.0-16.0); Immature Granulocytes Abs Auto 0.02 10^3/uL (0.00-0.03); Immature Granulocytes Pct Auto 0.2 % (0.0-0.5); Lymphocytes Absolute Auto 1.8 10^3/uL (1.2-3.8); Mean Corpuscular HGB Conc 33.8 g/dL (29.9-35.2); Mean Corpuscular Hemoglobin 30.1 pg (26.7-34.0); Mean Corpuscular Volume 89.0 fL (81.0-99.0); Platelet Count 259 10^3/uL (150-450); Red Blood Count 4.65 10^6/uL (4.20-5.40); White Blood Count 8.5 10^3/uL (4.0-11.0)
[2025-06-29 10:06] LABS: Alanine Aminotransferase 31 U/L (14-59); Albumin Globulin Ratio 1.0; Albumin Level 4.0 g/dL (3.4-5.0); Alkaline Phosphatase 95 U/L (46-116); Anion Gap 12.8; Aspartate Amino Transferase 13 U/L (15-37); Blood Urea Nitrogen 14.0 mg/dL (7.0-18.0); Calcium 9.2 mg/dL (8.5-10.1); Carbon Dioxide 26.7 mmol/L (21.0-32.0); Chloride 104 mmol/L (98-107); Cholesterol 214 mg/dL (<=200); Estimated GFR (African America >60 (>=60 mL/min/1.73m^2); Estimated GFR (Non-African Ame >60 (>=60 mL/min/1.73m^2); Free T3 2.83 pg/mL (2.18-3.98); Globulin 4.0 g/dL; Glucose 94 mg/dL (74-106); HDL Cholesterol 51 mg/dL (40-60); Potassium 4.5 mmol/L (3.5-5.1); Sodium 139 mmol/L (136-145); Thyroid Stimulating Hormone 1.581 uIU/mL (0.358-3.740); Total Protein 8.0 g/dL (6.4-8.2); Triglycerides 113 mg/dL (<=150); VLDL CHOLESTEROL 22.6 mg/dL
[2025-06-29 10:49] LABS: Iron 81.0 ug/dL (50.0-170.0)
--- NOTE | 2025-06-29 19:59 | P.STRESS_ITS ---
Stress Test Stress Test Allergies Allergy/AdvReac Type Severity Reaction Status Date / Time hydrocodone (From Vicodin) Allergy Severe Vomiting Verified 09/24/24 22:50 Penicillins Allergy Severe Blister Verified 09/24/24 22:50 Requesting physician: YADIRA SIMPSON Procedure: This was a treadmill exercise stress test performed at the [facility] on 06/29/2025. Informed consent was obtained. The patient was attached electrocardiographic monitoring. The patient exercised on the treadmill according to the Arash protocol for 7 minutes and 50 seconds. The patient reached stage III of the Arash protocol and achieved 10.1 METS. Resting heart rate was 77 bpm and peak heart rate was 157 bpm representing 87% of maximal predicted heart rate. Resting blood pressure was 116/84 and peak blood pressure was 178/92. The test was stopped due to target heart rate being achieved. General Information: Reason for Stress Test: Chest pain. Cardiac History and Risk Factors: Hypertension. Resting 12 - Lead Electrocardiogram: Normal sinus rhythm, normal ECG. Stress Test: Protocol: Arash protocol treadmill exercise. Exercise Capacity: Good. Blood Pressure Response: Normal resting blood pressure, appropriate blood pressure response to exercise. Rhythm: Sinus rhythm with no arrhythmias seen. ST - Response: [address] segment depression seen in leads II, III, aVF at peak exercise that returned to baseline at the end of the recovery period. Patient Response: Shortness of breath and chest pain that resolved within 5 minutes of resting. Interpretation: 1. Positive treadmill exercise stress test for exercise-induced ischemic ST changes. 2. Gimenez treadmill score of -6 is associated with intermediate risk for long- term cardiac events.
== END 2025-06-29 08:00 | disposition home or self-care (01) ==
LOC: CARD 08:00
PROVIDERS: PCP Nurse Practitioner Family; Visit Provider Nurse Practitioner Family
DX: Z00.00 Encounter for general adult medical examination without abnormal findings (principal); R07.9 Chest pain, unspecified; M25.511 Pain in right shoulder
CPT/HCPCS: 36415; 73030; 80053; 80061; 82306; 83036; 83525; 83540; 84436; 84443; 84481; 85025; 93017

== ENCOUNTER 2025-07-24 07:39 | Outpatient (OUT) | payer OTHER, SELFPAY ==
--- OUTSIDE RECORDS SUMMARY | 2025-01-19 10:00 | XMS_ITS ---
Author Organization The [facility] [place] Address [address] [place] [address] Care Team Providers Care Flat Machine Cutter Name Role Phone Nancy Hogan Primary Care Provider Allergies Allergen (clinical drug ingredient) Drug/Non Drug Allergy documented on EMR Reaction Allergy Type Onset Date Status codeine Codeine vomiting Drug Allergy Active hydrocodone Hydrocodone vomiting Drug Allergy Act xin Penicillin blisters mouth & throat Drug Allergy Active Results Component Value Reference Range Notes COVID-19, Flu A+B IH (Not ye t reviewed by provider) Interpretation: Performing Lab: Notes/Report: COVID - FLU A - FLU B - Control + REASON FOR VISIT Presents to office alone for c/o sinus congestion, foggy feeling in head. Has green drng into throat Medications Medication SIG (Take, Route, Frequency, Duration) Notes Start Date End Date Status Azithromycin 250 MG as directed Orally daily for 5 days take 2 tablets po on first day than 1 tablet po days 2-5 01/19/2025 Active Social History Tobacco Use: Social History Observation Description Date Details (start date - stop date) Never Smoker NA - NA Tobacco Use/Smoking Question Answer Notes Patient is a nonsmoker Problems Problem Type SNOMED Code ICD Code Onset Dates Problem Status W/U Status Risk Notes Problem Sinusitis ([id number]) Sinusitis (J32.9) Active confirmed Vital Signs Temperature 98.0 degrees Fahrenheit 01/20/20 25 Blood pressure systolic 118 mm Hg 01/20/20 25 Blood pressure diastolic 66 mm Hg 025 Height 65 in 01/19/2025 Weight 196.6 lbs 01/19/2025 BMI 32.71 kg/m2 01/19/2025 Encounters Encounter Location Date Provider Diagnosis [facility] [address] [place] [address] 01/19/2025 Nancy Hogan Bronchitis J40 and Sinusitis J32.9 Assessments Encounter Date Diagnosis (ICD Code) Assessment Notes Treatment Notes Treatment Clinical Notes Section Notes 01/19/2025 Bronchitis (ICD-10 - J40) 01/19/2025 Sinusitis (ICD-10 - J32.9) give some more time if sinus pain pressure, fever, can start zpack rest push fluids Plan Of Treatment Medication Medication Name Sig Start Date Stop Date Notes Azithromycin 250 MG as directed Orally daily for 5 days 01/19/2025 take 2 tablets po on first day than 1 tablet po days 2-5 Treatment Notes Assessment Notes Sinusitis give some more time if sinus pain pressure, fever, can start zpack rest push fluids Pending Test Test Name Order Date COVID-19, Flu A+B IH 01/19/2025 Next Appt Details Follow Up: prn, Reason: Progress Notes * Nancy BOSWELL LDOB:1985 (39 yo F)Acc No.[id number]:01/19/2025 Progress Note Patient: Nancy ADAMS Provider: Yuni Hogan ([facility]), NEUROLOGY MANAGER :1985 A ge:39 Y S ex:Female Date:01/19/2025 Address:[address] [place], [place] [id number] Check In:01:52 PM ESTCheck O ut:02:15 PM EST Subjective: * Chief Complaints: * 1 . Presents to office alone for c/o sinus congestion, foggy feeling in head. Has green drng into throat. * HPI: G eneral: sinus drainage, PND headaches no sinus pain or pressure nausea advil and zofran day 2-3 of stuffy head feeling throat feels dry no fever, no body aches fatigue cough from PND no diarrhea lots stress lately, feels run down. D epression Screening: PHQ-2 (2015 Edition) L ittle interest or pleasure in doing things??Not at all F eeling down, depressed, or hopeless? N ot at all T otal Score 0 * ROS: G eneral/Constitutional: Fever d enies. H eadache d enies. W eight loss?denies. O phthalmologic: Discharge d enies. E ye Pain d enies. I tching and redness d enies. E NT: Nasal discharge d enies. N marian congestion a dmits and PND. S ore throat d enies. C ardiovascular: Chest tightness/ heavy pressure d enies. R apid heart rate d enies. S welling of extremities d enies. C hest pain d enies. ? R espiratory: Productive cough d enies. C hest pain d enies. C ough d enies. S hortness of breath d enies. W heezing d enies. ? G astrointestinal: Abdominal pain d enies. C onstipation d enies. D ecreased appetite d enies. D iarrhea d enies. N ausea d enies. V omiting?denies. G enitourinary: Urinary incontinence d enies. P ainful urination d enies. M usculoskeletal: Back pain d enies. N eliud pain d enies. M uscle aches d enies. S kin: Rash d enies. S kin lesion(s) d enies. ? * Active Problem List J32.9 Sinusitis Modified On:01/19/2025W/U Status:confirmed * Medical History: A nxiety, COVID-19, Dysphagia, Acid reflux, Kidney stones, Neural foraminal stenosis of cervical spine. * Surgical History: E GD , Moles removed . * Family History: F ather: alive, diagnosed with Unspecified essential hypertension. M other: alive, diagnosed with Unspecified essential hypertension. * Social History: T obacco Use: T obacco Use/Smoking P atient is a n onsmoker * Medications: D iscontinued Benzonatate 200 MG Capsule 1 capsule as needed Orally Three times a day , Discontinued predniSONE 20 MG Tablet 2 tablet Orally Once a day , Medication List reviewed and reconciled with the patient * Allergies: H ydrocodone: vomiting - Side Effects, Codeine: vomiting - Side Effects, Penicillin: blisters mouth & throat - Side Effects. Objective: * Vitals: W t:196.6lbs, Ht: 65 in, BP:118/66mm Hg, Temp:98.0F, BMI:32.71Index, Ht-cm: 165.1 cm, Wt-k.18 kg. * Examination: G eneral Examinations: GENERAL APPEARANCE: a lert and oriented, i n no acute distress. EARS: e xternal auditory canals are patent. Tympanic membranes are pearly chin and mobile. NOSE: m ild congestion. THROAT: n ormal. LYMPH NODES: n o cervical adenopathy. LUNGS: c lear to auscultation bilaterally. CARDIO: r egular rate and rhythm, S1, S2 normal. MUSCULOSKELETAL: G ait and station normal. SKIN: w arm and dry. Assessment: * Assessment: 1. S inusitis - J32.9 (Primary) 2 . B freddytis - J40 Plan: * Treatment: 2. B ronrefugiotis L AB: COVID-19, Flu A+B IH (Collection Date & Time - 01/19/2025) * Labs: * L ab: COVID-19, Flu A+B IH (Collection Date & Time - 01/19/2025) Value Reference Range C OVID - * F ALIX A - * F ALIX B - * C ontrol + * Procedure Codes: 8 7636 SARSCOV2 & INF A&B AMP PRB, Modifiers: QW * Preventive Medicine: Screenings/Counseling: B [place] ACTION PLAN Above Normal BMI Follow-up D ietary management education, guidance, and counseling See treatment section of progress note for complete details of management plan. * Follow Up: p rn * * Electronically signed by Nirmala Hogan , KIA, INSIDE FINISHER.NEUROLOGY [id number] on 01/20/2025 at 11:32 AM EST Sign off status: Completed Visit Status: C HK (Check Out) true * Provider: Yuni Hogan ([facility]), NEUROLOGY MANAGER Date: 0 01/19/2025 Generated for Angel crocker/Oneyda/Chapitoitting on: 0 07/24/2025 07:41 AM EDT History and Physical Notes * HPI (History of Present Illness) Category Sub-Category Detail Notes Category Not es General sinus drainage, PND headaches no sinus pain or pressure nausea advil and zofran day 2-3 of stuffy head feeling throat feels dry no fever, no body aches fatigue cough from PND no diarrhea lots stress lately, feels run down Depression Screening PHQ-2 (2015 Edition) Little interest or pleasure in doing things?: Not at all Feeling down, depressed, or hopeless?: N ot at all Total Score: 0 Examination Category Sub-Category Detail Notes Category Not es General Examinations GENERAL APPEARANCE: alert a nd oriented, in no acute distress EYES: EARS: external auditory ca nals are patent. Tympanic membranes are pearly chin and mobile NOSE: mild congestion THROAT: normal CARDIO: regular rate and rhy thm, S1, S2 normal LUNGS: clear to auscultatio n bilaterally ABDOMEN: SKIN: warm and dry BACK: MUSCULOSKELETAL: Gait and station nor mal LYMPH NODES: no cervical adenopat hy
--- OUTSIDE RECORDS SUMMARY | 2025-06-01 06:00 | XMS_ITS ---
Author Organization [facility] in [place] Address [address] [place] [address] Care Team Providers Care Control Room Helper Name Role Phone Nancy Hogan Primary Care [...] N/A Encounters Encounter Location Date Provider Diagnosis [facility] [address] [place] [address] 06/01/2025 Nancy Hogan Right shoulder pain M25.511 [...] * Nancy BOSWELL LDOB:1985 (40 yo F)Acc No.[id number]:06/01/2025 Progress Note Patient: Anushka GROSS Nancy Michael Provider: Yuni Hogan ([facility]), TRAIN ANNOUNCER :1985 A ge:40 Y S ex:Female Date:06/01/2025 Address:[address] [place], [place] [id number] Check In:09:53 AM ESTCheck O ut:10:24 AM [...] seerosario gaffney * Preventive Medicine: Screenings/Counseling: B IN ACTION PLAN Above Normal BMI Follow-up D ietary management education, guidance, and counseling * Follow Up: p rn,4 Weeks * * Electronically signed by Nirmala Hogan , CANAL BOAT OPERATOR, MULTI MEDIA SPECIALIST.TRAIN ANNOUNCER.[id number] on 06/02/2025 at 12:00 PM EDT Sign off status: Completed Visit Status: C HK (Check Out) true * Provider: Yuni Hogan ([facility]), TRAIN ANNOUNCER Date: 0 06/01/2025 Generated for Angel crocker/Oneyda/Chapitoitting on: 0 07/24/2025 [...]
--- OUTSIDE RECORDS SUMMARY | 2025-06-29 09:44 | XMS_ITS ---
Author Organization The [facility] [place] Address [address] [place] [address] Care Team Providers Care Inventory Control Planner Name Role Phone Nancy Hogan Primary Care Provider [phone] REASON FOR VISIT Lab results/ Xray results Encounters Encounter Location Date Provider Diagnosis [facility] [address] [place] [address] 06/29/2025 Nancy Hogan Plan Of Treatment No Information Progress Notes * Nancy BOSWELL LDOB:1985 (40 yo F)Acc No.[id number]:06/29/2025 Patient: Nancy ADAMS :1985 A ge:40 Y S ex:Female Address:[address] [place] [phone] * true * Date: Generated for Robertoi obi/Faaimeeg/eTransmitting on: 0 07/24/2025 07:41 AM EDT
--- OUTSIDE RECORDS SUMMARY | 2025-06-30 04:38 | XMS_ITS ---
Author Organization The [facility] [place] Address [address] [place] [place] [address] Care Team Providers Care Booster Pump Operator Name Role Phone Samira Nancy Primary Care Provider [phone] REASON FOR VISIT Stress Test Procedures Procedure Date Ordered Date Performed Result Body Sit e CARDIO Stress Test - Lexiscan Nuclear 06/30/2025 N/A Encounters Encounter Location Date Provider Diagnosis [facility] [address] [place] [address] 06/30/2025 Nancy Muellermer Chest pain R07.9 Assessments Encounter Date Diagnosis (ICD Code) Assessment Notes Treatment Notes Treatment Clinical Notes Section Notes 06/30/2025 Chest pain (ICD-10 - R07.9) Plan Of Treatment Pending Test Test Name Order Date CARDIO Stress Test - Lexiscan Nuclear Progress Notes * Nancy BOSWELL LDOB:1985 (40 yo F)Acc No.[id number]:06/30/2025 Patient: Nancy ADAMS :1985 A ge:40 Y S ex:Female Address:[address] [place] [id number] Subjective: * Chief Complaints: * S tress Test * Medical History: * Surgical History: * Hospitalization/Major Diagno stic Procedure: * Medications: Objective: * Vitals: * Physical Examination: Assessment: * Assessment: 1. C hest pain - R07.9 (Primary) Plan: * Treatment: * Procedure Codes: * true * Date: Generated for Angel crocker/Oneyda/Ann Marie on: 0 07/24/2025 07:41 AM EDT
--- OUTSIDE RECORDS SUMMARY | 2025-07-24 07:42 | XMS_ITS | Patient Health Record ---
Author Organization [facility] [place] Address [address] [place] [address] Care Team Providers Care Tap Puller Name Role Phone Nancy Hogan Primary Care Provider Allergies Allergen (clinical drug ingredient) Drug/Non Drug Allergy documented on EMR Reaction Allergy Type Onset Date Status codeine Codeine vomiting Drug Allergy Active hydrocodone Hydrocodone vomiting Drug Allergy Act xin Penicillin blisters mouth & throat Drug Allergy Active Results Component Value Reference Range Notes XR shoulder FELIZ min 2V Reviewed date:06/29/2025 01:13:11 PM Interpretation: Performing Lab: Notes/Report: Source Facility: [place] [address] XRay Report Signed Patient: SARA BOSWELL MR#: [id number] : 1985 Acct:[id number] Age/Sex: 40 / F ADM Date: 06/29/25 Loc: CARD Attending Dr: NANCY HOGAN Ordering Physician: NANCY HOGAN Date of Service: 06/29/25 Procedure(s): XR shoulder FELIZ min 2V Accession Number(s): [id number] cc: NANCY HOGAN [place] [address] Patient Name: SARA BOSWELL MRN: [id number] date: 1985 Sex: F Assigned Patient Location: CARD Current Patient Location: CARD Accession/Order Number: [id number] Exam Date: 06/29/2025 09:53 Report Date: 06/29/2025 09:54 At the request of: NANCY HOGAN Procedure: XR shoulder FELIZ min 2V Bilateral shoulder series 3 views each Reason for exam: Right shoulder pain since April. COMPARISON: None. FINDINGS: Joint spaces of the shoulders appear maintained. No acute bony process is seen. XR/XR shoulder FELIZ min 2V IMPRESSION: No acute bony process or significant degenerative change. Impression dictated by: King Babcock Jr., D.O. 06/29/2025 9:54 AM Dictation Location: [place] [address] Electronically authenticated by: [id number] Y Date: 06/29/2025 09:54 Dictated By: King Babcock M.D. Signed By: 06/29/25 0956 DD/ 0954 TD/TT: Teradata Architect: [place] [address] XRay Report Signed Patient: SARA BOSWELL MR#: [id number] : 1985 Acct:[id number] Age/Sex: 40 / F ADM Date: 06/29/25 Loc: CARD Attending Dr: NANCY HOGAN Ordering Physician: NANCY HOGAN Date of Service: 06/29/25 Procedure(s): XR shoulder FELIZ min 2V Accession Number(s): [id number] cc: NANCY HOGAN [address] [address] Patient Name: SARA BOSWELL MRN: [id number] date: 1985 Sex: F Assigned Patient Location: CARD Current Patient Location: CARD Accession/Order Number: [id number] Exam Date: 06/29/2025 09:53 Report Date: 06/29/2025 09:54 At the request of: NANCY HOGAN Procedure: XR should er FELIZ min 2V Bilateral shoulder series 3 views each Reason for exam: Rig ht shoulder pain since April. COMPARISON: None. FINDINGS: Joint spac es of the shoulders appear maintained. No acute bony process is seen. XR/XR shoulder FELIZ min 2V IMPRESSION: No acute bony process or significant degenerative change. Impression dictated by: King Babcock Jr., D.O. 06/29/2025 9:54 AM Dictation Location: [place] [address] Electronically authenticated by: [id number] Y Date: 06/29/2025 09:54 Dictated By: King Babcock M.D. Signed By: 06/29/25 0956 DD/ TD/TT: Teradata Architect: VITAMIN D 25 [place] Reviewed date:06/29/2025 01:13:11 PM Interpretation: Performing Lab: Notes/Report: [facility] , Vitamin D 23.9 >100 ng/mL Potential Toxicity 20-<30 ng/mL Vit D insufficient 30-100 ng/mL Vit D sufficient <20 ng/mL Vit D deficient Performing Lab: see note ML - [facility] LB CBC AUTO DIFF Reviewed date:06/29/2025 01:13:11 PM Interpretation: Performing Lab: Notes/Report: [facility] , White Blood Count 8.5 4.0-11.0 10 3/uL Red Blood Count 4.65 4.20-5.40 10 6/uL Hemoglobin 14.0 12.0-16.0 g/dL Hematocrit 41.4 36.0-48.0 % Mean Corpuscular Volume 89.0 81.0-99.0 fL Mean Corpuscular Hemoglobin 30.1 26.7-34.0 pg Mean Corpuscular HGB Conc 33.8 29.9-35.2 g/dL Red Cell Distribution Width 12.2 11.0-15.0 % Platelet Count 259 150-450 10 3/uL Mean Platelet Volume 10.1 9.5-13.5 fL Neutrophils Percent Auto 73.4 43.0-75.0 % Lymphocytes Percent Auto 20.6 20.5-60.0 % Monocytes Percent Auto 4.9 1.7-12.0 % Eosinophils Percent Auto 0.5 0.9-7.0 % Basophils Percent Auto 0.4 0.2-2.0 % Immature Granulocytes Pct Auto 0.2 0.0-0.5 % Neutrophils Absolute Auto 6.3 1.4-6.5 10 3/uL Lymphocytes Absolute Auto 1.8 1.2-3.8 10 3/uL Monocytes Absolute Auto 0.4 0.3-0.8 10 3/uL Eosinophils Absolute Auto 0.0 0.0-0.7 10 3/uL Basophils Absolute Auto 0.0 0.0-0.1 10 3/uL Immature Granulocytes Abs Auto 0.02 0.00-0.03 10 3/uL Performing Lab: see note ML - [facility] LB COVID-19, Flu A+B IH (Not ye t reviewed by provider) Interpretation: Performing Lab: Notes/Report: COVID - FLU A - FLU B - Control + INSULIN Reviewed date:06/30/2025 09:30:04 AM Interpretation: Performing Lab: Notes/Report: [facility] , Insulin 14.8 2.6-24.9 uIU/mL [address] [place], [place] [id number] Station Mechanic Helper: Merritt Hathaway PhD, Phone: [phone] Performed at: [facility] Performing Lab: see note - [facility] LB IGP,Aptima HPV,Age Gdln Reviewed date:03/23/2025 11:54:29 AM Interpretation: Performing Lab: Notes/Report: BRUSH-SPATULA CERVIX ENDOCERVIX [facility] , Age Gdln ACOG Testing Note . No. of containers..01 ThinPrep Vial <-Panic Low,>-Panic High,A-Abnormal,AA-[place] [address] Age Algo ACOG Inez... 30-65 01 Performed at: Kassandra Phillips MD, FLAG LEGEND: Source.............Cer vix;Endocervix Clinician Provided Cytology Information L-Low Normal,H-High Normal,LL-Alert Low,HH-Alert High 01 =G [facility] TESTS RESULT FLAG UNITS REF RANGE LAB IGP, Aptima HPV, rfx 16/18,45 Note . uterine cervix. It is not a diagnostic procedure and Criteria not met, HPV Genotype not performed. The Pap smear is a screening test designed to aid in the the use of an image guided system. Deven Olmstead, Manager Leasing (ASCP) occur. 02 WB [facility] . 02 Performed at: Test Methodology: Note 02 L-Low Normal,H-High Normal,LL-Alert Low,HH-Alert High should not be used as the sole means of detecting cervical cells (endocervical component) are present. [address] [place] [address] detection of premalignant and malignant conditions of the Specimen adequacy: 02 DIAGNOSIS: 02 Note: Note 02 Performed by: 02 <-Panic Low,>-Panic High,A-Abnormal,AA-Cri tical Abnormal cancer. Both false-positive and false-negative reports do NEGATIVE FOR INTRAEPITHELIAL LESION OR MALIGNANCY. HPV Genotype Reflex Note 02 This liquid based ThinPrep(R) pap test was screened with TESTS RESULT FLAG UNITS REF RANGE LAB FLAG LEGEND: Satisfactory for evaluation. Endocervical and/or squamous metaplastic Kassandra Phillips MD, HPV Aptima Negative Negative without differentiation. [address] [place], [place] [id number] Station Mechanic Helper: Kassandra Phillips MD, Phone: [phone] Performed at: =[facility] This nucleic acid amplification test detects fourteen high- [address] [place], [place] [id number] risk HPV types (16,18,31,33,35,39,45, 51,52,56,58,59,66,68) Station Mechanic Helper: Kassandra Phillips MD, Phone: [phone] Performed at: [facility] Performing Lab: see note [facility] LB TSH Reviewed date:06/29/2025 01:13:11 PM Interpretation: Performing Lab: Notes/Report: [facility] , Thyroid Stimulating Hormone 1.581 0.358-3.740 uIU/mL Performing Lab: see note ML - [facility] LB T4 Reviewed date:06/29/2025 01:13:11 PM Interpretation: Performing Lab: Notes/Report: [facility] , T4 Thyroxine 6.60 4.80-13.90 ug/dL Performing Lab: see note ML - [facility] LB GLYCOHEMOGLOBIN A1C Reviewed date:06/29/2025 01:13:11 PM Interpretation: Performing Lab: Notes/Report: [facility] , Glycohemoglobin A1C 5.0 4.5-6.2 % ACTION SUGGESTED ADA THERAPEUTIC TARGET < 7.0 ADA RECOMMENDED LIMIT 4.0 - 6.0 > 7.0 Estimated Average Glucose 97 Performing Lab: see note ML - [facility] LB FREE T3 Reviewed date:06/29/2025 01:13:11 PM Interpretation: Performing Lab: Notes/Report: [facility] , Free T3 2.83 2.18-3.98 pg/mL Performing Lab: see note - [facility] LB PROF 14(COMP METB) Reviewed date:06/29/2025 01:13:11 PM Interpretation: Performing Lab: Notes/Report: [facility] , Sodium 139 136-145 mmol/L Potassium 4.5 3.5-5.1 mmol/L Chloride 104 98-107 mmol/L Carbon Dioxide 26.7 21.0-32.0 mmol/L Anion Gap 12.8 Glucose 94 74-106 mg/dL Blood Urea Nitrogen 14.0 7.0-18.0 mg/dL Creatinine 0.71 0.55-1.02 mg/dL Estimated GFR ( Elana >60 >=60 mL/min/1.73m 2 Estimated GFR (Non- Keysha >60 >=60 mL/min/1.73m 2 BUN Creatinine Ratio 19.7 Calcium 9.2 8.5-10.1 mg/dL Bilirubin Total 0.5 0.2-1.0 mg/dL Aspartate Amino Transferase 13 15-37 U/L Alanine Aminotransferase 31 14-59 U/L Alkaline Phosphatase 95 46-116 U/L Total Protein 8.0 6.4-8.2 g/dL Albumin Level 4.0 3.4-5.0 g/dL Globulin 4.0 Albumin Globulin Ratio 1.0 Performing Lab: see note ML - [facility] LIPID PROFILE Reviewed date:06/29/2025 01:13:11 PM Interpretation: Performing Lab: Notes/Report: [facility] , Triglycerides 113 <=150 mg/dL Cholesterol 214 <=200 mg/dL HDL Cholesterol 51 40-60 mg/dL > or =60 mg/dl - LOW CARDIOVASCULAR RISK <40 mg/dl - HIGH CARDIOVASCULAR RISK LDL Cholesterol Calculated 141.0 130-159 mg/dl BORDERLINE HIGH 100-129 mg/dl NEAR OR ABOVE OPTIMAL 160-189 mg/dl HIGH <100 mg/dl OPTIMAL >190 mg/dl VERY HIGH VLDL CHOLESTEROL 22.6 Chol HDL Ratio 4.2 4.4 - 7.1 AVERAGE RISK >11.0 HIGH RISK 7.1 - 11.0 MODERATE RISK 3.3 - 4.4 LOW RISK Performing Lab: see note ML - [facility] LB IRON Reviewed date:06/29/2025 01:13:11 PM Interpretation: Performing Lab: Notes/Report: [facility] , Iron 81.0 50.0-170.0 ug/dL Performing Lab: see note ML - [facility] LB Reason For Referral Diagnosis 1 Intermittent chest p ain (R07.9) Referral Organization [facility] Referring Provider First Name Nancy Referring Provider Last Name Samira Referring Provider Speciality Family Med pete Referred Provider [facility] Cardiology, [facility] Referred Provider Specialty Cardiology Referral Priority [...] Status W/U Status Risk Notes Problem Sinusitis (36642679) Sinusitis (J32.9) Active confirmed Problem Pure hypercholesterolemia (314018564) Elevated LDL cholesterol level (E78.00) Active confirmed Vital Signs Temperature 98.0 degrees Fahrenheit 01/19/2025 Blood pressure diastolic 70 mm Hg 06/01/2025 Oximetry 97 % 09/28/2024 Height 65 in 06/01/2025 Blood pressure systolic 112 mm Hg 06/01/2025 Weight 194.8 lbs 06/01/2025 BMI 32.41 kg/m2 06/01/2025 Procedures Procedure Date Ordered Date Performed Result Body Sit e Echocardiogram 06/01/2025 N/A CARDIO Stress Test - Treadmill Exercise 06/01/2025 N/A CARDIO Stress Test - Lexiscan Nuclear 06/30/2025 N/A Encounters Encounter Location Date Provider Diagnosis [facility] [address] [place] [address] 09/28/2024 Nancy Samira Bronchitis J40 [facility] [address] [place] [address] 01/19/2025 Nancy Samira Bronchitis J40 and Sinusitis J32.9 [facility] [address] [place] [address] 06/01/2025 Nancy Samira Right shoulder pain M25.511 ; Intermittent chest pain R07.9 and Wellness examination Z00.00 [facility] [address] [place] [address] 06/28/2025 Nancy Samira Intermittent chest pain R07.9 [facility] [address] [place] [address] 06/29/2025 Nancy Hogan [facility] [address] [place] [address] 06/30/2025 Nancy Hogan Chest pain R07.9 Assessments Encounter Date Diagnosis [...] 06/28/2025 Intermittent chest pain (ICD-10 - R07.9) 06/30/2025 Chest pain (ICD-10 - R07.9) 06/01/2025 Wellness examination (ICD-10 - Z00.00) ROS done exam done sees yeimy Plan Of Treatment Pending Test Test Name Order Date HEMOGLOBIN A1C (GLYCO) 06/01/2025 IRON, TOTAL 06/01/2025 LIPID PANEL (CHOL/TRIG/HDL/LDL) 06/01/20 25 VITAMIN D, 25 LEVEL (TOTAL) 06/01/2025 Echocardiogram 06/01/2025 XR Elbow RT (3 views) * 12/25/2023 CARDIO Stress Test - Treadmill Exercise 06/01/2025 CARDIO Stress Test - Lexiscan Nuclear Insulin Level 06/01/2025 COVID-19, Flu A+B IH 01/19/2025 THYROID PANEL (T4/TSH/FREE T3) XR SHOULDER FELIZ 2V or > 06/01/2025 CMP (COMP MET GREEN) w/eGFR CKD-EPI 2024 CBC WITH DIFF 06/01/2025 Insurance Providers Payer Name Payer Address Payer Phone Subscriber Number Group Number Insured Name Patient Relationship to Insured Coverage Start Date Coverage End Date [employer] [place] [employer] [address] [place] [address] [id number] Sara Boswell Self - patient is the insured 4 [employer] [place] [employer] [address] [place] [address] [phone] [id number] Sara Boswell Self - patient is the insured 3 4 Medical (General) History Medical History History ICD Code Anxiety F41.9 COVID-19 U07.1 Dysphagia R13.10 Acid reflux K21.9 Kidney stones N20.0 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
--- OUTSIDE RECORDS SUMMARY | 2025-07-24 07:43 | XMS_ITS | CCD ---
Author Organization [facility] Care Team Providers Care Oil Pumper Name Role Phone YADIRA SIMPSON Primary Care Physician Whit Salinas Unavailable Marco Antonio Goldsmith Unavailable TATIANA YADIRA Primary Care Unavailable DAISY SEYMOUR Admitting Unavailable DAISY SEYMOUR Attending Unavailable DAISY SEYMOUR Consulting Unavailable TAI GOMEZ Consulting Unavailable NGA, DR DANY Morrissey Admitting Unavailable NGA, DR DANY Morrissey Attending Unavailable [facility] Care Unavailable NGA, DR DANY Morrissey Consulting Unavailable DALJIT SMITH Consulting Unavailable KATLYN ., DR SAINI Admitting Unavailable KATLYN ., DR SAINI Attending Unavailable [facility] Primary Care Unavailable KATLYN ., DR SAINI Consulting Unavailable DAISY SEYMOUR Consulting Unavailable DAISY SEYMOUR Admitting Unavailable DAISY SEYMOUR Attending Un[facility] Care Unavailable JEFF LOMBARDI Consulting Unavailable [facility] Primary Care Unavailable PAY ., DR SOLORZANO Admitting Unavailable PAY ., DR SOLORZANO Attending Unavailable PAY ., DR SOLORZANO Consulting Unavailable DALEY ., MR GIVENS Consulting Unavailable [facility] Primary Care Unavailable VADIM .ELIZABETH Admitting Unavailable [...] Yeny POTTS R Referring Unavailable GalSarah hunt Referring Unavailable GalSarah hunt Admitting Unavailable Sarah Sanchez Attending Unavailable Allergies Allergy Classification Reported Allergen(s) Allergy Type Date of Onset Reaction(s) Facility (9 sources) Acetaminophen / HYDROcodone; Translations: [acetaminophen-hy drocodone] Drug Allergy Vomiting (disorder) [facility] (16 sources) Codeine; Translations: [codeine] Drug Allergy 03-09-20 24 Vomiting (disorder), GI intolerance [facility] (17 sources) Penicillins; Translations: [penicillins] Drug allergy 04-10-20 14 Ulcer of mouth (disorder), Unknown [facility] (2 sources) Codone Propensity to adverse reactions vomiting OKpanda Other (8 sources) Seasonal allergy; Translations: [Seasonal] Allergy to substance Unknown (qualifier value) [facility] (1 source) Codeine Drug Allergy 04-10-20 14 [facility] (1 source) HYDROcodone Drug Allergy 04-10-20 14 [facility] (5 sources) HYDROcodone Drug Allergy 03-09-20 [...] food., # 12 tab(s), Refills(s) 0, Pharmacy: [facility]/pharmacy #[id number], 165, cm, 10/04/24 13:08:00 EST, Height/Length Dosing, 84, kg, 10/04/24 13:08:00 EST, Weight Dosing Start Date: 10/04/24 Status: Ordered levonorgestrel 0.009795 mg/hr intrauterine system (5 sources) Progestin, Progestin-containin g Intrauterine Device Levonorgestrel (Mirena, 52 MG,) 20 MCG/DAY intrauterine device Intrauterine Active ondansetron 4 mg oral tablet (10 sources) Serotonin-3 Receptor Antagonist Start: 10-04-2024 take 1 tablet by mouth every six hours as needed for nausea Zofran 4 mg Tab 4 mg = 1 tab(s), Oral, q6hr, PRN Nausea/Vomiting, # 12 tab(s), Refills(s) 0, Pharmacy: [facility]/pharmacy #[id number], 165, cm, 10/04/24 13:08:00 EST, Height/Length [...] Daily, # 30 cap(s), Refills(s) 0, Pharmacy: [facility]/pharmacy #[id number], 165, cm, 10/04/24 13:08:00 EST, Height/Length [...] 06-09-2022 Episodic Other aftercare (1 source) 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 this was found by US in [facility] office. trace amount of blood in [...] MD Transcribed by: FLOR Technologist: TREV Rock [facility] C Urineon 05-05-2025 Bacteria identified Cx Nom (U) Microbiology PROCEDURE: Urine Culture [R1] SOURCE: U CleanCatch BODY SITE: COLLECTED DATE/TIME: 05/02/2025 15:57 EDT RECEIVED DATE/TIME: 05/03/2025 17:23 EDT START DATE/TIME: 05/03/2025 17:23 EDT FREE TEXT SOURCE: Sarah Marques Alysha J FINAL REPORTS Final Report [] Verified Date/Time: 05/05/2025 11:01 EDT 2,000 cfu/ml Mixed skin contaminants Performing Locations R1: This test was performed at: [facility], [address] [place] [address], [id number]- , [place], Normal [facility] Comment on above: Performed By: #### [id number] #### [facility] [address] [place] [id number] Ambulatory Visit Summaryon 0 05-02-2025 Ambulatory Visit Summary Ambulatory Visit Summary SARA DORANTES :1985 Visit Date:05/02/2025 Ambulatory Visit Instructions Your Diagnosis Stress incontinence Kidney stones Gross hematuria Your Care Team Attending Physician - Sarah Marques Primary Care Physician - YADIRA SIMPSON [...] With: Sarah Marques Where: [facility] [address], [address] [place] [address]- Medications What How Much When Why Instructions [...] choosing us for your care. Normal [facility] IGP,APTIMA HPV,AGE GDLNon AGE GDLN ACOG TESTING Note . [facility] Comment on above: TESTS RESULT FLAG UN ITS REF RANGE LAB Clinician Provided Cytology Information Source.............Cervix;Endocervix No. of containers..01 ThinPrep Vial Age Algo ACOG Inez... FLAG LEGEND: L-Low Normal,H-High Normal,LL-Alert Low,HH-Alert High <-Panic Low,>-Panic High,A-Abnormal,AA-Critical Abnormal Performed at: 01 =[address] [address] Kassandra Phillips MD, HPV APTIMA Negative Negative [facility] Comment on above: This nucleic acid am plification test detects fourteen high- risk HPV types (16,18,31,33,35,39,45,51,52,56,58,59,66,68) without differentiation. Performed at: =[address] [id number] Services Tech: Kassandra Phillips MD, Phone: [phone] Performed at: [address] [id number] Services Tech: Kassandra Phillips MD, Phone: [phone] IGP, APTIMA HPV, RFX 16/18,[address] [facility] Comment on above: TESTS RESULT FLAG UN ITS REF RANGE LAB DIAGNOSIS: 02 NEGATIVE FOR INTRAEPITHELIAL LESION OR MALIGNANCY. Specimen adequacy: 02 Satisfactory for evaluation. Endocervical and/or squamous metaplastic cells (endocervical component) are present. Performed by: 02 Deven [employer] Administrator (ASCP) . 02 Note: Note 02 The [...] High,A-Abnormal,AA-Critical Abnormal Performed at: 02 WB [facility] [address] [place] [address] Kassandra Phillips MD, BRUSH-SPATULA CERVIX ENDOCERVIX CLINISYNC [facility] RECURRENT VAGINITIS (HTRX)on 03-22-2025 ATOPOBIUM VAGINAE 16.[address] [facility] ATOPOBIUM VAGINAE Detected Abnormal [facility] BVAB 2,3 (BACTERIAL VAGINOSIS ASSOCIATED BACTERIA 2, 3); MOBILUNCUS SPP 25.[address] [facility] BVAB 2,3 (BACTERIAL VAGINOSIS ASSOCIATED BACTERIA 2, 3); MOBILUNCUS SPP Detected Abnormal [facility] AFSHIN ALBICANS, PARAPSILOSIS, TROPICALIS 0 [facility] AFSHIN ALBICANS, PARAPSILOSIS, TROPICALIS Not detected [facility] AFSHIN GLABRATA 0 [facility] AFSHIN GLABRATA Not detected [facility] AFSHIN KRUSEI [address] [facility] AFSHIN KRUSEI Not detected [facility] CHLAMYDIA TRACHOMATIS 0 [facility] CHLAMYDIA TRACHOMATIS Not detected [facility] ERMB, C; MEFA 14.[address] [facility] ERMB, C; MEFA Detected Abnormal [facility] GARDNERELLA VAGINALIS 16.[address] [facility] GARDNERELLA VAGINALIS Detected Abnormal [facility] Interpretation and review of laboratory results Abnormal [facility] MEGASPHAERA (TYPES 1, 2) 0 [facility] MEGASPHAERA (TYPES 1, 2) Not detected [facility] MYCOPLASMA GENITALIUM 0 [facility] MYCOPLASMA GENITALIUM Not detected [facility] NEISSERIA GONORRHOEAE 0 [facility] NEISSERIA GONORRHOEAE Not detected [facility] TET B, TET M 22.[address] [facility] TET B, TET M Detected Abnormal [facility] TRICHOMONAS VAGINALIS 0 [facility] TRICHOMONAS VAGINALIS Not detected [facility] HCG ( test) Ql (U)o n 03-21-2025 Interpretation and review of laboratory results Normal [facility] Preg Test, Ur Negative Negative [facility] Urinalysis macro (dipstick) panel (U)on 03-21-2025 Bilirubin, UA Negative Negative - 4(70) +++ mg/dL [facility] Blood, UA Positive Negative - 50 Ryan/mcL [facility] Comment on above: trace-intact Clarity, UA Clear [facility] Color, UA Yellow [facility] Glucose, UA Negative Negative - 2000(110) ++++ mg/dL [facility] Interpretation and review of laboratory results Abnormal [facility] Ketones, UA Negative Negative - 160(16) ++++ mg/dL [facility] Leukocytes, UA Negative Negative - 500+++ Inder/mcL [facility] Nitrite, UA Negative Negative - Positive [facility] pH, UA 5.5 5 - 9 [facility] Protein, UA Negative Negative - 1999(20) ++++ mg/dL [facility] Spec Grav, UA 1.01 1 - 1.03 [facility] Urobilinogen, UA 0.2 0.2 - 12 mg/dL [facility] Urology Office/Clinic Noteon 10-04-2024 Urology Office/Clinic [...] rashes or suspicious lesions Assessment/Plan Last saw [facility] Feb 2023. Lost to f/u. [facility] ER 09/25/24 - URI (productive cough, [...] Urnls Dip Stick Auto w/o Microscopy POC [id number] US Renal XR Abdomen 1 View 2. Kidney stones (N20.0: Calculus of kidney) [facility] ER 01/31/23 with gross hematuria, RLQ [...] food., # 12 tab(s), Refills(s) 0, Pharmacy: [facility]/pharmacy #[id number], 165, cm, 10/04/24 13:08:00 EST, Height/Length Dosing, 84, kg, 10/04/24 13:08:00 EST, Weight Dosing ondansetron, 4 mg = 1 tab(s), Oral, q6hr, PRN Nausea/Vomiting, # 12 tab(s), Refills(s) 0, [id number] 165, cm, 10/04/24 13:08:00 EST, Height/Length Dosing, 84, kg, 10/04/24 13:08:00 EST, Weight Dosing tamsulosin, 0.4 mg = 1 cap(s), Oral, Daily, # 30 cap(s), Refills(s) 0, [id number], 165, cm, 10/04/24 13:08:00 EST, Height/Length Dosing, 84, kg, 10/04/24 13:08:00 EST, Weight Dosing US Renal XR Abdomen 1 View Follow-up With When Contact Information CHRIS OMER PA-C, URL [address] [place] [address] Business (1) Additional Instructions: pending results of imaging/testing, will call with next steps Patient Education Kidney Stones, [id number]-[id number] Problem List/Past Medical History Ongoing Anemia Anxiety Arthritis BMI 29.0-29.9,adult Chest pain due to GERD Chronic back pain Chronic gastritis Chronic neck pain Cough Dysphagia GERD (gastroesophageal reflux disease) Gross hematuria Headache Kidney stones Ureteral stone Historical Kidney stone Procedure/Surgical History EGD - Esophagogastroduo (more content not included)... Normal [facility] Comment on above: Result Comment: Elec tronically Signed By: CHRIS OMER PA-C\.br\Date and Time Signed: 10/04/24 13:31 EST PAP ACOG PANEL 2: 30 to 65on 03-17-2023 . . Normal [facility] Comment on above: Result Comment: Perf ormed at: WB Performed By: #### [id number] #### [facility] [address] [address] [address] Jamil Oropeza Age Gdln ACOG Testing 30-65 Normal [facility] Comment on above: Performed By: #### [id number] #### [facility] [address] [place] [address] Dr. Jamil Oropeza DIAGNOSIS: Comment Normal [facility] Comment on above: Result Comment: NEGA TIVE FOR INTRAEPITHELIAL LESION OR MALIGNANCY. Performed at: WB Performed By: #### [id number] #### [facility] [address] [place] [address] Dr. Jamil Oropeza HPV Aptima Negative Normal Negative [facility] Comment on above: Result Comment: This nucleic acid amplification test detects fourteen high-risk HPV types (16,18,31,33,35,39,45,51,52,56,58,59,66,68) without differentiation. Performed at: =G Performed By: #### [id number] #### [facility] [address] [place] [address] Dr. Jamil Oropeza HPV Genotype Reflex Comment Normal [facility] Comment on above: Result Comment: Crit eria not met, HPV Genotype not performed. Performed at: WB Performed By: #### [id number] #### [facility] [address] [place] [address] Dr. Jamil Oropeza Methodology: Comment Normal [facility] Comment on above: Result Comment: This liquid based ThinPrep(R) pap test was screened with the use of an image guided system. Performed at: WB Performed By: #### [id number] #### [facility] [address] [place] [address] Dr. Jamil Oropeza Note: Comment Normal [facility] Comment on above: Result Comment: The Pap smear is a screening test designed to aid in the detection of premalignant and malignant conditions of the uterine cervix. It is not a diagnostic procedure and should not be used as the sole means of detecting cervical cancer. Both false-positive and false-negative reports do occur. . Performed at: WB Performed By: #### [id number] #### [facility] [address] [place] [address] Dr. Jamil Oropeza Performed by: Comment Normal [facility] Comment on above: Result Comment: Veronica Urban, Chiropractor Assistant (ASCP) Performed at: WB Performed By: #### [id number] #### [facility] [address] [place] [address] Dr. Jamil Oropeza Specimen adequacy: Comment Normal [facility] Comment on above: Result Comment: Sati sfactory for evaluation. Endocervical and/or squamous metaplastic cells (endocervical component) are present. Performed at: WB Performed By: #### [id number] #### [facility] [address] [place] [address] Dr. Jamil Oropeza COVID Quick Testingon 2022 Result Negative OKpanda Other AMYLASEon 01-31-2023 Amylase [Catalytic activity/Vol] 45 U/L Normal 25-115 [facility] Comment on above: Performed By: #### C MP LIPA, VERONICA #### [facility] [address] [place] [address] Dr. Jamil Oropeza CBC AUTO DIFFon 01-31-2023 BASO # 0.0 103/ul Normal 0.0-0.1 [facility] Comment on above: Performed By: #### Bernard MUÑOZ UMICRO #### [facility] [address] [place] [address] Dr. Jamil Oropeza Basophils/100 WBC (Bld) 0.4 % Normal 0.2-2.0 [facility] Comment on above: Performed By: #### Bernard MUÑOZ UMICRO #### [facility] [address] [place] [address] Dr. Jamil Oropeza EO # 0.1 103/ul Normal 0.0-0.7 [facility] Comment on above: Performed By: #### Bernard MUÑOZ UMICRO #### [facility] [address] [place] [address] Dr. Jamil Oropeza Eosinophils/100 WBC (Bld) 0.8 % Critically low 0.9-7.0 [facility] Comment on above: Performed By: #### Bernard MUÑOZ UMICRO #### [facility] [address] [place] [address] Dr. Jamil Oropeza Erythrocyte distribution width (RBC) [Ratio] 12.3 % Normal 11.0-15.0 [facility] Comment on above: Performed By: #### JASMYN PICHARDO #### [facility] [address] [place] [address] Dr. Jamil Oropeza Hematocrit (Bld) [Volume fraction] 40.4 % Normal 36.0-48.0 [facility] Comment on above: Performed By: #### JASMYN PICHARDO #### [facility] [address] [place] [address] Dr. Jamil Oropeza Hemoglobin (Bld) [Mass/Vol] 13.7 g/dL Normal 12.0-16.0 [facility] Comment on above: Performed By: #### JASMYN PICHARDO #### [facility] [address] [place] [address] Dr. Jamil Oropeza IG # 0.03 10e3/ul Normal 0.00-0.03 [facility] Comment on above: Performed By: #### JASMYN PICHARDO #### [facility] [address] [place] [address] Dr. Jamil Oropeza IG % 0.4 % Normal 0.0-0.5 [facility] Comment on above: Performed By: #### JASMYN PICHARDO #### [facility] [address] [place] [address] Dr. Jamil Oropeza LYMPH # 2.7 103/ul Normal 1.2-3.8 [facility] Comment on above: Performed By: #### JASMYN PICHARDO #### [facility] [address] [place] [address] Dr. Jamil Oropeza Lymphocytes/100 WBC (Bld) 32.9 % Normal 20.5-60.0 [facility] Comment on above: Performed By: #### JASMYN PICHARDO #### [facility] [address] [place] [address] Dr. Jamil Oropeza MANUAL DIFF REQ NO Normal [facility] Comment on above: Performed By: #### JASMYN PICHARDO #### [facility] [address] [place] [address] Dr. Jamil Oropeza MCH (RBC) [Entitic mass] 29.9 pg Normal 26.7-34.0 [facility] Comment on above: Performed By: #### E WANDA, UMICRO #### [facility] [address] [place] [address] Dr. Jamil Oropeza MCHC (RBC) [Mass/Vol] 33.9 g/dL Normal 29.9-35.2 [facility] Comment on above: Performed By: #### E TROYR, UMICRO #### [facility] [address] [place] [address] Dr. Jamil Oropeza MCV (RBC) [Entitic vol] 88.2 fL Normal 81.0-99.0 [facility] Comment on above: Performed By: #### E WANDA, UMICRO #### [facility] [address] [place] [address] Dr. Jamil Oropeza MONO # 0.5 103/ul Normal 0.3-0.8 [facility] Comment on above: Performed By: #### Bernard MUÑOZ, UMICRO #### [facility] [address] [place] [address] Dr. Jamil Oropeza Monocytes/100 WBC (Bld) 6.5 % Normal 1.7-12.0 [facility] Comment on above: Performed By: #### Bernard MUÑOZ, UMICRO #### [facility] [address] [place] [address] Dr. Jamil Oropeza NEUT # 4.9 103/ul Normal 1.4-6.5 [facility] Comment on above: Performed By: #### E TROYR, UMICRO #### [facility] [address] [place] [address] Dr. Jamil Oropeza Neutrophils/100 WBC (Bld) 59.0 % Normal 43.0-75.0 [facility] Comment on above: Performed By: #### E RUR, UMICRO #### [facility] [address] [place] [address] Dr. Jamil Oropeza Platelet mean volume (Bld) [Entitic vol] 10.2 fL Normal 9.5-13.5 [facility] Comment on above: Performed By: #### STEPHEN PICHARDORO #### [facility] [address] [place] [address] Dr. Jamil Oropeza PLT 250 103/ul Normal 150-450 [facility] Comment on above: Performed By: #### STEPHEN PICHARDORO #### [facility] [address] [address] [address] Jamil Oropeza RBC 4.58 106/ul Normal 4.20-5.40 [facility] Comment on above: Performed By: #### STEPHEN PICHARDORO #### [facility] [address] [place] [address] Dr. Jamil Oropeza WBC 8.3 103/ul Normal 4.0-11.0 [facility] Comment on above: Performed By: #### STEPHEN PICHARDORO #### [facility] [address] [place] [address] ABD/PELVIS WO CONon [...] Date: 2023-01-31 06:25 Normal [facility] CULTURE URINEon 01-31-2023 CULTURE URINE Culture Observations : LIGHT GROWTH OF MIXED GENITAL BANDAR. NO POTENTIAL PATHOGENS SEEN. Normal [facility] Comment on above: Performed By: #### Bernard MUÑOZ UMICRO #### [facility] [address] [place] [address] Dr. Jamil Oropeza ER URINE PROFILEon 3 Bilirubin Ql (U) Negative Normal NEGATIVE [facility] Comment on above: Performed By: #### Bernard MUÑOZ UMICRO #### [facility] [address] [place] [address] Dr. Jamil Oropeza Clarity (U) CLEAR Normal CLEAR [facility] Comment on above: Performed By: #### Bernard MUÑOZ UMICRO #### [facility] [address] [place] [address] Dr. Jamil Oropeza Color (U) BROWN Abnormal YELLOW [facility] Comment on above: Performed By: #### Bernard MUÑOZ UMICRO #### [facility] [address] [place] [address] Dr. Jamil Oropeza ERUAHD A micrscopic examina tion will be performed if indicated. Normal [facility] Comment on above: Performed By: #### Bernard MUÑOZ UMICRO #### [facility] [address] [place] [address] Dr. Jamil Oropeza Glucose Ql (U) 100 mg/dl Abnormal NEGATIVE [facility] Comment on above: Performed By: #### STEPHEN PICHARDORO #### [facility] [address] [place] [address] Dr. Jamil Oropeza Hemoglobin Ql (U) LARGE Abnormal NEGATIVE [facility] Comment on above: Performed By: #### STEPHEN PICHARDORO #### [facility] [address] [place] [address] Dr. Jamil Oropeza Ketones Ql (U) Negative Normal NEGATIVE [facility] Comment on above: Performed By: #### STEPHEN PICHARDORO #### [facility] [address] [place] [address] Dr. Jamil Oropeza LEUKOCYTES TRACE Abnormal NEGATIVE [facility] Comment on above: Performed By: #### STEPHEN PICHARDORO #### [facility] [address] [place] [address] Dr. Jamil Oropeza Nitrite Ql (U) Negative Normal NEGATIVE [facility] Comment on above: Performed By: #### STEPHEN PICHARDORO #### [facility] [address] [place] [address] Dr. Jamil Oropeza pH (U) 5.5 [pH] Normal 5-9 [facility] Comment on above: Performed By: #### STEPHEN PICHARDORO #### [facility] [address] [place] [address] Dr. Jamil Oropeza Protein (U) [Mass/Vol] 30 mg/dL Abnormal NEGATIVE/ TRACE [facility] Comment on above: Performed By: #### STEPHEN PICHARDORO #### [facility] [address] [place] [address] Dr. Jamil Oropeza SPEC GRAVITY >=1.030 Abnormal 1.005-<=1.0 25 [facility] Comment on above: Performed By: #### STEPHEN PICHARDORO #### [facility] [address] [place] [address] Dr. Jamil Oropeza UR MICRO IND INDICATED Normal [facility] Comment on above: Performed By: #### JASMYN PICHARDO #### [facility] [address] [place] [address] Dr. Jamil Oropeza Urobilinogen Qn (U) 0.2 {Ervin'U}/dL Normal 0.2 - 1.0 [facility] Comment on above: Performed By: #### E JASMYN MUÑOZ #### [facility] [address] [place] [address] Dr. Jamil Oropeza LIPASEon 01-31-2023 Lipase [Catalytic activity/Vol] 102.0 U/L Normal 73.0-393.0 [facility] [facility] Comment on above: Performed By: #### C MP, LIPA, VERONICA #### [facility] [address] [place] [address] Dr. Jamil Oropeza PROF 14(COMP METB)on 023 Albumin [Mass/Vol] 3.8 g/dL Normal 3.4-5.0 [facility] Comment on above: Performed By: #### C MP, LIPA, VERONICA #### [facility] [address] [place] [address] Dr. Jamil Oropeza Albumin/Globulin [Mass ratio] 1.1 {ratio} Normal [facility] Comment on above: Performed By: #### C MP, LIPA, VERONICA #### [facility] [address] [place] [address] Dr. Jamil Oropeza ALP [Catalytic activity/Vol] 100 U/L Normal 46-116 [facility] Comment on above: Performed By: #### C MP, LIPA, VERONICA #### [facility] [address] [place] [address] Dr. Jamil Oropeza ALT [Catalytic activity/Vol] 15 U/L Normal 14-59 [facility] Comment on above: Performed By: #### C MP, LIPA, VERONICA #### [facility] [address] [place] [address] Dr. Jamil Oropeza Anion gap [Moles/Vol] 12.3 mmol/L Normal [facility] Comment on above: Performed By: #### C MP, LIPA, VERONICA #### [facility] [address] [place] [address] Dr. Jamil Oropeza AST [Catalytic activity/Vol] 13 U/L Critically low 15-37 [facility] Comment on above: Performed By: #### C MP LIPA, VERONICA #### [facility] [address] [place] [address] Dr. Jamil Oropeza Bilirubin [Mass/Vol] 0.5 mg/dL Normal 0.2-1.0 [facility] Comment on above: Performed By: #### C MP LIPA, VERONICA #### [facility] [address] [place] [address] Dr. Jamil Oropeza Calcium [Mass/Vol] 8.7 mg/dL Normal 8.5-10.1 [facility] Comment on above: Performed By: #### C MP LIPA, VERONICA #### [facility] [address] [place] [address] Dr. Jamil Oropeza Chloride [Moles/Vol] 106 mmol/L Normal 98-107 [facility] Comment on above: Performed By: #### C MP LIPA, VERONICA #### [facility] [address] [place] [address] Dr. Jamil Oropeza CO2 [Moles/Vol] 27.3 mmol/L Normal 21.0-32.0 [facility] Comment on above: Performed By: #### C MP LIPA, VERONICA #### [facility] [address] [place] [address] Dr. Jamil Oropeza Creatinine [Mass/Vol] 0.87 mg/dL Normal 0.55-1.02 [facility] Comment on above: Performed By: #### C MP LIPA, VERONICA #### [facility] [address] [place] [address] Dr. Jamil Oropeza EGFR-AF CITIZEN OF [place] >60 Normal >=60 The [facility] Comment on above: Performed By: #### C MP LIPA, VERONICA #### [facility] [address] [place] [address] Dr. Jamil Oropeza EGFR-NON AF CITIZEN OF [place] >60 Normal >=60 [facility] Comment on above: Performed By: #### C MP, LIPA, VERONICA #### [facility] [address] [place] [address] Dr. Jamil Oropeza Globulin (S) [Mass/Vol] 3.4 g/dL Normal [facility] Comment on above: Performed By: #### C RADHA CHANEY VERONICA #### [facility] [address] [place] [address] Dr. Jamil Oropeza Glucose [Mass/Vol] 95 mg/dL Normal 74-106 [facility] Comment on above: Performed By: #### C RADHA CHANEY, VERONICA #### [facility] [address] [place] [address] Dr. Jamil Oropeza Potassium [Moles/Vol] 3.6 mmol/L Normal 3.5-5.1 [facility] Comment on above: Performed By: #### C RADHA CHANEY, VERONICA #### [facility] [address] [place] [address] Dr. Jamil Oropeza Protein [Mass/Vol] 7.2 g/dL Normal 6.4-8.2 [facility] Comment on above: Performed By: #### C RADHA CHANEY, VERONICA #### [facility] [address] [place] [address] Dr. Jamil Oropeza Sodium [Moles/Vol] 142 mmol/L Normal 136-145 [facility] Comment on above: Performed By: #### C RADHA CHANEY, VERONICA #### [facility] [address] [place] [address] Dr. Jamil Oropeza Urea nitrogen [Mass/Vol] 13.0 mg/dL Normal 7.0-18.0 [facility] Comment on above: Performed By: #### C RADHA CHANEY, VERONICA #### [facility] [address] [place] [address] Dr. Jamil Oropeza Urea nitrogen/Creatini ne [Mass ratio] 14.9 mg/mg Normal [facility] Comment on above: Performed By: #### C RADHA CHANEY, VERONICA #### [facility] [address] [place] [address] Dr. Jamil Oropeza URINE MICROSCOPIC ONLYon BACTERIA SMALL Abnormal NONE SEEN The [facility] Comment on above: Performed By: #### E JASMYN MUÑOZ #### [facility] [address] [place] [address] Dr. Jamil Oropeza Bacteria identified Cx Nom (U) INDICATED Normal [facility] Comment on above: Performed By: #### Bernard MUÑOZ UMICRO #### [facility] [address] [place] [address] Dr. Jamil Oropeza CAST NONE SEEN Normal NONE SEEN The [facility] Comment on above: Performed By: #### Bernard MUÑOZ UMICRO #### [facility] [address] [place] [address] Dr. Jamil Oropeza Crystals LM Nom (Urine sed) NONE SEEN Normal NONE SEEN [facility] Comment on above: Performed By: #### Bernard MUÑOZ UMICRO #### [facility] [address] [place] [address] Dr. Jamil Oropeza Epithelial cells LM Ql (Urine sed) MODERATE Abnormal NONE SEEN /RARE [facility] Comment on above: Performed By: #### Bernard MUÑOZ UMICRO #### [facility] [address] [place] [address] Dr. Jamil Oropeza MUCOUS NONE SEEN Normal NONE SEEN The [facility] Comment on above: Performed By: #### Bernard MUÑOZ UMICRO #### [facility] [address] [place] [address] Dr. Jamil Oropeza RBC (U) [#/Vol] /uL Abnormal 0-2 [facility] Comment on above: Performed By: #### Bernard MUÑOZ UMICRO #### [facility] [address] [place] [address] Dr. Jamil Oropeza WBC 2-5 Abnormal NONE SEEN The [facility] Comment on above: Performed By: #### Bernard MUÑOZ UMICRO #### [facility] [address] [place] [address] Dr. Jamil Oropeza INFLUENZA A AND B AGon 11-08 INFLUANEGH SEE BELOW Normal [facility] Comment on above: Result Comment: Nega tive for Flu A protein angiten. Infection due to Flu A cannot be ruled out. Flu A angiten in the sample may be below the detection limit of the test. Performed By: #### STEPHEN PICHARDORO #### [facility] [address] [place] [address] Dr. Jamil Oropeza [facility] SEE BELOW Normal [facility] Comment on above: Result Comment: Nega tive for Flu B protein antigen. Infection due to Flu B cannot be ruled out. Flu B antigen in the sample may be below the detection limit of the test. Performed By: #### STEPHEN PICHARDORO #### [facility] [address] [place] [address] Dr. Jamil Oropeza INFLUENZA A AG Negative Normal NEGATIVE SEE COMMENT [facility] Comment on above: Performed By: #### STEPHEN PICHARDORO #### [facility] [address] [place] [address] Dr. Jamil Oropeza INFLUENZA B AG Negative Normal NEGATIVE SEE COMMENT [facility] Comment on above: Performed By: #### JASMYN PICHARDO #### [facility] [address] [place] [address] Dr. Jamil Oropeza INTERNAL CONTROLS Within Normal Limits Normal Wi thin Normal Limits [facility] Comment on above: Performed By: #### JASMYN PICHARDO #### [facility] [address] [place] [address] Dr. Jamil Oropeza CBC AUTO DIFFon 09-26-2022 BASO # 0.0 103/ul Normal 0.0-0.1 [facility] Comment on above: Performed By: #### STEPHEN PICHARDORO #### [facility] [address] [place] [address] Dr. Jamil Oropeza Basophils/100 WBC (Bld) 0.3 % Normal 0.2-2.0 [facility] Comment on above: Performed By: #### STEPHEN PICHARDORO #### [facility] [address] [place] [address] Dr. Jamil Oropeza EO # 0.0 103/ul Normal 0.0-0.7 [facility] Comment on above: Performed By: #### JASMYN PICHARDO #### [facility] [address] [place] [address] Dr. Jamil Oropeza Eosinophils/100 WBC (Bld) 0.3 % Critically low 0.9-7.0 [facility] Comment on above: Performed By: #### STEPHEN PICHARDORO #### [facility] [address] [place] [address] Dr. Jamil Oropeza Erythrocyte distribution width (RBC) [Ratio] 12.1 % Normal 11.0-15.0 [facility] Comment on above: Performed By: #### STEPHEN PICHARDORO #### [facility] [address] [place] [address] Dr. Jamil Oropeza Hematocrit (Bld) [Volume fraction] 40.6 % Normal 36.0-48.0 [facility] Comment on above: Performed By: #### STEPHEN PICHARDORO #### [facility] [address] [place] [address] Dr. Jamil Oropeza Hemoglobin (Bld) [Mass/Vol] 13.6 g/dL Normal 12.0-16.0 [facility] Comment on above: Performed By: #### STEPHEN PICHARDORO #### [facility] [address] [place] [address] Dr. Jamil Oropeza IG # 0.03 10e3/ul Normal 0.00-0.03 [facility] Comment on above: Performed By: #### STEPHEN PICHARDORO #### [facility] [address] [place] [address] Dr. Jamil Oropeza IG % 0.3 % Normal 0.0-0.5 [facility] Comment on above: Performed By: #### STEPHEN PICHARDORO #### [facility] [address] [place] [address] Dr. Jamil Oropeza LYMPH # 1.9 103/ul Normal 1.2-3.8 [facility] Comment on above: Performed By: #### STEPHEN PICHARDORO #### [facility] [address] [place] [address] Dr. Jamil Oropeza Lymphocytes/100 WBC (Bld) 21.2 % Normal 20.5-60.0 [facility] Comment on above: Performed By: #### STEPHEN PICHARDORO #### [facility] [address] [place] [address] Dr. Jamil Oropeza MANUAL DIFF REQ NO Normal [facility] Comment on above: Performed By: #### STEPHEN PICHARDORO #### [facility] [address] [place] [address] Dr. Jamil Oropeza MCH (RBC) [Entitic mass] 29.2 pg Normal 26.7-34.0 [facility] Comment on above: Performed By: #### STEPHEN PICHARDORO #### [facility] [address] [place] [address] Dr. Jamil Oropeza MCHC (RBC) [Mass/Vol] 33.5 g/dL Normal 29.9-35.2 [facility] Comment on above: Performed By: #### STEPHEN PICHARDORO #### [facility] [address] [place] [address] Dr. Jamil Oropeza MCV (RBC) [Entitic vol] 87.1 fL Normal 81.0-99.0 [facility] Comment on above: Performed By: #### STEPHEN PICHARDORO #### [facility] [address] [place] [address] Dr. Jamil Oropeza MONO # 0.5 103/ul Normal 0.3-0.8 [facility] Comment on above: Performed By: #### STEPHEN PICHARDORO #### [facility] [address] [place] [address] Dr. Jamil Oropeza Monocytes/100 WBC (Bld) 5.4 % Normal 1.7-12.0 [facility] Comment on above: Performed By: #### STEPHEN PICHARDORO #### [facility] [address] [place] [address] Dr. Jamil Oropeza NEUT # 6.5 103/ul Normal 1.4-6.5 [facility] Comment on above: Performed By: #### STEPHEN PICHARDORO #### [facility] [address] [place] [address] Dr. Jamil Oropeza Neutrophils/100 WBC (Bld) 72.5 % Normal 43.0-75.0 [facility] Comment on above: Performed By: #### STEPHEN PICHARDORO #### [facility] [address] [place] [address] Dr. Jamil Oropeza Platelet mean volume (Bld) [Entitic vol] 10.6 fL Normal 9.5-13.5 [facility] Comment on above: Performed By: #### Bernard MUÑOZ UMARACELIRO #### [facility] [address] [address] [address] Jamil Oropeza PLT 237 103/ul Normal 150-450 [facility] Comment on above: Performed By: #### STEPHEN PICHARDORO #### [facility] [address] [place] [address] Dr. Jamil Oropeza RBC 4.66 106/ul Normal 4.20-5.40 [facility] Comment on above: Performed By: #### STEPHEN PICHARDORO #### [facility] [address] [place] [address] Dr. Jamil Oropeza WBC 8.9 103/ul Normal 4.0-11.0 [facility] Comment on above: Performed By: #### Bernard MUÑOZ UMICRO #### [facility] [address] [place] [address] Dr. Jamil Oropeza [facility]on 09-16 SARS-CoV-2 (COVID-19) RNA IDALIA+probe Ql (Unsp spec) Not detected Normal NOT DETECTED [facility] Comment on above: Result Comment: When diagnostic [...] for this test is supported by the [place] of [employer] and Human Service's declaration that [...] Performed By: #### E TROYR, UMICRO #### [facility] [address] [place] [address] Dr. Jamil Oropeza ER URINE PROFILEon 2 Bilirubin Ql (U) Negative Normal NEGATIVE [facility] Comment on above: Performed By: #### E RUR, UMICRO #### [facility] [address] [place] [address] Dr. Jamil Oropeza Clarity (U) CLEAR Normal CLEAR [facility] Comment on above: Performed By: #### E RUR, UMICRO #### [facility] [address] [place] [address] Dr. Jamil Oropeza Color (U) LT. YELLOW Normal YELLOW [facility] Comment on above: Performed By: #### E RUR, UMICRO #### [facility] [address] [place] [address] Dr. Jamil RICCID A micrscopic examina tion will be performed if indicated. Normal [facility] Comment on above: Performed By: #### E RUR, UMICRO #### [facility] [address] [place] [address] Dr. Jamil Oropeza Glucose Ql (U) Negative Normal NEGATIVE [facility] Comment on above: Performed By: #### E RUR, UMICRO #### [facility] [address] [place] [address] Dr. Jamil Oropeza Hemoglobin Ql (U) TRACE-INTACT Abnormal NEGATIVE [facility] Comment on above: Performed By: #### E RUR, UMICRO #### [facility] [address] [place] [address] Dr. Jamil Oropeza Ketones Ql (U) Negative Normal NEGATIVE [facility] Comment on above: Performed By: #### E RUR, UMICRO #### [facility] [address] [place] [address] Dr. Jamil Oropeza LEUKOCYTES Negative Normal NEGATIVE [facility] Comment on above: Performed By: #### STEPHEN PICHARDORO #### [facility] [address] [place] [address] Dr. Jamil Oropeza Nitrite Ql (U) Negative Normal NEGATIVE [facility] Comment on above: Performed By: #### STEPHEN PICHARDORO #### [facility] [address] [place] [address] Dr. Jamil Oropeza pH (U) 7.0 [pH] Normal 5-9 [facility] Comment on above: Performed By: #### JASMYN PICHARDO #### [facility] [address] [place] [address] Dr. Jamil Oropeza SPEC GRAVITY 1.010 Normal 1.005-<=1.0 25 [facility] Comment on above: Performed By: #### STEPHEN PICHARDORO #### [facility] [address] [place] [address] Dr. Jamil Oropeza UA PROTEIN Negative Normal NEGATIVE/ TRACE [facility] Comment on above: Performed By: #### JASMYN PICHARDO #### [facility] [address] [place] [address] Dr. Jamil Oropeza UR MICRO IND INDICATED Normal [facility] Comment on above: Performed By: #### JASMYN PICHARDO #### [facility] [address] [place] [address] Dr. Jamil Oropeza Urobilinogen Qn (U) 0.2 {Ervin'U}/dL Normal 0.2 - 1.0 [facility] Comment on above: Performed By: #### STEPHEN PICHARDORO #### [facility] [address] [place] [address] Dr. Jamil Oropeza INFLUENZA A AND B AGon 09-26 INFLUANEGH SEE BELOW Normal [facility] Comment on above: Result Comment: Nega tive for Flu A protein angiten. Infection due to Flu A cannot be ruled out. Flu A angiten in the sample may be below the detection limit of the test. Performed By: #### I NFLUAB #### [facility] [address] [place] [address] Dr. Jamil Oropeza [facility] SEE BELOW Normal [facility] Comment on above: Result Comment: Nega tive for Flu B protein antigen. Infection due to Flu B cannot be ruled out. Flu B antigen in the sample may be below the detection limit of the test. Performed By: #### I NFLUAB #### [facility] [address] [place] [address] Dr. Jamil Oropeza INFLUENZA A AG Negative Normal NEGATIVE SEE COMMENT [facility] Comment on above: Performed By: #### I NFLUAB #### [facility] [address] [place] [address] Dr. Jamil Oropeza INFLUENZA B AG Negative Normal NEGATIVE SEE COMMENT [facility] Comment on above: Performed By: #### I NFLUAB #### [facility] [address] [place] [address] Dr. Jamil Oropeza INTERNAL CONTROLS Within Normal Limits Normal Wi thin Normal Limits [facility] Comment on above: Performed By: #### I NFLUAB #### [facility] [address] [place] [address] Dr. Jamil Oropeza POINT OF CARE GLUCOSEon 09-16 Glucose [Mass/Vol] 100 mg/dL Normal 74-106 [facility] Comment on above: Performed By: #### P OCGLUC #### [facility] [address] [place] [address] Dr. Jamil Oropeza URon 09-26-2022 , QUAL Negative Normal NEGATIVE [facility] Comment on above: Performed By: #### E RUSean UMICRO #### [facility] [address] [place] [address] Dr. Jamil Oropeza PROF CHEM 8 (BAS METB)on Anion gap [Moles/Vol] 5.9 mmol/L Normal [facility] Comment on above: Performed By: #### B MP, HSTROPN #### [facility] [address] [address] [address] Jamil Oropeza Calcium [Mass/Vol] 9.8 mg/dL Normal 8.5-10.1 [facility] Comment on above: Performed By: #### B MP, HSTROPN #### [facility] [address] [address] [address] Jamil Oropeza Chloride [Moles/Vol] 103 mmol/L Normal 98-107 [facility] Comment on above: Performed By: #### B MP, HSTROPN #### [facility] [address] [address] [address] Jamil Oropeza CO2 [Moles/Vol] 30.9 mmol/L Normal 21.0-32.0 [facility] Comment on above: Performed By: #### B MP, HSTROPN #### [facility] [address] [place] [address] Dr. Jamil Oropeza Creatinine [Mass/Vol] 0.84 mg/dL Normal 0.55-1.02 [facility] Comment on above: Performed By: #### B RITU, HSTROPN #### [facility] [address] [address] [address] Jamil Oropeza EGFR-AF [place]IZ[place] >60 Normal >=60 [facility] Comment on above: Performed By: #### B MP, HSTROPN #### [facility] [address] [place] [address] Dr. Jamil Oropeza EGFR-NON AF CITIZ[place] >60 Normal >=60 [facility] Comment on above: Performed By: #### B MP, HSTROPN #### [facility] [address] [address] [address] Jamil Oropeza Glucose [Mass/Vol] 95 mg/dL Normal 74-106 [facility] Comment on above: Performed By: #### B MP, HSTROPN #### [facility] [address] [address] [address] Jamil Oropeza Potassium [Moles/Vol] 3.8 mmol/L Normal 3.5-5.1 [facility] Comment on above: Performed By: #### B MP, HSTROPN #### [facility] [address] [place] [address] Dr. Jamil Oropeza Sodium [Moles/Vol] 136 mmol/L Normal 136-145 [facility] Comment on above: Performed By: #### B MP, HSTROPN #### [facility] [address] [place] [address] Dr. Jamil Oropeza Urea nitrogen [Mass/Vol] 11.0 mg/dL Normal 7.0-18.0 [facility] Comment on above: Performed By: #### B RITU, HSTROPN #### [facility] [address] [place] [address] Dr. Jamil Oropeza Urea nitrogen/Creatini ne [Mass ratio] 13.1 mg/mg Normal [facility] Comment on above: Performed By: #### B RITU, HSTROPN #### [facility] [address] [place] [address] Dr. Jamil Oropeza TROPONIN, HIGH SENSITIVITYon 09-26-2022 HSTROP 5.6 pg/mL Normal 4.0-51.3 [facility] Comment on above: Result Comment: CUT- OFF POINTS HAVE BEEN ESTABLISHED BASED ON THE FOURTH UNIVERSAL DEFINITIONS OF MYOCARDIAL INFARCTION. THE UPPER REFERENCE LIMIT (URL) OF TROPONIN, DEFINED THE 99TH PERCENTILE OF cTnI DISTRIBUTION IN A REFERENCE POPULATION, HAS BEEN CONFIRMED THE DECISION THRESHOLD FOR OR DIAGNOSIS. Performed By: #### B RITU, HSTROPN #### [facility] [address] [place] [address] Dr. Jamil Oropeza URINE MICROSCOPIC ONLYon BACTERIA NONE SEEN Normal NONE SEEN [facility] Comment on above: Performed By: #### E STEPHEN MUÑOZRO #### [facility] [address] [place] [address] Dr. Jamil Oropeza Bacteria identified Cx Nom (U) NOT INDICATED Normal [facility] Comment on above: Performed By: #### E WANDA UMICRO #### [facility] [address] [place] [address] Dr. Jamil Oropeza CAST NONE SEEN Normal NONE SEEN [facility] Comment on above: Performed By: #### E RUR, UMICRO #### [facility] [address] [place] [address] Dr. Jamil Oropeza Crystals LM Nom (Urine sed) NONE SEEN Normal NONE SEEN [facility] Comment on above: Performed By: #### E RUR, UMICRO #### [facility] [address] [place] [address] Dr. Jamil Oropeza Epithelial cells LM Ql (Urine sed) FEW Abnormal NONE SEEN /RARE The [facility] Comment on above: Performed By: #### E RUR, UMICRO #### [facility] [address] [place] [address] Dr. Jamil Oropeza MUCOUS NONE SEEN Normal NONE SEEN The [facility] Comment on above: Performed By: #### E RUR, UMICRO #### [facility] [address] [place] [address] Dr. Jamil Oropeza RBC 0-2 Normal 0-2 [facility] Comment on above: Performed By: #### E RUR, UMICRO #### [facility] [address] [place] [address] Dr. Jamil Oropeza WBC NONE SEEN Normal NONE SEEN The [facility] Comment on above: Performed By: #### E RUR, UMICRO #### [facility] [address] [place] [address] Dr. Jamil Oropeza Covid-19 PCR ([facility])on 05-17 SARS-CoV-2 (COVID-19) RNA IDALIA+probe Ql (Unsp spec) Not detected Normal NOT DETECTED [facility] Comment on above: Result Comment: When diagnostic [...] for this test is supported by the Process Manufacturing Engineer of Health and Human Service's declaration that [...] #### E JASMYN MUÑOZ #### [facility] [address] [address] [address] Jamil Oropeza XR SINUSES 3 VIEWS [...] Date: 2022-06-09 01:48 Normal [facility] Vital Signs Date Time Vital Sign Value Performing Clinician Facility 03-21-2025 10:17-0400 Body mass index (BMI) [Ratio] 32.58 kg/m2 Yeny [email or web address] Work Phone: [facility] 03-21-2025 10:17-0400 Body weight 88.81 kg [employer] Work Phone: [facility] 03-21-2025 10:17-0400 Diastolic blood pressure 70 mm[Hg] [employer] Work Phone: [facility] 03-21-2025 10:17-0400 Systolic blood pressure 100 mm[Hg] [facility] [email or web address] Work Phone: [facility] 10-04-2024 12:55-0500 Blood Pressure Location CHRIS OMER [facility] 10-04-2024 12:55-0500 Diastolic blood pressure 106 mm[Hg] CHRIS OMER [facility] 10-04-2024 12:55-0500 Heart rate 70 /min CHRIS OMER [facility] 10-04-2024 12:55-0500 Respiratory rate 19 /min CHRIS OMER [facility] 10-04-2024 12:55-0500 Systolic blood pressure 119 mm[Hg] CHRIS OMER [facility] 03-07-2023 12:00-0400 Body height 166.37 cm Marco Antonio Goldsmith Other [employer] Other 03-07-2023 12:00-0400 Body mass index (BMI) [Ratio] 30.31 kg/m2 Marco Antonio Goldsmith Other [employer] Other 03-07-2023 12:00-0400 Body temperature 97.9 [degF] Marco Antonio Goldsmith Other [employer] Other 03-07-2023 12:00-0400 Body weight 83.92 kg Marco Antonio Goldsmith Other [employer] Other 03-07-2023 12:00-0400 Diastolic blood pressure 83 mm[Hg] Marco Antonio Goldsmith Other [facility] Other 03-07-2023 12:00-0400 Respiratory rate 18 /min Marco Antonio Goldsmith Other [facility] Other 03-07-2023 12:00-0400 SaO2% (BldA) [Mass fraction] 98 % Marco Antonio Rupal Other [facility] Other 03-07-2023 12:00-0400 Systolic blood pressure 123 mm[Hg] Marco Antonio Goldsmith Other [employer] Other 03-04-2023 11:01-0400 Blood Pressure Location Dany SYLVESTER [facility] 03-04-2023 11:01-0400 Diastolic blood pressure 75 mm[Hg] Dany SYLVESTER [facility] 03-04-2023 11:01-0400 Heart rate 71 /min Dany SYLVESTER [facility] 03-04-2023 11:01-0400 Respiratory rate 16 /min Dany SYLVESTER [facility] 03-04-2023 11:01-0400 Systolic blood pressure 127 mm[Hg] Dany SYLVESTER [facility] 11-27-2022 11:45-0500 Body height 166.37 cm Whit Salinas Other [facility] Other 11-27-2022 11:45-0500 Body mass index (BMI) [Ratio] 29.49 kg/m2 Whit Salinas Other [facility] Other 11-27-2022 11:45-0500 Body temperature 97.6 [degF] Whit Salinas Other [facility] Other 11-27-2022 11:45-0500 Body weight 81.65 kg Whit Salinas Other [facility] Other 11-27-2022 11:45-0500 Diastolic blood pressure 81 mm[Hg] Whit Salinas Other [facility] Other 11-27-2022 11:45-0500 Respiratory rate 18 /min Whit Salinas Other [facility] Other 11-27-2022 11:45-0500 SaO2% (BldA) [Mass fraction] 98 % Whit Salinas Other [employer] Other 11-27-2022 11:45-0500 Systolic blood pressure 124 mm[Hg] Whit Salinas Other [employer] Other 06-26-2022 10:16-0400 Blood Pressure Location [employer] [facility] [place] 06-26-2022 10:16-0400 Diastolic blood pressure 81 mm[Hg] Willie NILL [facility] [place] 06-26-2022 10:16-0400 Heart rate 68 /min Willie NILL [facility] [place] 06-26-2022 10:16-0400 Respiratory rate 16 /min Willie NILL [facility] [place] 06-26-2022 10:16-0400 Systolic blood pressure 116 mm[Hg] Willie NILL [facility] [place] Encounters Encounter Date Encounter Type Care Provider Facility Start: 05-23-2025 End: 05-23-2025 ambulatory Sarah Sanchez Facility:[facility] Start: 05-23-2025 End: 05-23-2025 Patient encounter procedure Sarah J Galea [facility] Start: 05-17-2025 End: 05-17-2025 ambulatory Yeny R KATLYN Facility:[facility] Start: 05-17-2025 End: 05-17-2025 Patient encounter procedure Sarah Radha Galea [facility] Jeff Start: 05-02-2025 End: 05-02-2025 Lab Drop off Saraharcelia Winea [facility] Start: 05-02-2025 End: 05-02-2025 ambulatory Sarahhugo Sanchez Facility:[facility] Start: 05-02-2025 End: 05-02-2025 Patient encounter procedure Sarah Radha Galea [facility] Pamella Start: 03-30-2025 ambulatory Yeny [...] Start: 10-04-2024 End: 10-04-2024 ambulatory THERESA-Anushka OMER Facility:[facility] Start: 10-04-2024 End: 10-04-2024 Patient encounter procedure CHRIS OMER [facility] Start: 03-10-2023 End: 03-10-[address] YENY POTTS . Facility:[facility] Start: 03-07-2023 End: 03-07-2023 ambulatory Marco Antonio Goldsmith Other [facility] Other Start: 03-07-2023 Office outpatient vi sit 15 minutes Marco Antonio Goldsmith [facility] [address] Start: 03-04-2023 End: 03-04-2023 Patient encounter procedure Dany SYLVESTER [facility] Start: 03-02-2023 End: 03-03-[address] DANY SYLVESTER Facility:[facility] Start: 01-31-2023 End: 01-31-2023 ambulatory YADIRA SIMPSON Facility:[facility] Start: 11-27-2022 End: 11-27-2022 ambulatory Whit Salinas Other [facility] Other Start: 11-27-2022 Office outpatient ne w 20 minutes Whit Salinas [facility] Start: 11-08-2022 End: 11-08-2022 ambulatory YADIRA SIMPSON Facility:[facility] Start: 09-26-2022 End: 09-26-2022 ambulatory YADIRA SIMPSON Facility:[facility] Start: 06-26-2022 End: 06-26-2022 Patient encounter procedure Willie MONTERROSO [facility] [place] Start: 06-09-2022 End: 06-09-2022 ambulatory DAISY SEYMOUR [...] for malignant neoplasm of cervix Pap Smear [facility] Start: 03-10-2028 Screening for malignant neoplasm of cervix [facility] Start: 03-27-2026 End: 03-27-2026 Patient encounter procedure 03/27/2026 11:00 AM EDT Office Visit [facility] [address] [place] [address] Yeny Potts, DO [address] [place] [address] [facility] Start: 08-07-2025 ambulatory Ambulatory Facility:[facility] [place] Start: 07-17-2025 Influenza vaccination Influenz a Vaccine (Season Ended) [facility] Start: 03-21-2025 End: 07-06-2026 MG Breast - bilateral Screening Bilateral screening mammogram Imaging Routine Breast cancer screening by mammogram Expected: 03/21/2025 (Approximate), Expires: 05/21/2026 [facility] Work Phone: Comment on above: Expected: 03/21/2025 (Approximate), Expires: 05/21/2026 Start: 03-21-2025 End: 03-21-2025 Patient encounter procedure 03/21/2025 10:00 AM EDT Office Visit [facility] [address] [place] [id number] Yeny Potts, DO [address] [place], [place] [id number] Arrived [facility] Comment on above: Arrived Start: 2024 Screening for malignant neoplasm of breast Mammogram [facility] CHLAMYDIA TRACHOMATI S (GENITO/STI) CHLAMYDIA TRACHOMATIS (GENITO/STI) Lab Routine Vaginal discharge STD exposure Ordered: 03/21/2025 [facility] Comment on above: Ordered: 03/21/2025 Neisseria gonorrhoea e DNA [Presence] in Unspecified specimen by IDALIA with probe detection Neisseria gonorrhea DNA probe, direct Lab Routine Vaginal discharge STD exposure Ordered: 03/21/2025 [facility] Comment on above: Ordered: 03/21/2025 SURESWAB(R) ADVANCED VAGINITIS PLUS, TMA SURESWAB(R) ADVANCED VAGINITIS PLUS, TMA Pathology and Cytology Routine Vaginal discharge STD exposure Ordered: 03/21/2025 [facility] Comment on above: Ordered: 03/21/2025 THIN PREP TIS PAP AN D HR HPV DNA THIN PREP TIS PAP AND HR HPV DNA Pathology and Cytology Routine Well woman exam with routine gynecological exam Ordered: 03/21/2025 [facility] Comment on above: Ordered: 03/21/2025 Payers Date Payer Category Payer Private Health Insurance [facility] MEDICAID [id number] 2024 Medicaid [id number] 1985 Unknown [id number] [id number]. 59 1984 Unknown [id number] 2.16.840.1.174744.3.579.2. 59 1984 Unknown [id number] 2.16.840.1.409101.3.579.2. 59 1984 Unknown [id number] 2.16.840.1.941541.3.579.2. 59 1984 Unknown [id number] 2.16.840.1.450709.3.579.2. 59 1984 Unknown [id number] 2.16.840.1.348866.3.579.2. 59 1984 Unknown [id number] 2.16.840.1.698527.3.579.2. 1259 1984 Unknown [id number] 2.16.840.1.440300.3.579.2. 72 1984 Unknown [id number] 2.16.840.1.212568.3.579.2. 1984 Unknown [id number] 2.16.840.1.568200.3.579.2. 1984 Unknown [id number] 2.16.840.1.399011.3.579.2. 1984 Unknown [id number] 2.16.840.1.417844.3.579.2. 72 1984 Unknown [id number] 2.16.840.1.343093.3.579.2. 727 1959 Medicaid [id number] 2.16.840.1.982032.19 1959 Unknown [id number] 2.16.840.1.571979.19 1959 Unknown [id number] 1959 Unknown [id number] Social History Date Type Detail Facility Start: 06-26-2022 End: 10-04-2024 Tobacco smoking status Never smoked tobacco (finding) [facility] Tobacco smoking status Never [facility] Sex Assigned At Female [facility] Tobacco smoking stat [facility] Tobacco smoking consumption unknown [facility] Start: 1985 Sex assigned at Not on file N [facility] Sexual Orientation [facility] Start: 02-27-2010 Sex Female (finding) [facility] Functional Status Date Assessment Result Facility 10-04-2024 Functional Status N/A [facility] 03-04-2023 Functional Status N/A [facility] 06-26-2022 Functional Status N/A [facility] Clinical Notes 11-27-2022 to 05-02-2025 Tosha Ba [...] provider. Document Revised: 03/13/2022 Document Reviewed: 03/13/2022 [employer] Patient Education 2023 [employer] Follow Up Care 04/21/2025 16:13:33 With:Daniel MCCOY, Sarah aGrcia, URL Address: When:3 months Comments:post PFPT [facility] 05-02-2025 Note Urology Office/Clini c Note Chief [...] E&M of Est. Patient Moderate 30-39 Min 03033 Urine Culture 2. Gross hematuria (R31.0: Gross [...] E&M of Est. Patient Moderate 30-39 Min 12889 Urine Culture Urnls Dip Stick Auto w/o Microscopy POC 03606 3. Kidney stones (N20.0: Calculus of kidney) [facility] 01/31/23 with gross hematuria, RLQ [...] subsided. -See #2 -Increase fluid intake, add lemon/pitka's point -Consider metabolic workup in the future Ordered: CT Urogram E&M of Est. Patient Moderate 30-39 Min 16885 Urine Culture Follow-up With When Contact Information [...] Results Ambulatory Poin (more content not included)... [facility] Comment on above: Result Comment: Elec tronically [...] provider. Document Revised: 03/13/2022 Document Reviewed: 03/13/2022 [employer] Patient Education ? 2023 [employer] [facility] 03-21-2025 History of Present illness Narrative Reason [...] nursing note reviewed. Exam conducted with a broadcast traffic coordinator present. Vitals: Estimated body mass index is [...] Yeny Potts DO documented in this encounter [facility] 10-04-2024 Hospital Discharge instructions Patient Education 10/04/2024 13:29:13 Kidney Stones, Rgok-ak-Oraf Kidney Stones Kidney stones are rock-like masses [...] Follow these instructions at home: Medicines Take nctp-kof-jfjjcxb and prescription medicines only as told by [...] provider. Document Revised: 06/26/2023 Document Reviewed: 06/26/2023 [employer] Patient Education 2023 [employer] Follow Up Care 10/03/2024 08:08:47 With:NEGRA NAVAS, CHRIS Wagner, LINL Address: [address] [place] [address] Business (1) When: Unknown Comments:pending results of imaging/testing, will call with next steps [facility] 10-04-2024 Note Patient Education Urology Kidney Stones [...] these instructions at home: Medicines ??? Take gzqf-pic-dccrerc and prescription medicines only as told by [...] Reviewed: 06/26/2023 Elsevier Patient Education ? 2023 [employer] [facility] 03-07-2023 Evaluation note Encounter Date Diagnosis Assessment [...] of symptoms occur by end of treatment. [facility] Other 04-19-2023 Evaluation + Plan note Diagnostic Tests Pending * PT 03/04/23 * PTT 03/04/23 * PT 03/04/23 Future Scheduled Tests Radiology* XR Abdomen 1 View 02/24/23 [facility] 04-19-2023 Hospital Discharge instructions Patient Education 03/04/2023 11:52:31 Kidney Stones, Fzyh-kk-Etjc Kidney Stones Kidney stones are rock-like masses [...] Follow these instructions at home: Medicines Take slgd-lbu-ddtcoux and prescription medicines only as told by [...] provider. Document Revised: 07/07/2022 Document Reviewed: 07/07/2022 [employer] Patient Education 2022 [employer] Follow Up Care 02/05/2023 09:42:12 With:NGA HANNON, Dany Morrissey, URL Address: [address] [place], [place] [id number]- When: Unknown [facility] 04-17-2023 NotePROCEDURE: XR KUB 1 VIEW DATE: [...] Electronically authenticated by: DALJIT SMITH Date: 2023-03-02 12:37[facility]01-12-2023 Evaluation note* Encounter Date Diagnosis Assessment Notes Treatment Notes Treatment Clinical Notes Nov, Right otitis media with effusion (ICD-10 - H65.91) take medication as directed. Middle ear fluid can be caused from allergies, traveling or viral infections. It may linger. Follow up with PCP if symptoms persist [facility] Other Evaluation + Plan note Future Appointments Appointment Date:07/24/2022 09:00:00 AM Scheduled Provider: Location:[facility] Appointment Type:XR MBS Adult (FT) Future Scheduled Tests Radiology* XR Adult Swallowing Function w/ Video: Evaluate Pt, Develop a Plan of Care & Implement Plan 07/24/22 [facility] [place] Evaluation + Plan note Future Appointments Appointment Date:08/07/2025 11:20:00 AM Scheduled Provider:Sarah Marques Location:[facility] Appointment Type:URO Office Visit Future Scheduled Tests Radiology* CT Urogram 05/02/25 [facility] Evaluation + Plan note Future Appointments Appointment Date:08/07/2025 11:20:00 AM Scheduled Provider:Sarah Marques Location:[facility] Appointment Type:URO Office Visit Diagnostic Tests Pending * Urine Culture 05/02/25 Future Scheduled Tests Radiology* CT Urogram 05/02/[address] [facility] Evaluation + Plan note Future Appointments Appointment Date:05/23/2025 04:00:00 PM Scheduled Provider: Location:.[facility] Appointment Type:CT Abdomen/Pelvis Combo () Appointment Date:08/07/2025 11:20:00 AM Scheduled Provider:Sarah Marques Location:[facility] Appointment Type:URO Office Visit Future Scheduled Tests Radiology* CT Urogram 05/23/25 [facility] Evaluation + Plan note Future Appointments Appointment Date:08/07/2025 11:20:00 AM Scheduled Provider:Sarah Marques Location:[facility] Appointment Type:URO Office Visit [facility] evaluation note* Diagnosis Well woman exam [...] surgery Surgical History EGD Hospitalization History childbirth [facility] Other Hospital course Narrative No data available for this section [facility] [place] Hospital Discharge instructions No data available for this section [facility] [place] Progress note No data available for this section [facility] [place] Summary Purpose Family History No Family History [...] Care Team (unrecognized sect ion and content) 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 Start Date End Date Katlyn Yeny, DO [address] [place] [address] PCP - [facility] 11/16/24 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 Start Date End Date Yeny Potts, DO [address] [place] [address] PCP - [facility] 11/16/24 REASON FOR VISIT (unrecogniz ed section and content) Reason Comments Well Women Visit INFORMATION SOURCE (unrecogn ized section and content) DATE CREATED AUTHOR 03/21/2023 [facility] DATE CREATED AUTHOR AUTHOR'S ORGANIZ ATION 03/24/2025 [facility] EPIC DATE CREATED AUTHOR AUTHOR'S ORGANIZ ATION 05/05/2025 [facility] DATE CREATED AUTHOR AUTHOR'S ORGANIZ ATION 05/08/2025 [facility] Center DATE CREATED AUTHOR AUTHOR'S ORGANIZ ATION 05/12/2025 [facility] DATE CREATED AUTHOR AUTHOR'S ORGANIZ ATION 06/07/2025 [facility] FOR RECORDS PERTAINING TO PATIENTS WHO [...] BE BASED ON THE PRIMARY CLINICAL RECORDS. [facility] [employer] [facility]. provides no warranty or guarantee of the accuracy or completeness of information in this document.
--- NOTE | 2025-07-24 09:43 | PC.NURSE ---
Nursing Note Cardiac Stress Test Reviewed: Medication, allergies and patient history reviewed. Stress Test: [x ] Patient tolerated stress test well. [ ] Patient unable to tolerate walking on treadmill. Switched to Lexiscan stress test. [x ] No chest pain noted per patient [ ] Chest pain that resolved prior to leaving stress lab. [x ] No dyspnea noted. [ ] Dyspnea that resolved prior to leaving stress lab. [x ] Patient left stress lab asymptomatic and hemodynamically stable. [ ] Patient taken to the Emergency Room due to non-resolving symptoms following stress test. [ ] Patient achieved target heart rate. [ ] Patient unable to achieve target heart rate. [ ] Aminophylline administered as reversal agent to Lexiscan (Regadenoson). [ ] Nitro administered. Nursing Comments:Pt had Lexiscan test done. No issues noted. Pt had no CP and no SOB with test. Ambulated to cafeteria for breakfast piror to second set of images. Pt was given a Mt Dew in stress lab due to GR and nausea.
[2025-07-24] MEDS: REGADENOSON 0.4 MG/5 ML SYRINGE IV (09:47)
--- NOTE | 2025-07-24 18:39 | PM.STRESS ---
Stress Test Stress Test Allergies Allergy/AdvReac Type Severity Reaction Status Date / Time hydrocodone (From Vicodin) Allergy Severe Vomiting Verified 09/24/24 22:50 Penicillins Allergy Severe Blister Verified 09/24/24 22:50 Requesting physician: YADIRA SIMPSON Procedure: Lexiscan Pharmacological Stress Test General Information: Reason for Stress Test: [Chest pain, shortness of breath] Cardiac History and Risk Factors: [] Resting 12 - Lead Electrocardiogram: Sinus bradycardia Otherwise normal ECG Stress Test: Protocol: [Lexiscan] Exercise Capacity: [N/A] Blood Pressure Response: [N/A] Rhythm: [Sinus, PVCs] ST - Response: [Non significant ST changes in inferior leads] Patient Response: [No chest pain] Interpretation: 1. No ischemic ECG changes on Lexiscan stress test 2. Nuclear images to be read, interpreted, and reported separately
== END 2025-07-24 07:40 | disposition home or self-care (01) ==
LOC: NM 07:39
PROVIDERS: PCP Nurse Practitioner Family; Visit Provider Nurse Practitioner Family
DX: R07.9 Chest pain, unspecified (principal)
CPT/HCPCS: 78452; 93017; A9500; J2785

== ENCOUNTER 2025-10-10 20:58 | Emergency (ER) | payer OTHER, SELFPAY ==
[2025-10-10 21:35] VITALS: BP 122/76; PULSE 77; TEMP 36.4; O2SAT 99; BMI 31.1
[2025-10-10 22:43] LABS: Glucose Urine UA NEGATIVE (NEGATIVE)
[2025-10-10 22:51] LABS: Cast Seen? NONE SEEN #/LPF (NONE SEEN); Crystals Seen? Seen #/HPF (None Seen); Urine Culture Indicated YES-FRMC
--- NOTE | 2025-10-10 23:26 | CT_ITS ---
The [address] [address] Patient Name: SARA BOSWELL MRN: [id number] date: 1985 Sex: F Assigned Patient Location: ED.MAIN Current Patient Location: ED.MAIN Accession/Order Number: [id number] Exam Date: 10/10/2025 23:38 Report Date: 10/11/2025 00:06 At the request of: DAISY SEYMOUR MD Procedure: CT abdomen pelvis wo con CT ABDOMEN AND PELVIS WITHOUT INTRAVENOUS CONTRAST: CLINICAL HISTORY: left back pain/hematuria COMPARISON: KUB 10/22/2024 TECHNIQUE: Spiral images were obtained through the abdomen and pelvis without intravenous contrast. This CT exam was performed using one or more following dose reduction techniques: Automated exposure control, adjustment of the mA and/or kV according to patient size, or use of iterative reconstruction technique. FINDINGS: Lung Bases: [No focal opacity] Organs:Liver, spleen, adrenals, pancreas unremarkable. Gallbladder is contracted. Right lower pole calculi identified nonobstructive measuring up to 8 mm in greatest craniocaudal dimension. No hydronephrosis. No ureteral lithiasis. GI: Mild retained stool throughout the colon. No bowel obstruction. Appendix unremarkable.[Mild colonic diverticulosis. Pelvis:[IUD within the uterus. No suspicious adnexal mass. Bladder is unremarkable.] Peritoneum/Retroperitoneum:No free air or free fluid. No adenopathy. Aorta appears nonaneurysmal. There are few prominence right lower quadrant lymph nodes which may be reactive these measure up to 1 x 1 cm in size.[ Abd wall/Bones:No suspicious osseous lesion. Small fat-containing umbilical hernia identified. Minor disc space narrowing L5-S1.[ CT/CT abdomen pelvis wo con IMPRESSION: Right lower pole calculi nonobstructive. No left-sided calculi, hydronephrosis or obstructive uropathy. Otherwise negative acute inflammatory process or bowel obstruction Impression dictated by: Juancho Crowe M.D. 10/11/2025 12:06 AM Dictation Location: [place] [address] Electronically authenticated by: [id number] Y Date: 10/11/2025 00:06
--- NOTE | 2025-10-10 23:27 | ED_ITS ---
HPI - Female Genitourinary General Chief complaint: Urogenital-Female Stated complaint: BLOOD IN HER URINE Time Seen by Provider: 10/10/25 22:54 Source: patient Mode of arrival: walk-in Limitations: no limitations History of Present Illness HPI Narrative: past history of kidney stones. Presents with left sided back pain and hematuria. No nausea, vomiting or fever. No abdominal pain. Related Data Home Medications ?Medication ?Instructions ?Recorded ?Confirmed No Known Home Medications 10/10/2509/17 Allergies Allergy/AdvReac Type Severity Reaction Status Date / Time hydrocodone (From Vicodin) Allergy Severe Vomiting Verified 10/10/25 21:43 Penicillins Allergy Severe Blister Verified 10/10/25 21:43 Review of Systems ROS Status of ROS 10 or more systems reviewed and unremark able except as noted in history and below [facility] Social History Smoking status: Never smoker Little interest or pleasure in doing things: not at all Feeling down, depressed, or hopeless: not at all Exam Constitutional Vital Signs, click to edit/add: Last Vital Signs Temp 97.5 F L 10/10/25 21:35 Pulse 77 10/10/25 21:35 Resp 17 10/10/25 21:35 BP 122/76 10/10/25 21:35 Pulse Ox 99 10/10/25 21:35 O2 Del Method Room Air 10/10/25 21:35 Common normals: no apparent distress, average body habitus, oriented x3, no limitations, healthy appearing, alert and well nourished [facility] Common normals: normocephalic and head/scalp atraumatic Eye Common normals: EOMs intact bilaterally and conjunctivae normal Respiratory Common normals: normal respiratory effort, no retractions, no use of accessory muscles and clear to auscultation bilaterally Cardio Common normals: regular rate, regular rhythm, S1 normal heart sound and S2 normal heart sound GI Common normals: Normal to inspection, nondistended, normoactive bowel sounds present, soft to palpation and non-tender Extremity Common normals: normal to inspection and full ROM Neuro Common normals: oriented x3, CN's II-XII intact bilaterally, moves all extremities and no focal motor deficits Psych Appearance: grossly normal Course Vital Signs Vital signs: Vital Signs Temperature 97.5 F L 10/10/25 21:35 Pulse Rate 77 10/10/25 21:35 Respiratory Rate 17 10/10/25 21:35 Blood Pressure 122/76 10/10/25 21:35 Pulse Oximetry 99 10/10/25 21:35 Oxygen Delivery Method Room Air 10/10/25 21:35 Temperature 97.5 F L 10/10/25 21:35 Pulse Rate 77 10/10/25 21:35 Respiratory Rate 17 10/10/25 21:35 Blood Pressure 122/76 10/10/25 21:35 Pulse Oximetry 99 10/10/25 21:35 Oxygen Delivery Method Room Air 10/10/25 21:35 MDM - Female Genitourinary MDM Narrative Medical decision making narrative: patient presents with hematuria and concern she may have another kidney stone. CBC, BMP WNL. CT without obstructive stone or acute inflammatory process. Urine cx ordered. Patient prescribed Bactrim ds and is to follow up with her family doctor for a recheck Lab Data Labs: Lab Results 10/10/25 10/10/25 Range/Units 21:45 23:33 WBC 9.1 (4.0-11.0) 10^3/uL RBC 4.33 (4.20-5.40) 10^6/uL Hgb 13.2 (12.0-16.0) g/dL Hct 38.9 (36.0-48.0) % MCV 89.8 (81.0-99.0) fL MCH 30.5 (26.7-34.0) pg MCHC 33.9 (29.9-35.2) g/dL RDW 12.3 (11.0-15.0) % Plt Count 258 (150-450) 10^3/uL MPV 10.5 (9.5-13.5) fL Neut % (Auto) 56.2 (43.0-75.0) % Lymph % (Auto) 36.0 (20.5-60.0) % [place] % (Auto) 6.3 (1.7-12.0) % Eos % (Auto) 0.8 L (0.9-7.0) % Baso % (Auto) 0.4 (0.2-2.0) % Neut # (Auto) 5.1 (1.4-6.5) 10^3/uL Lymph # (Auto) 3.3 (1.2-3.8) 10^3/uL [place] # (Auto) 0.6 (0.3-0.8) 10^3/uL Eos # (Auto) 0.1 (0.0-0.7) 10^3/uL Baso # (Auto) 0.0 (0.0-0.1) 10^3/uL Abs Immat Gran (auto) 0.03 (0.00-0.03) 10^3/uL Imm/Tot Granulo (auto) 0.3 (0.0-0.5) % Sodium 139 (136-145) mmol/L Potassium 3.6 (3.5-5.1) mmol/L Chloride 104 (98-107) mmol/L Carbon Dioxide 28.3 (21.0-32.0) mmol/L Anion Gap 10.3 BUN 17.0 (7.0-18.0) mg/dL Creatinine 0.68 (0.55-1.02) mg/dL Est GFR ( Amer) >60 (>=60 mL/min/1.73m^2) Est GFR (Non-Af Amer) >60 (>=60 mL/min/1.73m^2) BUN/Creatinine Ratio 25.0 Glucose 94 (74-106) mg/dL Lactate 0.7 (0.4-2.0) mmol/L Calcium 9.3 (8.5-10.1) mg/dL Urine Color Yellow (YELLOW) Urine Clarity Clear (CLEAR) Urine pH 5.5 (5.0-9.0) Ur Specific [place] >=1.030 A (1.005-1.025) Urine Protein 100 A (NEG/TRACE) mg/dL Urine Glucose (UA) Negative (NEGATIVE) mg/dL Urine Ketones Trace A (NEGATIVE) mg/dL Urine Occult Blood Large A (NEGATIVE) Urine Nitrite Negative (NEGATIVE) Urine Bilirubin Negative (NEGATIVE) Urine Urobilinogen 0.2 (0.2-1.0) EU/dL Ur Leukocyte Esterase Negative (NEGATIVE) Urine RBC 20-50 A (0-2) #/HPF Urine WBC 0-2 A (NONE SEEN) #/HPF Ur Squamous Epith Cells Few A (NONE/RARE) #/LPF Urine Crystals Seen A (None Seen) #/HPF Calcium Oxalate Crystal Few Urine Bacteria Moderate A (NONE SEEN) #/HPF Urine Casts None seen (NONE SEEN) #/LPF Urine Mucus None seen (NONE SEEN) Ur Culture Indicated? Yes-[facility] [place] [facility] Data Chest x-ray: Radiologist's impression: ITS Impressions Abdomen/Pelvis CT 10/10/25 23:26 IMPRESSION: Right lower pole calculi nonobstructive. No left-sided calculi, hydronephrosis or obstructive uropathy. Otherwise negative acute inflammatory process or bowel obstruction Impression dictated by: Juancho Crowe M.D. 10/11/2025 12:06 AM Dictation Location: [email or web address] Electronically authenticated by: [id number] Y Date: 10/11/2025 00:06 Discharge Plan Discharge Chief Complaint: Urogenital-Female Clinical Impression: Hematuria Patient Disposition: Home, Self-Care Prescriptions / Home Meds: No Action No Known Home Medications Print Language: Jordanian Instructions: Hematuria (ED) Additional Instructions: follow up with your doctor next week for recheck Referrals: YADIRA SIMPSON [Primary Care Provider, Family Practice] - 1 week
--- OUTSIDE RECORDS SUMMARY | 2025-10-10 23:34 | XMS_ITS | CCD ---
Author Organization [facility] CliniSymt Care Team Providers Care Salon Stylist Name Role Phone YADIRA SIMPSON Primary Care Physician [phone] Whit Salinas Unavailable Marco Antonio Goldsmith Unavailable YADIRA SIMPSON Primary Care Unavailable DAISY SEYMOUR Admitting Unavailable DAISY SEYMOUR Attending Unavailable DAISY SEYMOUR Consulting Unavailable TAI GOMEZ Consulting Unavailable NGA, DR NAVEEN Morrissey Admitting Unavailable NGA, DR NAVEEN Morrissey Attending Unavailable [facility] Unavailable NGA, DR NAVEEN Morrissey Consulting Unavailable DALJIT SMITH Consulting Unavailable KATLYN ., DR SAINI Admitting Unavailable KATLYN ., DR SAINI Attending Unavailable [facility] Primary Care Unavailable KATLYN ., DR SAINI Consulting Unavailable DAISY SEYMOUR Consulting Unavailable DAISY SEYMOUR Admitting Unavailable DAISY SEYMOUR Attending [facility] Unavailable JEFF LOMBARDI Consulting Unavailable [facility] Primary Care Unavailable PAY ., DR SOLORZANO Admitting Unavailable PAY ., DR SOLORZANO Attending Unavailable PAY ., DR SOLORZANO Consulting Unavailable DALEY ., MR GIVENS Consulting Un[facility] Unavailable VADIM .ELIZABETH Admitting Unavailable VADIM ., ELIZABETH Attending Unavailable VADIM ., ELIZABETH Consulting Unavailable Odalis Potts DOy Unavailable DEONDRE POTTS Attending Unavailable Deondre POTTS R Referring Unavailable Sarah Sanchez Attending Unavailable Sarah Sanchez Attending Unavailable Odalis POTTSy R Referring Unavailable Galea, Sarah Garcia Referring Unavailable Galea, Sarah J Admitting Unavailable Galmarilee, Sarah J Attending Unavailable KEMAR MCMAHON Attending Unavailable CHRIS OMER Attending Unavailable Galmarilee, Sarah Garcia Admitting Unavailable Galea, Sarah Garcia Attending Unavailable Galea, Sarah J Attending Unavailable Sarah Sanchez Attending Unavailable Odalis Potts DOy Unavailable Allergies Allergy ClassificationReported Allergen(s)Allergy TypeDate of OnsetReaction(s) Facility (9 sources)Acetaminophen / HYDROcodone; Translations: [acetaminophen-hydrocodone]Drug AllergyVomiting (disorder)[facility] (18 sources)Codeine; Translations: [codeine]Drug Pcebwoq96-89-0849Lntojcfr (disorder), GI intoleranceMer[facility] Health [facility] (19 sources)Penicillins; Translations: [penicillins]Drug lchynyu05-58-1195Urvef of mouth (disorder), UnknownMer[facility] (2 sources)CodonePropensity to adverse reactionsvoIndiana [facility] Other (8 sources)Seasonal allergy; Translations: [Seasonal]Allergy to substanceUnknown (qualifier value)[facility] (1 source)CodeineDrug Hgbzwwd22-70-5464Wni [facility] (1 source)HYDROcodoneDrug Ogvjydz56-67-4062Ylq [facility] (6 sources)HYDROcodoneDrug Bywfbls43-98-4307RV intoleranceNOMS Healthcare Medications Current Medications MedicationDrug Class(es)DatesSig (Normalized)Sig (Original)azithromycin 250 mg oral tablet (3 sources)Macrolide AntimicrobialStart: 40-12-9056Dabtvgjmnkfy 250 MG 2 tablets on the first day, then 1 tablet daily for 4 days Orally Once a day for 5 day(s) Feb, ActiveZyrtec (12 sources)Histamine-1 Receptor AntagonistStart: 54-67-1076Lowguf Daily Start Date: 03/04/23 Status: Ordered Repeat number: 1Start: 61-41-8486Fjneqj Daily Start Date: 03/04/23 Status: Orderedtake 1 tablet by mouth every twenty-four hours as neededcetirizine (ZyrTEC ALLERGY) 10 MG tablet Take 10 mg by mouth Daily as needed for allergies Activefluticasone propionate 0.05 mg/actuat metered dose nasal spray (1 source)CorticosteroidStart: 42-95-0207bxmx 1 spray(s) nasal route twice daily Fluticasone Propionate 50 MCG/ACT 1 spray in each nostril Nasally Twice a day for 14 days Feb, Activeketorolac tromethamine 10 mg oral tablet (1 source)Nonsteroidal Anti-inflammatory Drug, Cyclooxygenase InhibitorStart: 30-32-2981ykts 1 tablet by mouth every six hours as needed for pain, then take 4 tablets by mouth once daily at mealtime as needed for painketorolac 10 mg Tab 10 mg = 1 tab(s), Oral, q6hr, PRN for pain, not to exceed 40 mg/day. Take with f ood., # 12 tab(s), Refills(s) 0, Pharmacy: [facility]/pharmacy #[id number], 165, cm, 10/04/24 13:08:00 EST, Height/Length Dosing, 84, kg, 10/04/24 13:08:00 EST, Weight Dosing Start Date: 10/04/24 Status: Orderedlevonorgestrel 0.727332 mg/hr intrauterine system (6 sources)Progestin, Progestin-containing Intrauterine DeviceLevonorgestrel (Mirena, 52 MG,) 20 MCG/DAY intrauterine device Intrauterine Activeondansetron 4 mg oral tablet (11 sources)Serotonin-3 Receptor AntagonistStart: 80-69-8741rfhq 1 tablet by mouth every six hours as needed for nauseaZofran 4 mg Tab 4 mg = 1 tab(s), Oral, q6hr, PRN Nausea/Vomiting, # 12 tab(s), Refills(s) 0, Pharmacy: [facility]/pharmacy #[id number], 165, cm, 10/04/24 13:08:00 EST, Height/Length Dosing, 84, kg, 10/04/24 13:08:00 EST, Weight Dosing Start Date: 10/04/24 Status: Ordered Quantity: 12.0 Unit: tab(s) Repeat number: 1 Indications: Calculus of kidney;Start: 02-15-2024 ondansetron ODT (Zofran-ODT) 4 MG disintegrating tablet DISSOLVE 1 TABLET ON THE TONGUE EVERY 6 HOURS NEEDED FOR NAUSEA 02/15/2024 Activepantoprazole 40 mg delayed release oral tablet (3 sources)Proton Pump InhibitorStart: 58-82-4046nqvy 1 tablet by mouth once dailyPantoprazole [address] Tab 40 mg = 1 tab(s), Oral, Daily, Refills(s) 0 Start Date: 11/19/20 Status: Orderedsucralfate 1000 mg oral tablet (3 sources)Aluminum ComplexStart: 81-86-1472jgkbwskoas 1 g Tab 1 gm = 1 tab(s), Oral, QIDACHS, Refills(s) 0 Start Date: 11/19/20 Status: Orderedtamsulosin hydrochloride 0.4 mg oral capsule (1 source)alpha-Adrenergic BlockerStart: 50-31-7240buyh 1 capsule by mouth once dailyFlomax 0.4 mg Cap 0.4 mg = 1 cap(s), Oral, Daily, # 30 cap(s), Refills(s) 0, Pharmacy: [facility]/pharmacy#[id number], 165, cm, 10/04/24 13:08:00 EST, Height/Length Dosing, 84, kg, 10/04/24 13:08:00 EST, Weight Dosing Start Date: 10/04/24 Status: Ordered Completed/Discontinued Medications MedicationDrug Class(es)DatesSig (Normalized)Sig (Original)methylPREDNISolone 4 mg oral tablet (2 sources)CorticosteroidStart: 96-14-8423goiuhuRYJENATpamcn 4 MG as directed Orally Once a day for 6 days Nov, Not-Taking Problems Active Problems Problem ClassificationProblemDateDocumented DateEpisodic/ChronicAbdominal pain (3 sources)Right lower quadrant pain; Translations: [RIGHT LOWER QUADRANT PAIN] Onset: 54-86-0641SlpxyzjvCtefrvf disorders (7 sources)Xfubzeh22-31-6620AnqqucpPuolscbr of urinary tract (20 sources)Ureteric stone; Translations: [Calculus of ureter]Onset: 03-02-2023 EpisodicDeficiency and other anemia (6 sources)Oleqdy57-39-8611GhiudtxoMxudtcgqa of lipid metabolism (2 sources)Pure hypercholesterolemia, unspecified; Translations: [Pure hypercholesterolemia, unspecified]Onset: 93-50-6616RszhjruTbyendrksj disorders (8 sources)Gastroesophageal reflux disease without esophagitis; Translations: [Gastro-esophageal reflux disease without esophagitis]Onset: 23-36-5995Silikww Gastritis and duodenitis (7 sources)Chronic mcyiavkds32-48-9815ZkvhkrvBrogphjgtlthm symptoms and ill- defined conditions (3 sources)Genuine stress incontinence; Translations: [Stress incontinence (female) (male)]Onset: 653855-21-8478CzagwlrKmtsphhoryehp symptoms and ill-defined conditions (7 sources)Blood in urine; Translations: [Gross hematuria]Onset: 10-04-2024 EpisodicHeadache; including migraine (6 sources)Mbueunes52-85-7943UaqtvdpdJeugljdketgru and screening for infectious disease (3 sources)Encounter for screening for human papillomavirus (HPV); Translations: [Exposure to sexually transmissible disorder]Onset: 009677-91-7738Bvdcfsef Nonspecific chest pain (9 sources)Chest pain; Translations: [Precordial pain]Onset: 08-09-2025 95-99-3029QxwadyfmHqqtassclrfnqh (6 sources)Nrgmrcovv57-17-3003HxppgvnKdopj diseases of kidney and ureters (1 source)Hydronephrosis with renal and ureteral calculous obstruction; Translations: [HYDRONPHROS RENL AND URETRL CALCUL OBST]Onset: 32-90-2849Xajbessz Other female genital disorders (2 sources)Vaginal discharge; Translations: [Other specified noninflammatory disorders of vagina]87-75-0296RtdflrkrPenpd gastrointestinal disorders (8 sources)Dysphagia; Translations: [Dysphagia, unspecified]Onset: 06-26-2022 EpisodicOther lower respiratory disease (8 sources)Cough; Translations: [Cough, unspecified]Onset: 61-43-6851Wxfrjoro Other nutritional; endocrine; and metabolic disorders (7 sources)Overweight in adulthood with body mass index of 25 or more but less than 4182-21-4649BfyztetiHsqvy screening for suspected conditions (not mental disorders or infectious disease) (6 sources)Encounter for screening for malignant neoplasm of cervix; Translations: [Patient encounter status]Onset: 57-22-0615WfzchjnhKrfhx upper respiratory infections (3 sources)Maxillary sinusitis; Translations: [Maxillary sinusitis]Onset: 17-48-7233TvxiwrjVbmzsv media and related conditions (1 source)Unspecified nonsuppurative otitis media, right earEpisodicResidual codes; unclassified (7 sources)Chronic back yupr38-66-4559BbiwlokeOkivosjlrvo; intervertebral disc disorders; other back problems (7 sources)Chronic neck cmrn96-58-6482WlqjefgeYuabkofnulnv (2 sources)COUGH, UNSPECIFIED; Translations: [COUGH, UNSPECIFIED]Onset: 87-74-8568Abzvqiqlmyez (1 source)CONTACT W/AND (SUSP) EXPOS COVID-19; Translations: [CONTACT W/AND (SUSP) EXPOS COVID-19]Onset: 09-29-2022 Past or Other Problems Problem ClassificationProblemDateDocumented DateEpisodic/ChronicAllergic reactions (1 source)Other allergy, initial encounter; Translations: [OTHER ALLERGY INITIAL ENCOUNTER]Onset: 31-93-7886EtphjnrcUafyemxhmr associated with dizziness or vertigo (4 sources)Dizziness and giddiness; Translations: [DIZZINESS AND GIDDINESS] Onset: 06-83-2545VqkefeixNcykpcllujit; infection of eye (except that caused by tuberculosis or sexually transmitteddisease) (4 sources)Other mucopurulent conjunctivitis, right eye; Translations: [OTH MUCOPURULNT CONJUNCTIVIT RT EYE]Onset: 36-63-9392ZjjfybewDsnik aftercare (1 source)Other watermaster (current) drug therapy; Translations: [OTH NREMT CURRENT DRUG THERAPY]Onset: 01-39-5133LdqagbndIlyfu upper respiratory infections (2 sources)Acute pansinusitis, unspecified; Translations: [Acute upper respiratory infection, unspecified]Onset: 05-99-6895MpgutkmbVdgkwscngjfw (1 source)Cough R05.9Unclassified (1 source)COUGH, UNSPECIFIED; Translations: [COUGH, UNSPECIFIED]Onset: 11-08-2022 Results Test NameValueInterpretationReference RangeFacilityOffice Visiton 08-09-2025 Follow-up [id number] Nancy Boswell 1985 F Date Provider Department Center 08/09/2025 245-KEMAR MCMAHON [facility] Family History Problem Relation Age of Onset Aortic stenosis Mother Hypertension Father Hyperlipidemia Father Heart attack Brother Family Status - Relation Status Age at Mother Alive Father Alive Brother Alive Level of Service:10363 OK OFFICE/OUTPATIENT NEW MODERATE MDM 45 MINUTES Reason for Visit and Comments: Cardiac Stress Test [489] - Abnormal New Patient [632] - Patient is here today to establish care with cardiology. Patient recently had a stress test which was abnormal. Patient states she chest pain and SOB with exertion, which she states feels like a burning. Patient states she does feel occasional fluttering her chest. Hand and legs fall asleep easily Hyperlipidemia [182] Fatigue [46]NormalMercy Health Anderson HospitalCT Urogramon 61-73-0327SD UrogramExam Date/Time: 05/23/2025 16:33 EDT Reason for Exam: R31.0;Hematuria Report IMPRESSION: A FEW SMALL RIGHT LOWER POLE RENAL CALCULI. OTHERWISE, ESSENTIALLY NEGATIVE CT UROGRAM. EXAM: CT Urogram DATE: 05/23/2025 3:56 PM CLINICAL HISTORY: Hematuria, R31.0. Technologist Comments: pt reports she currently has kidney stones, unsure what side. this was found by US in [facility] office. trace amount of blood in [...] lymph nodes. Vasculature: No aneurysm or dissection. Mesentery/peritoneum/retroperitoneum: No ascites, organized fluid collection, inflammatory changes, [...] Jose Gasca MD Transcribed by: FLOR Technologist: [facility] Urineon 45-99-9687Pnogzzty identified Cx Nom (U)Microbiology PROCEDURE: Urine Culture [R1] SOURCE: U CleanCatch BODY SITE: COLLECTED DATE/TIME: 05/02/2025 15:57 EDT RECEIVED DATE/TIME: 05/03/2025 17:23 EDT START DATE/TIME: 05/03/2025 17:23 EDT FREE TEXT SOURCE: Sarah Marques Alysha J FINAL REPORTS Final Report [] Verified Date/Time: 05/05/2025 11:01 EDT 2,000 cfu/ml Mixed skin contaminants Performing Locations R1: This test was performed at: [facility], [address] [place] [address], [address]- , , FuilivAkyonnWilson Memorial HospitalComment on above:Performed By: #### [id number] #### [facility] [address] [place] [address]Otoryeeekl Visit Summaryon 31-52-3465Ghlvxheula Visit Summary Ambulatory Visit Summary NANCY DORANTES :1985 Visit Date:05/02/2025 Ambulatory Visit Instructions [...] With: Sarah Marques Where: [facility] [address], [address] [place] [address]- Medications What How Much When Why Instructions [...] you for choosing us for your care. [facility] HospitalIGP,APTIMA HPV,AGE GDLNon 54-77-8856TXY GDLN ACOG TESTINGNote.NOMS HealthcareComment on above:TESTS RESULT FLAG UNITS REF RANGE LAB Clinician Provided Cytology Information Source.............Cervix;Endocervix No. of containers..01 ThinPrep Vial Age Ryanne GASCA Inez... 30-65 FLAG LEGEND: L-Low Normal,H-High Normal,LL-Alert Low,HH-Alert High <-Panic Low,>-Panic High,A-Abnormal,AA-Critical Abnormal Performed at: 01 =G [facility] [place] [address] Kassandra Phillips MD, HPV APTIMANegativeNegativeNOMS HealthcareComment on above:This nucleic acid amplification test detects fourteen high- risk HPV types (16,18,31,33,35,39,45,51,52,56,58,59,66,68) without differentiation. Performed at: =G - [facility] [id number] [employer] Furn[employer] Tender: Kassandra Phillips MD, Phone: [phone] Performed at: - [facility] [id number] [employer] Tender: Kassandra Phillips MD, Phone: [phone] IGP, APTIMA HPV, RFX 16/18,45Note.NOMS HealthcareComment on above:TESTS RESULT FLAG UNITS REF RANGE LAB DIAGNOSIS: 02 NEGATIVE FOR INTRAEPITHELIAL LESION OR MALIGNANCY. Specimen adequacy: 02 Satisfactory for evaluation. Endocervical and/or squamous metaplastic cells (endocervical component) are present. Performed by: 02 Deven Olmstead, Automatic Wheel Line Operator ([facility]) . 02 Note: Note 02 The Pap [...] <-Panic Low,>-Panic High,A-Abnormal,AA-Critical Abnormal Performed at: [address] [address] Kassandra Phillips MD, BRUSH-SPATULA CERVIX ENDOCERVIX CLINISYNCNOMS HealthcareRECURRENT VAGINITIS (HTRX)on 19-94-1808ZYVFZYEKD VAGINAE 16.999AbnormalNOMS HealthcareATOPOBIUM VAGINAEDetectedAbnormalNOMS Healthcare BVAB 2,3 (BACTERIAL VAGINOSIS ASSOCIATED BACTERIA 2, 3); MOBILUNCUS SPP25.866 AbnormalNOMS HealthcareBVAB 2,3 (BACTERIAL VAGINOSIS ASSOCIATED BACTERIA 2, 3); MOBILUNCUS SPPDetectedAbnormalNOMS HealthcareCANDIDA ALBICANS, PARAPSILOSIS, SSFJYVLCAY4VEEN HealthcareCANDIDA ALBICANS, PARAPSILOSIS, TROPICALISNot detected NOMS HealthcareCANDIDA JPMXGPON5AKYA HealthcareCANDIDA GLABRATANot detectedNOMS HealthcareCANDIDA IMVSVK6YZLQ HealthcareCANDIDA KRUSEINot detectedNOMS HealthcareCHLAMYDIA QEAZAETKEDK0KVCA HealthcareCHLAMYDIA TRACHOMATISNot detected NOMS HealthcareERMB, C; MEFA14.268AbnormalNOMS HealthcareERMB, C; MEFADetected AbnormalNOMS HealthcareGARDNERELLA YJSIGTOTL06.496AbnormalNOMS Healthcare GARDNERELLA VAGINALISDetectedAbnormalNOMS HealthcareInterpretation and review of laboratory resultsAbnormalNOMS HealthcareMEGASPHAERA (TYPES 1, 2)0NOMS HealthcareMEGASPHAERA (TYPES 1, 2)Not detectedNOMS HealthcareMYCOPLASMA JTPVFVTFDA6NGSI HealthcareMYCOPLASMA GENITALIUMNot detectedNOMS Healthcare NEISSERIA PRTZETUENNY3SRPR HealthcareNEISSERIA GONORRHOEAENot detectedNOMS HealthcareTET B, TET M22.159AbnormalNOMS HealthcareTET B, TET MDetectedAbnormal NOMS HealthcareTRICHOMONAS HIRAKEXMC7ODGC HealthcareTRICHOMONAS VAGINALISNot detectedNOMS HealthcareNOMS HealthcareHCG ( test) Ql (U)on 03-21-2025 Interpretation and review of laboratory resultsNormalNOCA HealthcarePreg Test, UrNegativeNegativeNOCA HealthcareNOCA HealthcareUrinalysis macro (dipstick) panel (U)on 09-40-8903Yagfyqwpv, UANegativeNegative - 4(70) +++ mg/dLNOMS HealthcareBlood, UAPositiveNegative - 50 Ryan/mcLNOMS HealthcareComment on above: trace-intactClarity, UAClearNOMS HealthcareColor, UAYellowNOMS Healthcare Glucose, UANegativeNegative - 2000(110) ++++ mg/dLNOMS HealthcareInterpretation and review of laboratory resultsAbnormalNOMS HealthcareKetones, UANegative Negative - 160(16) ++++ mg/dLNOMS HealthcareLeukocytes, UANegativeNegative - 500+++ Inder/mcLNOMS HealthcareNitrite, UANegativeNegative - PositiveNOCA HealthcarepH, UA5.55 - 9NOCA HealthcareProtein, UANegativeNegative - 2000(20) ++++ mg/dLNOCA HealthcareSpec Grav, UA1.011 - 1.03NOCA HealthcareUrobilinogen, UA0.20.2 - 12 mg/dLMercy hospital springfield HealthcareUrology Office/Clinic Noteon 31-47-2409Gfmmavq Office/Clinic NoteUrology Office/Clinic Note Chief Complaint Blood in urine [...] rashes or suspicious lesions Assessment/Plan Last saw [facility] Feb 2023. Lost to f/u. [facility] ER 09/25/24 - URI (productive cough, fever/chills. [...] Urnls Dip Stick Auto w/o Microscopy POC 01039 US Renal XR Abdomen 1 View 2. Kidney stones (N20.0: Calculus of kidney) [facility] ER 01/31/23 with gross hematuria, RLQ pain, nausea. CT - 6mm calyceal stone R upper pole; mild R hydronephrosis secondary to a 2.5 mm stone at the ureteropelvic junction. Denies history of kidney stones. Patient unsure when/if she passed the stone, was straining urine intermittently. States she has nothad any pain in the last 2 weeks. [...] food., # 12 tab(s), Refills(s) 0, Pharmacy: [facility]/pharmacy #[id number], 165, cm, 10/04/24 13:08:00 EST, Height/LengthDosing, 84, kg, 10/04/24 13:08:00 EST, Weight Dosing ondansetron, 4 mg = 1 tab(s), Oral, q6hr, PRN Nausea/Vomiting, # 12 tab(s), Refills(s) 0, [id number], 165, cm, 10/04/24 13:08:00 EST, Height/Length Dosing, 84, kg, 10/04/24 13:08:00EST, Weight Dosing tamsulosin, 0.4 mg = 1 cap(s), Oral, Daily, # 30 cap(s), Refills(s) 0, [id number], 165, cm, 10/04/24 13:08:00 EST, Height/Length Dosing, 84, kg, 10/04/24 13:08:00 EST, Weight Dosing US Renal XR Abdomen 1 View Follow-up With When Contact Information CHRIS OMER PA-C, URL [address] [place] [address] Business (1) Additional Instructions: pending results of imaging/testing, will call with next steps Patient Education Kidney Stones, Qlob-kb-Fydx Problem List/Past Medical History Ongoing Anemia Anxiety Arthritis BMI 29.0-29.9,adult Chest pain due to GERD Chronic back pain Chronic gastritis Chronic neck pain Cough Dysphagia GERD (gastroesophageal reflux disease) Gross hematuria Headache Kidney stones Ureteral stone Historical Kidney stone Procedure/Surgical History EGD - Esophagogastroduo (more content not included)...[facility] HospitalComment on above:Result Comment: Electronically Signed By: CHRIS OMER PA-C\.br\Date and Time Signed: 10/04/2413:31 ESTUS PELVIS W/ TRANSVAGINAL on 78-26-04[address] [address] Ultrasound Report Signed Patient: NANCY BOSWELL MR#: [id number] : 1985 Acct:[id number] Age/Sex: 39 / F ADM Date: 03/29/24 Loc: [facility] Attending Dr: Deondre Potts D.O. Ordering Physician: Deondre Potts D.O. Date of Service: 03/29/24 Procedure(s): US pelvis w/ transvaginal Accession Number(s): [id number] cc: YADIRA SIMPSON ; Deondre Potts D.O. [place] [address] Patient Name: NANCY BOSWELL MRN: [facility]:[id number] date: 1985 Sex: F Assigned Patient Location: [facility] Current Patient Location: [facility] Accession/Order Number: [id number] Exam Date: 03/29/2024 10:06 Report Date: 03/29/2024 11:59 At the request of: DEONDRE POTTS Procedure: US pelvis w/ transvaginal EXAMINATION: US pelvis w/ transvaginal HISTORY: PELVIC PAIN COMPARISON: No relevant comparison available. TECHNIQUE: Transabdominal and/or transvaginal sonographic examination was performed as indicated by examination type. FINDINGS: UTERUS: Normal size and appearance. Uterus size: 10.5 x 4.2 x 6.0 cm ENDOMETRIUM: IUD within mid to lower endometrial cavity. Normal thickness and echogenicity of endometrium. Endometrial thickness: 5 mm RIGHT OVARY: Normal size and appearance. Duplex Doppler demonstrates normal waveform and flow; resistive index 0.8. Ovary size: 2.2 x 1.9 x 1.1 cm LEFT OVARY: Contains 2 benign-appearing cysts, largest is 2.6 cm. Duplex Doppler demonstrates normal waveform and flow; resistive index 0.6. Ovary size: 4.7 x 2.3 x 3.7 cm CUL-DE-SAC: Unremarkable. No significant free fluid. BLADDER: Unremarkable. OTHER: None. US/US pelvis w/ transvaginal IMPRESSION: 1. There are 2 benign-appearing cysts within the left ovary, 2.6 cm and 2.3 cm in diameter respectively. 2. IUD within mid to lower endometrial cavity. Electronically authenticated by: LAXMI MARIE Date: 03/29/2024 11:59 Dictated By: Laxmi Marie M.D. Signed By: 03/29/24 1202 DD/ 1159 TD/TT: Counsel:RAMOSadiology, Radiologist, - 03/29/2024 [place] [address] Ultrasound Report Signed Patient: NANCY BOSWELL MR#: [id number] : 1985 Acct:[id number] Age/Sex: 39 / F ADM Date: 03/29/24 Loc: [facility] Attending Dr: Deondre Potts D.O. Ordering Physician: Deondre Potts D.O. Date of Service: 03/29/24 Procedure(s): US pelvis w/ transvaginal Accession Number(s): [id number] cc: YADIRA SIMPSON ; Deondre Potts D.O. The [address] [address] Patient Name: NANCY BOSWELL MRN: [id number] date: 1985 Sex: F Assigned Patient Location: [facility] Current Patient Location: [facility] Accession/Order Number: [id number] Exam Date: 03/29/2024 10:06 Report Date: 03/29/2024 11:59 At the request of: DEONDRE POTTS Procedure: US pelvis w/ transvaginal EXAMINATION: US pelvis w/ transvaginal HISTORY: PELVIC PAIN COMPARISON: No relevant comparison available. TECHNIQUE: Transabdominal and/or transvaginal sonographic examination was performed as indicated by examination type. FINDINGS: UTERUS: Normal size and appearance. Uterus size: 10.5 x 4.2 x 6.0 cm ENDOMETRIUM: IUD within mid to lower endometrial cavity. Normal thickness and echogenicity of endometrium. Endometrial thickness: 5 mm RIGHT OVARY: Normal size and appearance. Duplex Doppler demonstrates normal waveform and flow; resistive index 0.8. Ovary size: 2.2 x 1.9 x 1.1 cm LEFT OVARY: Contains 2 benign-appearing cysts, largest is 2.6 cm. Duplex Doppler demonstrates normal waveform and flow; resistive index 0.6. Ovary size: 4.7 x 2.3 x 3.7 cm CUL-DE-SAC: Unremarkable. No significant free fluid. BLADDER: Unremarkable. OTHER: None. US/US pelvis w/ transvaginal IMPRESSION: 1. There are 2 benign-appearing cysts within the left ovary, 2.6 cm and 2.3 cm in diameter respectively. 2. IUD within mid to lower endometrial cavity. Electronically authenticated by: LAXMI MARIE Date: 03/29/2024 11:59 Dictated By: Laxmi Marie M.D. Signed By: 03/29/24 1202 DD/ 1159 TD/TT: Counsel: [facility] CenterRadiology Study observation (narrative)[facility] HealthcareUS PELVIS W/ TRANSVAGINALOrdered By: Radiologist Radiology on 86-22-9371DVFS [employer] Work Phone: pap ACOG PANEL 2: 30 to 65on 03-17-2023..NormalThe [facility] [facility]uff[facility] HospitalComment on above:Result Comment: Performed at: WBPerformed By: #### [id number] #### [facility] [address] [place] [address] Dr. Jamil Morales Gdln ACOG Bawtsqo20-85UveernMquMartins Ferry HospitalComment on above:Performed By: #### [id number] #### [facility] [address] [place] [address] Dr. Jamil OropezaDIAGNOSIS:CommentNoRegency Hospital Cleveland East on above: Result Comment: NEGATIVE FOR INTRAEPITHELIAL LESION OR MALIGNANCY. Performed at: WBPerformed By: #### [id number] #### [facility] [address] [place] [address] Dr. Jamil Scott AptimaNegativeNormalNegativeChildren'S Hospital Of ColumbusComment on above:Result Comment: This nucleic acid amplification test detects fourteen high-risk HPV types (16,18,31,33,35,39,45,51,52,56,58,59,66,68) without differentiation. Performed at: =GPerformed By: #### [id number] #### [facility] [address] [place] [address] Dr. Jamil Scott Genotype ReflexCommentNoMartins Ferry HospitalComment on above:Result Comment: Criteria not met, HPV Genotype not performed. Performed at: WBPerformed By: #### [id number] #### [facility] [address] [place] [address] Dr. Jamil Bhardwajology:CommentCleveland Clinic Medina Hospital on above: Result Comment: This liquid based ThinPrep(R) pap test was screened with the use of an image guided system. Performed at: WBPerformed By: #### [id number] #### [facility] [address] [place] [address] Dr. Jamil OropezaNote:CommentCleveland Clinic Medina Hospital on above:Result Comment: The Pap smear is a screening test designed to aid in the detection of premalignant and malignant conditions of the uterine cervix. It is not a diagnostic procedure and should not be used as the sole means of detecting cervical cancer. Both false-positive and false-negative reports do occur. . Performed at: WBPerformed By: #### [id number] #### [facility] [address] [place] [address] Dr. Jamil OropezaPerformed by:CommentNoRegency Hospital Cleveland East on above: Result Comment: Veronica Urban, [employer] Commerce Architect (ASCP) Performed at: WBPerformed By: #### [id number] #### [place] [address] [address] Jamil OropezaSpeccitlali adequacy:CommentCleveland Clinic Medina Hospital on above:Result Comment: Satisfactory for evaluation. Endocervical and/or squamous metaplastic cells (endocervical component) are present. Performed at: WBPerformed By: #### [id number] #### [facility] [address] [place] [address] Dr. Jamil Mars Quick Testingon [id number] [facility] Other AMYLASEon 15-71-3332Twovqzt [Catalytic activity/Vol]45 U/XAhgqcz30-059ZmdKettering Health – Soin Medical Center on above:Performed By: #### RADHA MORGAN AMY #### [facility] [address] [place] [address] Dr. Jamil Cruz AUTO DIFFon [id number] #0.0 103/ulNormal0.0-0.1The [facility] Medical Centerment on above:Performed By: #### STEPHEN FUENTESRO #### [facility] [address] [place] [address] Dr. Jamil OropezaBasophils/100 WBC (Bld)0.4 %Normal0.2-2.0The [facility] Comment on above:Performed By: #### STEPHEN FUENTESRO #### [facility] [address] [place] [address] Dr. Jamil Hurt #0.1 103/ulNormal0.0-0.7The [facility] HospitalComment on above: Performed By: #### STEPHEN FUENTESRO #### [facility] [address] [place] [address] Dr. Jamil Wooosinophils/100 WBC (Bld)0.8 %Critically low0.9-7.0The [facility] HospitalComment on above:Performed By: #### STEPHEN FUENTESRO #### [facility] [address] [place] [address] Dr. Jamil Woorythrocyte distribution width (RBC) [Ratio]12.3 %Hgoeke19.0-15.0 The [facility] Centerment on above:Performed By: #### STEPHEN FUENTESRO #### [facility] [address] [place] [address] Dr. Jamil OropezaHematocrit (Bld) [Volume fraction]40.4 %Zlkhxj75.0-48.0The [facility] HospitalComment on above:Performed By: #### STEPHEN FUENTESRO #### [facility] [address] [place] [address] Dr. Jamil OropezaHemoglobin (Bld) [Mass/Vol]13.7 g/tTIswfig69.0-16.0The [facility] HospitalComment on above:Performed By: #### STEPHEN FUENTESRO #### [facility] [address] [place] [address] Dr. Jamil Mcpherson #0.03 10e3/ulNormal0.00-0.03The [facility] HospitalComment on above:Performed By: #### GINA UMICRO #### [facility] [address] [place] [address] Dr. Jamil Mcpherson %0.4 %Normal0.0-0.5The [facility] HospitalComment on above: Performed By: #### GINA UMICRO #### [facility] [address] [place] [address] Dr. Jamil Ramirez #2.7 103/ulNormal1.2-3.8The [facility] HospitalComment on above:Performed By: #### GINA UMICRO #### [facility] [address] [place] [address] Dr. Jamil Fenghocytes/100 WBC (Bld)32.9 %Tmnhpq15.5-60.0The [facility] HospitalComment on above:Performed By: #### GINA UMICRO #### [facility] [address] [place] [address] Dr. Jamil PughUAL DIFF REQNONormalThe [facility] HospitalComment on above: Performed By: #### GINA UMICRO #### [facility] [address] [place] [address] Dr. Jamil Manzanares (RBC) [Entitic mass]29.9 psSbnjfv14.7-34.0The [facility] HospitalComment on above:Performed By: #### GINA UMICRO #### [facility] [address] [place] [address] Dr. Jamil Manzanares (RBC) [Mass/Vol]33.9 g/uQMxjinh01.9-35.2The [facility] HospitalComment on above:Performed By: #### GINA UMICRO #### [facility] [address] [place] [address] Dr. Jamil Manzanares (RBC) [Entitic vol]88.2 aKIwtsrx18.0-99.0The [facility] HospitalComment on above:Performed By: #### JASMYN FUENTES #### [facility] [address] [place] [address] Dr. Jamil Leung #0.5 103/ulNormal0.3-0.8The [facility]ettigrew HospitalComment on above:Performed By: #### STEPHEN FUENTESRO #### [facility] [address] [place] [address] Dr. Jamil Buenoocytes/100 WBC (Bld)6.5 %Normal1.7-12.0The [facility] Comment on above:Performed By: #### JASMYN FUENTES #### [facility] [address] [place] [address] Dr. Jamil Drake #4.9 103/ulNormal1.4-6.5The [facility] HospitalComment on above:Performed By: #### STEPHEN FUENTESRO #### [facility] [address] [place] [address] Dr. Jamil Peoplesutrophils/100 WBC (Bld)59.0 %Gyrlxt44.0-75.0The [facility] HospitalComment on above:Performed By: #### STEPHEN FUENTESRO #### [facility] [address] [place] [address] Dr. Jamil Londonlet mean volume (Bld) [Entitic vol]10.2 fLNormal9.5-13.5The [facility] HospitalComment on above:Performed By: #### STEPHEN FUENTESRO #### [facility] [address] [place] [address] Dr. Jamil OropezaPLT250 103/elFcydgp872-197Crd [facility] HospitalComment on above: Performed By: #### MICAELA FUENTESICRO #### [facility] [address] [place] [address] Dr. Jamil OropezaRBC4.58 106/ulNormal4.20-5.40The [facility] HospitalComment on above:Performed By: #### JASMYN FUENTES #### [facility] [address] [place], [place] [address] Dr. Jamil OropezaWBC8.3 103/ulNormal4.0-11.0The [facility] HospitalComment on above: Performed By: #### JASMYN FUENTES #### [facility] [address] [place], [place] [address] Dr. Jamil OropezaCT ABD/PELVIS WO CONon [id number] ABD/PELVIS WO CONEXAM: CT ABD/PELVIS WO CON HISTORY: CALCULUS OF [...] Electronically authenticated by: TAI GOMEZ Date: 2023-01-31 06:25NormLouis Stokes Cleveland VA Medical Centere Pettigrew HospitalCULTURE URINEon [id number] URINECulture Observations: LIGHT GROWTH OF MIXED GENITAL BANDAR. NO POTENTIAL PATHOGENS SEEN.NormalChildren'S Hospital Of ColumbusComment on above:Performed By: #### GINA UMICRO #### [facility] [address] [place] [address] Dr. Jamil Saravia URINE PROFILEon 82-08-3841Eazvvhjzf Ql (U)NegativeNormal NEGATIVEChildren'S Hospital Of ColumbusComment on above:Performed By: #### GINA UMICRO #### [facility] [address] [place] [address] Dr. Jamil OropezaClarity (U)CLEARNormalCLEARChildren'S Hospital Of ColumbusComment on above: Performed By: #### GINA UMICRO #### [facility] [address] [place] [address] Dr. Jamil Sniderlor (U)BROWNAbnormalYELLOWChildren'S Hospital Of ColumbusComment on above:Performed By: #### GINA UMICRO #### [facility] [address] [place] [address] Dr. Jamil Napier micrscopic examination will be performed if indicated. NormalChildren'S Hospital Of ColumbusComment on above:Performed By: #### GINA UMICRO #### [facility] [address] [place] [address] Dr. Jamil OropezaGlucose Ql (U)100 mg/dlAbnormalNEGATIVEChildren'S Hospital Of Columbus Comment on above:Performed By: #### GINA UMICRO #### [facility] [address] [place] [address] [address] Jamil OropezaHemoglobin Ql (U)LARGEAbnormalNEGATIVEChildren'S Hospital Of Columbus Comment on above:Performed By: #### GINA, UMICRO #### [facility] [address] [place] [address] Dr. Jamil OropezaKetones Ql (U)NegativeNormalNEGATIVEChildren'S Hospital Of ColumbusComment on above:Performed By: #### JASMYN FUENTES #### [facility] [address] [place] [address] Dr. Jamil OropezaLEUKOCYTESTRACEAbnormalNEGATIVEThe [facility] HospitalComment on above:Performed By: #### STEPHEN FUENTESRO #### [facility] [address] [place] [address] Dr. Jamil OropezaNitrite Ql (U)NegativeNormalNEGATIVEThe [facility] HospitalComment on above:Performed By: #### STEPHEN FUENTESRO #### [facility] [address] [place] [address] Dr. Jamil OropezapH (U)5.5 [pH]Normal5-9The [facility] HospitalComment on above: Performed By: #### STEPHEN FUENTESRO #### [facility] [address] [place] [address] Dr. Jamil OropezaProtein (U) [Mass/Vol]30 mg/dLAbnormalNEGATIVE/ TRACEThe [facility] HospitalComment on above:Performed By: #### STEPHEN FUENTESRO #### [facility] [address] [place] [address] Dr. Jamil OropezaSPEC GRAVITY>=1.488Sltoqbyc2.005-<=1.025The [facility] Comment on above:Performed By: #### STEPHEN FUENTESRO #### [facility] [address] [place] [address] Dr. Jamil Celestin MICRO INDINDICATEDNormalThe [facility] HospitalComment on above: Performed By: #### STEPHEN FUENTESRO #### [facility] [address] [place] [address] Dr. Jamil OropezaUrobilinogen Qn (U)0.2 {Ervin'U}/dLNormal0.2 - 1.0The [facility] HospitalComment on above:Performed By: #### GINA UMICRO #### [facility] [address] [place] [address] Dr. Jamil OropezaLIPASEon 73-28-4563Serppj [Catalytic activity/Vol]102.0 U/LNormal 73.0-393.0The [facility] HospitalComment on above:Performed By: #### CMP, LIPA, VERONICA #### [facility] [address] [place] [address] Dr. Jamil Galvan 14(COMP METB)on [id number] [Mass/Vol]3.8 g/dLNormal 3.4-5.0The [facility] HospitalComment on above:Performed By: #### CMP, LIPA, VERONICA #### [facility] [address] [place] [address] Dr. Jamil OropezaAlbumin/Globulin [Mass ratio]1.1 {ratio}NormalThe [facility] HospitalComment on above:Performed By: #### CMP, LIPA, VERONICA #### [facility] [address] [place] [address] Dr. Jamil Redmond [Catalytic activity/Vol]100 U/AUgdccn67-908Myy [facility] HospitalComment on above:Performed By: #### CMP, LIPA, VERONICA #### [facility] [address] [place] [address] Dr. Jamil Haney [Catalytic activity/Vol]15 U/NNbsvwu92-11Ieu [facility] HospitalComment on above:Performed By: #### CMP, LIPA, VERONICA #### [facility] [address] [place] [address] Dr. Jamil Sexton gap [Moles/Vol]12.3 mmol/LNormalThe [facility] Comment on above:Performed By: #### CMP, LIPA, VERONICA #### [facility] [address] [place] [address] Dr. Jamil OropezaAST [Catalytic activity/Vol]13 U/LCritically cdq58-40Lcb [facility] HospitalComment on above:Performed By: #### CMP, LIPA, VERONICA #### [facility] [address] [place] [address] Dr. Jamil OropezaBilirubin [Mass/Vol]0.5 mg/dLNormal0.2-1.0The [facility] Comment on above:Performed By: #### CMP, LIPA, VERONICA #### [facility] [address] [place] [address] [address] Jamil OropezaCalcium [Mass/Vol]8.7 mg/dLNormal8.5-10.1The [facility] Comment on above:Performed By: #### CMP, LIPA, VERONICA #### [facility] [address] [place] [address] Dr. Jamil OropezaChloride [Moles/Vol]106 mmol/HTjwyph68-859Dcb [facility] Comment on above:Performed By: #### CMP, LIPA, VERONICA #### [facility] [address] [place] [address] Dr. Jamil OropezaCO2 [Moles/Vol]27.3 mmol/YMqnjvj47.0-32.0The [facility] Comment on above:Performed By: #### CMP, LIPA, VERONICA #### [facility] [address] [place] [address] Dr. Jamil OropezaCreatinine [Mass/Vol]0.87 mg/dLNormal0.55-1.02The [facility] HospitalComment on above:Performed By: #### CMP, LIPA, VERONICA #### [facility] [address] [place] [address] Dr. Jamil WooGFR-AF CITIZEN OF [place]>60Normal>=60The [facility] HospitalComment on above:Performed By: #### CMP, LIPA, VERONICA #### [facility] [address] [place] [address] Dr. Jamil Camara-NON AF CITIZEN OF [place]>60Normal>=60The [facility] HospitalComment on above:Performed By: #### CMP, LIPA, VERONICA #### [facility] [address] [place] [address] Dr. Jamil OropezaGlobulin (S) [Mass/Vol]3.4 g/dLNormalThe [facility] HospitalComment on above:Performed By: #### CMP, LIPA, VERONICA #### [facility] [address] [place] [address] Dr. Jamil OropezaGlucose [Mass/Vol]95 mg/vNProttr30-305LguChildren'S Hospital Of Columbus Comment on above:Performed By: #### CMP, LIPA, VERONICA #### [facility] [address] [place] [address] Dr. Jamil OropezaPotassium [Moles/Vol]3.6 mmol/LNormal3.5-5.1The [facility] Comment on above:Performed By: #### CMP LIPA, VERONICA #### [facility] [address] [place] [address] Dr. Jamil OropezaProtein [Mass/Vol]7.2 g/dLNormal6.4-8.2The [facility] Comment on above:Performed By: #### CMP, LIPA, VERONICA #### [facility] [address] [place] [address] Dr. Jamil Claudiodium [Moles/Vol]142 mmol/BDxpbnv186-494Mty [facility] Comment on above:Performed By: #### CMP, LIPA, VERONICA #### [facility] [address] [place] [address] Dr. Jamil OropezaUrea nitrogen [Mass/Vol]13.0 mg/dLNormal7.0-18.0The [facility] HospitalComment on above:Performed By: #### CMP, LIPA, VERONICA #### [facility] [address] [place] [address] Dr. Jamil Birmingham nitrogen/Creatinine [Mass ratio]14.9 mg/mgNoMartins Ferry HospitalComment on above:Performed By: #### CMP, LIPA, VERONICA #### [facility] [address] [place] [address] Dr. Jamil Burciaga MICROSCOPIC ONLYon [id number]L SEEN [facility] Hospital Of ColumbusComment on above:Performed By: #### JASMYN FUENTES #### [facility] [address] [place] [address] Dr. Jamil Pickens identified Cx Nom (U)INDICATEDNoOhioHealth Dublin Methodist Hospitale [facility] HospitalComment on above:Performed By: #### JASMYN FUENTES #### [facility] [address] [place] [address] Dr. Jamil OropezaCASTNONBernard SEENNormalNONE SEENKettering Health – Soin Medical Center on above:Performed By: #### GINA UMICRO #### [facility] [address] [place] [address] Dr. Jamil De Paz LM Nom (Urine sed)NONE SEENNormalNONE SEENKettering Health – Soin Medical Center on above:Performed By: #### GINA UMICRO #### [facility] [address] [place] [address] Dr. Negron ChangEpithelial cells LM Ql (Urine sed)MODERATEAbnormalNONE SEEN /RARE [facility] on above:Performed By: #### GINA UMICRO #### [facility] [address] [place] [address] Dr. Jamil SanchezCOUSNONE SEENBartlettNONE [facility] on above:Performed By: #### GINA UMICRO #### [facility] [address] [place] [address] Dr. Jamil Beltran (U) [#/Vol]/uLAbnormal0-2The [facility] on above:Performed By: #### GINA UMICRO #### [facility] [address] [place] [address] Dr. Jamil WhitneyBC2-5AbnormalNONE SEENKettering Health – Soin Medical Center on above: Performed By: #### GINA UMICRO #### [facility] [address] [place] [address] Dr. Jamil Javed A AND B AGon [id number] City Hospital on above:Result Comment: Negative for Flu A protein angiten. Infection due to Flu A cannot be ruled out. FluA angiten in the sample may be below the detection limit of the test.Performed By: #### GINA UMICRO #### [facility] [address] [place] [address] Dr. Jamil BlakeUBNEGHSEE BELOWNormalThe [facility] HospitalComment on above: Result Comment: Negative for Flu B protein antigen. Infection due to Flu B cannot be ruled out. FluB antigen in the sample may be below the detection limit of the test.Performed By: #### GINA UMICRO #### [facility] [address] [place] [address] Dr. Jamil Taylor AGNegativeNormalNEGATIVE SEE COMMENTThe [facility] HospitalComment on above:Performed By: #### GINA UMICRO #### [facility] [address] [place] [address] Dr. Jamil Kaplan AGNegativeNormalNEGATIVE SEE COMMENTThe [facility] HospitalComment on above:Performed By: #### GINA UMICRO #### [facility] [address] [place] [address] Dr. Jamil OropezaINTERNAL CONTROLSWithin Normal LimitsNormalWithin Normal Limits The [facility] HospitalComment on above:Performed By: #### GINA UMICRO #### [facility] [address] [place] [address] Dr. Jamil Cruz AUTO DIFFon [id number] #0.0 103/ulNormal0.0-0.1The [facility] HospitalComment on above:Performed By: #### GINA UMICRO #### [facility] [address] [place] [address] Dr. Jamil OropezaBasophils/100 WBC (Bld)0.3 %Normal0.2-2.0The [facility] Comment on above:Performed By: #### GINA UMICRO #### [facility] [address] [place] [address] Dr. Jamil Hurt #0.0 103/ulNormal0.0-0.7The [facility] HospitalComhenry ford [facility] on above: Performed By: #### GINA UMICRO #### [facility] [address] [place] [address] Dr. Jamil Wooosinophils/100 WBC (Bld)0.3 %Critically low0.9-7.0The [facility] Centerment on above:Performed By: #### STEPHEN FUENTESRO #### [facility] [address] [place] [address] Dr. Jamil Woorythrocyte distribution width (RBC) [Ratio]12.1 %Gnsvqb50.0-15.0 The [facility] HospitalComment on above:Performed By: #### GINA UMICRO #### [facility] [address] [place] [address] Dr. Jamil OropezaHematocrit (Bld) [Volume fraction]40.6 %Cuhfld29.0-48.0The [facility] HospitalComment on above:Performed By: #### GINA UMICRO #### [facility] [address] [place] [address] Dr. Jamil OropezaHemoglobin (Bld) [Mass/Vol]13.6 g/sJBiimeh63.0-16.0The [facility] Centerment on above:Performed By: #### GINA UMICRO #### [facility] [address] [place] [address] Dr. Jamil Mcpherson #0.03 10e3/ulNormal0.00-0.03The [facility] on above:Performed By: #### GINA UMICRO #### [facility] [address] [place] [address] Dr. Jamil Mcpherson %0.3 %Normal0.0-0.5The [facility] on above: Performed By: #### GINA UMICRO #### [facility] [address] [place] [address] Dr. Jamil FengH #1.9 103/ulNormal1.2-3.8The [facility] HospitalCom[facility] on above:Performed By: #### GINA UMICRO #### [facility] [address] [place] [address] Dr. Jamil Westmphocytes/100 WBC (Bld)21.2 %Naitey25.5-60.0The [facility] HospitalComment on above:Performed By: #### STEPHEN FUENTESRO #### [facility] [address] [place] [address] Dr. Jamil Turner DIFF REQNONormalThe [facility] HospitalComment on above: Performed By: #### GINA UMICRO #### [facility] [address] [place] [address] Dr. Jamil Manzanares (RBC) [Entitic mass]29.2 brAzoumi89.7-34.0The [facility] HospitalComment on above:Performed By: #### STEPHEN FUENTESRO #### [facility] [address] [place] [address] Dr. Jamil Manzanares (RBC) [Mass/Vol]33.5 g/jUElyuey60.9-35.2The [facility] HospitalComment on above:Performed By: #### STEPHEN FUENTESRO #### [facility] [address] [place] [address] Dr. Jamil Manzanraes (RBC) [Entitic vol]87.1 oJHacuci41.0-99.0The [facility] HospitalComment on above:Performed By: #### STEPHEN FUENTESRO #### [facility] [address] [place] [address] Dr. Jamil Leung #0.5 103/ulNormal0.3-0.8The [facility] HospitalComment on above:Performed By: #### GINA UMICRO #### [facility] [address] [place] [address] Dr. Jamil Buenoocytes/100 WBC (Bld)5.4 %Normal1.7-12.0The [facility] Comment on above:Performed By: #### GINA UMICRO #### [facility] [address] [place] [address] Dr. Jamil Drake #6.5 103/ulNormal1.4-6.5The [facility] HospitalComment on above:Performed By: #### STEPHEN FUENTESRO #### [facility] [address] [place] [address] Dr. Jamil OropezaNeutrophils/100 WBC (Bld)72.5 %Pksfww61.0-75.0The [facility] HospitalComment on above:Performed By: #### EUGENIAR, UMICRO #### [facility] [address] [place] [address] Dr. Jamil OropezaPlatelet mean volume (Bld) [Entitic vol]10.6 fLNormal9.5-13.5The [facility] HospitalComment on above:Performed By: #### GINA UMICRO #### [facility] [address] [place] [address] Dr. Jamil OropezaPLT237 103/vwFxjkyi074-048Pec [facility] HospitalComment on above: Performed By: #### GINA UMICRO #### [facility] [address] [place] [address] Dr. Jamil OropezaRBC4.66 106/ulNormal4.20-5.40The [facility] HospitalComment on above:Performed By: #### GINA UMICRO #### [facility] [address] [place] [address] Dr. Jamil OropezaWBC8.9 103/ulNormal4.0-11.0The [facility] HospitalComment on above: Performed By: #### GINA UMICRO #### [facility] [address] [place] [address] Dr. Jamil OropezaCovid-19 PCR ([facility])on 45-55-3144NEYU-CoV-2 (COVID-19) RNA IDALIA+probe Ql (Unsp spec)Not detectedNormalNOT DETECTEDThe [facility] Comment on above:Result Comment: When diagnostic testing is negative, the [...] for this test is supported by the [place] of Health and Human Service's declaration that circumstances exist to justify the emergency use of in vitro diagnostics for the detection and/or diagnosis of the virus that causes COVID-19. This EUA will remain in effect for the duration of the COVID-19 declaration justifying emergency of IVDs, unless it is terminated or revoked by the FDA (after which the test may no longer be used).Performed By: #### ERUR, UMICRO #### [facility] [address] [place] [address] Dr. Jamil Saravia URINE PROFILEon 23-19-5031Bkflsvrgj Ql (U)NegativeNormal NEGATIVEChildren'S Hospital Of ColumbusComment on above:Performed By: #### ERUR UMICRO #### [facility] [address] [place] [address] Dr. Jamil OropezaClarity (U)CLEARNormalCLEARMercy Health St. Anne Hospital HospitalComment on above: Performed By: #### ERUR, UMICRO #### [facility] [address] [place] [address] Dr. Jamil Nielson (U)LT. YELLOWNormalYELLOWChildren'S Hospital Of ColumbusComment on above:Performed By: #### ERUR, UMICRO #### [facility] [address] [place] [address] Dr. Jamil Napier micrscopic examination will be performed if indicated. NormalThe [facility]igrew HospitalComment on above:Performed By: #### ERUR, UMICRO #### [facility] [address] [place] [address] Dr. Jamil OropezaGlucose Ql (U)NegativeNormalNEGATIVEMercy Health St. Anne Hospital HospitalComment on above:Performed By: #### ERUR, UMICRO #### [facility] [address] [place] [address] Dr. Jamil OropezaHemoglobin Ql (U)TRACE-INTACTAbnormalNEGATIVEMercy Health St. Anne Hospital HospitalComment on above:Performed By: #### ERUR, UMICRO #### [facility] [address] [address] [address] Jamil Rodriguez Ql (U)NegativeNormalNEGATIVEThe [facility] HospitalComment on above:Performed By: #### JASMYN FUENTES #### [facility] [address] [address] [address] Jamil OropezaLEUKOCYTESNegativeNormalNEGATIVEThe [facility] HospitalComment on above:Performed By: #### JASMYN FUENTES #### [facility] [address] [address] [address] Jamil Woodtryomi Ql (U)NegativeNormalNEGATIVEThe [facility] HospitalComment on above:Performed By: #### JASMYN FUENTES #### [facility] [address] [place] [address] Dr. Jamil OropezapH (U)7.0 [pH]Normal5-9The [facility] HospitalComment on above: Performed By: #### JASMYN FUENTES #### [facility] [address] [place] [address] Dr. Jamil OropezaSPEC GRAVITY1.779Makvqy2.005-<=1.025The [facility] HospitalComment on above:Performed By: #### JASMYN FUENTES #### [facility] [address] [place] [address] Dr. Jamil Ruiz PROTEINNegativeNormalNEGATIVE/ TRACEThe [facility] Comment on above:Performed By: #### JASMYN FUENTES #### [facility] [address] [place] [address] Dr. Jamil Celestin MICRO INDINDICATEDNormalThe [facility] HospitalComment on above: Performed By: #### JASMYN FUENTES #### [facility] [address] [place] [address] Dr. Jamil Barron Qn (U)0.2 {Ervin'U}/dLNormal0.2 - 1.0The [facility] HospitalComment on above:Performed By: #### JASMYN FUENTES #### [facility] [address] [place] [address] Dr. Jamil Taylor AND B AGon 56-34-0101ZFTAZGFBQLWSKCrystal Clinic Orthopedic Center on above:Result Comment: Negative for Flu A protein angiten. Infection due to Flu A cannot be ruled out. FluA angiten in the sample may be below the detection limit of the test.Performed By: #### INFLUAB #### [facility] [address] [place] [address] Dr. Jamil BlakeUBNEGHSCrystal Clinic Orthopedic Center on above: Result Comment: Negative for Flu B protein antigen. Infection due to Flu B cannot be ruled out. FluB antigen in the sample may be below the detection limit of the test.Performed By: #### INFLUAB #### [facility] [address] [place] [address] Dr. Jamil Taylor AGNegativeNormalNEGATIVE SEE COMMENTThe [facility] on above:Performed By: #### INFLUAB #### [facility] [address] [place] [address] Dr. Jamil Kaplan AGNegativeNormalNEGATIVE SEE COMMENTThe [facility] on above:Performed By: #### INFLUAB #### [facility] [address] [place] [address] Dr. Jamil OropezaINTERNAL CONTROLSWithin Normal LimitsNormalWithin Normal Limits The [facility] HospitalComhenry [facility] on above:Performed By: #### INFLUAB #### [facility] [address] [place] [address] Dr. Jamil OropezaPOINT OF CARE GLUCOSEon 50-62-2907Pjycgpj [Mass/Vol]100 mg/dL Ermrtz31-446Shc [facility] on above:Performed By: #### POCGLUC #### [facility] [address] [place] [address] Dr. Jamil OropezaPREGNRHONDA URon 10-69-5000HYCGJLESX, QUALNegativeNormalNEGATIVEThe [facility] Centerment on above:Performed By: #### ERUR, UMICRO #### [facility] [address] [place] [address] Dr. Jamil OropezaPROF CHEM 8 (BAS METB)on 13-44-7755Gdjqg gap [Moles/Vol]5.9 mmol/LNormalThe [facility] HospitalComment on above:Performed By: #### BMP, HSTROPN #### [facility] [address] [address] [address] Jamil OropezaCalcium [Mass/Vol]9.8 mg/dLNormal8.5-10.1The [facility] Comment on above:Performed By: #### BMP, HSTROPN #### [facility] [address] [place] [address] Dr. Jamil OropezaChloride [Moles/Vol]103 mmol/XPlgibd86-512Wuy [facility] Comment on above:Performed By: #### BMP, HSTROPN #### [facility] [address] [place] [address] Dr. Jamil OropezaCO2 [Moles/Vol]30.9 mmol/ZEfjgga66.0-32.0[facility] Comment on above:Performed By: #### BMP, HSTROPN #### [facility] [address] [place] [address] Dr. Jamil OropezaCreatinine [Mass/Vol]0.84 mg/dLNormal0.55-1.02The [facility] HospitalComment on above:Performed By: #### BMP, HSTROPN #### [facility] [address] [place] [address] Dr. Jamil WooGFR-AF CITIZEN OF [place]>60Normal>=60The [facility] HospitalComment on above:Performed By: #### BMP, HSTROPN #### [facility] [address] [place] [address] Dr. Jamil WooGFR-NON AF CITIZEN OF [place]>60Normal>=60The [facility] HospitalComment on above:Performed By: #### BMP, HSTROPN #### [facility] [address] [place] [address] Dr. Jamil OropezaGlucose [Mass/Vol]95 mg/pDKwwbsq20-261VcpChildren'S Hospital Of [facility] Comment on above:Performed By: #### BMP, HSTROPN #### [facility] [address] [address] [address] Jamil OropezaPotassium [Moles/Vol]3.8 mmol/LNormal3.5-5.1The [facility] Comment on above:Performed By: #### BMP, HSTROPN #### [facility] [address] [address] [address] Jamil OropezaSodium [Moles/Vol]136 mmol/XEmpsmh172-227Lle [facility] Comment on above:Performed By: #### BMP, HSTROPN #### [facility] [address] [place] [address] Dr. Jamil OropezaUrea nitrogen [Mass/Vol]11.0 mg/dLNormal7.0-18.0The [facility] HospitalComment on above:Performed By: #### BMP, HSTROPN #### [facility] [address] [address] [address] Jamil Birmingham nitrogen/Creatinine [Mass ratio]13.1 mg/mgNormalThe [facility] HospitalComment on above:Performed By: #### BMP, HSTROPN #### [facility] [address] [place] [address] Dr. Jamil Galarza, HIGH SENSITIVITYon 25-64-6799ESGEPW8.6 pg/mLNormal 4.0-51.3The [facility] HospitalComment on above:Result Comment: CUT-OFF POINTS HAVE BEEN ESTABLISHED BASED ON THE FOURTH UNIVERSAL DEFINITIONS OF MYOCARDIAL INFARCTION. THE UPPER REFERENCE LIMIT (URL) OF TROPONIN, DEFINED THE 99TH PERCENTILE OF cTnI DISTRIBUTION IN A REFERENCE POPULATION, HAS BEEN CONFIRMED THE DECISION THRESHOLD FOR MD DIAGNOSIS.Performed By: #### BMP, HSTROPN #### [facility] [address] [place] [address] Dr. Jamil Burciaga MICROSCOPIC ONLYon 61-99-3766PPJJBVLOIKWN SEENNormalNONE SEENThe [facility]rew HospitalComment on above:Performed By: #### GINA UMICRO #### [facility] [address] [address] [address] Jamil Pickens identified Cx Nom (U)NOT INDICATEDNormalThCorey Hospital on above:Performed By: #### GINA, UMICRO #### [facility] [address] [address] [address] Jamil Wong SEENNormalNONE SEENKettering [facility] on above:Performed By: #### GINA, UMICRO #### [facility] [address] [address] [address] Jamil De Paz LM Nom (Urine sed)NONE SEENNormalNONE SEENKettering Health – [facility] on above:Performed By: #### GINA UMICRO #### [facility] [address] [place] [address] Dr. Negron ChangEpithelial cells LM Ql (Urine sed)FEWAbnormalNONE SEEN /RAREThe [facility] HospitalComhenry [facility] on above:Performed By: #### GINA UMICRO #### [facility] [address] [address] [address] Jamil Swift SEENNormmtNONE SEENKettering Health [facility] on above:Performed By: #### GINA UMICRO #### [facility] [address] [address] [address] Jamil BeltranBeufjOPZ0-6Gffukb2-4Sfq [facility] on above:Performed By: #### GINA, UMICRO #### [facility] [address] [address] [address] Jamil Oliveira SEENNormalNONE SEENKettering Health [facility] on above: Performed By: #### GINA, UMICRO #### [facility] [address] [place] [address] Dr. Jamil Milesd-19 PCR (CVDTBH)on 21-77-9104EEQZ-CoV-2 (COVID-19) RNA IDALIA+probe Ql (Unsp spec)Not detectedNormalNOT DETECTEDThe [facility] Comment on above:Result Comment: When diagnostic testing is negative, the [...] for this test is supported by the [place] of Health and Human Service's declaration that circumstances exist to justify the emergency use of in vitro diagnostics for the detection and/or diagnosis of the virus that causes COVID-19. This EUA will remain in effect for the duration of the COVID-19 declaration justifying emergency of IVDs, unless it is terminated or revoked by the FDA (after which the test may no longer be used).Performed By: #### JASMYN FUENTES #### [facility] [address] [place] [address] Dr. Jamil OropezaXR SINUSES 3 VIEWS OR GREATERon 06-06-4797VW SINUSES 3 VIEWS OR GREATEREXAM: XR SINUSES 3 VIEWS OR GREATER HISTORY: [...] Electronically authenticated by: Abhishek LOMBARDI Date: 2022-06-09 01:48[facility] Vital Signs Date TimeVital SignValuePerforming QhimjpshoSstqqypt50-59-6621 10:Body mass index (BMI) [Ratio]32.58 kg/y4Mgfcq Katlyn DO Work Phone: [facility] CenterPnxelvxnnw15-16-3820 10:Body wzmzou38.81 kgCorey Katlyn DO Work Phone: [facility] CenterNjzlmsltjq05-17-4464 10:17-0400Diastolic blood vgahofdv25 mm[Hg]Deondre Katlyn DO Work Phone: [facility] CenterDcelrnhfhi79-72-7059 10:17-0400Systolic blood vtxqtagu165 mm[Hg]Deondre Katlyn DO Work Phone: [facility] CenterIotxncctqn81-80-6434 12:55-0500Blood Pressure LocationJENNIFER NEGRA [facility]11-19-2024 12:55-0500Diastolic blood zlaseuig419 mm[Hg]CHRIS NEGRA [facility]11-19-2024 12:55-0500Heart rate70 /minJENNIFER NEGRA [facility]11-19-2024 12:55-0500Respiratory rate19 /minJENNIFER NEGRA [facility]11-19-2024 12:55-0500Systolic blood hnniynlw404 mm[Hg]CHRIS NEGRA [facility]04-22-2023 12:00-0400Body .37 cmTrandolph medical center Rupal Other [facility] Other 04-22-2023 12:00-0400Body mass index (BMI) [Ratio] 30.31 kg/h0Wzahfz Rupal Other [facility] Other 04-22-2023 12:00-0400Body tgubcwoqivk55.9 [degF]Marco Antonio Goldsmith Other [facility] Other 04-22-2023 12:00-0400Body tatftm36.92 kgThomas Rupal Other [facility] Other 04-22-2023 12:00-0400Diastolic blood mm[Hg] Marco Antonio Goldsmith Other [facility] Other 04-22-2023 12:00-0400Respiratory rate18 /minThomas Rupal Other [facility] Other 04-22-2023 12:00-3505XnR0% (BldA) [Mass fraction]98 % Marco Antonio Goldsmith Other [facility] Other 04-22-2023 12:00-0400Systolic blood mm[Hg] Marco Antonio Goldsmith Other [facility] Other 04-19-2023 11:01-0400Blood Pressure LocationOniGTRAN [facility]04-19-2023 11:01-0400Diastolic blood rfpehvnt60 mm[Hg][employer] [facility] [place] [address]-19-2023 11:01-0400Heart rate71 /minCortria Corporation [facility]04-19-2023 11:01-0400Respiratory rate16 /minCortria Corporation [facility] [place] [address]-19-2023 11:01-0400Systolic blood ivtkrwte122 mm[Hg][employer] [facility] [place] [address]-12-2023 11:45-0500Body atblsg900.37 John Salinas Other [facility] Other 01-12-2023 11:45-0500Body mass index (BMI) [Ratio] 29.49 kg/j7Jurvqrsum Brad Other [facility] Other 01-12-2023 11:45-0500Body gzoxzwlqvta77.6 [degF] Whit Brad Other [employer] Other 01-12-2023 11:45-0500Body rsxrif09.65 kgStbarbara Ruckerault Other [facility] Other 01-12-2023 11:45-0500Diastolic blood uwojhlpj64 mm[Hg] Whit Brad Other [employer] Other 01-12-2023 11:45-0500Respiratory rate18 /minSmimi Brad Other [employer] Other 01-12-2023 11:45-3848FdD9% (BldA) [Mass fraction]98 % Whit Brad Other [facility] Other 01-12-2023 11:45-0500Systolic blood mm[Hg] Whit Brad Other [employer] Other 08-11-2022 10:16-0400Blood Pressure LocationMichaeibrahima NILL [phone]-XmzebTr[facility] 08-11-2022 10:16-0400Diastolic blood etdhddab13 mm[Hg] Willie WEBERL [phone]-MkkfrTrinity Health System [facility] 08-11-2022 10:16-0400Heart rate68 /minMichael NILL [phone]-RjgjfTrinity Health System [facility] 08-11-2022 10:16-0400Respiratory rate16 /minMichael NILL [phone]-LikzqC[facility] 08-11-2022 10:16-0400Systolic blood zdbenxwo865 mm[Hg] Willie NILL [phone]-MjkgcC[facility] Encounters Encounter DateEncounter [facility] ProviderFacilityStart: 08-09-2025 End: 22-39-7145gzafnxnjixVDMQOGBKJMP [facility] Start: 05-23-2025 End: 13-24-2005rmwjzrlvyxKznivi J GalmarileeFacility:FTMCStart: 05-23-2025 End: 10-29-3305Fqpasnb encounter procedureAlysha Radha [facility] Start: 05-17-2025 End: 27-51-5616gqrjaceoqoEjyrd R FAZIOFacility:EU [place]kyStart: 05-17-2025 End: 87-11-1683Nvcdrft encounter procedureAlysha Radha Galea [facility] Start: 05-02-2025 End: 47-59-6678Gya Drop offAlysha Radha [facility]alea [facility] Start: 05-02-2025 End: 33-48-6157msfgpayjovVnizau J GaleaFacility:FTMCStart: 05-02-2025 End: 76-66-0917Gmwroha encounter procedureAlysarcelia Sanchez [facility] Start: 97-97-3596mkbsrrdwcuEgvrp FAZIOFacility:EU kStart: 03-21-2025 End: 37-22-1203Ulyqoc flowsheetCorey Katlyn DO Work Phone: noms [facility] OBStart: 03-21-2025 End: 97-53-8135Ndcbwv flowsheetCorey Katlyn DO Work Phone: noms [facility] OBStart: 03-21-2025 End: 06-32-4660Gmdaosnks Result EncounterCorey Katlyn DO Work Phone: noms External Department UnsolicitedStart: 03-21-2025 End: 26-08-2881Jljhoxau Result EncounterCorey Katlyn DO Work Phone: noms External Department UnsolicitedStart: 03-21-2025 End: 87-57-6158Ebbunms encounter procedureCorey Katlyn DO Work Phone: noms [facility] Work Phone: Start: 03-21-2025 End: 21-66-0500Tpkrslvw preventive med est patient 40-64yrsCorey Katlyn DO Work Phone: noms [facility] OBComment on above:Well woman exam with routine gynecological exam; Breast cancer screening by mammogram; Vaginal discharge; STD exposure; Stress incontinenceStart: 03-21-2025 End: 77-30-6160stgerefykxRHLTD FAZIONot AvailableStart: 10-04-2024 End: 78-59-2171famozwovlxESWKFBCB E PERRYFacility:EU [place]vueStart: 10-04-2024 End: 49-48-8715Kobynbt encounter procedureJENNIFER E NEGRA [facility] start: 03-29-2024 End: 05-11-0713Gzamrpvum Result EncounterCorey Katlyn DO Work Phone: noms External Department UnsolicitedStart: 03-29-2024 End: 83-08-8811Elxmdsubm Result EncounterCorey Katlyn DO Work Phone: noms External Department UnsolicitedStart: 03-10-2023 End: 45-41-8387odlmcqsuhcFT DEONDRE KATLYN .Facility:L2Gqmob: 03-07-2023 End: 22-40-9808joztupkykjZgxosl Rupal Other [facility] Other Start: 76-78-0883Oiduxu outpatient visit 15 minutes Marco Antonio GoldsmithG [facility] Pollard RoadStart: 03-04-2023 End: 46-53-4878Blerxpm encounter procedureNaveen SYLVESTER [facility] Start: 03-02-2023 End: 80-11-2989gtnqlwyoyfHN NAVEEN SYLVESTERFacility:U4Mxtju: 01-31-2023 End: 19-10-0852yzbkhimbthHZFTTL CRAMERFacility:A6Tqdvi: 11-27-2022 End: 85-98-1432xwgmpgrsrlTquuhgwne Breault Other [facility] Other Start: 88-57-7285Oowgbt outpatient new 20 minutes Whit SalinasFPRickey Urgent Care ClydeStart: 11-08-2022 End: 85-94-8989iheslvyyyqDSKVOH CRAMERFacility:R4Nvisl: 09-26-2022 End: 95-96-7137wxqoplyzurWBNVMH CRAMERFacility:X9Fqdyp: 06-26-2022 End: 97-23-7498Tnlagdt encounter procedureMichael Sean MONTERROSO [phone]-LlfgoTrinity Health System [facility] [place] Start: 06-09-2022 End: 80-71-0910ulbyooowneXMDPJ PARKERFacility:H1 Procedures DateProcedureProcedure DetailPerforming ClinicianStart: 25-58-2890VXEVVFRWK VAGINITIS (HTRX)Deondre Katlyn DO Work Phone: Start: 03-21-2025 End: 89-12-6884Ykyoq dip stick/tablet rgnt non-auto w/o micrscpCorey Katlyn DO Work Phone: Start: 80-28-7114RCB,APTIMA HPV,AGE GDLNCorey Katlyn DO Work Phone: Start: 57-70-8915Cbkoxdwszic observation [Identifier] in Cervix by Cyto stainCorey Katlyn DO Work Phone: Start: 73-56-2517NX PELVIS W/ TRANSVAGINALCorey Katlyn DO Work Phone: Start: 49-06-0498TsidenjxsbjjtgalrhbvwbuxflPhrymrt NILL Plan of Treatment DateCare ActivityDetailAuthorStart: 73-65-2734Yaqxtrwei for malignant neoplasm of cervixNOMS HealthcareStart: 72-63-5331Lqmabagzi for malignant neoplasm of cervixNOMS HealthcareStart: 03-27-2026 End: 34-65-0906Medytng encounter procedureNOMS BCP OBStart: 21-37-0535lbtwcoasrj AmbulatoryFacility:EU [facility] HospitalkStart: 60-83-9231Jbkahsvjh vaccinationNOMS HealthcareStart: 03-21-2025 End: 09-89-3561XI Breast - bilateral ScreeningBilateral screening mammogram Imaging Routine Breast cancer screening by mammogram Expected: 03/21/2025 (Approximate), Expires: 05/21/2026[facility] Work Phone: comment on above:Expected: 03/21/2025 (Approximate), Expires: 05/21/2026Start: 03-21-2025 End: 74-06-1368Tmrpmkv encounter drdtggulb86/06/2025 10:00 AM EDT Office Visit [facility] [address] [place] [phone] Deondre Potts, DO [address] [place] [address] ArrivedKENTFIELD HOS[facility]ITAL [facility] OBComment on above:ArrivedStart: 54-40-1850Cyzpgvcae for malignant neoplasm of breastMammogramWestern Missouri Mental Health Center CHLAMYDIA TRACHOMATIS (GENITO/STI)CHLAMYDIA TRACHOMATIS (GENITO/STI) Lab Routine Vaginal discharge STD exposure Ordered: 03/21/2025[facility] HealthcareComment on above:Ordered: 03/21/2025Neisseria gonorrhoeae DNA [Presence] in Unspecified specimen by IDALIA with probe detectionNeisseria gonorrhea DNA probe, direct Lab Routine Vaginal discharge STD exposure Ordered: 03/21/2025[facility] HealthcareComment on above:Ordered: 03/21/2025SURESWAB(R) ADVANCED VAGINITIS PLUS, TMASURESWAB(R) ADVANCED VAGINITIS PLUS, TMA Pathology and Cytology Routine Vaginal discharge STD exposure Ordered: 03/21/2025[facility] HealthcareComment on above:Ordered: 03/21/2025THIN PREP TIS PAP AND HR HPV DNATHIN PREP TIS PAP AND HR HPV DNA Pathology and Cytology Routine Well woman exam with routine gynecological exam Ordered: 03/21/2025[facility] HealthcareComment on above:Ordered: 03/21/2025 Payers DatePayer CategoryPayerPolicy [id number] Health InsuranceFORMERLY [facility] [id number] 2024Medicaid [id number] 2.16.840.1.149807.3.57[id number] 2.16.840.1.180001.3.57[id number] 2.16.840.1.018993.3.57[id number] 2.16.840.1.762104.3.57[id number] 2.16.840.1.084927.3.57[id number] 2.16.840.1.114316.3.57[id number] 2.16.840.1.734933.3.57[id number] 2.16.840.1.899559.3.57[id number] 2.16.840.1.433401.3.57[id number] 2.16.840.1.312384.3.57[id number] 2.16.840.1.636362.3.57[id number] 2.16.840.1.399680.3.57[id number] 2.16.840.1.203339.3.579.2.727 [id number] 2.16.840.1.787771.19 [id number] 2.16.840.4.28477[id number] [id number] Social History DateTypeDetailFacilityStart: 06-26-2022 End: 04-96-3636Dzskwww smoking statusNever smoked tobacco (finding)[facility] Start: 04-01-1413Mggljaq smoking statusNeverClermont County Hospital Sex Assigned At BirthFemalDayton Osteopathic Hospital Tobacco smoking status NHISTobacco smoking consumption unknownNOMS HealthcareStart: 80-94-1283Knt assigned at birthNot on [facility] CenterSexual OrientationExec[facility] Start: 04-71-3450UznXnveth (finding)[facility] Functional Status CryrFfabvnscclKadnwkKamzkoxm96-45-4978Luqxwrafye StatusN/AExec[facility]04-19-2023Functional StatusN/A[facility]08-11-2022Functional StatusN/A [facility] Clinical Notes 11-27-2022 to 08-09-2025 Note Date & NppiUvknBwdioaas22-16-4360 NoteSubjective Patient ID: Nancy Boswell is a 40 y.o. female who presents for Cardiac Stress Test (Abnormal/), New Patient (Patient is here today to establish care with cardiology. Patient recently had a stress test which was abnormal. Patient states she chest pain and SOB with exertion, which she states feels like a burning. Patient states she does feel occasional fluttering her chest. Hand and legs fall asleep easily), Hyperlipidemia, and Fatigue. Enjoys hiking, recent hike a lot of burning and pain when steeper . In chest, up into neck, non radiating otherwise, was SOB, relief with sitting still, 7-8/10 severity Goes to [place], at [facility] it was really steep. Strong family history of heart disease Occasional flutter in chest that knocks the air out of me for a second Children 21-12 years old at home LDL and TC elevated Hyperlipidemia Associated symptoms include chest pain and shortness of breath. Fatigue Associated symptoms include chest pain and fatigue. Review of Systems Constitutional: Positive for fatigue. Respiratory: Positive for chest tightness and shortness of breath. Negative for wheezing. Cardiovascular: Positive for chest pain. Negative for leg swelling. Gastrointestinal: Negative for blood in stool. Genitourinary: Positive for hematuria. Neurological: Positive for dizziness and light-headedness. Negative for seizures and syncope. Objective Visit Vitals BP 115/81 (BP Location: Left arm, Patient Position: Sitting) Physical Exam Constitutional: Appearance: Normal appearance. She is obese. HENT: Head: Normocephalic and atraumatic. Cardiovascular: Rate and Rhythm: Normal rate and regular rhythm. Pulses: Normal pulses. Heart sounds: Normal heart sounds. Pulmonary: Effort: Pulmonary effort is normal. Breath sounds: Normal breath sounds. Musculoskeletal: Right lower leg: No edema. Left lower leg: No edema. Skin: General: Skin is warm and dry. Neurological: General: No focal deficit present. Mental Status: She is alert and oriented to person, place, and time. Psychiatric: Mood and Affect: Mood normal. Behavior: Behavior normal. Thought Content: Thought content normal. Assessment/Plan Chest pain with activity and family history of CAD with elevated LDL and TC. EKG stress positive inferior ST depression at 7 minutes Arash protocol and nuclear stress no ischemia with lexiscan protocol. Most likely, the EKG stress is false positive however this doesn't explain exertional chest pain. I have advised that she is unlikely to have CAD with a normal nuclear scan. If she continues to have chest pain, I would then advise a CT of the coronary arteries. We discussed healthy eating to lose weight and control lipids and I have provided this information. Diagnosis Plan 1. Precordial pain 2. Pure hypercholesterolemia No results found for this or any previous visit (from the past 36 hours). Follow up if symptoms worsen or fail to improve.[facility]06-17-2025 Hospital Discharge instructions Patient Education 05/02/2025 16:08:47 [...] muscles. These are the same muscles you squeezewhen you try to stop the flow of [...] tight lift in your rectal area. If youare a female, you should also feel a [...] provider. Document Revised: 03/13/2022 Document Reviewed: 03/13/2022 [employer] Patient Education 2023 [employer]. Follow Up Care 04/21/2025 16:13:33 With:Sarah Marques URL Address: When:3 months Comments:post PFPT [facility] 06-17-2025 NoteUrology Office/Clinic Note Chief Complaint referral HPI Staff 40 [...] or weak stream. Pt does c/o of occasionalfrequency and urgency. Pt has vaginal deliveries x4. Discussed Kegel exercises with patient as wellhome PFPT. Pt is interested in formal PFPT with our office. Also discussed possibility of UTI contributing to symptoms based on UA, will send for culture and treat if positive. -Send urine for culture, treat if positive -Kegel exercises -Formal PFPT referral through our office Ordered: E&M of Est. Patient Moderate 30-39 Min 39800 Urine Culture 2. Gross hematuria (R31.0: Gross [...] cytology to complete hematuria workup. -CTU at [facility], if negative for ureteral stone, pt will need called to discuss completing cystoscopy and cytology to complete hematuria workup Ordered: CT Urogram E&M of Est. Patient Moderate 30-39 Min 54364 Urine Culture Urnls Dip Stick Auto w/o Microscopy POC 32493 3. Kidney stones (N20.0: Calculus of kidney) [facility] 01/31/23 with gross hematuria, RLQ pain, [...] subsided. -See #2 -Increase fluid intake, add lemon/moapa -Consider metabolic workup in the future Ordered: CT Urogram E&M of Est. Patient Moderate 30-39 Min 73779 Urine Culture Follow-up With When Contact Information Daniel MCCOY, Sarah Garcia, URL Within 3 months Additional Instructions: post PFPT [...] Lab Results Ambulatory Poin (more content not included)...[facility]Comment [facility]:Result Comment: Electronically Signed By: Sarah Marques\.br\Date and Time Signed: 05/02/25 16:09 [id number] NotePatient Education Obstetrics and Gynecology Kegel Exercises Kegel [...] muscles. These are the same muscles you squeezewhen you try to stop the flow of [...] provider. Document Revised: 03/13/2022 Document Reviewed: 03/13/2022 [employer] Patient Education ? 2023 [employer].[facility] 03-21-2025 History of Present illness Narrative* Tosha Ba LPN - 03/21/2025 10:00 AM EDT Reason for Appointment: Patient ID: Nancy Boswell is a 40 y.o. female who presents [...] nursing note reviewed. Exam conducted with a cloth washer back tender present. Vitals: Estimated body mass index is [...] by Tosha Ba LPN on behalf of: Deondre Potts DO documented in this encounterWestern Missouri Mental Health CenterTsbeijdpjx46-57-5822 Hospital Discharge instructions Patient Education 10/04/2024 13:29:13 Kidney Stones, Yhqj-bx-Akjq Kidney Stones Kidney stones are rock-like masses [...] Follow these instructions at home: Medicines Take wfug-yll-kpcxvep and prescription medicines only as told by [...] provider. Document Revised: 06/26/2023 Document Reviewed: 06/26/2023 [employer] Patient Education 2023 [employer]. Follow Up Care 10/03/2024 08:08:47 With:NEGRA NAVAS, CHRIS Wagner, URL Address: [address] [address] Business (1) When: Unknown Comments:pending results of imaging/testing, will call with next steps [facility] 11-19-2024 NotePatient Education Urology Kidney Stones Kidney stones are [...] these instructions at home: Medicines ??? Take eskg-sig-plomssz and prescription medicines only as told by [...] provider. Document Revised: 06/26/2023 Document Reviewed: 06/26/2023 [employer] Patient Education ? 2023 [employer].[facility] 03-07-2023 Evaluation note* Encounter Date Diagnosis Assessment Notes Treatment Notes Treatment Clinical Notes Feb, Cough (ICD-10 - R05.9) Feb,cute non-recurrent pansinusitis (ICD-10 - J01.40)Pt has preference of being treated with azithromycin [...] of symptoms occur by end of treatment. [employer] Other 04-19-2023 Evaluation + Plan note Diagnostic Tests Pending * PT 03/04/23 * PTT 03/04/23 * PT 03/04/23 Future Scheduled Tests Radiology* XR Abdomen 1 View 02/24/23 [facility] 04-19-2023 Hospital Discharge instructions Patient Education 03/04/2023 11:52:31 Kidney Stones, Gfxf-ub-Cgxi Kidney Stones Kidney stones are rock-like masses [...] Follow these instructions at home: Medicines Take jycp-wbp-htcgqqo and prescription medicines only as told by [...] provider. Document Revised: 07/07/2022 Document Reviewed: 07/07/2022 [employer] Patient Education 2022 [employer]. Follow Up Care 02/05/2023 09:42:12 With:NGA HANNON, Naveen Morrissey, URL Address: [facility] [address] [place], [place] [address]- When: Unknown [facility] 04-17-2023 NotePROCEDURE: XR KUB 1 VIEW [...] Electronically authenticated by: DALJIT SMITH Date: 2023-03-02 12:37[facility]01-12-2023 Evaluation note* Encounter Date Diagnosis Assessment Notes Treatment Notes Treatment Clinical Notes Nov, Right otitis media with effusion (ICD-10 - H65.91) take medication as directed. Middle ear fluid can be caused from allergies, traveling or viral infections. It may linger. Follow up with PCP if symptoms persist [employer] Other Evaluation + Plan note Future Appointments Appointment Date:07/24/2022 09:00:00 AM Scheduled Provider: Location:.XRAY Appointment Type:XR MBS Adult (FT) Future Scheduled Tests Radiology* XR Adult Swallowing Function w/ Video: Evaluate Pt, Develop a Plan of Care & Implement Plan 07/24/22 [facility] evaluation + Plan note Future Appointments Appointment Date:08/07/2025 11:20:00 AM Scheduled Provider:Sarah Marques Location:[facility] Appointment Type:URO Office Visit Future Scheduled Tests Radiology* CT Urogram 05/02/25 [facility] evaluation + Plan note Future Appointments Appointment Date:08/07/2025 11:20:00 AM Scheduled Provider:Sarah Marques Location:[facility] Appointment Type:URO Office Visit Diagnostic Tests Pending * Urine Culture 05/02/25 Future Scheduled Tests Radiology* CT Urogram 05/02/25 [facility] evaluation + Plan note Future Appointments Appointment Date:05/23/2025 04:00:00 PM Scheduled Provider: Location:.CAT SCAN Appointment Type:CT Abdomen/Pelvis Combo () Appointment Date:08/07/2025 11:20:00 AM Scheduled Provider:Sarah Marques Location:[facility] Appointment Type:URO Office Visit Future Scheduled Tests Radiology* CT Urogram 05/23/25 [facility] [place] Evaluation + Plan note Future Appointments Appointment Date:08/07/2025 11:20:00 AM Scheduled Provider:Sarah Marques Location:[facility] Appointment Type:URO Office Visit [facility] evaluation note* Diagnosis Well woman exam with routine gynecological exam Routine gynecological examination Breast cancer screening by mammogram Vaginal discharge Leukorrhea, not specified as infective STD exposure Stress incontinence Female stress incontinence documented in this encounter [facility] HealthcareHistory general Narrative - Reported* Type Description Date Medical History seasonal/environmental allergies Medical Historyacid refluxMedical HistorygastritisSurgical Historycosmetic surgerySurgical HistoryEGDHospitalization Historychildbirth [facility] Other Hospital course Narrative No data available for this section [facility] Discharge instructions No data available for this section [facility] Progress note No data available for this section [facility] Summary Purpose Family History No Family History [...] Care Team (unrecognized sect ion and content) Team MemberRelationshipSpecialtyStart DateEnd Date Deondre Potts, [address] [place] [address] PCP - [facility]11/16/24Team MemberRelationshipSpecialtyStart DateEnd Date Deondre Potts, DO [address] [place] [address] PCP - [facility]11/16/24 REASON FOR VISIT (unrecogniz ed section and content) ReasonCommentsWell Women Visit INFORMATION SOURCE (unrecogn ized section and content) DATE CREATED AUTHOR 03/21/2023 [facility] DATE CREATED AUTHOR AUTHOR'S ORGANIZ ATION 03/24/2025 [facility] DATE CREATED AUTHOR AUTHOR'S ORGANIZ ATION 05/08/2025 [facility] DATE CREATED AUTHOR AUTHOR'S ORGANIZ ATION 05/12/2025 [facility] DATE CREATED AUTHOR AUTHOR'S ORGANIZ ATION 06/07/2025 [facility] DATE CREATED AUTHOR AUTHOR'S ORGANIZ ATION 08/10/2025 [facility] DATE CREATED AUTHOR AUTHOR'S ORGANIZ ATION 08/26/2025 [facility] FOR RECORDS PERTAINING TO PATIENTS WHO [...] BE BASED ON THE PRIMARY CLINICAL RECORDS. [facility] [employer] [facility]. provides no warranty or guarantee of the accuracy or completeness of information in this document.
--- OUTSIDE RECORDS SUMMARY | 2025-10-10 23:35 | XMS_ITS | Patient Health Record ---
Author Organization [facility] in [place] Address [address] [place] [address] Care Team Providers Care Outsole Flexer Name Role Phone Nancy Hogan Primary Care Provider [phone] Allergies Allergen (clinical drug ingredient) Drug/Non Drug Allergy documented on EMR Reaction Allergy Type Onset Date Status codeine Codeine vomiting Drug Allergy ActivehydrocodoneHydrocodonevomitingDrug AllergyActivePenicillinblisters mouth & throatDrug AllergyActive Results Component Value Reference Range Notes IGP,Aptima HPV,Age Gdln Reviewed date:03/23/2025 11:54:29 AM Interpretation: Performing Lab: Notes/Report: BRUSH-SPATULA CERVIX ENDOCERVIX [facility] , Age Gdln ACOG Testing Note . TESTS RESULT FLAG UNITS REF RANGE LAB Clinician Provided Cytology Information Source.............Cervix;Endocer vix No. of containers..01 ThinPrep Vial Age Algo ACOG Inez... 30-65 FLAG LEGEND: L-Low Normal,H-High Normal,LL-Alert Low,HH-Alert High <-Panic Low,>-Panic High,A-Abnormal,AA-Critical Abnormal Performed at: 01 =[facility] [address] [facility] [place] [address] Kassandra Phillips MD, IGP, Aptima HPV, rfx 16/18,45 Note . TESTS RESULT FLAG UNITS REF RANGE LAB DIAGNOSIS: 02 NEGATIVE FOR INTRAEPITHELIAL LESION OR MALIGNANCY. Specimen adequacy: 02 Satisfactory for evaluation. Endocervical and/or squamous metaplastic cells (endocervical component) are present. Performed by: 02 Deven Olmstead, Vending Machine Servicer (ASCP) . 02 Note: Note 02 The [...] <-Panic Low,>-Panic High,A-Abnormal,AA-Critical Abnormal Performed at: [address] [address] Kassandra Phillips MD, HPV Aptima Negative Negative This nucleic acid amplification test detects fourteen high- risk HPV types (16,18,31,33,35,39,45,51,52,56,58 ,59,66,68) without differentiation. Performed at: = - [facility] [id number] Ice Cream Man: Kassandra Phillips MD, Phone: [phone] Performed at: [address] [id number] Ice Cream Man: Kassandra Phillips MD, Phone: [phone] Performing Lab: see note [facility] LBCBC AUTO DIFF Reviewed date:06/29/2025 01:13:11 PM Interpretation: Performing Lab: Notes/Report: [facility] ,White Blood Count8.54.0-11.0 10 3/uLRed Blood Count4.654.20-5.40 10 6/uL Hrogfqdowe16.012.0-16.0 g/xIXfozfgqkti27.436.0-48.0 %Mean Corpuscular Wszaad43.0 81.0-99.0 fLMean Corpuscular Xsfolwzchh90.126.7-34.0 pgMean Corpuscular HGB Conc 33.829.9-35.2 g/dLRed Cell Distribution Width12.211.0-15.0 %Platelet Pyrvr795 150-450 10 3/uLMean Platelet Tgixko75.19.5-13.5 fLNeutrophils Percent Auto73.4 43.0-75.0 %Lymphocytes Percent Auto20.620.5-60.0 %Monocytes Percent Auto4.91.7- 12.0 %Eosinophils Percent Auto0.50.9-7.0 %Basophils Percent Auto0.40.2-2.0 % Immature Granulocytes Pct Auto0.20.0-0.5 %Neutrophils Absolute Auto6.31.4-6.5 10 3/uLLymphocytes Absolute Auto1.81.2-3.8 10 3/uLMonocytes Absolute Auto0.40.3-0.8 10 3/uLEosinophils Absolute Auto0.00.0-0.7 10 3/uLBasophils Absolute Auto0.00.0- 0.1 10 3/uLImmature Granulocytes Abs Auto0.020.00-0.03 10 3/uLPerforming Lab:see note - [facility] LBFREE T3 Reviewed date:06/29/2025 01:13:11 PM Interpretation: Performing Lab: Notes/Report: [facility] ,Free T32.832.18-3.98 pg/mLPerforming Lab:see [facility] LB GLYCOHEMOGLOBIN A1C Reviewed date:06/29/2025 01:13:11 PM Interpretation: Performing Lab: Notes/Report: [facility] ,Glycohemoglobin A1C5.04.5-6.2 % ADA RECOMMENDED LIMIT 4.0 - 6.0 ADA THERAPEUTIC TARGET < 7.0 ACTION SUGGESTED > 7.0 Estimated Average Qlqucno94Gdwdmjyjxz Lab:see note - [facility] LB T4 Reviewed date:06/29/2025 01:13:11 PM Interpretation: Performing Lab: Notes/Report: [facility] ,T4 Thyroxine6.604.80-13.90 ug/dLPerforming Lab:see [facility] LBTSH Reviewed date:06/29/2025 01:13:11 PM Interpretation: Performing Lab: Notes/Report: [facility] ,Thyroid Stimulating Hormone1.5810.358-3.740 uIU/mLPerforming Lab:see [facility] LBVITAMIN D 25 [place] Reviewed date:06/29/2025 01:13:11 PM Interpretation: Performing Lab: Notes/Report: [facility] ,Vitamin D23.9 <20 ng/mL Vit D deficient 20-<30 ng/mL Vit D insufficient 30-100 ng/mL Vit D sufficient >100 ng/mL Potential Toxicity Performing Lab:see [facility] LBXR shoulder FELIZ min 2V Reviewed date:06/29/2025 01:13:11 PM Interpretation: Performing Lab: Notes/Report: Source Facility: [facility]-[address] [place] [address] [place] [address] XRay Report Signed Patient: SARA BOSWELL MR#: [id number] : 1985 Acct:[id number] Age/Sex: 40 / F ADM Date: 06/29/25 Loc: CARD Attending Dr: NANCY HOGAN Ordering Physician: NANCY HOGAN Date of Service: 06/29/25 Procedure(s): XR shoulder FELIZ min 2V Accession Number(s): [id number] cc: NANCY HOGAN [place] [address] Patient Name: SARA BOSWELL MRN: [id number] date: 1985 Sex: F Assigned Patient Location: CARD Current Patient Location: CARD Accession/Order Number: [id number] Exam Date: 06/29/2025 09:53 Report Date: 06/29/2025 [...] change. Impression dictated by: King Babcock Jr., Sean 06/29/2025 9:54 AM Dictation Location: [place] [address] Electronically authenticated by: [id number] Y Date: 06/29/2025 09:54 Dictated By: King Babcock M.D. Signed By: 06/29/25 0956 DD/ TD/TT: Explosion Welder:DANIEL Micro, reflex to culture (Not yet reviewed by provider) Interpretation: Performing Lab: Notes/Report: [facility] ,Color UrineYELLOWYELLOWClarity UrineCLEARCLEARSpecific [place] Urine>=1.030 1.005-1.025pH Urine5.55.0-9.0Protein Jxhta187UJH/TRACE mg/dLGlucose Urine UA NEGATIVENEGATIVE mg/dLBilirubin UrineNEGATIVENEGATIVEKetones UrineTRACENEGATIVE mg/dLBlood UrineLARGENEGATIVENitrite UrineNEGATIVENEGATIVEUrobilinogen Urine0.2 0.2-1.0 EU/dLLeukocyte Esterase UrineNEGATIVENEGATIVEWBC Urine0-2NONE SEEN #/HPF RBC Nwoez67-561-3 #/HPFBacteria UrineMODERATENONE SEEN #/HPFMucus UrineNONE SEEN NONE SEENSquamous Epithelial Cell UrineFEWNONE/RARE #/LPFCrystals Seen?SeenNone Seen #/HPFCalcium Oxalate Crystals UrineFEWCast Seen?NONE SEENNONE SEEN #/LPF Urine Culture IndicatedYES-FRMCPerforming Lab:see noteML - [facility] LBUrine Culture - [facility] (Not yet reviewed by provider) Interpretation: Performing Lab: Notes/Report: [facility] ,[facility]rine [facility] - [facility] Below For Report Urine Culture - [facility] PEND Pending - Specimen sent to [facility]^Pending - Specimen sent to [facility] Performing Lab:see noteML - [facility] LBNM silvio perf SPECT rest str Reviewed date:07/26/2025 11:51:59 AM Interpretation: Performing Lab: Notes/Report: Source Facility: [place] [address] Nuclear Medicine Report Signed Patient: SARA BOSWELL MR#: [id number] : 1985 Acct:[id number] Age/Sex: 40 / F ADM Date: 07/24/25 Loc: NM Attending Dr: NANCY HOGAN Ordering Physician: NANCY HOGAN Date of Service: 07/24/25 Procedure(s): NM silvio perf SPECT rest str Accession Number(s): [id number] cc: NANCY HOGAN Patient Name: SARA BOSWELL MR#: [id number] : 1985 Exam Date: 07/24/2025 Ordering Doctor: NANCY HOGAN [facility] RADIOLOGY REPORT PROCEDURE: NM SILVIO PERF SPECT REST STR COMPARISON: None. INDICATIONS: CHEST PAIN TECHNIQUE: Exam Description: Stress/Rest one day protocol gated SPECT Rest Imagin.9 mCi Tc-99m Cardiolite IV on 07/24/2025 Stress Imaging 30.4 mCi Tc-99m Cardiolite IV on 07/24/2025 Exercise Protocol: 0.4 mg Lexiscan given IV Heart Rate (bpm): Rest: 57 Max: 104 PMHR: 58 Blood Pressure: Rest: 120/79 Max: 131/78 Symptoms: Rest and peak stress ECG findings were pending, and the exercise portion of the study was pending per attending physician [facility]. For more details, please see separate cardiac stress test report. FINDINGS: QUALITY OF STUDY: Good PERFUSION DEFECT: LOCATION: N/A SIZE: N/A SEVERITY: N/A TYPE: N/A WALL MOTION: Normal wall motion LV SIZE: 78 mL. TID / TCD: 0.8 LVEF: Calculated EF 78%. SUMMARY: Myocardial perfusion imaging study is normal CONCLUSION: 1. Myocardial perfusion is normal with soft tissue attenuation 2. Global left ventricular systolic function is hyperdynamic; EF 78% 3. No significant transient ischemic dilatation Dictated by: Marshall Anne M.D. on 07/25/2025 at 14:29 Approved by: Marshall Anne M.D. on 07/25/2025 at 14:31 Dictated By: Marshall Anne M.D. Signed By: 07/25/25 1432 DD/ 1431 TD/TT: Explosion Welder:PROF Pat(COMP METB) Reviewed date:06/29/2025 01:13:11 PM Interpretation: Performing Lab: Notes/Report: [facility] ,Imomfp199918-075 mmol/LPotassium4.53.5-5.1 mmol/HAecchnrw38513-592 mmol/LCarbon Ylfdpgs35.721.0-32.0 mmol/LAnion Gap12.9Logcuvd6949-158 mg/dLBlood Urea Nitrogen 14.07.0-18.0 mg/dLCreatinine0.710.55-1.02 mg/dLEstimated GFR ( Elana>60 >=60 mL/min/1.73m 2Estimated GFR (Non- Keysha>60>=60 mL/min/1.73m 2BUN Creatinine Ratio19.0Kzdvccf9.28.5-10.1 mg/dLBilirubin Total0.50.2-1.0 mg/dL Aspartate Amino Eihccnbwvew6764-08 U/LAlanine Yihwmcrixhyvwgoc0019-69 U/L Alkaline Mlpstoitifg7859-212 U/LTotal Protein8.06.4-8.2 g/dLAlbumin Level4.03.4- 5.0 g/dLGlobulin4.0Albumin Globulin Ratio1.0Performing Lab:see noteML - [facility] LBLIPID PROFILE Reviewed date:06/29/2025 01:13:11 PM Interpretation: Performing Lab: Notes/Report: [facility] ,Ybgmmnsmkxyzn103<=150 mg/fWBvzpaciyrsp810<=200 mg/dLHDL Mjssjskwqnn5176-35 mg/dL > or =60 mg/dl - LOW CARDIOVASCULAR RISK <40 mg/dl - HIGH CARDIOVASCULAR RISK LDL Cholesterol Xlrzdfwczc940.0 <100 mg/dl OPTIMAL 100-129 mg/dl NEAR OR ABOVE OPTIMAL 130-159 mg/dl BORDERLINE HIGH 160-189 mg/dl HIGH >190 mg/dl VERY HIGH VLDL VGVRWGFWDCX85.6Chol HDL Ratio4.2 3.3 - 4.4 LOW RISK 4.4 - 7.1 AVERAGE RISK 7.1 - 11.0 MODERATE RISK >11.0 HIGH RISK Performing Lab:see note - [facility] LBIRON Reviewed date:06/29/2025 01:13:11 PM Interpretation: Performing Lab: Notes/Report: [facility] ,Iron81.050.0-170.0 ug/dLPerforming Lab:see note - [facility] LB INSULIN Reviewed date:06/30/2025 09:30:04 AM Interpretation: Performing Lab: Notes/Report: [facility] ,Txaxtbc82.82.6-24.9 uIU/mL Performed at: - [facility] [address] [id number] Ice Cream Man: Merritt Hathaway PhD, Phone: [phone] Performing Lab:see note - [facility] LBCOVID-19, Flu A+B IH Reviewed date:07/26/2025 11:51:59 AM Interpretation: Performing Lab: Notes/Report: COVID-FLU A-FLU B-Control+ Reason For Referral Diagnosis 1 Intermittent chest p ain (R07.9) Referral Organization [facility] Referring Provider First Name Nancy Referring Provider Last Name Samira [facility] Referred Provider [facility]iology[facility]io [facility] Referred Provider Specialty Cardiology Referral Priority Routine Medications Medication SIG (Take, Route, Frequency, Duration) Notes Start Date End Date Status Albuterol Sulfate HFA 108 (9 0 Base) MCG/ACT 1 puff as needed Inhalation every 4 hrs; Duration: 30 days 5Active Social History Tobacco Use: Social History Observation Description Date Details (start date - stop date) Never Smoker NA - NA Tobacco Use/Smoking Question Answer Notes Patient is a nonsmoker Alcohol Screen (Audit-C) Question Answer Notes Did you have a drink containing alcohol in the p ast year? No Dkmncz4QelpdmbxfnacloUathffvmJNOEX-U (Standard) Question Answer Notes Did you have a drink containing alcohol in the p ast year? No Kmlxic4LikwxjcgdfyfrkStybmlso Problems Problem Type SNOMED Code ICD Code Onset Dates Problem Status W/U Status Risk Notes Problem Sinusitis (27237821) Sinusitis (J32.9) ActiveconfirmedProblemPure hypercholesterolemia (749437820)Elevated LDL cholesterol level (E78.00)Activeconfirmed Vital Signs Temperature 98.0 degrees Fahrenheit 01/19/2025 Blood pressure ezitrhyda62 mm Hg08/22/20250549Lbwdbs69 in08/22/2025lood pressure sdqejmhv115 mm Hg08/22/20250649Fqrems420 lbs1MI32.11 kg/m208/22/2025 Procedures Procedure Date Ordered Date Performed Result Body Sit e Echocardiogram 06/01/2025 N/ACARDIO Stress Test - Treadmill Vbxmajnh17/17/2025N/ACARDIO Stress Test - Lexiscan Hepbqxh7806/30/2025N/A Encounters Encounter Location Date Provider Diagnosis [facility] [address] [place] [address] 01/19/2025 Nancy Hogan Bronchitis J40 and Sinusitis J32.9 [facility] [address] [place] [address] 06/01/2025 Nancy Hogan Right shoulder pain M25.511 ; Intermittent chest pain R07.9 and Wellness examination Z00.00 [facility] [address] [place] [facility] [address] 08/22/2025 Nancy Samira SOB (shortness of breath) on exertion R06.02 and Elevated LDL cholesterol level E78.00 [facility] [address] [place] [facility] [address] 06/28/2025 Nancy Samira Intermittent chest pain R07.9 [facility] [address] [place] [address] 06/29/2025 Nancy Samira [facility] [place] [address] 06/30/2025Pamela CramerChest pain R07.9[facility] [place] [facility] [address]/08/2025[facility]merBu[facility] [place] [address]/Pamela Samira Assessments Encounter Date Diagnosis (ICD Code) Assessment Notes Treatment Notes Treatment Clinical Notes Section Notes 01/19/2025 Bronchitis (ICD-10 - J40) 01/19/2025Sinusitis (ICD-10 - J32.9) give some more time if sinus pain pressure, fever, can start zpack rest push fluids 06/01/2025Right shoulder pain (ICD-10 - M25.511)06/01/2025Intermittent chest pain (ICD-10 - R07.9)08/22/2025SOB (shortness of breath) on exertion (ICD-10 - R06.02) cardiology workup negative daily exercise recommended and work on healthy diet handouts given trial of albuterol, exercise induced asthma? if not helping will order PFT, chest xray , fu with pulm as needed 06/28/2025Intermittent chest pain (ICD-10 - R07.9)06/30/2025hest pain (ICD-10 - R07.9)08/22/2025Elevated LDL cholesterol level (ICD-10 - E78.00) work on regular exercise routine work on diet, handouts given 06/01/2025Wellness examination (ICD-10 - Z00.00) ROS done exam done juan carlos gaffney Plan Of Treatment Pending Test Test Name Order Date HEMOGLOBIN A1C (GLYCO) 06/01/2025 IRON, TOTAL 06/01/2025 LIPID PANEL (CHOL/TRIG/HDL/LDL) 06/01/20 25 VITAMIN D, 25 LEVEL (TOTAL) 06/01/2025 Echocardiogram 06/01/2025 XR Elbow RT (3 views) * 12/25/2023 CARDIO Stress Test - Treadmill Exercise 06/01/2025 CARDIO Stress Test - Lexiscan Nuclear Insulin Level 06/01/2025 THYROID PANEL (T4/TSH/FREE T3) 5 XR SHOULDER FELIZ 2V or > 06/01/2025 CMP (COMP MET GREEN) w/eGFR CKD-EPI 2024 UA Micro, reflex to culture 10/10/2025 Urine Culture - [facility] 10/10/2025 CBC WITH DIFF 06/01/2025 Insurance Providers Payer Name Payer Address Payer Phone Subscriber Number Group Number Insured Name Patient Relationship to Insured Coverage Start Date Coverage End Date [employer] [place] [employer] [address] [place] [address] [id number] Antonio Boswellelf - patient is the [id number] 2024[employer] [place] MED[address] [place] [id number], Julie Self - patient is the Medical (General) History Medical History History ICD Code Anxiety F41.9 COVID-19 U07.1 Dysphagia R13.10 Acid reflux K21.9 Kidney stones N20.0 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
--- OUTSIDE RECORDS SUMMARY | 2025-10-10 23:35 | XMS_ITS | Clinical Summary ---
Author Organization [facility] Address [address] [place] [address] Care Team Providers Care Wine Cellar Stock Clerk Name Role Phone Deondre Potts DO Unavailable Allergies Active AllergyReactionsCriticalityNoted DateCommentsCodeineGI intolerance 03/09/2024HydrocodoneGI escqquzbddq87/24/8111CgqyudqlermRilmtdj52/24/2024 Medications MedicationSigDispense QuantityRefillsLast FilledStart DateEnd DateStatus Levonorgestrel (Mirena, 52 MG,) 20 MCG/DAY intrauterine device IntrauterineActive ondansetron ODT (Zofran-ODT) 4 MG disintegrating tablet DISSOLVE 1 TABLET ON THE TONGUE EVERY 6 HOURS NEEDED FOR XQAHOK2202/15/2024 Active cetirizine (ZyrTEC ALLERGY) 10 MG tablet Take 10 mg by mouth Daily as needed for allergiesActive Social History Tobacco UseTypesPacks/DayYears UsedDateSmoking Tobacco: Never Assessed CommentsNoSex and Gender InformationValueDate RecordedSex Assigned at BirthNot on fileLegal YvvQutawm46/15/2023 7:06 PM EDTGender IdentityNot on fileSexual OrientationNot on file Last Filed Vital Signs Vital SignReadingTime TakenCommentsBlood Wdfkiyui074/70003/21/2025 10:17 AM EDT Pulse--Temperature--Respiratory Rate--Oxygen Saturation--Inhaled Oxygen Concentration--Bfpdnu05.8 kg (195 lb 12.8 oz)03/21/2025 10:17 AM ALOTxolqz465.1 cm (5' 5 )03/15/2024 10:42 AM EDTBody Mass Index32.58003/15/2024 10:42 AM EDT Plan of Treatment DateTypeDepartmentCare Team (Latest Contact Info)Ughwyxqynfb71/12/2026 11:00 AM EDTOffice Visit [facility] [address] [place] [address] Deondre Potts DO [address] [place] [address] Health MaintenanceDue DateLast GzvvIweqznqgJdwckoyok76/05/2024OVID-19 Vaccine (2024- season)2025Influenza Vaccine (#1)2025HPV/Cotest 03/10/2028Cervical Cancer Xkwftjuvl79/30/2028Pap Smear, 03/10/2023neumococcal Vaccine: Pediatrics (0 to 5 Years) and At-Risk Patients (6 to 64 Years)Aged OutNo longer eligible based on patient's age to complete this topic Procedures Procedure NamePriorityDate/TimeAssociated DiagnosisCommentsPAP SMEARRoutine 03/15/2025 12:00 AM EDTfrom Last 3 Months or Most Recently Relevant to Health Maintenance Results * Pap Smear (03/15/2025 12:00 AM EDT)Specimen (Source)Anatomical Location / LateralityCollection Method / VolumeCollection TimeReceived TimeSwabCervical swab / Unknown Narrative Authorizing ProviderResult TypeResult StatusFazio Nurse Noms [facility] ObLAB CYTOLOGY ORDERABLESFinal ResultPerforming OrganizationAddressCity/State/ZIP CodePhone Number EXTERNAL LAB from Last 3 Months or Most Recently Relevant to Health Maintenance Insurance Care Teams Team MemberRelationshipSpecialtyStart DateEnd Date Deondre Potts DO [address] [place] [address] [facility]11/16/24
--- OUTSIDE RECORDS SUMMARY | 2025-10-10 23:35 | XMS_ITS | Clinical Summary ---
Author Organization [facility] Address [address] [place] [address] Care Team Providers Care Maintenance And Repair Worker Name Role Phone Nancy Hogan HEIDY Primary Care Provider [phone] Allergies Active AllergyReactionsCriticalityNoted DateCommentsCodeineGI intolerance, Ymrumts0703/09/20248581TftbeamfpnpHzhvbvs86/24/2024 Medications MedicationSigDispense QuantityRefillsLast FilledStart DateEnd DateStatus cetirizine (ZyrTEC) 10 mg tablet Take 10 mg by mouth if needed each day.Active Active Problems ProblemNoted DateDiagnosed DatePure thhpmlydlctfdcwhvitd52/24/2025Sinusitis 08/09/2025 Encounters DateTypeDepartmentCare AfpgIulukqmzwze51/24/2025 1:00 PM EDTOffice Visit [facility] [address] [place] [address] Joesph Armenta MD Precordial pain (Primary Dx); Pure hypercholesterolemiafrom Last 3 Months Family History Medical HistoryRelationNameCommentsHeart attackBrotherHyperlipidemiaFather HypertensionFatherAortic stenosisMotherRelationNameStatusCommentsBrotherAlive FatherAliveMotherAlive Social History Tobacco UseTypesPacks/DayYears UsedDateSmoking Tobacco: NeverPassive Smoke Exposure: CurrentSmokeless Tobacco: Never Tobacco Cessation:Counseling Given: Not Answered Alcohol UseStandard Drinks/WeekCommentsNot Currently0 (1 standard drink = 0.6 oz pure alcohol)CommentsUnknownSex and Gender InformationValueDate Recorded Sex Assigned at HvhbzWklqhy56/14/2025 11:03 AM EDTLegal TqrTxykor83/14/2025 10:52 AM EDTGender VkurfpbdWrogmc04/14/2025 11:03 AM EDTSexual Orientation Heterosexual or Gjhtbbdp52/14/2025 11:03 AM EDT Last Filed Vital Signs Vital SignReadingTime TakenCommentsBlood Tsydzznh646/8109 1:02 PM EDT Pulse--Temperature--Respiratory Rate--Oxygen Saturation--Inhaled Oxygen Concentration--Ofbpzz36 kg (194 lb)08/09/2025 1:02 PM TXHAevsdi166.1 cm (5' 5 ) 08/09/2025 1:02 PM EDTBody Mass Index32.28008/09/2025 1:02 PM EDT Plan of Treatment Health MaintenanceDue DateLast DoneCommentsDepression Mlvzmgyed45/05/1996 Varicella Vaccines (1 of 2 - 13+ 2-dose series)1997Hepatitis B Vaccines (1 of 3 - 19+ 3-dose series)2003Adult Tabrbce2203/20/2006HPV Vaccines (1 - 3- dose SCDM series)2011HPV/Tlleyw2603/20/20146697Cwozphbde71/05/2024COVID-19 Vaccine ( season)2025Influenza Vaccine (#1)5Cervical Cancer Pzdumesvs17/30/2028Pap Smear8003/15/2025Zoster Vaccines (1 of 2) 2034HIB VaccinesAged OutNo longer eligible based on patient's age to complete this topicIPV VaccinesAged OutNo longer eligible based on patient's age to complete this topicMeningococcal B VaccineAged OutNo longer eligible based on patient's age to complete this topicMeningococcal VaccineAged OutNo longer eligible based on patient's age to complete this topicPneumococcal Vaccine: Pediatrics (0 to 5 Years) and At-Risk Patients (6 to 64 Years)Aged OutNo longer eligible based on patient's age to complete this topicRotavirus VaccinesAged Out No longer eligible based on patient's age to complete this topic Insurance Care Teams Team MemberRelationshipSpecialtyStart DateEnd Date Nancy Hogan CNP [facility] [facility], [facility] [place] [address] PCP - GeneralFamily Medicine08/08/25
[2025-10-10] MEDS: 0.9 % SODIUM CHLORIDE 1,000 ML 999 ML IV (23:46)
[2025-10-10 23:47] LABS: Hematocrit 38.9 % (36.0-48.0); Hemoglobin 13.2 g/dL (12.0-16.0); Immature Granulocytes Abs Auto 0.03 10^3/uL (0.00-0.03); Immature Granulocytes Pct Auto 0.3 % (0.0-0.5); Lymphocytes Absolute Auto 3.3 10^3/uL (1.2-3.8); Mean Corpuscular HGB Conc 33.9 g/dL (29.9-35.2); Mean Corpuscular Hemoglobin 30.5 pg (26.7-34.0); Mean Corpuscular Volume 89.8 fL (81.0-99.0); Platelet Count 258 10^3/uL (150-450); Red Blood Count 4.33 10^6/uL (4.20-5.40); White Blood Count 9.1 10^3/uL (4.0-11.0)
[2025-10-10 23:56] LABS: Anion Gap 10.3; Blood Urea Nitrogen 17.0 mg/dL (7.0-18.0); Calcium 9.3 mg/dL (8.5-10.1); Carbon Dioxide 28.3 mmol/L (21.0-32.0); Chloride 104 mmol/L (98-107); Estimated GFR (African America >60 (>=60 mL/min/1.73m^2); Estimated GFR (Non-African Ame >60 (>=60 mL/min/1.73m^2); Glucose 94 mg/dL (74-106); Potassium 3.6 mmol/L (3.5-5.1); Sodium 139 mmol/L (136-145)
[2025-10-11 00:05] LABS: Lactate/Lactic Acid 0.7 mmol/L (0.4-2.0)
[2025-10-11] MEDS: SULFAMETHOXAZOLE/TRIMETHOPRIM 800-160 MG TABLET 1 TAB PO (01:07)
--- NOTE | 2025-10-11 01:12 | PC.NURSE ---
i gave this patient verbal and written discharge orders along with 1 Rx and this patient voices yes to understanding these. at time of discharge this patient voices no concerns, needs and shows no signs of distress
== END 2025-10-11 01:11 | disposition home or self-care (01) ==
PROVIDERS: Emergency Provider Internal Medicine; PCP Nurse Practitioner Family
DX: R31.9 Hematuria, unspecified (principal); Z87.442 Personal history of urinary calculi
CPT/HCPCS: 36415; 74176; 80048; 81001; 83605; 85025; 87086; 99284